=== PATIENT | female | born 1950 | race Caucasian/White ===

== ENCOUNTER 2023-09-25 21:45 | Emergency (ER) | payer MEDICARE, OTHER, SELFPAY ==
--- NOTE | ~2023-09-25 | XR_ITS ---
EXAMINATION: XR foot LT min 3V DATE: 09/25/2023 23:51 INDICATION: Wound of the left first toe, diabetic TECHNIQUE: Dorsoplantar, lateral, and 2 oblique views of the left foot were obtained. COMPARISON: None. FINDINGS: There is soft tissue swelling of the foot near the first and fifth metatarsophalangeal join ts. No acute underlying osseous findings are identified. An orthopedic screw is present in the first metatarsal. 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 Posterior and plantar calcaneal e nthesophytes are noted. IMPRESSION: 1. Soft tissue swelling without acute osseous findings or evidence of osteomyelitis. Reviewed, dictated and finalized at location F. IMPRESSION: 1. Soft tissue swelling without acute osseous findings or evidence of osteomyel itis.
[2023-09-25 22:22] VITALS: BP 133/64; PULSE 86; RESP 20; TEMP 37.3; O2SAT 98
--- NOTE | 2023-09-26 00:54 | ED.EXTPRO ---
HPI - Extremity Problem General Chief complaint: Extremity Problem,Nontraumatic Stated complaint: infection in left foot Time Seen by Provider: 09/25/23 23:25 History of Present Illness HPI Narrative: 73-year-old female reports for evaluation for redness to the dorsum of her L foot that started today. Patient states approximately 1 week ago, she began picking at the lateral nail fold of her great toe because she thought there was something stuck in her skin. Since then, she has had swelling and today developed redness which prompted her to come to the ED. 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 She has followed with a applied technologist at [facility], however has not been seen for 1 year. States her applied technologist has left since. She tried to schedule an appointment recently, however was unable to get in until December 2023, therefore she came to the ED. She reports soaking her toe in Betadine with improvement. Denies fevers, vomiting, nausea, purulent drainage. Related Data Allergies Allergy/AdvReac Type Severity Reaction Status Date / Time clindamycin Allergy Rash Verified 09/25/23 22:40 metformin Allergy Diarrhea Verified 09/25/23 22:32 Penicillins Allergy Rash Verified 09/25/23 22:32 Review of Systems Review of Systems: CONSTITUTIONAL: Denies fever, chills EYES: Denies visual changes, redness, or discharge. ENT: Denies rhinorrhea, congestion, sore throat, or otalgia. CARDIOVASCULAR: Denies chest pain, palpitations, or edema. RESPIRATORY: Denies cough or dyspnea. GASTROINTESTINAL: Denies abdominal pain, nausea, vomiting, or diarrhea. GENITOURINARY: Denies dysuria or hematuria. SKIN: See HPI MUSCULOSKELETAL: Denies back pain, joint pain, or myalgia. NEUROLOGIC: Denies headache, numbness, dizziness, or weakness. PSYCHIATRIC: Denies anxiety or depression. Exam Narrative: GENERAL: Well-appearing, in no acute distress. Patient resting comfortably in exam bed. She is pleasant and conversational. HEAD: Normocephalic NECK: Supple. CHEST: No respiratory distress. Clear to auscultation, no adventitious breath sounds. HEART: Regular rate and rhythm. No murmur heard. Normal peripheral pulses. ABDOMEN: Soft, nontender, normal active bowel sounds. EXTREMITIES: Normal range of motion. No edema. SKIN: LLE: Superficial abrasion to the distal lateral nail fold of the great toe with surrounding blanching erythema and warmth that extends to the proximal metatarsals. Mild amount of edema. No other open lesions or ulcerations to remainder of foot. DP pulses 2+. Cap refill less than 2. No active drainage from abrasion. NEURO: No focal deficits. Alert and oriented x3. PSYCH: Normal mood and affect. Course Vital Signs Vital signs: Vital Signs Temperature 99.2 F 09/25/23 22:22 Pulse Rate 86 09/25/23 22:22 Respiratory Rate 20 09/25/23 22:22 Blood Pressure 133/64 09/25/23 22:22 Pulse Oximetry 98 09/25/23 22:22 Oxygen Delivery Room Air 09/25/23 22:22 Temperature 99.2 F 09/25/23 22:22 Pulse Rate 86 09/25/23 22:22 Respiratory Rate 20 09/25/23 22:22 Blood Pressure 133/64 09/25/23 22:22 Pulse Oximetry 98 09/25/23 22:22 Oxygen Delivery Room Air 09/25/23 22:22 MDM - Extremity (Nontraumatic) MDM Narrative Medical decision making narrative: 73-year-old female reports for evaluation for erythema to the dorsum of her left great toe and proximal metatarsals starting today. See HPI for further history. Her vitals are stable and she is afebrile. Exam is significant for cellulitis to the dorsum of the left foot. She is otherwise well-appearing. X-ray of the left toe shows soft tissue swelling without acute osseous findings or evidence of osteomyelitis. CBC with mild leukocytosis of 10.1. Hemoglobin is 10.3, no prior for comparisons. Chemistries significant for BUN of 26 and creatinine of 1.3, again no
[2023-09-26] MEDS: ceFAZolin 1 GM/NS 50 ML 1 GM/50 ML BAG IVPB (01:17)
[2023-09-26 01:20] LABS: Basophils Percent Auto 0.4 % (0.2-1.2); Eosinophils Absolute Auto 0.2 K/mm3 (0-0.3); Eosinophils Percent Auto 2.1 % (0-4.4); Hematocrit 31.9 % (37.0-47.0); Hemoglobin 10.3 g/dL (12.0-15.0); Immature Granulocyte Absolute 0.05 K/mm3 (0.00-0.031); Immature Granulocyte Percent A 0.5 % (0-0.5); Lymphocytes Absolute Auto 2.17 K/mm3 (0.9-3.2); Lymphocytes Percent Auto 21.4 % (18.3-44.2); Mean Corpuscular HGB Conc 32.3 g/dl (32-36); Mean Corpuscular Hemoglobin 30.2 pg (26-34); Mean Corpuscular Volume 93.5 fl (80-100); Mean Platelet Volume 9.5 fl (7.4-10.4); Monocytes Absolute Auto 0.6 K/mm3 (0.1-0.6); Monocytes Percent Auto 6.1 % (2.6-8.5); Neutrophils Percent Auto 69.5 % (45.5-73.1); Platelet Count Result 278 k/mm3 (150-375); Red Blood Count 3.41 M/mm3 (4.2-5.4); Red Cell Distribution Width 13.2 % (11.5-14.5); White Blood Count 10.1 K/mm3 (4.5-10.0)
[2023-09-26 01:36] LABS: Anion Gap 7 mmol/L (8-16); Blood Urea Nitrogen 26 mg/dL (7-17); Calcium 9.3 mg/dL (8.4-10.2); Carbon Dioxide 24 mmol/L (22-30); Chloride 108 mmol/L (98-107); Estimated Glomerular Filt Rate 40; Glucose 88 mg/dL (65-110); Potassium 3.8 mmol/L (3.4-5.0); Sodium 139 mmol/L (137-145)
[2023-09-26 02:02] LABS: Erythrocyte Sedimentation Rate 64 mm/hr (0-20)
[2023-09-26] MEDS: SODIUM CHLORIDE 0.9% IV 1,000 ML 999 ML IV CONT (02:41)
== END 2023-09-26 03:37 | disposition home or self-care (01) ==
PROVIDERS: Emergency Provider Physician Assistant; PCP Internal Medicine
DX: L03.116 Cellulitis of left lower limb (principal); S90.812A Abrasion, left foot, initial encounter; N18.9 Chronic kidney disease, unspecified; D64.9 Anemia, unspecified; X58.XXXA Exposure to other specified factors, initial encounter
CPT/HCPCS: 36415; 73630; 80048; 85025; 85652; 86140; 96361; 96365; 99284; J0690; J7030

== ENCOUNTER 2025-01-02 20:17 | Inpatient (IN) | payer MEDICARE, OTHER, SELFPAY ==
--- NOTE | ~2025-01-02 | XR_ITS ---
EXAMINATION: XR hip LT 2V w AP pelvis DATE: 01/03/2025 08:27 INDICATION: Left hip and knee pain. TECHNIQUE: Anteroposterior view of the pelvis and anteroposterior and frog-leg lateral views of the l eft hip were obtained. COMPARISON: None. FINDINGS: The lower lumbar spine is tilted towards the left. There is severe lower lumbar facet osteoarthritis. Bone alignment is otherwise normal. No fracture or suspected osteonecrosis. There is moderate osteoa rthritis at the bilateral hip and sacroiliac joints. IMPRESSION: 1. 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 Reviewed, dictated and finalized at location B. BUILDER IMPRESSION: 1. 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
--- NOTE | ~2025-01-02 | US_ITS ---
EXAMINATION: US venous doppler [facility] DATE: 01/03/2025 08:37 INDICATION: Left lower limb swelling TECHNIQUE: Grayscale ultrasound images without and with compression and Doppler ultrasound images of the left lower extremity veins were obtained. COMPARISON: None. FINDINGS: The visualized portions of left common femoral vein, profunda (deep) femoral vein, femoral vein, popl iteal vein, peroneal veins, posterior tibial veins, gastrocnemius vein and greater saphenous vein out flow are patent. IMPRESSION: 1. No deep venous thrombosis in the left lower limb. Reviewed, dictated and finalized at location B. OYMENT ATTORNEY
--- NOTE | ~2025-01-02 | XR_ITS ---
EXAM: XR ankle LT min 3V DATE: 01/03/2025 13:37 HISTORY: pain distal fibular shaft . COMPARISON: None available. FINDINGS: Decreased mineralization. No fracture or dislocation. No lytic or blastic lesion. Mild deg enerative change at the ankle joint and in the midfoot. Moderate Achilles and mild plantar enthesopat hy. No erosion or periosteal change. Circumferential soft tissue swelling. Small ankle joint effusion . IMPRESSION: No acute osseous finding in the left ankle. Reviewed, dictated and finalized at location K. OBIOLOGY LAB ASSISTANT
--- NOTE | ~2025-01-02 | XR_ITS ---
Left foot Technique: AP, oblique, and lateral views were obtained. Clinical History: Pain COMPARISON: 09/25/2023 Findings: No acute fracture or dislocation is seen. Stable postoperative change at the first metatars al with degenerative change at the first MTP joint. Additional degenerative changes at the second and third MTP joints are present, with chronic remodeling changes.. Soft tissues are unremarkable. Impression: No acute abnormality. Stable postoperative and degenerative changes, as above. Reviewed, dictated and finalized at location M. IC HEALTH AIDES TEACHER Impression: No acute abnormality. Stable postoperative and degenerative changes, as above.
--- NOTE | ~2025-01-02 | XR_ITS ---
Portable chest x-ray Comparison: None Clinical History: Cough, fever Findings: Lungs are clear, without focal consolidation or pleural effusion. Cardiomediastinal silho uette is enlarged. Bones and soft tissues are unremarkable. Impression: Clear lungs. Cardiomegaly. Reviewed, dictated and finalized at location . OGRAPHER FINISH Impression: Clear lungs. Cardiomegaly.
--- NOTE | ~2025-01-02 | MR_ITS ---
EXAMINATION: MR lower leg LT wo/w con DATE: 01/04/2025 12:27 INDICATION: Distal left fibula pain. TECHNIQUE: Magnetic resonance imaging (MRI) of the left lower leg was performed without and with 20 m L MultiHance intravenous contrast. COMPARISON: Left ankle radiographs 01/03/2025 FINDINGS: Bone alignment is normal. No fracture. The musculature is normal. There is diffuse subcutan eous edema in the lower leg. No abscess. IMPRESSION: 1. Diffuse subcutaneous edema in the lower leg. No abscess. Reviewed, dictated and finalized at location A. RVISOR PAINTING
--- NOTE | ~2025-01-02 | XR_ITS ---
Left Knee Technique: AP, lateral, and oblique views were obtained. Clinical History: Pain Findings: No fracture or dislocation is seen. Osseous alignment is anatomic. There is moderate to adv anced tricompartmental degenerative change, with extensive osteophyte formation. Soft tissues are unr emarkable. No joint effusion is seen. Impression: Moderate to advanced tricompartmental degenerative change. Reviewed, dictated and finalized at location M. RENCE INVESTIGATOR Impression: Moderate to advanced tricompartmental degenerative change.
--- NOTE | ~2025-01-02 | MR_ITS ---
EXAMINATION: MR foot LT wo/w con DATE: 01/03/2025 17:14 INDICATION: Abscess at the left forefoot TECHNIQUE: Magnetic resonance imaging (MRI) of the left fore/mid foot was performed without intraveno us contrast. Contrast ministration was deferred as people was inability to lay still during the proce dure. Sequences included axial, sagittal and coronal T1-weighted FSE, axial and coronal T2-weighted F S FSE, sagittal fluid sensitive FSE STIR and axial T1-weighted FS FSE. COMPARISON: None FINDINGS: Minimal to moderate motion artifact to some degree on all sequences. There are postoperative changes of prior bunionectomy and likely hallux valgus repair with realignment osteotomy with screw fixation at the neck of the first metatarsal. There is 35 degrees residual hallux valgus. Chronic appearing de formities with loss of bone stock and remodeling of the heads of the second and third metatarsals and third proximal phalanx, all with normal marrow signal which could represent sequela of chronic traum a, surgery or osteomyelitis. Additional deformity at the base of the third proximal phalanx also with normal marrow signal and with similar differential. There is fusion across the third distal interpha langeal joint. There is intra-articular fracture mild displacement of a small fracture fragment at th e dorsal base of the proximal phalanx. There is marrow edema and loss of T1 signal at the second prox imal phalanx which could represent changes of healing of the fracture although differential would als o include osteomyelitis. Bone marrow signal is otherwise normal throughout. Mild to moderate polyarti cular osteoarthritis throughout the joints of the mid and forefoot most prominent at the first metata rsophalangeal and a few the tarsal metatarsal and interphalangeal joints. No joint effusions, abscess or other abnormal fluid collections. There is diffuse soft tissue edema throughout the forefoot. The re is fatty atrophy of the intrinsic musculature of the foot which likely represents sequela of chron ic diabetic neuropathy. IMPRESSION: 1. Evaluation of the moderately limited by motion artifact on multiple sequences including repeated s equences. 2. Marrow signal change in the second proximal phalanx which could relate to a healing fracture with mild distraction of an ununited fragment at the dorsal base of the proximal phalanx. Differential for the marrow signal change which include osteomyelitis although there is no evident joint effusion to suggest associated septic arthritis or evident adjacent ulceration to elevate suspicion. 3. Postoperative change of prior bunionectomy and hallux valgus correction with 35 degrees residual v ersus recurrent hallux valgus. 4. Chronic deformities at the heads of the second and third metatarsals, the base and the head and ba se of the third proximal phalanx which could be sequela of prior surgery, trauma or chronic osteomyel itis. 5. Mild to moderate polyarticular osteoarthritis in the left mid and forefoot. Reviewed, dictated and finalized at location A. ROLLER IMPRESSION: 1. Evaluation of the moderately limited by motion artifact on multiple sequence s including repeated sequences. 2. Marrow signal change in the second proximal phalanx which could relate to a healing fracture with mild distraction of an ununited fragment at the dorsal ba se of the proximal phalanx. Differential for the marrow signal change which inc lude osteomyelitis although there is no evident joint effusion to suggest assoc iated septic arthritis or evident adjacent ulceration to elevate suspicion. 3. Postoperative change of prior bunionectomy and hallux valgus correction with 35 degrees residual versus recurrent hallux valgus. 4. Chronic deformities at the heads of the second and third metatarsals, the ba se and the head and base of the third proximal phalanx which could be sequela o f prior surgery, trauma or chronic osteomyelitis. 5. Mild to moderate polyarticular osteoarthritis in the left mid and forefoot.
--- NOTE | ~2025-01-02 | XR_ITS ---
EXAMINATION: XR foot LT min 3V DATE: 01/03/2025 08:27 INDICATION: Left foot osteomyelitis. TECHNIQUE: 4 views of left foot were obtained. COMPARISON: Left foot radiographs 01/02/2025, 09/25/2023 FINDINGS: There are changes of bunionectomy. There is a screw in the first metatarsal. There are defo rmities of the heads of the second and third metatarsals, which may be postsurgical or posttraumatic. There is an old healed fracture of second proximal phalanx. There is mild to moderate osteoarthritis of first metatarsophalangeal joint and some of the interphalangeal joints and midfoot joints. There are enthesophytes at the posterior and plantar aspects of calcaneal tuberosity. IMPRESSION: 1. No evidence of osteomyelitis. 2. Polyarticular osteoarthritis. Reviewed, dictated and finalized at location [] D CLERK
[2025-01-02 20:17] VITALS: BP 145/56; PULSE 107; RESP 16; TEMP 38.8; O2SAT 96
--- OUTSIDE RECORDS SUMMARY | 2025-01-02 20:19 | XMS_ITS | Encounter Summary ---
Author Organization [facility] Address [address] [place] [address] Phone Care Team Providers Care Ground Support Equipment Fitter Name Role Phone Neymar Garibay MD Primary Care Provider Neymar Garibay MD Primary Care Provider Neymar Garibay MD Unavailable [phone] Mamta Gandhi DPT Unavailable [phone] Encounter Details Date Type Department Care Team (Late st Contact Info) Description 12/07/2019 Orders Only [facility] [phone] Scanning, Provider Social History Tobacco Use Types Packs/Day Years Used Date Smoking Tobacco: Former Smokeless Tobacco: Never Alcohol Use Standard Drinks/Week Comments Yes 0 (1 standard drink = 0.6 oz pur e alcohol) Comments No Sex and Gender Information Value Date Recorded Sex Assigned at Not on file Legal Sex Female 1:19 AM REAL ESTATE MANAGER Gender Identity Female 09/25/2021 5:30 AM CDT Sexual Orientation Straight 09/25/2021 5: 30 AM CDT documented as of this encounter Plan of Treatment Not on file documented as of this encounter Procedures Procedure Name Priority Date/Time Associated Diagnosis Comments SCAN - RADIOLOGY/IMAGING 12/07/2019 documented in this encounter Results * SCAN - RADIOLOGY/IMAGING (12/07/2019) Anatomical Region Laterality Modality Other us Provider Scanning Final Result documented in this encounter Visit Diagnoses Not on filedocumented in this encounter Additional Health Concerns Infection Onset Date Last Indicated Resolved Time MRSA 01/31/2020 01/30/2020 07/18/2021 5:00 AM CDT COVID: Suspected 06/12/2020 06/12/2020 06/26/2020 3:05 AM CDT documented as of this encounter Care Teams Ground Support Equipment Fitter Relationship Specialty Start Date End Date Neymar Garibay MD [address] [place], [place] [id number] PCP - General 03/28/17 01/30/20 Neymar Garibay MD [address] [place] [address] PCP - General 01/31/20 Neymar Garibay MD [address] [place], [place] [id number] 01/31/20 Mamta Gandhi DPT [address] [place], [place] [id number] Physical Therapist Physical Therapy 12/23/18 12/28/19 documented as of this encounter
--- OUTSIDE RECORDS SUMMARY | 2025-01-02 20:19 | XMS_ITS | Encounter Summary ---
Author Organization [facility] Address [address] [place] [address] Phone Care Team Providers Care Property Staff Accountant Name Role Phone Neymar Garibay MD Primary Care Provider Neymar Garibay MD Unavailable [phone] Encounter Details Date Type Department Care Team (Late st Contact Info) Description 10/22/2023 Telephone [facility] [address] [place] [address] Neymar Garibay MD [address] [place] [address] Social History Tobacco Use Types Packs/Day Years Used Date Smoking Tobacco: Former Smokeless Tobacco: Never Alcohol Use Standard Drinks/Week Comments Yes 0 (1 standard drink = 0.6 oz pur e alcohol) AUDIT-C Answer Date Recorded Q1: How often do you have a drink containing alcohol? Never 04/14/2023 Q2: How many drinks containi ng alcohol do you have on a typical day when you are drinking? 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 Author CCM Chronic Pain Care Plan Chronic Care Management No change(04/14 11:43 AM CDT) No Robyn Michael, FIFI Note: Problem: Chronic Pain Goals: 1. Minimize further functional decline 2. Maximize quality of life 3. Control pain Strategies: - Activity/exercise program recommendation - Conservative stepwise pain medicine strategy with multi-disciplinary approach - Recommend healthy lifestyle strategies and compensatory methods as needed documented as of this encounter Visit Diagnoses Not on filedocumented in this encounter Care Teams Property Staff Accountant Relationship Specialty Start Date End Date Neymar Garibay MD [address] [place] [address] PCP - General 01/31/20 Neymar Garibay MD [address] [place] [address] 01/31/20 documented as of this encounter
--- OUTSIDE RECORDS SUMMARY | 2025-01-02 20:20 | XMS_ITS | Patient Health Summary ---
Author Organization [facility] Address [address] [place] [address] Care Team Providers Care Gore Seamer Name Role Phone Neymar Garibay MD Primary Care Provider Note from [facility],non-owned Affiliates and Associated Physician Practices is amultiple site organization consisting of ambulatory clinics and hospital sitesin [place], [place], [place] and [place]. This disclosure is being madepursuant to the Care Everywhere program and may not contain all information available regarding this patient. Last updated 18.[facility] Social History Tobacco Use Types Packs/Day Years Used Date Smoking Tobacco: Never Assessed Sex and Gender Information Value Date Recorded Sex Assigned at Not on file Gender Identity Not on file Sexual Orientation Not on file Procedures * DERMATOPATHOLOGY(Performed 04/09/2017) * MRI FOOT LEFT WO CONTRAST(Performed 11/08/2016) Performed for Ulcer of left foot, with fat layer exposed (HCC) Results * PATHOLOGY TISSUE FOR DERMATOLOGY (04/09/2017 12:00 AM CDT) Result CASE: [id number] PATIENT: VALE SIDDIQI PATHOLOGIC DIAGNOSIS: A. Left upper eyelid: INTRADERMAL MELANOCYTIC NEVUS B. Mid back: LENTIGINOUS MELANOCYTIC NEVUS, COMPOUND TYPE, IRRITATED (COMPOUND MELANOCYTIC NEVUS WITH ARCHITECTURAL DISORDER) (see microscopic description and comment) CLINICAL DATA: A: ??Nevus vs angioma, irritated, growing. B: ??Nevus vs angioma, irritated, irreg color. GROSS DESCRIPTION: A: ??Received is one formalin filled container labeled with the patients name and designated left upper eyelid. The specimen consists of a shave (2 pieces) measuring 3x3x1 and [id number]. Jar 0. B: ??Received is one formalin filled container labeled with the patients name and designated mid back. The specimen consists of a shave measuring [id number]. Jar 0. MICROSCOPIC DESCRIPTION: SPECIMEN ??A There are nests of melanocytes within the dermis that mature with depth. SPECIMEN ??B This is a compound nevus. There is pigmented parakeratosis present. There is architectural disorder characterized by a lentiginous proliferation of melanocytes between irregular nests of cells along the dermal-epidermal junction, highlighted by MART-1/Melan-A immunohistochemical staining. There is underlying fibroplasia of the papillary dermis. The intradermal component is bland appearance and matures with depth. Original and deeper sections were reviewed. (Compound Roney's Nevus or Compound Dysplastic Nevus) COMMENT: ??This lesion is present at the margin of the specimen. ??If this specimen is a part of a much larger lesion, it may not be contracts representative of the entire lesion sampled. ??Clinical correlation is recommended. Electronically signed out by Michaela Cabral M.D., PhD. 04/14/2017 4:09:31PM [facility] Comment: Performed at: Dermatopathology Laboratory [facility] - Department of Dermatology [address] [place] [address] 5th [place] [address] Phone number: [phone] FAX: [phone] 04/09/2017 04/11/2017 Sasha Calvert MD LAB - PATHOLOGY/CYT OLOGY ORDERABLES [facility] [address] [place] [address]. [facility] [place] [address], [facility] [phone] * MRI FOOT NON IV CONTRAST LEFT (11/08/2016 3:23 PM RISK TECH) Anatomical Region Laterality Modality Magnetic Resonan ce 11/08/2016 3:51 PM RISK TECH Impressions 11/08/2016 4:00 PM RISK TECH ULCERATION PLANTAR TO THE THIRD METATARSOPHALANGEAL JOINT. NO MR EVIDENCE OF ABSCESS OR OSTEOMYELITIS. Edited by Maite Moe on 11/08/2016 3:57 PM Narrative 11/08/2016 4:00 PM RISK TECH MRI LEFT FOOT WITHOUT CONTRAST CLINICAL INDICATION: Plantar left foot pain, redness, and ulceration. COMPARISON: None available. TECHNIQUE: Multiplanar multisequence MR imaging of the left foot was performed without contrast. A high-resolution small field of view was utilized to incorporate the mid and forefoot. The ankle was not evaluated. FINDINGS: There is skin and subcutaneous ulceration noted plantar to the third metatarsophalangeal joint. The area of abnormality measures approximately 1.9 x 2.1 cm. No loculated or drainable fluid collection is identified. There is no bone marrow edema, periostitis, or cortical destruction to suggest osteomyelitis. There has been a prior hallux valgus correctional osteotomy. There are no osteochondral lesions. Osseous alignment is near-anatomic. The flexor and dorsal extensor tendons are intact throughout. The capsular structures of the metatarsophalangeal and interphalangeal joints are intact. Procedure Note Joselito Daugherty MD - 11/08/2016 MRI LEFT FOOT WITHOUT CONTRAST CLINICAL INDICATION: Plantar left foot pain, redness, and ulceration. COMPARISON: None available. TECHNIQUE: Multiplanar multisequence MR imaging of the left foot was performed without contrast. A high-resolution small field of view was utilized to incorporate the mid and forefoot. The ankle was not evaluated. FINDINGS: There is skin and subcutaneous ulceration noted plantar to the third metatarsophalangeal joint. The area of abnormality measures approximately 1.9 x 2.1 cm. No loculated or drainable fluid collection is identified. There is no bone marrow edema, periostitis, or cortical destruction to suggest osteomyelitis. There has been a prior hallux valgus correctional osteotomy. There are no osteochondral lesions. Osseous alignment is near-anatomic. The flexor and dorsal extensor tendons are intact throughout. The capsular structures of the metatarsophalangeal and interphalangeal joints are intact. IMPRESSION ULCERATION PLANTAR TO THE THIRD METATARSOPHALANGEAL JOINT. NO MR EVIDENCE OF ABSCESS OR OSTEOMYELITIS. Edited by Maite Moe on 11/08/2016 3:57 PM Terese Osman BUFFY MR ORDERABLES Care Teams Gore Seamer Relationship Specialty Start Date End Date Neymar Garibay MD [address] [id number] PCP - General Internal Medicine 11/08/16
--- OUTSIDE RECORDS SUMMARY | 2025-01-02 20:20 | XMS_ITS | Encounter Summary ---
Author Organization [facility] Address [address] [place] [address] Phone Care Team Providers Care Senior Cobol Developer Name Role Phone Neymar Garibay MD Primary Care Provider Neymar Garibay MD Primary Care Provider Neymar Garibay MD Unavailable [phone] Mamta Gandhi DPT Unavailable [phone] Encounter Details Date Type Department Care Team (Latest Contact Info) Description 06/10/2017 Orders Only [facility] CONVERSION Scanning, Provider Social History Tobacco Use Types Packs/Day Years Used Date Smoking Tobacco: Former Alcohol Use Standard Drinks/Week Comments Yes 0 (1 standard drink = 0.6 oz pur e alcohol) Comments Unknown Sex and Gender Information Value Date Recorded Sex Assigned at Not on file Legal Sex Female 1:19 AM 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 Gender Identity Female 09/25/2021 5:30 AM CDT Sexual Orientation Straight 09/25/2021 5: 30 AM CDT documented as of this encounter Plan of Treatment Not on file documented as of this encounter Procedures Procedure Name Priority Date/Time Associated Diagnosis Comments VASCULAR LABORATORY REPORT 07/10/2017 10:22 AM CDT VASCULAR LABORATORY REPORT 06/10/2017 7:05 PM CDT documented in this encounter Results * VASCULAR LABORATORY REPORT (07/10/2017 10:22 AM CDT) Anatomical Region Laterality Modality Ultrasound us Provider Scanning CV VASCULAR PROCEDURES Final R esult * VASCULAR LABORATORY REPORT (06/10/2017 7:05 PM CDT) Anatomical Region Laterality Modality Ultrasound us Provider Scanning CV VASCULAR PROCEDURES Final R esult documented in this encounter Visit Diagnoses Not on filedocumented in this encounter Additional Health Concerns Infection Onset Date Last Indicated Resolved Time MRSA 01/31/2020 01/30/2020 07/18/2021 5:00 AM CDT COVID: Suspected 06/12/2020 06/12/2020 06/26/2020 3:05 AM CDT documented as of this encounter Care Teams Senior Cobol Developer Relationship Specialty Start Date End Date Neymar Garibay MD [address] [place] [address] PCP - General 03/28/17 01/30/20 Neymar Garibay MD [address] [place] [address] PCP - General 01/31/20 Neymar Garibay MD [address] [place] [address] 01/31/20 Mamta Gandhi DPT [address] [place] [address] Physical Therapist Physical Therapy 12/23/18 12/28/19 documented as of this encounter
--- OUTSIDE RECORDS SUMMARY | 2025-01-02 20:20 | XMS_ITS | Encounter Summary ---
Author Organization [facility] Address [address] [place] [address] Phone Care Team Providers Care Hot Dog Vendor Name Role Phone Neymar Garibay MD Primary Care Provider Neymar Garibay MD Unavailable [phone] Encounter Details Date Type Department Care Team (Late st Contact Info) Description 01/13/[address] [facility] [address] [place] [address] Eduarda Booker, EBONY [address] [place] [address] Pain in left leg (Primary Dx) Social History Tobacco Use Types Packs/Day Years Used Date Smoking Tobacco: Former Smokeless Tobacco: Never Alcohol Use Standard Drinks/Week Comments Yes 0 (1 standard drink = 0.6 oz pur e alcohol) AUDIT-C Answer Date Recorded Q1: How often do you have a drink containing alcohol? Never 12/19/2022 Q2: How many drinks containi ng alcohol do you have on a typical day when you are drinking? Patient does not drink Q3: How often do you have si x or more drinks on one occasion? Never 12/19/2022 Comments No Sex and Gender Information Value Date Recorded Sex Assigned at Not on file Legal Sex Female 1:19 AM BEDSPREAD CUTTER HAND Gender Identity Female 09/25/2021 5:30 AM CDT [...] documented as of this encounter Visit Diagnoses Diagnosis Pain in left leg- Primary documented in this encounter Care Teams Hot Dog Vendor Relationship Specialty Start Date End Date Neymar Garibay MD [address] [place] [address] PCP - General 01/31/20 Neymar Garibay MD [address] [place] [address] 01/31/20 documented as of this encounter
--- OUTSIDE RECORDS SUMMARY | 2025-01-02 20:20 | XMS_ITS | Encounter Summary ---
Author Organization [facility] Address [address] [place] [address] Phone Care Team Providers Care Equipment Engineer Name Role Phone Neymar Garibay MD Primary Care Provider Neymar Garibay MD Primary Care Provider Neymar Garibay MD Unavailable [phone] Mamta Gandhi DPT Unavailable [phone] Encounter Details Date Type Department Care Team (Latest Contact Info) Description 10/29/2017 Orders Only [facility] CONVERSION Scanning, Provider Social History Tobacco Use Types Packs/Day Years Used Date Smoking Tobacco: Former Alcohol Use Standard Drinks/Week Comments Yes 0 (1 standard drink = 0.6 oz pur e alcohol) Comments Unknown Sex and Gender Information Value Date Recorded Sex Assigned at Not on file Legal Sex Female 1:19 AM INDUSTRIAL SALES ENGINEER Gender Identity Female 09/25/2021 5:30 AM CDT Sexual Orientation Straight 09/25/2021 5: 30 AM CDT documented as of this encounter Plan of Treatment Not on file documented as of this encounter Procedures Procedure Name Priority Date/Time Associated Diagnosis Comments VASCULAR LABORATORY REPORT 10/29/2017 8:58 PM INDUSTRIAL SALES ENGINEER documented in this encounter Results * VASCULAR LABORATORY REPORT (10/29/2017 8:58 PM INDUSTRIAL SALES ENGINEER) Anatomical Region Laterality Modality Ultrasound us Provider Scanning CV VASCULAR PROCEDURES Final R esult documented in this encounter Visit Diagnoses Not on filedocumented in this encounter Additional Health Concerns Infection Onset Date Last Indicated Resolved Time MRSA 01/31/2020 01/30/2020 07/18/2021 5:00 AM CDT COVID: Suspected 06/12/2020 06/12/2020 06/26/2020 3:05 AM CDT documented as of this encounter Care Teams Equipment Engineer Relationship Specialty Start Date End Date Neymar Garibay MD [address] [place] [address] PCP - General 03/28/17 01/30/20 Neymar Garibay MD [address] [place] [address] PCP - General 01/31/20 Neymar Garibay MD [address] [place] [address] 01/31/20 Mamta Gandhi DPT [address] [place] [address] Physical Therapist Physical Therapy 12/23/18 12/28/19 documented as of this encounter
--- OUTSIDE RECORDS SUMMARY | 2025-01-02 20:20 | XMS_ITS | Encounter Summary ---
Author Organization [facility] Address [address] [place] [address] Phone Care Team Providers Care Business And Marketing Teacher Name Role Phone Neymar Garibay MD Primary Care Provider Neymar Garibay MD Primary Care Provider Neymar Garibay MD Unavailable [phone] Mamta Gandhi DPT Unavailable [phone] Encounter Details Date Type Department Care Team (Latest Contact Info) Description 07/14/2017 Orders Only [facility] CONVERSION Scanning, Provider Social History Tobacco Use Types Packs/Day Years Used Date Smoking Tobacco: Former Alcohol Use Standard Drinks/Week Comments Yes 0 (1 standard drink = 0.6 oz pur e alcohol) Comments Unknown Sex and Gender Information Value Date Recorded Sex Assigned at Not on file Legal Sex Female 1:19 AM ASSISTANT PROSECUTING ATTORNEY Gender Identity Female 09/25/2021 5:30 AM CDT Sexual Orientation Straight 09/25/2021 5: 30 AM CDT documented as of this encounter Plan of Treatment Not on file documented as of this encounter Procedures Procedure Name Priority Date/Time Associated Diagnosis Comments VASCULAR LABORATORY REPORT 07/14/2017 11:55 AM CDT documented in this encounter Results * VASCULAR LABORATORY REPORT (07/14/2017 11:55 AM CDT) Anatomical Region Laterality Modality Ultrasound us Provider Scanning CV VASCULAR PROCEDURES Final R esult documented in this encounter Visit Diagnoses Not on filedocumented in this encounter Additional Health Concerns Infection Onset Date Last Indicated Resolved Time MRSA 01/31/2020 01/30/2020 07/18/2021 5:00 AM CDT COVID: Suspected 06/12/2020 06/12/2020 06/26/2020 3:05 AM CDT documented as of this encounter Care Teams Business And Marketing Teacher Relationship Specialty Start Date End Date Neymar Garibay MD [address] [place] [address] PCP - General 03/28/17 01/30/20 Neymar Garibay MD [address] [place] [address] PCP - General 01/31/20 Neymar Garibay MD [address] [place] [address] 01/31/20 Mamta Gandhi DPT [address] [place] [address] Physical Therapist Physical Therapy 12/23/18 12/28/19 documented as of this encounter
--- OUTSIDE RECORDS SUMMARY | 2025-01-02 20:20 | XMS_ITS | Referral Summary ---
Author Organization [facility] Address [address] [place] [address] Care Team Providers Care Ethylbenzene Converter Helper Name Role Phone Neymar Garibay MD Primary Care Provider Source Comments [facility],non-owned Affiliates and Associated Physician Practices is amultiple site organization consisting of ambulatory clinics and hospital sitesin [place], [place], [place] and [place]. This disclosure is being madepursuant to the Care Everywhere program and may not contain all information available regarding this patient. Last updated 18.[facility] Social History Tobacco Use Types Packs/Day Years Used Date Smoking Tobacco: Never Assessed Sex and Gender Information Value Date Recorded Sex Assigned at Not on file Gender Identity Not on file Sexual Orientation Not on file Plan of Treatment Not on file Care Teams Ethylbenzene Converter Helper Relationship Specialty Start Date End Date Neymar Garibay MD [address] [facility], [phone] PCP - General Internal Medicine 11/08/16
--- OUTSIDE RECORDS SUMMARY | 2025-01-02 20:20 | XMS_ITS | Clinical Summary ---
Author Organization [facility] Address [address] 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 This disclosure is being madepursuant to the Care Everywhere program and may not contain all information available regarding this patient. Last updated 18.[facility] Social History Tobacco Use Types Packs/Day Years Used Date Smoking Tobacco: Never Assessed Sex and Gender Information Value Date Recorded Sex Assigned at Not on file Gender Identity Not on file Sexual Orientation Not on file Plan of Treatment Health Maintenance Due Date Last Done Comments BONE DENSITY TESTING 1950 COLOGUARD (AGES 45-75) - COL ON CA SCREENING 1951 COLON MONITORING 1951 COLONOSCOPY - COLON CA SCREENING 1950 CT COLONOGRAPHY - COLON CA SCREENING 1950 Colorectal Cancer Screening 1950 FIT - COLON CA SCREENING 1951 FLEX SIG - COLON CA SCREENING 1951 LIPID TESTING 1950 MAMMOGRAM 1950 MEDICARE AWV ? 12 MONTHS 1950 HEPATITIS C SCREENING 03/18/1969 DTAP/TDAP/TD VACCINES (1 - Tdap) 1970 PNEUMOCOCCAL VACCINE 50+ (1 of 1 - PCV) 2001 ZOSTER VACCINE (1 of 2) 2001 COVID-19 VACCINE (1 - 2023-2 5 season) 2024 INFLUENZA VACCINE (#1) 2024 DEPRESSION SCREENING 12/01/2024 Respiratory Syncytial Virus (RSV) Vaccine Pt: or over 60 yrs (1 - 1-dose 75+ series) 2026 HEPATITIS B VACCINE Aged Out No longe r eligible based on patient's age to complete this topic HIB VACCINE Aged Out No longer eligi ble based on patient's age to complete this topic HPV VACCINE Aged Out No longer eligi ble based on patient's age to complete this topic MENINGOCOCCAL (Group B) VACCINE Aged Out No longer eligible based on patient's age to complete this topic MENINGOCOCCAL VACCINE Aged Out No j luis nadja eligible based on patient's age to complete this topic Care Teams Ground Crew Lines Person Relationship Specialty Start Date End Date Neymar Garibay MD [address] [facility] [phone] PCP - General Internal Medicine 11/08/16
--- OUTSIDE RECORDS SUMMARY | 2025-01-02 20:20 | XMS_ITS | Referral Summary ---
Author Organization [facility] Address [address] [place] [address] Care Team Providers Care Dictaphone Transcriber Name Role Phone Neymar Garibay MD Primary Care Provider Neymar Garibay MD Unavailable [phone] Encounters Date Type Department Care Team Description 12/31/2024 10:25 AM COAL BRIQUETTE MACHINE OPERATOR Ancillary Procedure [facility] Orthopaedic Surgery [address] [facility] Medicine 6th [place] [address] [place] [address] Chronic pain of left knee 12/31/2024 10:15 AM COAL BRIQUETTE MACHINE OPERATOR Procedure visit [facility] Orthopaedic Surgery [address] [place] [address] [place] [address] Mir Katz MD Chronic pain of left knee 12/29/2024 2:00 PM COAL BRIQUETTE MACHINE OPERATOR Office Visit [facility] Orthopaedic Surgery [address] [facility] 1st Floor [address] [place] [address] Mir Katz MD Chronic pain of left knee (Primary Dx); Primary osteoarthritis of left knee; Bilateral hip pain; Primary osteoarthritis of both hips 12/24/2024 11:20 AM COAL BRIQUETTE MACHINE OPERATOR Office Visit [address] [address] Neymar Garibay MD OAB (overactive bladder) (Primary Dx); Pedal edema; Primary hypertension; Pulmonary hypertension, unspecified ([facility]); Chronic obstructive pulmonary disease, unspecified COPD type ([facility]); Major depressive disorder, recurrent episode, moderate ([facility]); Class 3 severe obesity with serious comorbidity and body mass index (BMI) of 40.0 to 44.9 in adult, unspecified obesity type ([facility]); Stage 3b chronic kidney disease (HCC) 12/21/2024 Orders Only [facility] Diabetes and Nutrition Services [address] [place] [address] Medical Office Building [address], [address] [place] [address] Sasha Hernández MD INÉS (obstructive sleep apnea) 12/16/2024 Orders Only [facility] Diabetes [facility] Nutrition Services [address] [place] [address] Office [address], [address] [place] [phone] Sasha Hernández MD INÉS (obstructive sleep apnea) (Primary Dx) 12/13/2024 Telephone [facility] Orthopaedic Surgery [address] [place] [address] Advanced Medicine 6th [place] [address] [place] [phone] David Lewis RN 12/13/2024 Orders Only [facility] Orthopaedic Surgery [address] [place] [address] Advanced Medicine 6th [place] [address] [place] [phone] Don Alonzo MD 12/10/2024 Orders Only [facility] Diabetes [facility] Nutrition [facility] [address] [place] [address] Medical Office Building [address], [address] [place] [phone] Sasha Hernández MD Risk for coronary artery disease greater than 20% in next 10 years; Hyperlipidemia, unspecified hyperlipidemia type; Primary hypertension 12/10/2024 Telephone [facility] Diabetes [facility] Nutrition [facility] [address] [place] [address] Office [address], [address] [place] [phone] Jyotsna Valenzuela RN Medication Problem 12/09/2024 Orders Only [facility] Diabetes [facility] Nutrition [facility] [address] [place] [address] Medical Office Building [address], [address] [place] [phone] Sasha Hernández MD Risk for coronary artery disease greater than 20% in next 10 years; Hyperlipidemia, unspecified hyperlipidemia type; Primary hypertension 11/15/2024 Telephone [facility] Diabetes [facility] Nutrition Services [address] [facility] Medical Office Building [address], [address] [place] [phone] Fior Jackson CMA Prior Auth 11/11/2024 1:20 PM COAL BRIQUETTE MACHINE OPERATOR Telemedicine [facility] Diabetes [facility] Nutrition Services [address] [facility] Medical Office Building [address], [address] [place] [address] Sasha Hernández MD Risk for coronary artery disease greater than 20% in next 10 years (Primary Dx); Weight loss counseling, encounter for; Class 3 severe obesity with serious comorbidity and body mass index (BMI) of 40.0 to 44.9 in adult, unspecified obesity type (HCC); Type 2 diabetes mellitus without complication, without long-term current use of insulin ([facility]/HCC) (HCC); Hyperlipidemia, unspecified hyperlipidemia type; Primary hypertension 11/05/2024 Telephone [facility] Orthopaedic Surgery [address] [place] [address] [place] [address] Mir Katz MD 11/03/2024 3:30 PM COAL BRIQUETTE MACHINE OPERATOR - 11/03/2024 11:59 PM COAL BRIQUETTE MACHINE OPERATOR Hospital Encounter [facility] [address] [place] [address] Discharge Disposition: Discharge to home or self care 11/03/2024 2:40 PM COAL BRIQUETTE MACHINE OPERATOR Office Visit [facility] Orthopaedic Surgery [address] [facility] 1st Floor [address] [place] [address] Mir Katz MD Chronic pain of left knee (Primary Dx); Bilateral hip pain; Primary osteoarthritis of left knee; Primary osteoarthritis of both hips 10/25/2024 Telephone [facility] Diabetes [facility] Nutrition Services [address] [facility] Medical Office Building [address], [address] [place] [phone] Fior Jackson CMA Med Management 10/18/2024 Telephone [facility] Diabetes [facility] Nutrition Services [address] [facility] Medical Office [address], [address] [place] [phone] Fior Jackson, [employer] Med Management from Last 3 Months Allergies Active Allergy Reactions Criticality Noted Date Comments Chymotrypsin Unknown 02/03/2024 Clindamycin Rash Medium 08/03/2021 Metformin Diarrhea Low 10/18/2022 Penicillins Itching,Rash,Hives Medium 01/31/2020 Reaction: Itching, ?? Rash Medications cholecalcifero l (VITAMIN D3) 2,000 unit tablet 0 0 12/04/19 16 Active calcium acetate (PHOSLO) 667 mg capsule take 2 capsule by oral route 3 times every day with meals 0 0 12/04/19 16 Active cyanocobalamin (Vitamin B-12) 100 mcg tabletIndicati ons:Prevention of Vitamin B12 Deficiency,sup plement Take 1 tablet (100 mcg total) by mouth every morning Active albuterol HFA (ProAir HFA) 90 mcg/actuation inhaler Inhale 2 puffs every 6 (six) hours as needed for wheezing 1 Inhaler 2 11/02/20 20 Active Additional Information Patient taking differently:2 puff inhalation Every 6 hours PRN, wheezing,Indications: Acute Asthma Attack, Chronic Obstructive Pulmonary Disease, Informant: Self, Reported on 2024 carisoprodoL (Soma) 250 mg tablet Take 1 tablet (250 mg total) by mouth 3 (three) times a day as needed for muscle spasms 90 tablet 1 10/30/20 21 Active Additional Information Patient taking differently:250 mg oral 3 times daily PRN, muscle spasms,Indications: Muscle Spasm, Informant: Self, Reported on 2024 azelastine (ASTELIN) 137 mcg (0.1 %) nasal sprayIndicatio ns:Non-seasona l allergic rhinitis, unspecified trigger SPRAY 1 SPRAY IN EACH NOSTRIL TWICE A DAY DIRECTED 90 mL 2 12/23/19 Active Additional Information Patient taking differently: 1 spray each nostril 2 times daily PRN, Indications: Perennial Allergic Rhinitis, Informant: Self, Reported on 2024 Wixela Inhub 250-50 mcg/dose diskus inhaler INHALE ONE PUFF BY MOUTH TWICE A DAY AND RINSE MOUTH AFTER USE (DISCARD 1 MONTH AFTER REMOVAL FROM FOIL POUCH) 90 each 2 12/23/19 23 Active Additional Information Patient taking differently: 1 puff inhalation Daily PRN, Indications: Bronchospasm Prevention with COPD, Maintenance Therapy for Asthma, Informant: Self, Reported on 2024 oxyCODONE (ROXICODONE) 5 mg immediate release tabletIndicati ons:Pain Take 1 tablet (5 mg total) by mouth every 4 (four) hours as needed for pain for up to 30 doses 30 tablet 04/02/20 24 Active acetaminophen 500 mg capsuleIndicat ions:Pain Take 2 capsules (1,000 mg total) by mouth every 8 (eight) hours 04/03/20 24 Active pravastatin (PRAVACHOL) 40 mg tablet TAKE ONE TABLET BY MOUTH EVERY DAY 90 tablet 2 05/27/20 24 Active gabapentin (NEURONTIN) 300 mg capsule TAKE ONE CAPSULE BY MOUTH THREE TIMES A DAY 270 capsule 1 05/27/20 24 Active omeprazole (PriLOSEC) 40 mg capsuleIndicat ions:Medicatio n refill,Type 2 diabetes mellitus without complication, without long-term current use of insulin (CMS/HCC) (HCC) TAKE ONE CAPSULE BY MOUTH EVERY DAY 90 capsule 1 07/20/20 24 Active furosemide (LASIX) 20 mg tabletIndicati ons:Pedal edema Take 1 tablet (20 mg total) by mouth daily as needed (swelling) 20 tablet 3 08/24/20 24 Active respiratory syncytial virus vaccine (Arexvy, PF,) 120 mcg/0.5 mL vaccine Pharmacy to inject 0.5 mL IM x1 0.5 mL 08/24/20 24 Active ARIPiprazole (ABILIFY) 5 mg tabletIndicati ons:Major depressive disorder, recurrent episode, moderate (HCC) Take 1 tablet (5 mg total) by mouth nightly 90 tablet 1 09/06/20 24 Active Zoloft 100 mg tabletIndicati ons:Major depressive disorder, recurrent episode, moderate (HCC) TAKE TWO TABLETS BY MOUTH EVERY DAY 90 tablet 1 11/22/20 24 Active traMADoL (ULTRAM) 50 mg tablet Take 2 tablets (100 mg total) by mouth every 8 (eight) hours as needed for pain 540 tablet 11/22/20 24 Active cephalexin (KEFLEX) 500 mg capsule Please take (4 capsules- 2,000mg) by mouth one hour prior to dental appointment/shalini aning. 4 capsule 2 12/13/19 25 Active topiramate (TOPAMAX) 50 mg tablet TAKE TWO TABLETS (100MG) BY MOUTH TWICE DAILY 120 tablet 12/21/19 25 Active tirzepatide, weight loss, (Zepbound) 2.5 mg/0.5 mL pen injectorIndica tions:INÉS -- 03/02/2013 sleep study showed severe INÉS. 10/2022 -- AHI 30.5 Inject 0.5 mL (2.5 mg total) under the skin every 7 days 0.5 mL 12/21/19 25 Active lisinopril-hyd roCHLOROthiazi de (ZESTORETIC) 20-12.5 mg per tabletIndicati ons:hypertensi on Take 2 tablets by mouth daily 180 tablet 1 12/24/19 25 2025 Active oxyBUTYnin (DITROPAN) 5 mg tabletIndicati ons:OAB (overactive bladder) Take 1 tablet (5 mg total) by mouth 2 (two) times a day 60 tablet 5 12/24/19 25 Active aspirin 81 mg enteric coated tabletIndicati ons:Deep Vein Thrombosis Prevention Take 1 tablet (81 mg total) by mouth 2 (two) times a day for 25 days 04/03/20 24 2024 Discontinued(P atient Reported) lisinopril-hyd roCHLOROthiazi de (ZESTORETIC) 20-12.5 mg per tabletIndicati ons:hypertensi on Take 2 tablets by mouth daily 60 tablet 5 08/04/20 24 2024 Discontinued(R eorder) topiramate (TOPAMAX) 50 mg tablet TAKE TWO TABLETS (100MG) BY MOUTH TWICE DAILY 120 tablet 10/08/20 24 2024 Discontinued(R eorder) semaglutide (WEGOVY) 0.25 mg/0.5 mL auto-injectorI ndications:car diovascular event risk reduction in obesity Inject 0.5 mL (0.25 mg total) under the skin every 7 days 2 mL 11/11/20 24 2024 Discontinued(R eorder) semaglutide (WEGOVY) 0.25 mg/0.5 mL auto-injectorI ndications:car diovascular event risk reduction in obesity Inject 0.5 mL (0.25 mg total) under the skin every 7 days 2 mL 12/09/19 25 2024 Discontinued(R eorder) semaglutide (WEGOVY) 0.25 mg/0.5 mL auto-injectorI ndications:car diovascular event risk reduction in obesity Inject 0.5 mL (0.25 mg total) under the skin every 7 days 2 mL 12/10/19 25 2024 Discontinued tirzepatide, weight loss, (Zepbound) 2.5 mg/0.5 mL pen injectorIndica tions:INÉS -- 03/02/2013 sleep study showed severe INÉS. 10/2022 -- AHI 30.5 Inject 0.5 mL (2.5 mg total) under the skin every 7 days 12/16/19 25 2024 Discontinued(R eorder) lisinopril-hyd roCHLOROthiazi de (ZESTORETIC) 20-12.5 mg per tabletIndicati ons:hypertensi on Take 2 tablets by mouth daily 180 tablet 1 12/24/19 25 2024 Discontinued Hospital, Clinic, or Other Facility Administered Medication Ordered Dose Route Frequency Start Date End Date Status lidocaine (XYLOCAINE) 10 mg/mL (1 %) injection 3 mLIndications:Admi nistration of Local Anesthesia 3 mL One-Time Injection 12/31/2024 12/31/2024 Ended triamcinolone (KENALOG) 40 mg/mL injection 40 mgIndications:Power Operator harvey pain of left knee 40 mg intra-artic One-Time Injection 12/31/2024 12/31/2024 Ended Active Problems Problem Noted Date Diagnosed Date Risk for coronary artery dis ease greater than 20% in next 10 years 11/11/2024 Overview (11/11/2024): 35.9% Adjustment disorder, unspecified 04/27/2024 Anemia in chronic kidney disease 04/20/2024 Hypertensive chronic kidney disease w stg 1-4/un sp chr kdny 04/20/2024 Presence of right artificial knee joint 04/20/20 Pulmonary hypertension, unspecified 04/20/2024 Scoliosis, unspecified 04/20/2024 Osteoarthritis of right knee , unspecified osteoarthritis type 03/29/2024 Stage 3b chronic kidney disease 07/13/2023 Assessment & Plan (07/13/2023 9:11 PM CDT): Reviewed most recent labs available. Repeat labs 1 month on increased semaglutide dose. OAB (overactive bladder) 02/13/2023 Prediabetes 10/05/2022 Overview (01/06/2023): Elevated A1c. Didn't tolerate metformin. Assessment & Plan (07/13/2023 9:06 PM CDT): Reviewed most recent labs available. Continue low-carb (<150 g/day), low- glycemic diet. Continue semaglutide.Reviewed most recent labs available. Continue low- carb (<150 g/day), low-glycemic diet. Continue semaglutide -- increase to 1 mg weekly. . Assessment & Plan (03/24/2023 9:19 PM CDT): Reviewed most recent labs available. Continue low-carb (<150 g/day), low- glycemic diet. Continue semaglutide. Assessment & Plan (01/06/2023 12:11 PM COAL BRIQUETTE MACHINE OPERATOR): Labs. Reviewed most recent labs available. Continue low-carb (<150 g/day), low-glycemic diet. Plan to increase semaglutide to 1 mg weekly pending results. Assessment & Plan (12/31/2022 12:19 PM COAL BRIQUETTE MACHINE OPERATOR): Reviewed most recent labs available. Continue low-carb (<150 g/day), low- glycemic diet. Discussed options and will add GLP-1 analog. Discussed risks, benefits, alternatives, potential side effects. No personal or family history of MTC or MEN2. Reviewed dosing/titration; for patients seen in the office, reviewed proper administration using demo pen; reviewed appropriate storage. Referred to websites for additional instructions/info/video. Start semaglutide. Assessment & Plan (10/05/2022 8:08 AM CDT): Labs. Discussed insulin resistance including effect on weight. Recommended low- carb, low-glycemic diet; choose whole grains and avoid more highly processed carbohydrates. Discussed potential benefits of this w/r/t gut microbiome. Referred to ADA and [facility] websites for additional information on topics including glycemic index/carbohydrate choices, protein sources. More detailed recommendations pending review of labs and food record. Ingrown nail 09/15/2022 Hallux valgus of left foot 09/15/2022 Primary osteoarthritis of right knee 09/25/2021 Weight loss counseling, encounter for 05/15/2018 Assessment & Plan (07/13/2023 9:04 PM CDT): Reviewed calorie restriction based on BMR as previously detailed. Reviewed recommendation/goal of >/= 150 minutes/week moderate-intensity aerobic exercise. Discussed okay to not track food/calories but that if they start to struggle or are not losing weight this is a useful tool to help refocus. Assessment & Plan (03/24/2023 9:18 PM CDT): Reviewed calorie restriction based on BMR as previously detailed. Reviewed recommendation/goal of >/= 150 minutes/week moderate-intensity aerobic exercise. Asked to keep detailed food diary for at least 1 week and bring to next visit and/or continue tracking on phone. Commended on positive changes she has made with diet. Assessment & Plan (01/06/2023 12:09 PM COAL BRIQUETTE MACHINE OPERATOR): Reviewed calorie restriction based on BMR as previously detailed. Reviewed recommendation/goal of >/= 150 minutes/week moderate-intensity aerobic exercise. Asked to keep detailed food diary for at least 1 week and bring to next visit and/or continue tracking on phone. Assessment & Plan (12/31/2022 12:18 PM COAL BRIQUETTE MACHINE OPERATOR): Reviewed calorie restriction based on BMR as previously detailed. Reviewed recommendation/goal of >/= 150 minutes/week moderate-intensity aerobic exercise. Asked to keep detailed food diary for at least 1 week and bring to next visit and/or continue tracking on phone. Assessment & Plan (10/05/2022 8:09 AM CDT): Discussed that significant health benefits/risk reduction may be seen with even 5% weight loss. Discussed that weight loss will require calorie deficit. Calculated basal metabolic rate and estimated total energy expenditure; discussed 500-1000 kcal/day deficit to lose 1-2 lb per week. Asked to keep detailed food diary for at least 1 week and bring to next visit. Discussed setting SMART goals. Discussed relatively small, although significant, role of exercise in weight loss; greater importance in weight maintenance as shown in Look Ahead study and National Weight Control Registry. Discussed recommendation/goal for 150 minutes per week moderate-intensity aerobic exercise. Assessment & Plan (09/21/2018 3:25 PM CDT): Reviewed calorie restriction based on BMR as previously detailed. Reviewed recommendation/goal of >/= 150 minutes/week moderate-intensity aerobic exercise. Encouraged her to continue tracking her food. Reviewed that obesity is a chronic illness and that even after successful surgery/weight loss they will need to remain vigilant and mindful about their eating and activity. Assessment & Plan (08/24/2018 3:32 PM CDT): Reviewed calorie restriction based on BMR as previously detailed. Reviewed recommendation/goal of >/= 150 minutes/week moderate-intensity aerobic exercise. Asked to keep detailed food diary for at least 1 week and bring to next visit. Assessment & Plan (06/23/2018 3:08 PM CDT): Reviewed calorie restriction based on BMR as previously detailed. Reviewed recommendation/goal of >/= 150 minutes/week moderate-intensity aerobic exercise. Asked to keep detailed food diary for at least 1 week and bring to next visit. Assessment & Plan (05/15/2018 9:11 PM CDT): Reviewed calorie restriction based on BMR as previously detailed. Reviewed recommendation/goal of >/= 150 minutes/week moderate-intensity aerobic exercise -- increase as able. Major depressive disorder, recurrent episode, mo derate 04/24/2018 GERD (gastroesophageal reflux disease) 8 Vitamin D deficiency 03/17/2018 Assessment & Plan (01/06/2023 12:11 PM COAL BRIQUETTE MACHINE OPERATOR): Labs. Osteoarthritis of cervical spine 01/05/2018 Class 3 severe obesity with serious comorbidity and body mass index (BMI) of 40.0 to 44.9 in adult 12/17/2017 Assessment & Plan (07/13/2023 9:05 PM CDT): Obesity is improving.. Plan: Diet interventions: as noted., Regular aerobic exercise program discussed., and Medication as prescribed. Follow up in [] 1 month; [] 2 months; [x] 3 months; [] 6 months; [] Other: Assessment & Plan (03/24/2023 9:19 PM CDT): Obesity is improved.. Plan: Diet interventions: as noted.., Regular aerobic exercise program discussed. and Medication as prescribed. Follow up in [] 1 month; [] 2 months; [x] 3 months; [] 6 months; [] Other: Assessment & Plan (01/06/2023 12:11 PM COAL BRIQUETTE MACHINE OPERATOR): Obesity is improving.. Plan: Diet interventions: as noted.., Regular aerobic exercise program discussed. and Medication as prescribed. Assessment & Plan (12/31/2022 12:19 PM COAL BRIQUETTE MACHINE OPERATOR): Obesity is worsening.. Plan: Diet interventions: as noted.., Regular aerobic exercise program discussed. and Medication as prescribed. Assessment & Plan (10/05/2022 7:51 AM CDT): Obesity worsening with previous losses regained and anGeneral weight loss/lifestyle modification strategies discussed (elicit support from others; identify saboteurs; non-food rewards, etc). Diet interventions: as noted. Recommendations provided in AVS. Informal exercise measures discussed, e.g. taking stairs instead of elevator. Regular aerobic exercise program discussed. More detailed recommendations pending review of labs and food record. Assessment & Plan (09/21/2018 3:35 PM CDT): Obesity is improving with treatment. Commended on weight loss to date and discussed anticipated health benefits/risk reduction with this degree of loss. General weight loss/lifestyle modification strategies discussed (elicit support from others; identify saboteurs; non-food rewards, etc). Diet interventions: as noted. Regular aerobic exercise program discussed. Pharmacotherapy as ordered. Exercise/increase activity as able. Working on completing requirements for bariatric surgery. This is her last required [facility] visit. She has done well with lifestyle modifications and has lost ~10 % of her initial body weight. Assessment & Plan (08/24/2018 3:40 PM CDT): Obesity is improving with treatment. Commended on weight loss to date and discussed anticipated health benefits/risk reduction with this degree of loss. General weight loss/lifestyle modification strategies discussed (elicit support from others; identify saboteurs; non-food rewards, etc). Behavioral treatment: have encouraged counseling. Diet interventions: as noted. Regular aerobic exercise program discussed. Pharmacotherapy as ordered. Discussed that I preferred not to increase topiramate due to risk for side effects and ? efficacy at higher doses for weight loss. Bupropion may be an option with her cravings, but again, would like to avoid additional medications. Assessment & Plan (06/27/2018 2:00 PM CDT): Obesity is improving with treatment. Continue calorie, carbohydrate restriction as noted. General weight loss/lifestyle modification strategies discussed (elicit support from others; identify saboteurs; non-food rewards, etc). Regular aerobic exercise program discussed. Pharmacotherapy as ordered. Reviewed that obesity is a chronic illness and that even after successful surgery/weight loss they will need to remain vigilant and mindful about their eating and activity. Assessment & Plan (05/15/2018 9:16 PM CDT): Obesity is improving with treatment. Dietary guidelines as above. General weight loss/lifestyle modification strategies discussed (elicit support from others; identify saboteurs; non-food rewards, etc). Regular aerobic exercise program discussed. Spinal stenosis of lumbar re gion with neurogenic claudication 12/17/2017 Peripheral nerve disease 08/08/2017 Other intermediate designer (current) drug therapy 7 Asthma 12/31/2016 Osteoporosis 09/16/2016 Osteoarthritis of knee 03/22/2015 COPD (chronic obstructive pulmonary disease) 05/2015 Arthralgia of hip 09/27/2014 Arthralgia 05/26/2014 Generalized osteoarthritis 06/09/2013 Chronic pain 04/07/2013 Disc degeneration, lumbar 04/07/2013 Sciatica 04/07/2013 Insomnia 03/19/2013 Restless legs syndrome 03/19/2013 INÉS (obstructive sleep apnea) 03/08/2013 Overview (12/16/2024): 03/02/2013 sleep study showed severe INÉS. 10/2022 -- AHI 30.5 Assessment & Plan (10/05/2022 8:11 AM CDT): Discussed comorbidities associated with sleep apnea, including effects on weight, and stressed importance of adequate treatment if present. Anaclitic depression 08/25/2012 Hyperlipidemia 08/25/2012 Assessment & Plan (10/05/2022 7:47 AM CDT): Discussed role of diet, exercise and weight loss in improving lipid profile. Continue statin therapy. Hypertension 08/25/2012 Assessment & Plan (10/05/2022 7:46 AM CDT): BP elevated today at 151/72 however pain level high from walk into clinic. Reviewed role of diet, exercise, weight loss in controlling blood pressure. Recommended low sodium/DASH diet. Continue current medications. Rheumatic disorders of both mitral and tricuspid valves 12/01/2000 Unspecified visual loss 12/01/2000 Resolved Problems Problem Noted Date Diagnosed Date Resolved Date Cellulitis of right lower limb 04/20/2024 08/03/2024 Disordered eating 09/21/2018 08/03/2024 Assessment & Plan (09/21/2018 3:33 PM CDT): Discussed possible need to continue Rx to help with bingeing tendencies even after surgery. Bupropion may be an option, especially if topiramate not felt to be as effective for neuropathy/pain. (AVoid naltrexone with potential need for opioid analgesia with upcoming surgeries.) Right foot pain 08/24/2018 08/03/2024 Assessment & Plan (08/24/2018 3:42 PM CDT): Discussed that her exam is not suspicious for arterial insufficiency and that arterial dopplers done last July were normal. F/U PCP. Suggested she ask about compounded topical preparations for neuropathy pain. Prediabetes 05/15/2018 09/23/2018 Assessment & Plan (09/21/2018 3:26 PM CDT): Continue low-carb (<150 g/day), low-glycemic diet. Continue metformin -- discussed potentially stopping now since she has had diarrhea, but she thinks it helps and prefers to stay on it. Discussed that it likely will be stopped at the time of surgery. Assessment & Plan (08/24/2018 3:36 PM CDT): Continue low-carb (<150 g/day), low-glycemic diet. Continue metformin. GLP-1 agonist remains an option. She will try to have program labs this week. Assessment & Plan (06/23/2018 3:09 PM CDT): Continue low-carb (<150 g/day), low-glycemic diet. Continue metformin. Assessment & Plan (05/15/2018 2:27 PM CDT): Continue low-carb (<150 g/day), low-glycemic diet. Continue metformin. Encounter for screening for upper gastrointestinal disorder 05/01/2018 09/23/2018 Diabetes mellitus 04/24/2018 12/24/2024 Assessment & Plan (10/05/2022 8:07 AM CDT): A1C 6.0 on 04/12/2022, stopped metformin due to diarrhea, no medication currently for T2DM. Will recheck A1C. Discussed use of GLP as possibility. Discussed risks, benefits, alternatives, potential side effects. No personal or family history of MTC or MEN2. Discussed limitations due to cost with insurance, will await labs and food tracking for more detailed recommendations. Fatigue 03/17/2018 09/23/2018 Abnormal glucose level 02/26/201809/23 Low back pain 12/17/2017 09/23/2018 Edema 10/22/2017 09/23/2018 Deformity of toe 09/05/2017 08/03/2024 Ulcer of toe (CMS/HCC) 09/05/201709/23 Abscess of foot 08/08/2017 09/23/2018 Methicillin susceptible Stap hylococcus aureus infection 07/30/2017 09/23/2018 Trochanteric bursitis 04/01/20172017 Urinary urgency 12/31/2016 09/23/2018 Dyspnea 03/06/2016 09/23/2018 Knee pain 06/13/2015 09/23/2018 Encounter for preventive health examination 05/14/2011 09/23/2018 Immunizations Name Administration Dates Next Due Influenza, Quadrivalent, Hig h Dose, Preservative Free, Intrr 10/02/2023,11/09/2022,09/13/2021 Influenza, Quadrivalent, Spl it, Preservative Free, Intramuscular 09/15/2020 Influenza, Trivalent, Adjuva nted, Intramuscular 09/23/2018 Influenza, Trivalent, High D ose, Split, Preservative Free, Intramuscular 10/13/2023,10/05/2019,08/14/2016 Influenza, Trivalent, Preser vative Free, Intramuscular 09/20/2014,09/16/2013 Influenza, Trivalent, Split, Preservative Free, Intradermal 08/25/2015 Influenza, Unspecified 10/08/2024 Pneumococcal Conjugate PCV 13 08/14/2016 Pneumococcal Polysaccharide PPV23 10/13/2012 Pneumococcal, Unspecified 10/13/2012 Tdap 08/25/2015 Social History Tobacco Use Types Packs/Day Years Used Date Smoking Tobacco: Former Cigarettes 1 975 - 1997 Smokeless Tobacco: Never Tobacco Cessation:Counseling Given: Not Answered Alcohol Use Standard Drinks/Week Comments Yes 0 (1 standard drink = 0.6 oz pur e alcohol) AUDIT-C Answer Date Recorded Q1: How often do you have a drink containing alcohol? Never 2024 Q2: How many drinks containi ng alcohol do you have on a typical day when you are drinking? Patient does not drink Q3: How often do you have si x or more drinks on one occasion? Never 2024 Personal Safety Answer Date Recorded Have you ever been in or are you currently in a harmful physical or emotional relationship or is someone making you feel afraid or unsafe? 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 Not on file Not on file Last Filed Vital Signs Vital Sign Reading Time Taken Comments Blood Pressure 154/77 12/24/2024 11:37 AM COAL BRIQUETTE MACHINE OPERATOR Pulse 81 12/24/2024 11:37 AM COAL BRIQUETTE MACHINE OPERATOR Temperature 36.7 ??C (98.1 ??F) 08/03/2024 2:41 PM CD T Respiratory Rate 18 04/03/2024 7:35 AM CDT Oxygen Saturation 96% 12/24/2024 11:37 AM COAL BRIQUETTE MACHINE OPERATOR Inhaled Oxygen Concentration - - Weight 108.4 kg (239 lb) 12/24/2024 11:37 AM COAL BRIQUETTE MACHINE OPERATOR Height 167.6 cm (5' 5.98 ) 03/31/2024 11:19 PM C DT Body Mass Index 38.59 03/31/2024 11:19 PM CDT Plan of Treatment Not on file Goals Goal Patient Goal Type Associated Problems [...] lifestyle strategies and compensatory methods as needed Medical Devices Implanted Type Area Machine Shop Worker Device Identifier Shelf Expiration Date Model / Serial / Lot [employer] Baseplate Tibial Knee Cemented Right Fixed Stemmed Persona Size F Tivanium [id number] - [id number] Implanted:Qty: 1 on 03/29/2024 by Don Alonzo MD at [facility] Right: Knee [employer] [id number] 07/12/2033 [id number] / / [id number] [employer] Persona Cruciate Retain Cemented Knee Right 9 Narrow Component [id number] - [id number] Implanted:Qty: 1 on 03/29/2024 by Don Alonzo MD at [facility] Right: Knee [employer] [id number] 10/07/2033 [id number] / / [id number] [employer] Simplex P Full Dose Radiopaque Preblend Cement Bone Tobramycin 6197-9-001 - [id number] Implanted:Qty: 1 on 03/29/2024 by Don Alonzo MD at [facility] Right: Knee [employer] [id number] 05/30/2025 6197-9-001 / / [id number] [employer] Simplex P Full Dose Radiopaque Preblend Cement Bone Tobramycin 6197-9-001 - [id number] Implanted:Qty: 1 on 03/29/2024 by Don Alonzo MD at [facility] Right: Knee [employer] [id number] 06/30/2025 6197-9-001 / / [id number] [employer] Persona 14mm Knee Right 8-11 E-F Insert Articular Vivacit-E [id number] - [id number] Implanted:Qty: 1 on 03/29/2024 by Don Alonzo MD at [facility] Right: Knee [employer] [id number] 04/02/2028 [id number] / / [id number] Procedures Procedure Name Priority Date/Time Associated Diagnosis Comments POCUS ASP/INJ MAJOR JOINT Schedule Routine, Read Routine (OP Routine) 12/31/2024 10:24 AM COAL BRIQUETTE MACHINE OPERATOR Chronic pain of left knee AR ARTHROCENTESIS ASPIR&/INJ MAJOR JT/BURSA W/US Routine 12/31/2024 10:15 AM COAL BRIQUETTE MACHINE OPERATOR Chronic pain of left knee POCT URINALYSIS, AUTO W/O SCOPE Routine 12/24/2024 11:45 AM COAL BRIQUETTE MACHINE OPERATOR OAB (overactive bladder) XR PELVIS 1 OR 2 VIEWS Schedule Routine, Read Routine (OP Routine) 11/03/2024 3:47 PM COAL BRIQUETTE MACHINE OPERATOR Bilateral hip pain XR KNEE BILATERAL 3 VIEWS Schedule Routine, Read Routine (OP Routine) 11/03/2024 3:47 PM COAL BRIQUETTE MACHINE OPERATOR Chronic pain of left knee EGFR Routine 04/03/2024 4:36 AM CDT HEMOGLOBIN A1C Routine 2024 4:12 PM CDT Primary osteoarthritis of right knee Type 2 diabetes mellitus without complication, unspecified whether intermediate designer insulin use (HCC) LIPID PANEL Routine 04/12/2022 3:23 PM CDT Type 2 diabetes mellitus without complication, without long-term current use of insulin (CMS/HCC) (HCC) SCREENING MAMMOGRAM Routine 10/31/2015 3 :29 PM COAL BRIQUETTE MACHINE OPERATOR SERUM HEPATITIS PANEL Routine 02/17/2013 3:00 PM CDT from Last 3 Months or Most Recently Relevant to Health Maintenance Results * POCUS ASP/INJ MAJOR JOINT (12/31/2024 10:24 AM COAL BRIQUETTE MACHINE OPERATOR) Narrative [facility] - 12/31/2024 10:24 AM COAL BRIQUETTE MACHINE OPERATOR This procedure was performed and interpreted by the provider. Please refer to the provider's procedure/OR operative note for results. us Mir Katz MD POCUS ORDERABLES Final R esult [facility] * AR ARTHROCENTESIS ASPIR&/INJ MAJOR JT/BURSA W/US (12/31/2024 10:15 AM COAL BRIQUETTE MACHINE OPERATOR) Narrative Mir Katz MD - 12/31/2024 10:15 AM COAL BRIQUETTE MACHINE OPERATOR Mir Katz MD ? 12/31/2024 10:57 AM Large Joint Injection w/ Ultrasound Guidance: L knee Performed by: Mir Katz MD Authorized by: Mir Katz MD ?? Large Joint Injection/Aspiration: ??Consent Given by: ??Patient ??Site marked: the procedure site was marked ?Timeout: prior to procedure the correct patient, procedure, and site was verified ?Verbal consent obtained: Yes ?? Supporting Documentation: ??Indications: ??Pain Procedure Details: ??Location: ??Knee ??Site: ??L knee ??Prep: patient was prepped and draped in usual sterile fashion ?Needle Size: ??18 G ??Approach: ??Superior lateral ??Ultrasound guided: Yes ?Ultrasound guidance used for: ??Pre-procedure marking and real-time guidance ??Sterile ultrasond techniques: Sterile gel and sterile probe covers were used ?Medications: ??3 mL lidocaine 10 mg/mL (1 %); 40 mg triamcinolone 40 mg/mL ??Patient tolerance: ??Patient tolerated the procedure well with no immediate complications Mir Katz MD IN CLINIC/BEDSIDE ORDERA BLES Final Result * (ABNORMAL) POCT UA, AUTO W/O SCOPE (12/24/2024 11:45 AM COAL BRIQUETTE MACHINE OPERATOR) Color, Urine, POC Yellow Clarity, ur, POC Clear Clear Glucose, ur, POC Negative Negative MG/DL Bilirubin, ur, POC Negative Negative, Small, Moderate, Large Ketones, ur, POC Negative Negative Specific Ward, POC 1.020 1.003 - 1.030 Blood, ur, POC Trace(A) Negative pH, ur, POC 5.5 5.0 - 8.0 Protein, ur, POC Negative Negative Urobilinogen, Urine, POC 0.2 mg/dL Leukocytes, ur, POC Negative Negative Nitrite, ur, POC Negative Negative Appearance, fld Clear Clear Urine 12/24/2024 11:4 5 AM COAL BRIQUETTE MACHINE OPERATOR us Neymar Garibay MD POINT OF CARE TEST ORD ERABLES Final Result * XR Knee Bilateral 3 Views (11/03/2024 3:47 PM COAL BRIQUETTE MACHINE OPERATOR) Anatomical Region Laterality Modality Lower Extremities, Knee Bilateral Computed Radiography 11/03/2024 3:59 PM COAL BRIQUETTE MACHINE OPERATOR Impressions 11/03/2024 3:59 PM COAL BRIQUETTE MACHINE OPERATOR 1. ??Severe bilateral hip osteoarthritis. 2. ??Right 2 component total knee arthroplasty in unchanged near-anatomic position. 3. ??Medial compartment predominant moderate to severe left knee tricompartmental osteoarthritis. 4. ?? Electronically signed by: Allen Silvestre D.O. Narrative 11/03/2024 3:59 PM COAL BRIQUETTE MACHINE OPERATOR EXAMINATION: XR KNEE BILATERAL 3 VIEWS, XR PELVIS 1 OR 2 VIEWS HISTORY: Bilateral knee pain and bilateral hip pain FINDINGS: Comparison is made to 05/21/2024 radiograph. Evaluation of the right knee reveals 2 component cruciate retaining total knee arthroplasty in unchanged near-anatomic position. No evidence of component failure, periprosthetic fracture, or osteolysis. No dislocation. No knee joint effusion. Extensive atherosclerosis additional soft tissue calcifications with mild diffuse edema suggestive of venous insufficiency. Evaluation left knee demonstrates medial compartment predominant moderate to severe tricompartmental osteoarthritis. Small knee joint effusion. No acute fracture or dislocation. Extensive atherosclerosis with mild diffuse edema. Evaluation of the pelvis is without evidence of acute fracture or dislocation. Severe bilateral hip osteoarthritis with osseous remodeling. Partly imaged lumbar levoscoliosis. Advanced degenerative disease in the partly imaged lumbar spine, severe at L5-S1. 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 Procedure Note Allen Silvestre, DO - 11/03/2024 EXAMINATION: XR KNEE BILATERAL 3 VIEWS, XR PELVIS 1 OR 2 VIEWS HISTORY: Bilateral knee pain and bilateral hip pain FINDINGS: Comparison is made to 05/21/2024 radiograph. Evaluation of the right knee reveals 2 component cruciate retaining total knee arthroplasty in unchanged near-anatomic position. No evidence of component failure, periprosthetic fracture, or osteolysis. No dislocation. No knee joint effusion. Extensive atherosclerosis additional soft tissue calcifications with mild diffuse edema suggestive of venous insufficiency. Evaluation left knee demonstrates medial compartment predominant moderate to severe tricompartmental osteoarthritis. Small knee joint effusion. No acute fracture or dislocation. Extensive atherosclerosis with mild diffuse edema. Evaluation of the pelvis is without evidence of acute fracture or dislocation. Severe bilateral hip osteoarthritis with osseous remodeling. Partly imaged lumbar levoscoliosis. Advanced degenerative disease in the partly imaged lumbar spine, severe at L5-S1. 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 IMPRESSION: 1. Severe bilateral hip osteoarthritis. 2. Right 2 component total knee arthroplasty in unchanged near-anatomic position. 3. Medial compartment predominant moderate to severe left knee tricompartmental osteoarthritis. 4. Electronically signed by: Allen Silvestre D.O. us Mir Katz MD IMG XR PROCEDURES Final Result * XR Pelvis 1 or 2 Views (11/03/2024 3:47 PM COAL BRIQUETTE MACHINE OPERATOR) Anatomical Region Laterality Modality Body, Pelvis N/A Computed Radiogr aphy 11/03/2024 3:59 PM COAL BRIQUETTE MACHINE OPERATOR Impressions 11/03/2024 3:59 PM COAL BRIQUETTE MACHINE OPERATOR 1. ??Severe bilateral hip osteoarthritis. 2. ??Right 2 component total knee arthroplasty in unchanged near-anatomic position. 3. ??Medial compartment predominant moderate to severe left knee tricompartmental osteoarthritis. 4. ?? Electronically signed by: Allen Silvestre D.O. Narrative 11/03/2024 3:59 PM COAL BRIQUETTE MACHINE OPERATOR EXAMINATION: XR KNEE BILATERAL 3 VIEWS, XR PELVIS 1 OR 2 VIEWS HISTORY: Bilateral knee pain and bilateral hip pain FINDINGS: Comparison is made to 05/21/2024 radiograph. Evaluation of the right knee reveals 2 component cruciate retaining total knee arthroplasty in unchanged near-anatomic position. No evidence of component failure, periprosthetic fracture, or osteolysis. No dislocation. No knee joint effusion. Extensive atherosclerosis additional soft tissue calcifications with mild diffuse edema suggestive of venous insufficiency. Evaluation left knee demonstrates medial compartment predominant moderate to severe tricompartmental osteoarthritis. Small knee joint effusion. No acute fracture or dislocation. Extensive atherosclerosis with mild diffuse edema. Evaluation of the pelvis is without evidence of acute fracture or dislocation. Severe bilateral hip osteoarthritis with osseous remodeling. Partly imaged lumbar levoscoliosis. Advanced degenerative disease in the partly imaged lumbar spine, severe at L5-S1. 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 Procedure Note Allen Silvestre, DO - 11/03/2024 EXAMINATION: XR KNEE BILATERAL 3 VIEWS, XR PELVIS 1 OR 2 VIEWS HISTORY: Bilateral knee pain and bilateral hip pain FINDINGS: Comparison is made to 05/21/2024 radiograph. Evaluation of the right knee reveals 2 component cruciate retaining total knee arthroplasty in unchanged near-anatomic position. No evidence of component failure, periprosthetic fracture, or osteolysis. No dislocation. No knee joint effusion. Extensive atherosclerosis additional soft tissue calcifications with mild diffuse edema suggestive of venous insufficiency. Evaluation left knee demonstrates medial compartment predominant moderate to severe tricompartmental osteoarthritis. Small knee joint effusion. No acute fracture or dislocation. Extensive atherosclerosis with mild diffuse edema. Evaluation of the pelvis is without evidence of acute fracture or dislocation. Severe bilateral hip osteoarthritis with osseous remodeling. Partly imaged lumbar levoscoliosis. Advanced degenerative disease in the partly imaged lumbar spine, severe at L5-S1. 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 IMPRESSION: 1. Severe bilateral hip osteoarthritis. 2. Right 2 component total knee arthroplasty in unchanged near-anatomic position. 3. Medial compartment predominant moderate to severe left knee tricompartmental osteoarthritis. 4. Electronically signed by: Allen Silvestre D.O. us Mir Katz MD IMG XR PROCEDURES Final Result * (ABNORMAL) eGFR (04/03/2024 4:36 AM CDT) eGFR 42(L) >=60 mL/min/1. 73 m2 Comment: Interpretive Data Reference Interval Normal ?>/= 90 mL/min/1.73m2 Mildly decreased* ? 60 - 89 mL/min/1.73m2 Mildly to moderately decreased ?45 - 59 mL/min/1.73m2 Moderately to severely decreased ??30 - 44 mL/min/1.73m2 Severely decreased ?15 - 29 mL/min/1.73m2 Kidney Failure ?< 15 ??mL/min/1.73m2 *Relative to young adult level Estimated glomerular filtration rate is determined by the 2020 CKD-EPI equation recommended by the National Kidney Foundation (A Unifying Approach to GFR Estimation: Recommendations of the NKF-ASK Task Force on Reassessing the Inclusion of Race in Diagnosing Kidney Disease, JASN 2020). The CKD-EPI equation should not be used for patients with unstable renal function and has not been validated in children and those over 70. Current interpretive data was last reviewed 2021. Blood 04/03/2024 4:36 AM CDT 04/03/2024 4:53 AM CDT Viviana Saxena NP LAB BLOOD ORDERABLES Final Re sult Performing Organization Address [facility] de Phone Number [facility] [place] [address] * Hemoglobin A1c (2024 4:12 PM CDT) Pathologist [facility] Hgb A1C 5.4 4.0 - 5.6 % Estimated Average Glucose 108 mg/dL [facility] Comment: The ADA recommends reporting an estimated Average Glucose (eAG) with all Hemoglobin A1c results using the equation derived from a study of 507 normal and diabetic adults. ??Minority populations were underrepresented and children were not included. ?? (Diabetes Care 2020; 43(S1): S66-S76). ??The eAG is not equivalent to a fasting glucose. Blood 2024 4:12 PM CDT 2024 4:50 PM CDT Don Alonzo MD LAB BLOOD ORDERABLES Final Result Performing Organization Address [facility] de Phone Number [facility] [place] [address] * (ABNORMAL) Lipid panel (04/12/2022 3:23 PM CDT) Triglyceride 164(H) 0 - 150 mg/dL [facility] Cholesterol 194 0 - 200 mg/dL [facility] HDL 49 >45 mg/dL [facility] LDL-Calculated 112 mg/dL [facility] CHOL/HDL Risk Ratio 4 Ratio [facility] LDL/HDL Risk Ratio 2 Ratio [facility] Blood specimen (specimen) 04/12/2022 3:23 PM CDT 04/12/2022 3:38 PM CDT us Neymar Garibay MD LAB BLOOD ORDERABLES F inal Result [facility] [address] [place] [address] * Screening Mammogram (10/31/2015 3:29 PM COAL BRIQUETTE MACHINE OPERATOR) Anatomical Region Laterality Modality Breast N/A Mammography 10/31/2015 3:29 PM COAL BRIQUETTE MACHINE OPERATOR Narrative 11/01/2015 2:59 PM COAL BRIQUETTE MACHINE OPERATOR JYOTSNA EDDY M.D. FINAL REPORT ACC# ??Date Time ??Exam [id number] Oct 31, 2015 15:29:00 [facility] [id number] Screening Mamm Bilat ?? Technologist(s): Gisela Block; ; EXAMINATION: ??Mammogram Technique: Bilateral Full-Field Digital Screening Mammogram was performed. ??Views obtained: ??bilateral craniocaudal and bilateral mediolateral oblique. Computer Aided Detection was performed with Biographicon.3 version 9.3. Mammogram Findings: The present examination has been compared to prior imaging studies performed at [facility] on 03/11/2012, 03/27/2010 and 02/11/2008. There are scattered areas of fibroglandular density. There is no suspicious abnormality in either breast. IMPRESSION: ??Annual screening mammography is recommended. OVERALL FINAL ASSESSMENT: BI-RADS CATEGORY 1: ??Negative. Requested By: Dictated By: ?? JYOTSNA EDDY M.D. ??on Oct ??2014 ??2:59P This document has been electronically signed by: JYOTSNA EDDY M.D. on Oct ??2014 ??2:59P [id number] Procedure Note Provider, MD Edgar - 03/22/2017 JYOTSNA EDDY M.D. FINAL REPORT ACC# Date Time Exam [id number] Oct 31, 2015 15:29:00 [facility] [address] Screening Mamm Bilat Technologist(s): Gisela Block; ; EXAMINATION: Mammogram Technique: Bilateral Full-Field Digital Screening Mammogram was performed. Views obtained: bilateral craniocaudal and bilateral mediolateral oblique. Computer Aided Detection was performed with Biographicon.3 version 9.3. Mammogram Findings: The present examination has been compared to prior imaging studies performed at [facility] on 03/11/2012, 03/27/2010 and 02/11/2008. There are scattered areas of fibroglandular density. There is no suspicious abnormality in either breast. IMPRESSION: Annual screening mammography is recommended. OVERALL FINAL ASSESSMENT: BI-RADS CATEGORY 1: Negative. Requested By: Dictated By: JYOTSNA EDDY M.D. on Nov 01 2015 2:59P This document has been electronically signed by: JYOTSNA EDDY M.D. on Nov 01 2015 2:59P [id number] us Historical Provider IMJony MAMMO PROCEDURES Natalya l Result * Serum Hepatitis panel (02/17/2013 3:00 PM CDT) HBV surface ag Negative NEG HISTO RICAL RESULTS HCV ab Negative NEG HISTORICAL RESULTS Comment: Interpretive Data If confirmation is required, call Laboratory Customer Service to request sample to be sent to [facility] for Hepatitis C Virus (HCV) RNA Detection and Quantitation by Real-Time Reverse Check Embosser-PCR (RT-PCR). Current interpretive data was last revised on 2012 HBV core ab, IgM Negative NEG HIS TORICAL RESULTS Comment: Interpretive Data If test is reported as Equivocal, new sample should be drawn for testing. Current interpretive data was last revised on 2008. HAV ab, IgM Negative NEG HISTORIC AL RESULTS Comment: Interpretive Data If test is reported as Equivocal, new sample should be drawn in two weeks for testing. Current interpretive data was last revised on 2008. Serum 02/17/2013 3:00 PM CDT us Neymar Garibay MD LAB BLOOD ORDERABLES F inal Result HISTORICAL RESULTS from Last 3 Months or Most Recently Relevant to Health Maintenance Insurance [place] [address] [employer] [facility] MEDICARE [facility] MEDICARE Advance Directives For more information, please contact: [phone] * Full Code (Latest Code Status on File) Date Activated Date Inactivated Comments 03/29/2024 12:45 PM 04/03/2024 3:06 PM * Full Code Date Activated Date Inactivated Comments 07/03/2018 1:01 PM 07/03/2018 5:06 PM Care Teams Dictaphone Transcriber Relationship Specialty Start Date End Date Neymar Garibay MD [address] [place] [address] PCP - General 01/31/20 Neymar Garibay MD [address] [place] [address] 01/31/20
--- OUTSIDE RECORDS SUMMARY | 2025-01-02 20:20 | XMS_ITS | Clinical Summary ---
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 Assessment & Plan (01/06/2023 12:11 PM HAND CHAIN MAKER): Labs. Reviewed most recent labs available. Continue low-carb (<150 g/day), low-glycemic diet. Plan to increase semaglutide to 1 mg weekly pending results. Assessment & Plan (12/31/2022 12:19 PM HAND CHAIN MAKER): Reviewed most recent labs available. Continue low-carb [...] w/r/t gut microbiome. Referred to ADA and [facility] websites for additional information on topics [...] diet. Assessment & Plan (01/06/2023 12:09 PM HAND CHAIN MAKER): Reviewed calorie restriction based on BMR as previously detailed. Reviewed recommendation/goal of >/= 150 minutes/week moderate-intensity aerobic exercise. Asked to keep detailed food diary for at least 1 week and bring to next visit and/or continue tracking on phone. Assessment & Plan (12/31/2022 12:18 PM HAND CHAIN MAKER): Reviewed calorie restriction based on BMR as [...] 03/17/2018 Assessment & Plan (01/06/2023 12:11 PM HAND CHAIN MAKER): Labs. Osteoarthritis of cervical spine 01/05/2018 Class [...] Other: Assessment & Plan (01/06/2023 12:11 PM HAND CHAIN MAKER): Obesity is improving.. Plan: Diet interventions: as noted.., Regular aerobic exercise program discussed. and Medication as prescribed. Assessment & Plan (12/31/2022 12:19 PM HAND CHAIN MAKER): Obesity is worsening.. Plan: Diet interventions: as [...] claudication 12/17/2017 Peripheral nerve disease 08/08/2017 Other group home (current) drug therapy 7 Asthma 12/31/2016 Osteoporosis [...] of toe 09/05/2017 08/03/2024 Ulcer of toe ([facility]/HCC) 09/05/201709/23 Abscess of foot 08/08/2017 09/23/2018 Methicillin susceptible Stap hylococcus aureus infection 07/30/2017 09/23/2018 Trochanteric bursitis 04/01/20172017 Urinary urgency 12/31/2016 09/23/2018 Dyspnea 03/06/2016 09/23/2018 Knee pain 06/13/2015 09/23/2018 Encounter for preventive health examination 05/14/2011 09/23/2018 Encounters Date Type Department Care Team Description 12/31/2024 10:25 AM HAND CHAIN MAKER Ancillary Procedure [facility] [address] [facility] 6th [place] [address] [place] [address] Chronic pain of left knee 12/31/2024 10:15 AM HAND CHAIN MAKER Procedure visit [facility] [address] [facility] 6th [place] [address] [place] [address] Mir Katz MD Chronic pain of left knee 12/29/2024 2:00 PM HAND CHAIN MAKER Office Visit [facility] [address] [facility] 1st Floor [address] [place] [address] Mir Katz MD Chronic pain of left knee (Primary Dx); Primary osteoarthritis of left knee; Bilateral hip pain; Primary osteoarthritis of both hips 12/24/2024 11:20 AM HAND CHAIN MAKER Office Visit [address] [address] Neymar Garibay MD OAB (overactive bladder) (Primary Dx); Pedal edema; Primary hypertension; Pulmonary hypertension, unspecified (HCC); Chronic obstructive pulmonary disease, unspecified COPD type (HCC); Major depressive disorder, recurrent episode, moderate (HCC); Class 3 severe obesity with serious comorbidity and body mass index (BMI) of 40.0 to 44.9 in adult, unspecified obesity type (HCC); Stage 3b chronic kidney disease (HCC) 12/21/2024 Orders Only [facility] [address] [place] [address] Medical Office [address], [address] [place] [address] Sasha Hernández MD INÉS (obstructive sleep apnea) 12/16/2024 Orders Only [facility] [address] [place] [address] Medical Office [address], [address] [place] [address] Sasha Hernández MD INÉS (obstructive sleep apnea) (Primary Dx) 12/13/2024 Telephone [facility] [address] [place] [address] Advanced Medicine 6th [place] [address] [place] [phone] David Lewis RN 12/13/2024 Orders Only [facility] Advanced Medicine 6th [place] [address] [place] [phone] Don Alonzo MD 12/10/2024 Orders Only [facility] [address] [place] [address] Medical Office [address], [address] [place] [address] Sasha Hernández MD Risk for coronary artery disease greater than 20% in next 10 years; Hyperlipidemia, unspecified hyperlipidemia type; Primary hypertension 12/10/2024 Telephone [facility] [address] [place] [address] Medical Office [address], [address] [place] [address] Jyotsna Valenzuela RN Medication Problem 12/09/2024 Orders Only [facility] [address] [facility] Medical Office Building [address], [address] [place] [address] Sasah Hernández MD Risk for coronary artery disease greater than 20% in next 10 years; Hyperlipidemia, unspecified hyperlipidemia type; Primary hypertension 11/15/2024 Telephone [facility] [address] [facility] Medical Office Building [address], [address] [place] [address] Fior Jackson, LENS GAUGER Prior Auth 11/11/2024 1:20 PM HAND CHAIN MAKER Telemedicine [facility] [address] [facility] Medical Office Building [address], [address] [place] [address] Sasha Hernández MD Risk for coronary artery disease greater than 20% in next 10 years (Primary Dx); Weight loss counseling, encounter for; Class 3 severe obesity with serious comorbidity and body mass index (BMI) of 40.0 to 44.9 in adult, unspecified obesity type (HCC); Type 2 diabetes mellitus without complication, without long-term current use of insulin ([facility]/HCC) (HCC); Hyperlipidemia, unspecified hyperlipidemia type; Primary hypertension 11/05/2024 Telephone [facility] [address] [facility] 6th [place] [address] [place] [address] Mir Katz MD 11/03/2024 3:30 PM HAND CHAIN MAKER - 11/03/2024 11:59 PM HAND CHAIN MAKER Hospital Encounter [facility] at [facility] [address] [place] [address] Discharge Disposition: Discharge to home or self care 11/03/2024 2:40 PM HAND CHAIN MAKER Office Visit [facility] [address] [facility] 1st Floor [address] [place] [address] Mir Katz MD Chronic pain of left knee (Primary Dx); Bilateral hip pain; Primary osteoarthritis of left knee; Primary osteoarthritis of both hips 10/25/2024 Telephone [facility] [address] [facility] Medical Office Building [address], [address] [place] [phone] Fior Jackson, CINTIA Med Management 10/18/2024 Telephone [facility] [address] [facility] Medical Office Building [address], [address] [place] [address] Fior Jackson, LENS GAUGER Med Management from Last 3 Months Immunizations Name Administration Dates Next Due Influenza, [...] PPV23 10/13/2012 Pneumococcal, Unspecified 10/13/2012 Tdap 08/25/2015 Surgical History Surgery Date Site/Laterality Comments TUBAL LIGATION 12/01/1975 - 11/30/1976 Bilateral tubal ligation OTHER SURGICAL HISTORY 12/01/2009 - 11/30/2010 Osteoarthritis: Drug therapy OTHER SURGICAL HISTORY Left foot neuroma x 2: excisions done OTHER SURGICAL HISTORY 12/01/1980 - 11/30/1981 Breast lump: Lumpectomy OTHER SURGICAL HISTORY 12/01/1990 - 11/30/1991 Deviated nasal septum/sinus infection: nasal septoplasty OTHER SURGICAL HISTORY 12/01/1999 - 11/30/2000 Disc displacement: discectomy L4L5 OTHER SURGICAL HISTORY 12/01/1952 - 11/30/1953 Pelvic fracture: casting OTHER SURGICAL HISTORY 12/01/2009 - 11/30/2010 Gastroesophageal reflux disease: Drug therapy OTHER SURGICAL HISTORY Hernia, abdominal: expectant management OTHER SURGICAL HISTORY Left hammer toe repair FOOT SURGERY Foot Surgery - (Added by TW Conv) COLONOSCOPY UPPER GASTROINTESTINAL ENDOSCOPY SPINE SURGERY SINUS SURGERY BACK SURGERY micro discectomy HAND SURGERY L hand fluid release SINUS SURGERY deviated septu\m FLUORO GUIDED INJECTION SHOULDER LEFT 12/08/2018 Left ABDOMINAL SURGERY BREAST LUMPECTOMY US BONE BIOPSY SUPERFICIAL 07/10/2017 N/A Medical History Medical History Date Comments Osteoarthritis 2009 Osteoarthritis Hx Other Medical Left foot neuro ma x 2; Outcome: improved Hx Other Medical 1980 Breast lump; Ou tcome: resolved Hx Other Medical 1990 Deviated nasal septum/sinus infection; Outcome: improved Hx Other Medical 1999 Disc displaceme nt Hx Other Medical 1952 Pelvic fracture ; Outcome: resolved Hx Other Medical scoliosis,spina l stenosis, spondylitis Hx Other Medical Gastroesophagea l reflux disease; Outcome: improved Hx Other Medical 2009 Hernia, abdomin al Depression Depression Hypertension Hypertension Asthma Asthma; Comments : ISAAC 12/04/2015 - Pain in hip Pelvic joint evens n - (Added by TW Conv) Personal history of other di seases of the nervous system and sense organs History of sleep a pnea - (Added by TW Conv) Personal history of other di seases of the musculoskeletal system and connective tissue History of spinal stenosis - (Added by TW Conv) Osteoarthritis Osteoarthritis, unspecified osteoarthritis type, unspecified site - (Added by TW Conv) Shortness of breath Shortness of breath - (Added by TW Conv) Other specified soft tissue disorders Left leg swelling - (Added by TW Conv) Personal history of other di seases of the circulatory system History of hypertension - (A dded by TW Conv) Personal history of other di seases of the respiratory system History of asthma - (Added b y TW Conv) Personal history of other di seases of the musculoskeletal system and connective tissue History of osteomyelitis - ( Added by TW Conv) Weight loss counseling, encounter for 05/15/2018 Prediabetes 05/15/2018 PONV (postoperative nausea a nd vomiting) GERD (gastroesophageal reflu x disease) Hyperlipidemia Esophageal ulcer Disordered eating 09/21/2018 Peripheral neuropathy Breathing difficulty mild asthma Diabetes mellitus (HCC) Type II Ear problems GI problem GERD Incontinence Pelvic floor dysfunction Sleep apnea Spinal stenosis Osteoarthritis Chronic pain disorder Family History Medical History Relation Name Comments Hypertension Brother Hypertension; COPD Father COPD; Depression Father Family history of depression - (Added by TW Conv) Heart disease Father Heart disease; Cause of : Heart disease/Family history of cardiac disorder - (Added by TW Conv) Hyperlipidemia Father Hyperlipidemi a; Hypertension Father Hypertension; / Family history of hypertension - (Added by TW Conv) Obesity Father Family history of obesity - (Added by TW Conv) Other Father blood clots in legs; Substance Abuse Father Family histo ry of substance abuse - (Added by TW Conv) Alcohol abuse Mother Alcohol depend ency - (Added by TW Conv) COPD Mother COPD; Cause of : COPD Depression Mother Depression; /Fa dee dee history of depression - (Added by TW Conv) Heart disease Mother Heart disease; /Family history of cardiac disorder - (Added by TW Conv) Hyperlipidemia Mother Hyperlipidemi a; Hypertension Mother Hypertension; / Family history of hypertension - (Added by TW Conv) Obesity Mother Family history of obesity - (Added by TW Conv) Rheum arthritis Mother Rheumatoid a rthritis; Substance Abuse Mother Family histo ry of substance abuse - (Added by TW Conv) Heart disease Other 1 Family history of cardiac disorder - Relation: Grandparent (Added by TW Conv) Hypertension Other 2 Family history of hypertension - Relation: Grandparent (Added by TW Conv) Obesity Other 3 Family history of obesity - Relation: Grandparent (Added by TW Conv) Alcohol abuse Other 4 Alcohol depend ency - Relation: Grandparent (Added by TW Conv) Substance Abuse Other 5 Family histo ry of substance abuse - Relation: Grandparent (Added by TW Conv) Depression Other 6 Family history of depression - Relation: Grandparent (Added by TW Conv) Anesthesia problems Neg Hx Relation Name Status Comments Brother Father Mother Other 1 Other 2 Other 3 Other 4 Other 5 Other 6 Social History Tobacco Use Types Packs/Day Years [...] on file Legal Sex Female 1:19 AM HAND CHAIN MAKER Gender Identity Female 09/25/2021 5:30 AM CDT Sexual Orientation Straight 09/25/2021 5: 30 AM CDT 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 Not on file Not on file Obstetrics History Last Filed Vital Signs Vital Sign Reading Time Taken Comments Blood Pressure 154/77 12/24/2024 11:37 AM HAND CHAIN MAKER Pulse 81 12/24/2024 11:37 AM HAND CHAIN MAKER Temperature 36.7 ??C (98.1 ??F) 08/03/2024 2:41 PM CD T Respiratory Rate 18 04/03/2024 7:35 AM CDT Oxygen Saturation 96% 12/24/2024 11:37 AM HAND CHAIN MAKER Inhaled Oxygen Concentration - - Weight 108.4 kg (239 lb) 12/24/2024 11:37 AM HAND CHAIN MAKER Height 167.6 cm (5' 5.98 ) 03/31/2024 11:19 PM C DT Body Mass Index 38.59 03/31/2024 11:19 PM CDT Plan of Treatment Health Maintenance Due Date Last Done Comments Albumin Creatinine Ratio, Urine 1951 Colon Cancer Screening-Colonoscopy 1950 Osteoporosis Screening-Bone Density Scan 1950 Dilated Eye Exam 1950 Foot Exam 1951 Hepatitis B Screening 1969 Zoster Vaccine (1 of 2) 2001 Breast Cancer Screening-Mammogram 10/31/2016 015 Pneumococcal vaccine 65+ (3 of 3 - PPSV23 or PCV20) 10/13/2017 08/14/2016, 10/13/2012, 10/13/2012 Depression Screening 05/14/2019 05/14/2018 Well Visit 65+ 01/23/2022 01/23/2021 Lipid Panel 04/12/2023 04/12/2022, 01/02, 01/03/2020, Additional history exists Covid-19 Vaccine (3 - 2023-2 5 season) 2024 11/09/2022, 02/08/2021 Hemoglobin A1C 09/22/2024 2024, 02/2 12/2022, 10/08/2022, Additional history exists Fall Risk Assessment 04/03/2025 04/03/2024 eGFR 04/03/2025 04/03/2024, 05/0 01/2024, 04/02/2024, Additional history exists DTaP/Tdap/Td Vaccine (2 - Td or Tdap) 08/25/2025 08/25/2015 Hepatitis C Screening Completed 02/17/2013 Influenza Vaccine Completed 10/08/2024, , 10/02/2023, Additional history exists Goals Goal Patient Goal Type Associated Problems [...] as needed Medical Devices Implanted Type Area Sterile Process Coordinator Device Identifier Shelf Expiration Date Model / Serial / Lot [employer] Baseplate Tibial Knee Cemented Right Fixed Stemmed Persona Size F Tivanium [id number] - [id number] Implanted:Qty: 1 on 03/29/2024 by Don Alonzo MD at [facility] Right: Knee [employer] [id number] 07/12/2033 [id number] / / [id number] [employer] Persona Cruciate Retain Cemented Knee Right 9 Narrow Component [id number] - [id number] Implanted:Qty: 1 on 03/29/2024 by Don Alonzo MD at [facility] Right: Knee [employer] [id number] 10/07/2033 [id number] / / [id number] [employer] Simplex P Full Dose Radiopaque Preblend Cement Bone Tobramycin 6197-9-001 - [id number] Implanted:Qty: 1 on 03/29/2024 by Don Alonzo MD at [facility] Right: Knee [employer] [id number] 05/30/2025 6197-9-001 / / [id number] [employer] Simplex P Full Dose Radiopaque Preblend Cement Bone Tobramycin 6197-9-001 - [id number] Implanted:Qty: 1 on 03/29/2024 by Don Alonzo MD at [facility] Right: Knee [employer] [id number] 06/30/2025 6197-9-001 / / [id number] [employer] Persona 14mm Knee Right 8-11 E-F Insert Articular Vivacit-E [id number] - [id number] Implanted:Qty: 1 on 03/29/2024 by Don Alonzo MD at [facility] Right: Knee [employer] [id number] 04/02/2028 [id number] / / [id number] Procedures Procedure Name Priority Date/Time Associated Diagnosis Comments POCUS ASP/INJ MAJOR JOINT Schedule Routine, Read Routine (OP Routine) 12/31/2024 10:24 AM HAND CHAIN MAKER Chronic pain of left knee [place] ARTHROCENTESIS ASPIR&/INJ MAJOR JT/BURSA W/US Routine 12/31/2024 10:15 AM HAND CHAIN MAKER Chronic pain of left knee POCT URINALYSIS, AUTO W/O SCOPE Routine 12/24/2024 11:45 AM HAND CHAIN MAKER OAB (overactive bladder) XR PELVIS 1 OR 2 VIEWS Schedule Routine, Read Routine (OP Routine) 11/03/2024 3:47 PM HAND CHAIN MAKER Bilateral hip pain XR KNEE BILATERAL 3 VIEWS Schedule Routine, Read Routine (OP Routine) 11/03/2024 3:47 PM HAND CHAIN MAKER Chronic pain of left knee EGFR Routine 04/03/2024 4:36 AM CDT HEMOGLOBIN A1C Routine 2024 4:12 PM CDT Primary osteoarthritis of right knee Type 2 diabetes mellitus without complication, unspecified whether group home insulin use (HCC) LIPID PANEL Routine 04/12/2022 3:23 PM CDT Type 2 diabetes mellitus without complication, without long-term current use of insulin (CMS/HCC) (HCC) SCREENING MAMMOGRAM Routine 10/31/2015 3 :29 PM HAND CHAIN MAKER SERUM HEPATITIS PANEL Routine 02/17/2013 3:00 PM CDT from Last 3 Months or Most Recently Relevant to Health Maintenance Results * POCUS ASP/INJ MAJOR JOINT (12/31/2024 10:24 AM HAND CHAIN MAKER) Narrative [facility] - 12/31/2024 10:24 AM HAND CHAIN MAKER This procedure was performed and interpreted by the provider. Please refer to the provider's procedure/OR operative note for results. us Mir Katz MD POCUS ORDERABLES Final R esult [facility] * [place] ARTHROCENTESIS ASPIR&/INJ MAJOR JT/BURSA W/US (12/31/2024 10:15 AM HAND CHAIN MAKER) Narrative Mir Katz MD - 12/31/2024 10:15 AM HAND CHAIN MAKER Mir Katz MD ? 12/31/2024 10:57 AM [...] UA, AUTO W/O SCOPE (12/24/2024 11:45 AM HAND CHAIN MAKER) Color, Urine, POC Yellow Clarity, ur, POC Clear Clear Glucose, ur, POC Negative Negative MG/DL Bilirubin, ur, POC Negative Negative, Small, Moderate, Large Ketones, ur, POC Negative Negative Specific [place], POC 1.020 1.003 - 1.030 Blood, ur, POC Trace(A) Negative pH, ur, POC 5.5 5.0 - 8.0 Protein, ur, POC Negative Negative Urobilinogen, Urine, POC 0.2 mg/dL Leukocytes, ur, POC Negative Negative Nitrite, ur, POC Negative Negative Appearance, fld Clear Clear Urine 12/24/2024 11:4 5 AM HAND CHAIN MAKER Neymar Garibay MD POINT OF CARE TEST ORD ERABLES Final Result * XR Knee Bilateral 3 Views (11/03/2024 3:47 PM HAND CHAIN MAKER) Anatomical Region Laterality Modality Lower Extremities, Knee Bilateral Computed Radiography 11/03/2024 3:59 PM HAND CHAIN MAKER Impressions 11/03/2024 3:59 PM HAND CHAIN MAKER 1. ??Severe bilateral hip osteoarthritis. 2. ??Right 2 component total knee arthroplasty in unchanged near-anatomic position. 3. ??Medial compartment predominant moderate to severe left knee tricompartmental osteoarthritis. 4. ?? Electronically signed by: Allen Silvestre D.O. Narrative 11/03/2024 3:59 PM HAND CHAIN MAKER EXAMINATION: XR KNEE BILATERAL 3 VIEWS, XR [...] 4. Electronically signed by: Allen Silvestre D.O. Mir Katz MD IMG XR PROCEDURES Final Result * XR Pelvis 1 or 2 Views (11/03/2024 3:47 PM HAND CHAIN MAKER) Anatomical Region Laterality Modality Body, Pelvis N/A Computed Radiogr aphy 11/03/2024 3:59 PM HAND CHAIN MAKER Impressions 11/03/2024 3:59 PM HAND CHAIN MAKER 1. ??Severe bilateral hip osteoarthritis. 2. ??Right 2 component total knee arthroplasty in unchanged near-anatomic position. 3. ??Medial compartment predominant moderate to severe left knee tricompartmental osteoarthritis. 4. ?? Electronically signed by: Allen Silvestre D.O. Narrative 11/03/2024 3:59 PM HAND CHAIN MAKER EXAMINATION: XR KNEE BILATERAL 3 VIEWS, XR [...] 4:36 AM CDT 04/03/2024 4:53 AM CDT us Viviana Saxena NP LAB BLOOD ORDERABLES Final Re sult [facility] [place] [address] * Hemoglobin A1c (2024 4:12 PM CDT) Pathologist [facility] Hgb A1C 5.4 4.0 - 5.6 % Estimated Average Glucose 108 mg/dL [facility] Comment: The ADA recommends reporting an estimated Average Glucose (eAG) with all Hemoglobin A1c results using the equation derived from a study of 507 normal and diabetic adults. ??Minority populations were underrepresented and children were not included. ?? (Diabetes Care 2020; 43(S1): S66-S76). ??The eAG is not equivalent to a fasting glucose. Blood 2024 4:12 PM CDT 2024 4:50 PM CDT us Don Alonzo MD LAB BLOOD ORDERABLES Final Result Performing Organization Address [facility] de Phone Number [facility] [place] [address] * (ABNORMAL) Lipid panel (04/12/2022 3:23 PM CDT) [facility] Triglyceride 164(H) 0 - 150 mg/dL [facility] Cholesterol 194 0 - 200 mg/dL [facility] HDL 49 >45 mg/dL [facility] LDL-Calculated 112 mg/dL [facility] CHOL/HDL Risk Ratio 4 Ratio [facility] LDL/HDL Risk Ratio 2 Ratio [facility] Blood specimen (specimen) 04/12/2022 3:23 PM CDT 04/12/2022 3:38 PM CDT Neymar Garibay MD LAB BLOOD ORDERABLES F inal Result Performing Organization Address [facility] Co de Phone Number [facility] [address] [place] [address] * Screening Mammogram (10/31/2015 3:29 PM HAND CHAIN MAKER) Anatomical Region Laterality Modality Breast N/A Mammography 10/31/2015 3:29 PM HAND CHAIN MAKER Narrative 11/01/2015 2:59 PM HAND CHAIN MAKER JYOTSNA EDDY M.D. FINAL REPORT ACC# ??Date Time ??Exam [id number] Oct 31, 2015 15:29:00 [facility] [place] [address] Screening Mamm Bilat ?? Technologist(s): Gisela Block; ; EXAMINATION: ??Mammogram Technique: Bilateral Full-Field Digital Screening Mammogram was performed. ??Views obtained: ??bilateral craniocaudal and bilateral mediolateral oblique. Computer Aided Detection was performed with [employer].3 version 9.3. Mammogram Findings: The present examination has been compared to prior imaging studies performed at [facility] on 03/11/2012, 03/27/2010 and 02/11/2008. There are scattered areas of fibroglandular density. There is no suspicious abnormality in either breast. IMPRESSION: ??Annual screening mammography is recommended. OVERALL FINAL ASSESSMENT: BI-RADS CATEGORY 1: ??Negative. Requested By: Dictated By: ?? JYOTSNA EDDY M.D. ??on Oct ??2014 ??2:59P This document has been electronically signed by: JYOTSNA EDDY M.D. on Oct ??2014 ??2:59P [id number] Procedure Note Provider, MD Edgar - 03/22/2017 JYOTSNA EDDY M.D. FINAL REPORT ACC# Date Time Exam [id number] Oct 31, 2015 15:29:00 [facility] [place] [address] Screening Mamm Bilat Technologist(s): Gisela Block; ; EXAMINATION: Mammogram Technique: Bilateral Full-Field Digital Screening Mammogram was performed. Views obtained: bilateral craniocaudal and bilateral mediolateral oblique. Computer Aided Detection was performed with [employer] 1.3 version 9.3. Mammogram Findings: The present examination has been compared to prior imaging studies performed at [facility] on 03/11/2012, 03/27/2010 and 02/11/2008. There are scattered areas of fibroglandular density. There is no suspicious abnormality in either breast. IMPRESSION: Annual screening mammography is recommended. OVERALL FINAL ASSESSMENT: BI-RADS CATEGORY 1: Negative. Requested By: Dictated By: JYOTSNA EDDY M.D. on Nov 01 2015 2:59P This document has been electronically signed by: JYOTSNA EDDY M.D. on Nov 01 2015 2:59P [id number] us Historical Provider MD XIAO MAMMO PROCEDURES Natalya l Result * Serum Hepatitis panel (02/17/2013 3:00 PM CDT) HBV surface ag Negative NEG HISTO RICAL RESULTS HCV ab Negative NEG HISTORICAL RESULTS Comment: Interpretive Data If confirmation is required, call Laboratory Customer Service to request sample to be sent to [facility] for Hepatitis C Virus (HCV) RNA Detection and Quantitation by Real-Time Reverse Rockboard Lather-PCR (RT-PCR). Current interpretive data was last revised [...] on 2008. Serum 02/17/2013 3:00 PM CDT Neymar Garibay MD LAB BLOOD ORDERABLES F inal Result HISTORICAL RESULTS from Last 3 Months or Most Recently Relevant to Health Maintenance Insurance MEDICARE [facility] [place] [address] MEDICARE [facility] MEDICARE [facility] MEDICARE Advance Directives For more information, please contact: [phone] * Full Code (Latest Code Status on File) Date Activated Date Inactivated Comments 03/29/2024 12:45 PM 04/03/2024 3:06 PM * Full Code Date Activated Date Inactivated Comments 07/03/2018 1:01 PM 07/03/2018 5:06 PM Care Teams Bin Worker Relationship Specialty Start Date End Date Neymar Garibay MD [address] [place] [address] PCP - General 01/31/20 Neymar Garibay MD [address] [place] [address] 01/31/20
--- NOTE | 2025-01-02 20:58 | PC.NURSE ---
1gm tylenol vrraquel retana
[2025-01-02] MEDS: ACETAMINOPHEN 500 MG TABLET 1000 MG PO (21:00)
[2025-01-02 21:51] VITALS: BP 148/64; PULSE 95; TEMP 39.2; O2SAT 95
--- OUTSIDE RECORDS SUMMARY | 2025-01-02 22:26 | XMS_ITS | Referral Summary ---
Author Organization [facility] Address [address] [place] [address] Care Team Providers Care President Finance Company Name Role Phone Neymar Garibay MD Primary Care Provider Source Comments [facility],non-owned Affiliates and Associated Physician Practices is amultiple site organization consisting of ambulatory clinics and hospital sitesin [place], [place], [place]. This disclosure is being madepursuant to the Care Everywhere program and may not contain all information available regarding this patient. Last updated 18.[facility] Social History Tobacco Use Types Packs/Day Years Used Date Smoking Tobacco: Never Assessed Sex and Gender Information Value Date Recorded Sex Assigned at Not on file Gender Identity Not on file Sexual Orientation Not on file Plan of Treatment Not on file Care Teams President Finance Company Relationship Specialty Start Date End Date Neymar Garibay MD [address] [facility], [address] PCP - General Internal Medicine 11/08/16
--- OUTSIDE RECORDS SUMMARY | 2025-01-02 22:26 | XMS_ITS | Encounter Summary ---
Author Organization [facility] Address [address] [place] [address] Phone Care Team Providers Care Seat Nailer Name Role Phone Neymar Garibay MD Primary Care Provider Neymar Garibay MD Primary Care Provider Neymar Garibay MD Unavailable [phone] Mamta Gandhi DPT Unavailable [phone] Encounter Details Date Type Department Care Team [...] on file Legal Sex Female 1:19 AM STONE PAVER Gender Identity Female 09/25/2021 5:30 AM CDT [...] documented as of this encounter Care Teams Seat Nailer Relationship Specialty Start Date End Date Neymar Garibay MD [address] [place] [address] PCP - General 03/28/17 01/30/20 Neymar Garibya MD [address] [place] [address] PCP - General 01/31/20 Neymar Garibay MD [address] [place] [address] 01/31/20 Mamta Gandhi DPT [address] [place] [address] Physical Therapist Physical Therapy 12/23/18 12/28/19 documented as of this encounter
--- OUTSIDE RECORDS SUMMARY | 2025-01-02 22:26 | XMS_ITS | Encounter Summary ---
Author Organization [facility] Address [address] [place] [address] Phone Care Team Providers Care Metal Hanger Name Role Phone Neymar Garibay MD Primary Care Provider Neymar Garibay MD Unavailable [phone] Encounter Details Date Type Department Care Team (Late st Contact Info) Description 01/13/2023 Orders Only [facility] [address] [place] [address] Eduarda Booker, EBONY [address] [place] [address] Pain in left leg (Primary [...] on file Legal Sex Female 1:19 AM COMMERCIAL ARTIST LETTERING Gender Identity Female 09/25/2021 5:30 AM CDT [...] Primary documented in this encounter Care Teams Metal Hanger Relationship Specialty Start Date End Date Neymar Garibay MD [address] [place] [address] PCP - General 01/31/20 Neymar Garibay MD [address] [place] [address] 01/31/20 documented as of this encounter
--- OUTSIDE RECORDS SUMMARY | 2025-01-02 22:26 | XMS_ITS | Encounter Summary ---
Author Organization [facility] Address [address] [place] [address] Phone Care Team Providers Care Automatic Vulcanizing Operator Name Role Phone Neymar Garibay MD Primary Care Provider Neymar Garibay MD Primary Care Provider Neymar Garibay MD Unavailable [phone] Mamta Gandhi DPT Unavailable [phone] Encounter Details Date Type Department Care Team (Late st Contact Info) Description 12/07/2019 Orders Only [facility] [phone] Scanning, Provider Social History Tobacco Use Types Packs/Day Years Used Date Smoking Tobacco: Former Smokeless Tobacco: Never Alcohol Use Standard Drinks/Week Comments Yes 0 (1 standard drink = 0.6 oz pur e alcohol) Comments No Sex and Gender Information Value Date Recorded Sex Assigned at Not on file Legal Sex Female 1:19 AM DISPENSING AUDIOLOGIST Gender Identity Female 09/25/2021 5:30 AM CDT [...] documented as of this encounter Care Teams Automatic Vulcanizing Operator Relationship Specialty Start Date End Date Neymar Garibay MD [address] [place], [place] [id number] PCP - General 03/28/17 01/30/20 Neymar Garibay MD [address] [place] [address] PCP - General 01/31/20 Neymar Garibay MD [address] [place], [place] [id number] 01/31/20 Mamta Gandhi DPT [address] [place], [place] [id number] Physical Therapist Physical Therapy 12/23/18 12/28/19 documented as of this encounter
--- OUTSIDE RECORDS SUMMARY | 2025-01-02 22:26 | XMS_ITS | Referral Summary ---
Author Organization [facility] Address [address] [place] [address] Care Team Providers Care Engine Tester Name Role Phone Neymar Garibay MD Primary Care Provider Neymar Garibay MD Unavailable [phone] Encounters Date Type Department Care Team Description 12/31/2024 10:25 AM REPAIR TECH Ancillary Procedure [facility] Orthopaedic Surgery [address] [facility] [facility] Medicine 6th [place] [address] [place] [address] Chronic pain of left knee 12/31/2024 10:15 AM REPAIR TECH Procedure visit [facility] Orthopaedic Surgery [address] [facility] 6th [place] [address] [place] [address] Mir Katz MD Chronic pain of left knee 12/29/2024 2:00 PM REPAIR TECH Office Visit [facility] Orthopaedic Surgery [address] [facility] 1st Floor [address] [place] [address] Mir Katz MD Chronic pain of left knee (Primary Dx); Primary osteoarthritis of left knee; Bilateral hip pain; Primary osteoarthritis of both hips 12/24/2024 11:20 AM REPAIR TECH Office Visit [address] [address] Neymar Garibay MD OAB (overactive bladder) (Primary Dx); Pedal edema; Primary hypertension; Pulmonary hypertension, unspecified ([facility]); Chronic obstructive pulmonary disease, unspecified COPD type ([facility]); Major depressive disorder, recurrent episode, moderate ([facility]); Class 3 severe obesity with serious comorbidity and body mass index (BMI) of 40.0 to 44.9 in adult, unspecified obesity type ([facility]); Stage 3b chronic kidney disease (HCC) 12/21/2024 Orders Only [facility] [address] [place] [address] Medical Office Building [address], [address] [place] [address] Sasha Hernández MD INÉS (obstructive sleep apnea) 12/16/2024 Orders Only [facility] [address] [place] [address] Office [address], [address] [place] [address] Sasha Hernández MD INÉS (obstructive sleep apnea) (Primary Dx) 12/13/2024 Telephone [facility] Orthopaedic Surgery [address] [place] [address] Advanced Medicine 6th [place] [address] [place] [phone] David Lewis RN 12/13/2024 Orders Only [facility] Orthopaedic Surgery [address] [place] [address] Advanced Medicine 6th [place] [address] [place] [phone] Don Alonzo MD 12/10/2024 Orders Only [facility] [address] [place] [address] Medical Office Building [address], [address] [place] [address] Sasha Hernández MD Risk for coronary artery disease greater than 20% in next 10 years; Hyperlipidemia, unspecified hyperlipidemia type; Primary hypertension 12/10/2024 Telephone [facility] [address] [place] [address] Office [address], [address] [place] [address] Jyotsna Valenzuela RN Medication Problem 12/09/2024 Orders Only [facility] [address] [place] [address] Medical Office Building [address], [address] [place] [address] Sasha Hernández MD Risk for coronary artery disease greater than 20% in next 10 years; Hyperlipidemia, unspecified hyperlipidemia type; Primary hypertension 11/15/2024 Telephone [facility] [address] [facility] Medical Office Building [address], [address] [place] [address] Fior Jackson CMA Prior Auth 11/11/2024 1:20 PM REPAIR TECH Telemedicine [facility] [address] [facility] Medical Office Building [address], [address] [place] [address] Sasha Hernández MD Risk for coronary artery disease greater than 20% in next 10 years (Primary Dx); Weight loss counseling, encounter for; Class 3 severe obesity with serious comorbidity and body mass index (BMI) of 40.0 to 44.9 in adult, unspecified obesity type (HCC); Type 2 diabetes mellitus without complication, without long-term current use of insulin ([facility]/HCC) (HCC); Hyperlipidemia, unspecified hyperlipidemia type; Primary hypertension 11/05/2024 Telephone [facility] Orthopaedic Surgery [address] [facility] 6th [place] [address] [place] [address] Mir Katz MD 11/03/2024 3:30 PM REPAIR TECH - 11/03/2024 11:59 PM REPAIR TECH Hospital Encounter [facility] Radiology at [facility] [address] [place] [address] Discharge Disposition: Discharge to home or self care 11/03/2024 2:40 PM REPAIR TECH Office Visit [facility] Orthopaedic Surgery [address] [facility] 1st Floor [address] [place] [address] Mir Katz MD Chronic pain of left knee (Primary Dx); Bilateral hip pain; Primary osteoarthritis of left knee; Primary osteoarthritis of both hips 10/25/2024 Telephone [facility] [address] [facility] Medical Office Building [address], [address] [place] [address] Fior Jackson CMA Med Management 10/18/2024 Telephone [facility] [address] [facility] Medical Office Building [address], [address] [place] [address] Fior Jackson, BANK SECRECY ACT OFFICER Med Management from Last 3 Months Allergies [...] Ended triamcinolone (KENALOG) 40 mg/mL injection 40 mgIndications:Supervisor Car Installations harvey pain of left knee 40 mg [...] semaglutide. Assessment & Plan (01/06/2023 12:11 PM REPAIR TECH): Labs. Reviewed most recent labs available. Continue low-carb (<150 g/day), low-glycemic diet. Plan to increase semaglutide to 1 mg weekly pending results. Assessment & Plan (12/31/2022 12:19 PM REPAIR TECH): Reviewed most recent labs available. Continue low-carb [...] w/r/t gut microbiome. Referred to ADA and [facility] websites for additional information on topics [...] diet. Assessment & Plan (01/06/2023 12:09 PM REPAIR TECH): Reviewed calorie restriction based on BMR as previously detailed. Reviewed recommendation/goal of >/= 150 minutes/week moderate-intensity aerobic exercise. Asked to keep detailed food diary for at least 1 week and bring to next visit and/or continue tracking on phone. Assessment & Plan (12/31/2022 12:18 PM REPAIR TECH): Reviewed calorie restriction based on BMR as [...] 03/17/2018 Assessment & Plan (01/06/2023 12:11 PM REPAIR TECH): Labs. Osteoarthritis of cervical spine 01/05/2018 Class [...] Other: Assessment & Plan (01/06/2023 12:11 PM REPAIR TECH): Obesity is improving.. Plan: Diet interventions: as noted.., Regular aerobic exercise program discussed. and Medication as prescribed. Assessment & Plan (12/31/2022 12:19 PM REPAIR TECH): Obesity is worsening.. 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 Not on file Not on file Last Filed Vital Signs Vital Sign Reading Time Taken Comments Blood Pressure 154/77 12/24/2024 11:37 AM REPAIR TECH Pulse 81 12/24/2024 11:37 AM REPAIR TECH Temperature 36.7 ??C (98.1 ??F) 08/03/2024 2:41 PM CD T Respiratory Rate 18 04/03/2024 7:35 AM CDT Oxygen Saturation 96% 12/24/2024 11:37 AM REPAIR TECH Inhaled Oxygen Concentration - - Weight 108.4 kg (239 lb) 12/24/2024 11:37 AM REPAIR TECH Height 167.6 cm (5' 5.98 ) 03/31/2024 [...] as needed Medical Devices Implanted Type Area Wine Cellar Stock Clerk Device Identifier Shelf Expiration Date Model / Serial / Lot [employer] Baseplate Tibial Knee Cemented Right Fixed Stemmed Persona Size F Tivanium [id number] - [id number] Implanted:Qty: 1 on 03/29/2024 by Don Alonzo MD at [facility] Right: Knee [employer] [id number] 07/12/2033 [id number] / / [id number] [employer] Persona Cruciate Retain Cemented Knee Right 9 Narrow Component [id number] - [id number] Implanted:Qty: 1 on 03/29/2024 by Don Alonzo MD at [facility] Right: Knee [employer] [id number] 10/07/2033 [id number] / / [id number] [employer] Simplex P Full Dose Radiopaque Preblend Cement Bone Tobramycin 6197-9-001 - [id number] Implanted:Qty: 1 on 03/29/2024 by Don Alonzo MD at [facility] Right: Knee [employer] [id number] 05/30/2025 6197-9-001 / / [id number] [employer] Simplex P Full Dose Radiopaque Preblend Cement Bone Tobramycin 6197-9-001 - [id number] Implanted:Qty: 1 on 03/29/2024 by Don Alonzo MD at [facility] Right: Knee [employer] [id number] 06/30/2025 6197-9-001 / / [id number] [employer] Persona 14mm Knee Right 8-11 E-F Insert Articular Vivacit-E [id number] - [id number] Implanted:Qty: 1 on 03/29/2024 by Don Alonzo MD at [facility] Right: Knee [employer] [id number] 04/02/2028 [id number] / / [id number] Procedures Procedure Name Priority Date/Time Associated Diagnosis Comments POCUS ASP/INJ MAJOR JOINT Schedule Routine, Read Routine (OP Routine) 12/31/2024 10:24 AM REPAIR TECH Chronic pain of left knee OH ARTHROCENTESIS ASPIR&/INJ MAJOR JT/BURSA W/US Routine 12/31/2024 10:15 AM REPAIR TECH Chronic pain of left knee POCT URINALYSIS, AUTO W/O SCOPE Routine 12/24/2024 11:45 AM REPAIR TECH OAB (overactive bladder) XR PELVIS 1 OR 2 VIEWS Schedule Routine, Read Routine (OP Routine) 11/03/2024 3:47 PM REPAIR TECH Bilateral hip pain XR KNEE BILATERAL 3 VIEWS Schedule Routine, Read Routine (OP Routine) 11/03/2024 3:47 PM REPAIR TECH Chronic pain of left knee EGFR Routine 04/03/2024 4:36 AM CDT HEMOGLOBIN A1C Routine 2024 4:12 PM CDT Primary osteoarthritis of right knee Type 2 diabetes mellitus without complication, unspecified whether assistant men's lacrosse coach insulin use (HCC) LIPID PANEL Routine 04/12/2022 3:23 PM CDT Type 2 diabetes mellitus without complication, without long-term current use of insulin (CMS/HCC) (HCC) SCREENING MAMMOGRAM Routine 10/31/2015 3 :29 PM REPAIR TECH SERUM HEPATITIS PANEL Routine 02/17/2013 3:00 PM CDT from Last 3 Months or Most Recently Relevant to Health Maintenance Results * POCUS ASP/INJ MAJOR JOINT (12/31/2024 10:24 AM REPAIR TECH) Narrative RAD_PACS_POCUS_[facility] - 12/31/2024 10:24 AM REPAIR TECH This procedure was performed and interpreted by the provider. Please refer to the provider's procedure/OR operative note for results. us Mir Katz MD POCUS ORDERABLES Final R esult [facility]ACS[facility] * OH ARTHROCENTESIS ASPIR&/INJ MAJOR JT/BURSA W/US (12/31/2024 10:15 AM REPAIR TECH) Narrative Mir Katz MD - 12/31/2024 10:15 AM REPAIR TECH Mir Katz MD ? 12/31/2024 10:57 AM [...] UA, AUTO W/O SCOPE (12/24/2024 11:45 AM REPAIR TECH) Color, Urine, POC Yellow Clarity, ur, POC Clear Clear Glucose, ur, POC Negative Negative MG/DL Bilirubin, ur, POC Negative Negative, Small, Moderate, Large Ketones, ur, POC Negative Negative Specific [place], POC 1.020 1.003 - 1.030 Blood, ur, POC Trace(A) Negative pH, ur, POC 5.5 5.0 - 8.0 Protein, ur, POC Negative Negative Urobilinogen, Urine, POC 0.2 mg/dL Leukocytes, ur, POC Negative Negative Nitrite, ur, POC Negative Negative Appearance, fld Clear Clear Urine 12/24/2024 11:4 5 AM REPAIR TECH us Neymar Garibay MD POINT OF CARE TEST ORD ERABLES Final Result * XR Knee Bilateral 3 Views (11/03/2024 3:47 PM REPAIR TECH) Anatomical Region Laterality Modality Lower Extremities, Knee Bilateral Computed Radiography 11/03/2024 3:59 PM REPAIR TECH Impressions 11/03/2024 3:59 PM REPAIR TECH 1. ??Severe bilateral hip osteoarthritis. 2. ??Right 2 component total knee arthroplasty in unchanged near-anatomic position. 3. ??Medial compartment predominant moderate to severe left knee tricompartmental osteoarthritis. 4. ?? Electronically signed by: Allen Silvestre D.O. Narrative 11/03/2024 3:59 PM REPAIR TECH EXAMINATION: XR KNEE BILATERAL 3 VIEWS, XR [...] 1 or 2 Views (11/03/2024 3:47 PM REPAIR TECH) Anatomical Region Laterality Modality Body, Pelvis N/A Computed Radiogr aphy 11/03/2024 3:59 PM REPAIR TECH Impressions 11/03/2024 3:59 PM REPAIR TECH 1. ??Severe bilateral hip osteoarthritis. 2. ??Right 2 component total knee arthroplasty in unchanged near-anatomic position. 3. ??Medial compartment predominant moderate to severe left knee tricompartmental osteoarthritis. 4. ?? Electronically signed by: Allen Silvestre D.O. Narrative 11/03/2024 3:59 PM REPAIR TECH EXAMINATION: XR KNEE BILATERAL 3 VIEWS, XR [...] ORDERABLES Final Re sult Performing Organization Address [facility] de Phone Number [facility] [place] [address] * Hemoglobin A1c (2024 4:12 PM CDT) Pathologist [facility] Hgb A1C 5.4 4.0 - 5.6 % Estimated Average Glucose 108 mg/dL [facility] Comment: The ADA recommends reporting an [...] BLOOD ORDERABLES Final Result Performing Organization Address [facility] de Phone Number [facility] Department [place] [address] * (ABNORMAL) Lipid panel (04/12/2022 3:23 PM CDT) Triglyceride 164(H) 0 - 150 mg/dL [facility] Cholesterol 194 0 - 200 mg/dL [facility] HDL 49 >45 mg/dL [facility] LDL-Calculated 112 mg/dL [facility] CHOL/HDL Risk Ratio 4 Ratio [facility] LDL/HDL Risk Ratio 2 Ratio [facility] Blood specimen (specimen) 04/12/2022 3:23 PM CDT 04/12/2022 3:38 PM CDT us Neymar Garibay MD LAB BLOOD ORDERABLES F inal Result [facility] [address] [place] [address] * Screening Mammogram (10/31/2015 3:29 PM REPAIR TECH) Anatomical Region Laterality Modality Breast N/A Mammography 10/31/2015 3:29 PM REPAIR TECH Narrative 11/01/2015 2:59 PM REPAIR TECH JYOTSNA EDDY M.D. FINAL REPORT ACC# ??Date Time ??Exam [id number] Oct 31, 2015 15:29:00 [facility] [place] [address] Screening Mamm Bilat ?? Technologist(s): Gisela Block; ; EXAMINATION: ??Mammogram Technique: Bilateral Full-Field Digital Screening Mammogram was performed. ??Views obtained: ??bilateral craniocaudal and bilateral mediolateral oblique. Computer Aided Detection was performed with [employer].3 version 9.3. Mammogram Findings: The present examination has been compared to prior imaging studies performed at [facility] on 03/11/2012, 03/27/2010 and 02/11/2008. There are scattered areas of fibroglandular density. There is no suspicious abnormality in either breast. IMPRESSION: ??Annual screening mammography is recommended. OVERALL FINAL ASSESSMENT: BI-RADS CATEGORY 1: ??Negative. Requested By: Dictated By: ?? JYOTSNA EDDY M.D. ??on Oct ??2014 ??2:59P This document has been electronically signed by: JYOTSNA EDDY M.D. on Oct ??2014 ??2:59P [id number] Procedure Note Provider, MD Edgar - 03/22/2017 JYOTSNA EDDY M.D. FINAL REPORT ACC# Date Time Exam [id number] Oct 31, 2015 15:29:00 [facility] [place] [address] Screening Mamm Bilat Technologist(s): Gisela Block; ; EXAMINATION: Mammogram Technique: Bilateral Full-Field Digital Screening Mammogram was performed. Views obtained: bilateral craniocaudal and bilateral mediolateral oblique. Computer Aided Detection was performed with [employer].3 version 9.3. Mammogram Findings: The present examination has been compared to prior imaging studies performed at [facility] on 03/11/2012, 03/27/2010 and 02/11/2008. There are scattered areas of fibroglandular density. There is no suspicious abnormality in either breast. IMPRESSION: Annual screening mammography is recommended. OVERALL FINAL ASSESSMENT: BI-RADS CATEGORY 1: Negative. Requested By: Dictated By: JYOTSNA EDDY M.D. on Nov 01 2015 2:59P This document has been electronically signed by: JYOTSNA EDDY M.D. on Nov 01 2015 2:59P [id number] us Historical Provider IMJony MAMMO PROCEDURES Natalya l Result * Serum Hepatitis panel (02/17/2013 3:00 PM CDT) HBV surface ag Negative NEG HISTO RICAL RESULTS HCV ab Negative NEG HISTORICAL RESULTS Comment: Interpretive Data If confirmation is required, call Laboratory Customer Service to request sample to be sent to [facility] for Hepatitis C Virus (HCV) RNA Detection and Quantitation by Real-Time Reverse Packaging Specialist-PCR (RT-PCR). Current interpretive data was last revised [...] Recently Relevant to Health Maintenance [place] [address] [employer] [facility] MEDICARE [facility] Address: [address] [address] [facility] MEDICARE Advance Directives For more information, please contact: [phone] * Full Code (Latest Code Status on File) Date Activated Date Inactivated Comments 03/29/2024 12:45 PM 04/03/2024 3:06 PM * Full Code Date Activated Date Inactivated Comments 07/03/2018 1:01 PM 07/03/2018 5:06 PM Care Teams Engine Tester Relationship Specialty Start Date End Date Neymar Garibay MD [address] [place] [address] PCP - General 01/31/20 Neymar Garibay MD [address] [place] [address] 01/31/20
--- OUTSIDE RECORDS SUMMARY | 2025-01-02 22:26 | XMS_ITS | Patient Health Summary ---
Author Organization [facility] Address [address] [place] [address] Care Team Providers Care Gold Tooler Name Role Phone Neymar Garibay MD Primary Care Provider Note from [facility],non-owned Affiliates and Associated Physician Practices is amultiple site organization consisting of ambulatory clinics and hospital sitesin [place], [place] and [place]. This disclosure is being madepursuant to the Care Everywhere program and may not contain all information available regarding this patient. Last updated 18.[facility] Social History Tobacco Use Types Packs/Day Years [...] DERMATOLOGY (04/09/2017 12:00 AM CDT) Result CASE: [id number] PATIENT: VALE SIDDIQI PATHOLOGIC DIAGNOSIS: A. Left [...] a shave (2 pieces) measuring 3x3x1 and [id number]. Jar 0. B: ??Received is one formalin filled container labeled with the patients name and designated mid back. The specimen consists of a shave measuring 4c8x8nt. Jar 0. MICROSCOPIC DESCRIPTION: SPECIMEN ??A There [...] much larger lesion, it may not be quality control representative of the entire lesion sampled. ??Clinical correlation is recommended. Electronically signed out by Michaela Cabral M.D., PhD. 04/14/2017 4:09:31PM [facility] Comment: Performed at: Dermatopathology Laboratory [facility] - Department of Dermatology [address] [place] [address] 5th [place] [address] Phone number: [phone] FAX: [phone] 04/09/2017 04/11/2017 Sasha Calvert MD LAB - PATHOLOGY/CYT OLOGY ORDERABLES [facility] [address] [place] [address]. [facility] [place] [address], [facility] [phone] * MRI FOOT NON IV CONTRAST LEFT (11/08/2016 3:23 PM TOOL PLANNER) Anatomical Region Laterality Modality Magnetic Resonan ce 11/08/2016 3:51 PM TOOL PLANNER Impressions 11/08/2016 4:00 PM TOOL PLANNER ULCERATION PLANTAR TO THE THIRD METATARSOPHALANGEAL JOINT. NO MR EVIDENCE OF ABSCESS OR OSTEOMYELITIS. Edited by Maite Moe on 11/08/2016 3:57 PM Narrative 11/08/2016 4:00 PM TOOL PLANNER MRI LEFT FOOT WITHOUT CONTRAST CLINICAL INDICATION: [...] Terese Osman BUFFY MR ORDERABLES Care Teams Gold Tooler Relationship Specialty Start Date End Date Neymar Garibay MD [address] [id number] PCP - General Internal Medicine 11/08/16
--- OUTSIDE RECORDS SUMMARY | 2025-01-02 22:26 | XMS_ITS | Clinical Summary ---
Author Organization [facility] Address [address] [place] [address] Care Team Providers Care Hair Assistant Name Role Phone Neymar Garibay MD Primary Care Provider Neymar Garibay MD Unavailable [phone] Allergies Active Allergy Reactions Criticality Noted Date [...] Ended triamcinolone (KENALOG) 40 mg/mL injection 40 mgIndications:Energy Conservation Engineer harvey pain of left knee 40 mg [...] semaglutide. Assessment & Plan (01/06/2023 12:11 PM STERILE PROCESS TECH): Labs. Reviewed most recent labs available. Continue low-carb (<150 g/day), low-glycemic diet. Plan to increase semaglutide to 1 mg weekly pending results. Assessment & Plan (12/31/2022 12:19 PM STERILE PROCESS TECH): Reviewed most recent labs available. Continue [...] w/r/t gut microbiome. Referred to ADA and [facility] websites for additional information on topics [...] diet. Assessment & Plan (01/06/2023 12:09 PM STERILE PROCESS TECH): Reviewed calorie restriction based on BMR as previously detailed. Reviewed recommendation/goal of >/= 150 minutes/week moderate-intensity aerobic exercise. Asked to keep detailed food diary for at least 1 week and bring to next visit and/or continue tracking on phone. Assessment & Plan (12/31/2022 12:18 PM STERILE PROCESS TECH): Reviewed calorie restriction based on BMR [...] 03/17/2018 Assessment & Plan (01/06/2023 12:11 PM STERILE PROCESS TECH): Labs. Osteoarthritis of cervical spine 01/05/2018 [...] Other: Assessment & Plan (01/06/2023 12:11 PM STERILE PROCESS TECH): Obesity is improving.. Plan: Diet interventions: as noted.., Regular aerobic exercise program discussed. and Medication as prescribed. Assessment & Plan (12/31/2022 12:19 PM STERILE PROCESS TECH): Obesity is worsening.. Plan: Diet interventions: [...] claudication 12/17/2017 Peripheral nerve disease 08/08/2017 Other alf (current) drug therapy 7 Asthma 12/31/2016 Osteoporosis [...] of toe 09/05/2017 08/03/2024 Ulcer of toe ([facility]/HCC) 09/05/201709/23 Abscess of foot 08/08/2017 09/23/2018 Methicillin susceptible Stap hylococcus aureus infection 07/30/2017 09/23/2018 Trochanteric bursitis 04/01/20172017 Urinary urgency 12/31/2016 09/23/2018 Dyspnea 03/06/2016 09/23/2018 Knee pain 06/13/2015 09/23/2018 Encounter for preventive health examination 05/14/2011 09/23/2018 Encounters Date Type Department Care Team Description 12/31/2024 10:25 AM STERILE PROCESS TECH Ancillary Procedure [facility] Orthopaedic Surgery [address]th [place] [address] [place] [address] Chronic pain of left knee 12/31/2024 10:15 AM STERILE PROCESS TECH Procedure visit [facility] [address] 6th [place] [address] [place] [address] Mir Katz MD Chronic pain of left knee 12/29/2024 2:00 PM STERILE PROCESS TECH Office Visit [facility] [address] 1st [address] [place] [address] Mir Katz MD Chronic pain of left knee (Primary Dx); Primary osteoarthritis of left knee; Bilateral hip pain; Primary osteoarthritis of both hips 12/24/2024 11:20 AM STERILE PROCESS TECH Office Visit [address] [address] Neymar Garibay MD OAB (overactive [...] chronic kidney disease (HCC) 12/21/2024 Orders Only [facility] [address] [place] [address] Medical Office Building [address], [address] [place] [address] Sasha Hernández MD INÉS (obstructive sleep apnea) 12/16/2024 Orders Only [facility] [address] [place] [address] Medical Office Building [address], [address] [place] [address] Sasha Hernández MD INÉS (obstructive sleep apnea) (Primary Dx) 12/13/2024 Telephone [facility] Orth[facility] [address] [place] [address] Advanced Medicine 6th [place] [address] [place] [phone] David Lewis RN 12/13/2024 Orders Only [facility] Orthopaedic Surgery [facility] Advanced Medicine 6th [place] [address] [place] [address] Don Alonzo MD 12/10/2024 Orders Only [facility] [address] [place] [address] Medical Office Building [address], [address] [place] [address] Sasha Hernández MD Risk for coronary artery disease greater than 20% in next 10 years; Hyperlipidemia, unspecified hyperlipidemia type; Primary hypertension 12/10/2024 Telephone [facility] [address] [place] [address] Medical Office Building [address], [address] [place] [address] Jyotsna Valenzuela RN Medication Problem 12/09/2024 Orders Only [facility] [address] Medical Office Building [address], [address] [place] [address] Sasha Hernández MD Risk for coronary artery disease greater than 20% in next 10 years; Hyperlipidemia, unspecified hyperlipidemia type; Primary hypertension 11/15/2024 Telephone [facility] [address] Medical Office [address], [address] [place] [address] Fior Jackson, BAG LOADER MACHINE OPERATOR Prior Auth 11/11/2024 1:20 PM STERILE PROCESS TECH Telemedicine [facility] [address] [facility] Medical Office Building [address], [address] [place] [address] Sasha Hernández MD Risk for coronary artery disease greater than 20% in next 10 years (Primary Dx); Weight loss counseling, encounter for; Class 3 severe obesity with serious comorbidity and body mass index (BMI) of 40.0 to 44.9 in adult, unspecified obesity type (HCC); Type 2 diabetes mellitus without complication, without long-term current use of insulin ([facility]/HCC) (HCC); Hyperlipidemia, unspecified hyperlipidemia type; Primary hypertension 11/05/2024 Telephone [facility] [address] [facility] 6th [place] [address] [place] [address] Mir Katz MD 11/03/2024 3:30 PM STERILE PROCESS TECH - 11/03/2024 11:59 PM STERILE PROCESS TECH Hospital Encounter [facility] Radiology at [facility] [address] [place] [address] Discharge Disposition: Discharge to home or self care 11/03/2024 2:40 PM STERILE PROCESS TECH Office Visit [facility] [address] 1st Floor [address] [place] [address] Mir Katz MD Chronic pain of left knee (Primary Dx); Bilateral hip pain; Primary osteoarthritis of left knee; Primary osteoarthritis of both hips 10/25/2024 Telephone [facility] [address] Medical Office Building [address], [address] [place] [address] Fior Jackson, CINTIA Med Management 10/18/2024 Telephone [facility] [address] [facility] Medical Office [address], [address] [place] [address] Fior Jackson, BAG LOADER MACHINE OPERATOR Med Management from Last 3 Months Immunizations [...] on file Legal Sex Female 1:19 AM STERILE PROCESS TECH Gender Identity Female 09/25/2021 5:30 AM CDT Sexual Orientation Straight 09/25/2021 5: 30 AM CDT 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 Not on file Not on file Obstetrics History Last Filed Vital Signs Vital Sign Reading Time Taken Comments Blood Pressure 154/77 12/24/2024 11:37 AM STERILE PROCESS TECH Pulse 81 12/24/2024 11:37 AM STERILE PROCESS TECH Temperature 36.7 ??C (98.1 ??F) 08/03/2024 2:41 PM CD T Respiratory Rate 18 04/03/2024 7:35 AM CDT Oxygen Saturation 96% 12/24/2024 11:37 AM STERILE PROCESS TECH Inhaled Oxygen Concentration - - Weight 108.4 kg (239 lb) 12/24/2024 11:37 AM STERILE PROCESS TECH Height 167.6 cm (5' 5.98 ) [...] as needed Medical Devices Implanted Type Area Pan Washer Hand Device Identifier Shelf Expiration Date Model / Serial / Lot [employer] Baseplate Tibial Knee Cemented Right Fixed Stemmed Persona Size F Tivanium [id number] - [id number] Implanted:Qty: 1 on 03/29/2024 by Don Alonzo MD at [facility] Right: Knee [employer] [id number] 07/12/2033 [id number] / / [id number] [employer] Persona Cruciate Retain Cemented Knee Right 9 Narrow Component [id number] - [id number] Implanted:Qty: 1 on 03/29/2024 by Don Alonzo MD at [facility] Right: Knee [employer] [id number] 10/07/2033 [id number] / / [id number] [employer] Simplex P Full Dose Radiopaque Preblend Cement Bone Tobramycin 6197-9-001 - [id number] Implanted:Qty: 1 on 03/29/2024 by Don Alonzo MD at [facility] Right: Knee [employer] [id number] 05/30/2025 6197-9-001 / / [id number] [employer] Simplex P Full Dose Radiopaque Preblend Cement Bone Tobramycin 6197-9-001 - [id number] Implanted:Qty: 1 on 03/29/2024 by Don Alonzo MD at [facility] Right: Knee [employer] [id number] 06/30/2025 6197-9-001 / / [id number] [employer] Persona 14mm Knee Right 8-11 E-F Insert Articular Vivacit-E [id number] - [id number] Implanted:Qty: 1 on 03/29/2024 by Don Alonzo MD at [facility] Right: Knee [employer] [id number] 04/02/2028 [id number] / / [id number] Procedures Procedure Name Priority Date/Time Associated Diagnosis Comments POCUS ASP/INJ MAJOR JOINT Schedule Routine, Read Routine (OP Routine) 12/31/2024 10:24 AM STERILE PROCESS TECH Chronic pain of left knee OR ARTHROCENTESIS ASPIR&/INJ MAJOR JT/BURSA W/US Routine 12/31/2024 10:15 AM STERILE PROCESS TECH Chronic pain of left knee POCT URINALYSIS, AUTO W/O SCOPE Routine 12/24/2024 11:45 AM STERILE PROCESS TECH OAB (overactive bladder) XR PELVIS 1 OR 2 VIEWS Schedule Routine, Read Routine (OP Routine) 11/03/2024 3:47 PM STERILE PROCESS TECH Bilateral hip pain XR KNEE BILATERAL 3 VIEWS Schedule Routine, Read Routine (OP Routine) 11/03/2024 3:47 PM STERILE PROCESS TECH Chronic pain of left knee EGFR Routine 04/03/2024 4:36 AM CDT HEMOGLOBIN A1C Routine 2024 4:12 PM CDT Primary osteoarthritis of right knee Type 2 diabetes mellitus without complication, unspecified whether alf insulin use (HCC) LIPID PANEL Routine 04/12/2022 3:23 PM CDT Type 2 diabetes mellitus without complication, without long-term current use of insulin (CMS/HCC) (HCC) SCREENING MAMMOGRAM Routine 10/31/2015 3 :29 PM STERILE PROCESS TECH SERUM HEPATITIS PANEL Routine 02/17/2013 3:00 PM CDT from Last 3 Months or Most Recently Relevant to Health Maintenance Results * POCUS ASP/INJ MAJOR JOINT (12/31/2024 10:24 AM STERILE PROCESS TECH) Narrative [facility] - 12/31/2024 10:24 AM STERILE PROCESS TECH This procedure was performed and interpreted by the provider. Please refer to the provider's procedure/OR operative note for results. us Mir Katz MD POCUS ORDERABLES Final R esult [facility] * OR ARTHROCENTESIS ASPIR&/INJ MAJOR JT/BURSA W/US (12/31/2024 10:15 AM STERILE PROCESS TECH) Narrative Mir Katz MD - 12/31/2024 10:15 AM STERILE PROCESS TECH Mir Katz MD ? 12/31/2024 10:57 [...] UA, AUTO W/O SCOPE (12/24/2024 11:45 AM STERILE PROCESS TECH) Color, Urine, POC Yellow Clarity, ur, POC Clear Clear Glucose, ur, POC Negative Negative MG/DL Bilirubin, ur, POC Negative Negative, Small, Moderate, Large Ketones, ur, POC Negative Negative Specific [place], POC 1.020 1.003 - 1.030 Blood, ur, POC Trace(A) Negative pH, ur, POC 5.5 5.0 - 8.0 Protein, ur, POC Negative Negative Urobilinogen, Urine, POC 0.2 mg/dL Leukocytes, ur, POC Negative Negative Nitrite, ur, POC Negative Negative Appearance, fld Clear Clear Urine 12/24/2024 11:4 5 AM STERILE PROCESS TECH Neymar Garibay MD POINT OF CARE TEST ORD ERABLES Final Result * XR Knee Bilateral 3 Views (11/03/2024 3:47 PM STERILE PROCESS TECH) Anatomical Region Laterality Modality Lower Extremities, Knee Bilateral Computed Radiography 11/03/2024 3:59 PM STERILE PROCESS TECH Impressions 11/03/2024 3:59 PM STERILE PROCESS TECH 1. ??Severe bilateral hip osteoarthritis. 2. ??Right 2 component total knee arthroplasty in unchanged near-anatomic position. 3. ??Medial compartment predominant moderate to severe left knee tricompartmental osteoarthritis. 4. ?? Electronically signed by: Allen Silvestre D.O. Narrative 11/03/2024 3:59 PM STERILE PROCESS TECH EXAMINATION: XR KNEE BILATERAL 3 VIEWS, [...] 1 or 2 Views (11/03/2024 3:47 PM STERILE PROCESS TECH) Anatomical Region Laterality Modality Body, Pelvis N/A Computed Radiogr aphy 11/03/2024 3:59 PM STERILE PROCESS TECH Impressions 11/03/2024 3:59 PM STERILE PROCESS TECH 1. ??Severe bilateral hip osteoarthritis. 2. ??Right 2 component total knee arthroplasty in unchanged near-anatomic position. 3. ??Medial compartment predominant moderate to severe left knee tricompartmental osteoarthritis. 4. ?? Electronically signed by: Allen Silvestre D.O. Narrative 11/03/2024 3:59 PM STERILE PROCESS TECH EXAMINATION: XR KNEE BILATERAL 3 VIEWS, [...] NP LAB BLOOD ORDERABLES Final Re sult [facility] [place] [address] * Hemoglobin A1c (2024 4:12 PM CDT) Pathologist [facility] Hgb A1C 5.4 4.0 - 5.6 % Estimated Average Glucose 108 mg/dL [facility] Comment: The ADA recommends reporting an estimated [...] ORDERABLES Final Result Performing Organization Address [facility] de Phone Number [facility] Department [place] [address] * (ABNORMAL) Lipid panel (04/12/2022 3:23 PM CDT) [facility] Triglyceride 164(H) 0 - 150 mg/dL [facility] Cholesterol 194 0 - 200 mg/dL [facility] HDL 49 >45 mg/dL [facility] LDL-Calculated 112 mg/dL [facility] CHOL/HDL Risk Ratio 4 Ratio [facility] LDL/HDL Risk Ratio 2 Ratio [facility] Blood specimen (specimen) 04/12/2022 3:23 PM CDT 04/12/2022 3:38 PM CDT Neymar Garibay MD LAB BLOOD ORDERABLES F inal Result Performing Organization Address [facility] Co de Phone Number [facility] [address] [place] [address] * Screening Mammogram (10/31/2015 3:29 PM STERILE PROCESS TECH) Anatomical Region Laterality Modality Breast N/A Mammography 10/31/2015 3:29 PM STERILE PROCESS TECH Narrative 11/01/2015 2:59 PM STERILE PROCESS TECH JYOTSNA EDDY M.D. FINAL REPORT ACC# ??Date Time ??Exam [id number] Oct 31, 2015 15:29:00 [facility] [place] [address] Screening Mamm Bilat ?? Technologist(s): Gisela Block; ; EXAMINATION: ??Mammogram Technique: Bilateral Full-Field Digital Screening Mammogram was performed. ??Views obtained: ??bilateral craniocaudal and bilateral mediolateral oblique. Computer Aided Detection was performed with [facility].3 version 9.3. Mammogram Findings: The present examination has been compared to prior imaging studies performed at [facility] on 03/11/2012, 03/27/2010 and 02/11/2008. There are scattered areas of fibroglandular density. There is no suspicious abnormality in either breast. IMPRESSION: ??Annual screening mammography is recommended. OVERALL FINAL ASSESSMENT: BI-RADS CATEGORY 1: ??Negative. Requested By: Dictated By: ?? JYOTSNA EDDY M.D. ??on Oct ??2014 ??2:59P This document has been electronically signed by: JYOTSNA EDDY M.D. on Oct ??2014 ??2:59P [id number] Procedure Note Provider, MD Edgar - 03/22/2017 JYOTSNA EDDY M.D. FINAL REPORT ACC# Date Time Exam [id number] Oct 31, 2015 15:29:00 [facility] [place] [address] Screening Mamm Bilat Technologist(s): Gisela Block; ; EXAMINATION: Mammogram Technique: Bilateral Full-Field Digital Screening Mammogram was performed. Views obtained: bilateral craniocaudal and bilateral mediolateral oblique. Computer Aided Detection was performed with SUPR 1.3 version 9.3. Mammogram Findings: The present examination has been compared to prior imaging studies performed at [facility] on 03/11/2012, 03/27/2010 and 02/11/2008. There are scattered areas of fibroglandular density. There is no suspicious abnormality in either breast. IMPRESSION: Annual screening mammography is recommended. OVERALL FINAL ASSESSMENT: BI-RADS CATEGORY 1: Negative. Requested By: Dictated By: JYOTSNA EDDY M.D. on Nov 01 2015 2:59P This document has been electronically signed by: JYOTSNA EDDY M.D. on Nov 01 2015 2:59P [id number] us Historical Provider MD XIAO MAMMO PROCEDURES Natalya l Result * Serum Hepatitis panel (02/17/2013 3:00 PM CDT) HBV surface ag Negative NEG HISTO RICAL RESULTS HCV ab Negative NEG HISTORICAL RESULTS Comment: Interpretive Data If confirmation is required, call Laboratory Customer Service to request sample to be sent to [facility] for Hepatitis C Virus (HCV) RNA Detection and Quantitation by Real-Time Reverse Loan Review Manager-PCR (RT-PCR). Current interpretive data was last revised [...] Recently Relevant to Health Maintenance Insurance MEDICARE [facility] [place] [address] MEDICARE [facility] Address: [facility] [id number] [place] [id number] [facility] [place] [address] MEDICARE [facility] MEDICARE Advance Directives For more information, please contact: [phone] * Full Code (Latest Code Status on File) Date Activated Date Inactivated Comments 03/29/2024 12:45 PM 04/03/2024 3:06 PM * Full Code Date Activated Date Inactivated Comments 07/03/2018 1:01 PM 07/03/2018 5:06 PM Care Teams Hair Assistant Relationship Specialty Start Date End Date Neymar Garibay MD [address] [place] [address] PCP - General 01/31/20 Neymar Garibay MD [address] [place] [address] 01/31/20
--- OUTSIDE RECORDS SUMMARY | 2025-01-02 22:26 | XMS_ITS | Encounter Summary ---
Author Organization [facility] Address [address] [place] [address] Phone Care Team Providers Care Metalizer Name Role Phone Neymar Garibay MD Primary Care Provider Neymar Garibay MD Primary Care Provider Neymar Garibay MD Unavailable [phone] Mamta Gandhi DPT Unavailable [phone] Encounter Details Date Type Department Care Team [...] on file Legal Sex Female 1:19 AM SEDIMENT REMEDIATION CONSULTANT Gender Identity Female 09/25/2021 5:30 AM CDT Sexual Orientation Straight 09/25/2021 5: 30 AM CDT documented as of this encounter Plan of Treatment Not on file documented as of this encounter Procedures Procedure Name Priority Date/Time Associated Diagnosis Comments VASCULAR LABORATORY REPORT 10/29/2017 8:58 PM SEDIMENT REMEDIATION CONSULTANT documented in this encounter Results * VASCULAR LABORATORY REPORT (10/29/2017 8:58 PM SEDIMENT REMEDIATION CONSULTANT) Anatomical Region Laterality Modality Ultrasound us Provider Scanning CV VASCULAR PROCEDURES Final R esult documented in this encounter Visit Diagnoses Not on filedocumented in this encounter Additional Health Concerns Infection Onset Date Last Indicated Resolved Time MRSA 01/31/2020 01/30/2020 07/18/2021 5:00 AM CDT COVID: Suspected 06/12/2020 06/12/2020 06/26/2020 3:05 AM CDT documented as of this encounter Care Teams Metalizer Relationship Specialty Start Date End Date Neymar Garibay MD [address] [place] [address] PCP - General 03/28/17 01/30/20 Neymar Garibay MD [address] [place] [address] PCP - General 01/31/20 Neymar Garibay MD [address] [place] [address] 01/31/20 Mamta Gandhi DPT [address] [place] [address] Physical Therapist Physical Therapy 12/23/18 12/28/19 documented as of this encounter
--- OUTSIDE RECORDS SUMMARY | 2025-01-02 22:26 | XMS_ITS | Encounter Summary ---
Author Organization [facility] Address [address] [place] [address] Phone Care Team Providers Care Infrastructure Architect Name Role Phone Neymar Garibay MD Primary Care Provider Neymar Garibay MD Unavailable [phone] Encounter Details Date Type Department Care Team (Late st Contact Info) Description 10/22/2023 Telephone [facility] [address] [place] [address] Neymar Garibay MD [address] [place] [address] Social History Tobacco Use Types [...] on file Legal Sex Female 1:19 AM HUMAN RESOURCES BENEFITS ADMINISTRATOR Gender Identity Female 09/25/2021 5:30 AM CDT [...] on filedocumented in this encounter Care Teams Infrastructure Architect Relationship Specialty Start Date End Date Neymar Garibay MD [address] [place] [address] PCP - General 01/31/20 Neymar Garibay MD [address] [place] [address] 01/31/20 documented as of this encounter
--- OUTSIDE RECORDS SUMMARY | 2025-01-02 22:26 | XMS_ITS | Encounter Summary ---
Author Organization [facility] Address [address] [place] [address] Phone Care Team Providers Care Boilermaker Fitter Name Role Phone Neymar Garibay MD Primary Care Provider Neymar Garibay MD Primary Care Provider Neymar Garibay MD Unavailable [phone] Mamta Gandhi DPT Unavailable [phone] Encounter Details Date Type Department Care Team [...] on file Legal Sex Female 1:19 AM RURAL CARRIER Gender Identity Female 09/25/2021 5:30 AM CDT [...] documented as of this encounter Care Teams Boilermaker Fitter Relationship Specialty Start Date End Date Neymar Garibay MD [address] [place] [address] PCP - General 03/28/17 01/30/20 Neymar Garibay MD [address] [place] [address] PCP - General 01/31/20 Neymar Garibay MD [address] [place] [address] 01/31/20 Mamta Gandhi DPT [address] [place] [address] Physical Therapist Physical Therapy 12/23/18 12/28/19 documented as of this encounter
--- OUTSIDE RECORDS SUMMARY | 2025-01-02 22:26 | XMS_ITS | Clinical Summary ---
Author Organization [facility] Address [address] [place] [address] Care Team Providers Care Slate Roofer Name Role Phone Neymar Garibay MD Primary Care Provider Source Comments [facility] Affiliates and Associated Physician Practices is amultiple site organization consisting of ambulatory clinics and hospital sitesin [place], [place], [place] and [place]. This disclosure is being madepursuant to the Care Everywhere program and may not contain all information available regarding this patient. Last updated 18.[facility] Social History Tobacco Use Types Packs/Day Years [...] age to complete this topic Care Teams Slate Roofer Relationship Specialty Start Date End Date Neymar Garibay MD [address] [id number] PCP - General Internal Medicine 11/08/16
[2025-01-02 22:36] LABS: Basophils Absolute Auto 0.1 K/mm3 (0.0-0.1); Basophils Percent Auto 0.3 % (0.2-1.2); Eosinophils Absolute Auto 0.1 K/mm3 (0-0.3); Eosinophils Percent Auto 0.7 % (0-4.4); Hemoglobin 9.4 g/dL (12.0-15.0); Immature Granulocyte Absolute 0.14 K/mm3 (0.00-0.031); Immature Granulocyte Percent A 0.7 % (0-0.5); Lymphocytes Percent Auto 3.3 % (18.3-44.2); Mean Corpuscular HGB Conc 32.4 g/dl (32-36); Mean Corpuscular Volume 92.7 fl (80-100); Mean Platelet Volume 9.4 fl (7.4-10.4); Monocytes Absolute Auto 1.3 K/mm3 (0.1-0.6); Monocytes Percent Auto 6.2 % (2.6-8.5); Neutrophils Absolute Auto 19.1 K/mm3 (1.3-6.7); Neutrophils Percent Auto 88.8 % (45.5-73.1); Platelet Count Result 264 k/mm3 (150-375); Red Blood Count 3.13 M/mm3 (4.2-5.4); Red Cell Distribution Width 13.7 % (11.5-14.5); White Blood Count 21.5 K/mm3 (4.5-10.0)
[2025-01-02] MEDS: SODIUM CHLORIDE 0.9% IV 1,000 ML 999 ML IV CONT (22:38)
[2025-01-02 22:46] LABS: Lactic Acid Reflex 1.7 mmol/L (0.7-2.0)
[2025-01-02 22:48] LABS: Alanine Aminotransferase 35 U/L (6-35); Alkaline Phosphatase 95 U/L (38-126); Anion Gap 12 mmol/L (4-12); Aspartate Amino Transferase 30 U/L (14-36); Bilirubin,Total 0.5 mg/dL (0.2-1.3); Blood Urea Nitrogen 32 mg/dL (7-17); CRP 1.9 mg/dL (<1.0); Calcium 8.6 mg/dL (8.4-10.2); Carbon Dioxide 20 mmol/L (22-30); Chloride 107 mmol/L (98-107); Estimated CRCL calculation 42 ml/min; Estimated Glomerular Filt Rate 38; Glucose 135 mg/dL (65-110); Magnesium 1.6 mg/dL (1.6-2.3); Potassium 4.2 mmol/L (3.4-5.0); Sodium 139 mmol/L (137-145)
[2025-01-02 22:50] LABS: Partial Thromboplastin Time 25.8 Seconds (22.3-36.8)
[2025-01-02 23:02] LABS: Procalcitonin 0.3 ng/mL
[2025-01-02 23:22] LABS: Influenza A QL RT-PCR Negative (Negative); Influenza B QL RT-PCR Negative (Negative); RSV RNA, RT-PCR Negative (Negative); SARS-CoV-2 RNA PCR Negative (Negative)
[2025-01-02 23:44] LABS: Erythrocyte Sedimentation Rate 129 mm/hr (0-20)
--- NOTE | 2025-01-02 23:46 | ED.GENADULT ---
HPI - General Adult General Chief complaint: Fever Stated complaint: left leg pain, chills Time Seen by Provider: 01/02/25 22:12 History of Present Illness HPI narrative: Patient is a 74-year-old female presents emergency department chief complaint with chief complaint of fever. Patient reports that she had a steroid injection into her left knee on at [facility] and reports that she started having redness and swelling down her left leg she also has had a fever. The patient reports that she has a diabetic reports that she has also had a cough Related Data Allergies Allergy/AdvReac Type Severity Reaction Status Date / Time clindamycin Allergy Rash Verified 09/25/23 22:40 metformin Allergy Diarrhea Verified 09/25/23 22:32 Penicillins Allergy Rash Verified 09/25/23 22:32 Review of Systems Review of Systems: A 10 system review of systems was completed on the patient and is negative except for what is stated in the HPI. Nursing and ancillary documentation was reviewed. [facility] Social History Social History Smoking status: Former smoker Exam Narrative: GENERAL: Well-appearing, well-nourished, and in no acute distress. HEAD: Normocephalic, atraumatic. EYES: PERRLA and EOMI. ENT: Nares clear, no rhinorrhea or epistaxis. Mucous membranes moist. NECK: Supple. CHEST: Clear to auscultation. No respiratory distress. HEART: Regular rate and rhythm. No murmur heard. Normal peripheral pulses. ABDOMEN: Soft, nontender, nondistended, normal active bowel sounds. EXTREMITIES: Normal range of motion. No edema. SKIN: Warm, dry, no rash. There is redness present of the left lower extremity expanding down to the left 2nd toe there is no crepitance no fluctuance NEURO: No focal deficits. Alert and oriented x3. PSYCH: Normal mood and affect. Course Vital Signs Vital signs: Vital Signs Temperature 38.8 C H 01/02/25 20:17 Pulse Rate 107 H 01/02/25 20:17 Respiratory Rate 16 01/02/25 20:17 Blood Pressure 145/56 H 01/02/25 20:17 Pulse Oximetry 96 01/02/25 20:17 Oxygen Delivery Room Air 01/02/25 20:17 Temperature 37.0 C 01/03/25 00:51 Pulse Rate 80 01/03/25 00:51 Respiratory Rate 15 01/03/25 00:51 Blood Pressure 128/56 L 01/03/25 00:51 Pulse Oximetry 100 01/03/25 00:51 Oxygen Delivery Room Air 01/02/25 20:17 Procedures Joint Aspiration/Injection Joint Asp./Inject. 1: Joint Aspiration Date: 01/03/25 Joint Aspiration Time: 00:36 Time Out Performed: Yes Side of body: left Joint Aspirated: knee Ultrasound Guidance: No Skin Prep: Chlorhexidine Local Anesthetic: lidocaine 1% Amount of anesthesia used (mL): 3 Needle Size Used: 18G Fluid Obtained: turbid Total fluid obtained (mL): 22 Patient Tolerated Procedure: well Complications: none Medical Decision Making MDM Narrative Medical decision making narrative: Differential diagnosis includes cellulitis, postprocedure joint infection, pneumonia, COVID, flu, RSV Blood cultures were obtained on the patient COVID flu and RSV were negative Chest x-ray showed no focal infiltrate Plain film x-rays of the knee and foot showed no evidence of fracture. Given the patient has had a intra-articular procedure done the case was discussed with orthopedics who did recommend doing a diagnostic arthrocentesis 22 mL of cloudy fluid were obtained after verbal consent from the left knee Fluid was sent to the lab for analysis The patient was started on cefepime and vancomycin Vital Signs Vital Signs: Vital Signs Temperature 38.8 C H 01/02/25 20:17 Pulse Rate 107 H 01/02/25 20:17 Respiratory Rate 16 01/02/25 20:17 Blood Pressure 145/56 H 01/02/25 20:17 Pulse Oximetry 96 01/02/25 20:17 Oxygen Delivery Room Air 01/02/25 20:17 Temperature 37.0 C 01/03/25 00:51 Pulse Rate 80 01/03/25 00:51 Respiratory Rate 15 01/03/25 00:51 Blood Pressure 128/56 L 01/03/25 00:51 Pulse Oximetry 100 01/03/25 00:51 Oxygen Delivery Room Air 01/02/25 20:17 Lab Data 01/02/25 22:28 01/02/25 22:28 Labs: Lab Results 01/02/25 01/02/25 01/03/25 Range/Units 22:28 22:28 00:30 WBC 21.5 H (4.5-10.0) K/mm3 RBC 3.13 L (4.2-5.4) M/mm3 Hgb 9.4 L (12.0-15.0) g/dL Hct 29.0 L (37.0-47.0) % MCV 92.7 (80-100) fl MCH 30.0 (26-34) pg MCHC 32.4 (32-36) g/dl RDW 13.7 (11.5-14.5) % Plt Count 264 (150-375) k/mm3 MPV 9.4 (7.4-10.4) fl Immature Gran % (Auto) 0.7 H (0-0.5) % Neut % (Auto) 88.8 H (45.5-73.1) % Lymph % (Auto) 3.3 L (18.3-44.2) % [place] % (Auto) 6.2 (2.6-8.5) % Eos % (Auto) 0.7 (0-4.4) % Baso % (Auto) 0.3 (0.2-1.2) % Lymph # (Auto) 0.70 L (0.9-3.2) K/mm3 [place] # (Auto) 1.3 H (0.1-0.6) K/mm3 Eos # (Auto) 0.1 (0-0.3) K/mm3 Baso # (Auto) 0.1 (0.0-0.1) K/mm3 Abs Immat Gran (auto) 0.14 H (0.00-0.031) K/mm3 Absolute Neuts (auto) 19.1 H (1.3-6.7) K/mm3 Absolute Nucleated RBC 0.000 (0.0-0.012) K/mm3 Nucleated RBC % 0.0 (0.0-0.2) % ESR 129 H (0-20) mm/hr PT 14.0 (11.1-14.7) Seconds INR 1.0 APTT 25.8 (22.3-36.8) Seconds Sodium 139 (137-145) mmol/L Potassium 4.2 (3.4-5.0) mmol/L Chloride 107 (98-107) mmol/L Carbon Dioxide 20 L (22-30) mmol/L Anion Gap 12 (4-12) mmol/L BUN 32 H (7-17) mg/dL Creatinine 1.36 H (0.7-1.0) mg/dL Estim Creat Clear Calc 42 ml/min Estimated GFR 38 L (59 - ) Glucose 135 H (65-110) mg/dL Lactic Acid 1.7 (0.7-2.0) mmol/L Uric Acid (2.5-7.5) mg/dL Calcium 8.6 (8.4-10.2) mg/dL Magnesium 1.6 Cancelled (1.6-2.3) mg/dL Total Bilirubin 0.5 (0.2-1.3) mg/dL AST 30 (14-36) U/L ALT 35 (6-35) U/L Alkaline Phosphatase 95 (38-126) U/L C-Reactive Protein 1.9 H (<1.0) mg/dL Total Protein 7.0 (6.3-8.2) g/dL Albumin 4.0 (3.5-5.1) g/dL Procalcitonin 0.3 ng/mL Synovial Source Pending Synovial Color Pending Synovial Appearance Pending Synovial RBC Pending Synovial Nuc Cells Pending Synovial Crystals Pending Influenza A (RT-PCR) Negative (Negative) Influenza B (RT-PCR) Negative (Negative) RSV (RT-PCR) Negative (Negative) SARS-CoV-2 RNA (RT-PCR) Negative (Negative) 01/03/25 Range/Units 22:28 WBC (4.5-10.0) K/mm3 RBC (4.2-5.4) M/mm3 Hgb (12.0-15.0) g/dL Hct (37.0-47.0) % MCV (80-100) fl MCH (26-34) pg MCHC (32-36) g/dl RDW (11.5-14.5) % Plt Count (150-375) k/mm3 MPV (7.4-10.4) fl Immature Gran % (Auto) (0-0.5) % Neut % (Auto) (45.5-73.1) % Lymph % (Auto) (18.3-44.2) % [place] % (Auto) (2.6-8.5) % Eos % (Auto) (0-4.4) % Baso % (Auto) (0.2-1.2) % Lymph # (Auto) (0.9-3.2) K/mm3 [place] # (Auto) (0.1-0.6) K/mm3 Eos # (Auto) (0-0.3) K/mm3 Baso # (Auto) (0.0-0.1) K/mm3 Abs Immat Gran (auto) (0.00-0.031) K/mm3 Absolute Neuts (auto) (1.3-6.7) K/mm3 Absolute Nucleated RBC (0.0-0.012) K/mm3 Nucleated RBC % (0.0-0.2) % ESR (0-20) mm/hr PT (11.1-14.7) Seconds INR APTT (22.3-36.8) Seconds Sodium (137-145) mmol/L Potassium (3.4-5.0) mmol/L Chloride (98-107) mmol/L Carbon Dioxide (22-30) mmol/L Anion Gap (4-12) mmol/L BUN (7-17) mg/dL Creatinine (0.7-1.0) mg/dL Estim Creat Clear Calc ml/min Estimated GFR (59 - ) Glucose (65-110) mg/dL Lactic Acid (0.7-2.0) mmol/L Uric Acid 9.7 H (2.5-7.5) mg/dL Calcium (8.4-10.2) mg/dL Magnesium (1.6-2.3) mg/dL Total Bilirubin (0.2-1.3) mg/dL AST (14-36) U/L ALT (6-35) U/L Alkaline Phosphatase (38-126) U/L C-Reactive Protein (<1.0) mg/dL Total Protein (6.3-8.2) g/dL Albumin (3.5-5.1) g/dL Procalcitonin ng/mL Synovial Source Synovial Color Synovial Appearance Synovial RBC Synovial Nuc Cells Synovial Crystals Influenza A (RT-PCR) (Negative) Influenza B (RT-PCR) (Negative) RSV (RT-PCR) (Negative) SARS-CoV-2 RNA (RT-PCR) (Negative) Discharge Plan Discharge Clinical Impression: Acute pain of left knee, Cellulitis of left lower leg, Acute febrile illness, Leukocytosis Patient Disposition: Still a Patient Condition: Stable Patient Language: Thai Prescriptions: No Action cephalexin 500 mg capsule 500 mg PO Q6H Qty: 28 0RF oxycodone 5 mg tablet 5 mg PO Q4H PRN (Reason: pain) Qty: 120 0RF Follow-up/Referrals: Lani,Neymar Gimenez MD [Primary Care Provider] -
[2025-01-03] VITALS (14 sets, daily range): BP systolic 126–137; BP diastolic 49–71; PULSE 74–89; RESP 15–21; TEMP 36.3–37; O2SAT 94–100
--- NOTE | 2025-01-03 | ECHO_ITS ---
Patient Info Name: Vale Siddiqi Age: 74 years : 1950 Gender: Female Ht: 66 in Wt: 242 lbs BSA: 2.31 m2 HR: 74 bpm BP: 126 / 49 mmHg Technical Quality: Poor Exam Date: 01/03/2025 9:58 AM Exam Location: Echo Lab Patient Status: Inpatient Admit Date: 01/03/2025 Staff Ordering Physician: Corinne Quinones DO Set Up Operator Tool: Marilou Coe RDCS Attending Provider: Corinne Quinones DO Referring Physician: Joni HUDSON; Exam Type: CA echo dop color flow w con Study Info Indications - DYSPNEA - SEPSIS - HEART MURMUR Complete two-dimensional, color flow and Doppler transthoracic echocardiogram is performed with contrast to opacify the left ventricle and to improve the deliniation of the left ventricle endocardial borders. Contrast/Agitated Saline Contrast/Ag. Saline: Definity Amount: 2.00 ml Existing IV Access: Yes Reason for Poor Study: poor echocardiographic windows Summary 1. There is normal biventricular size and systolic function. 2. There is severe left ventricular concentric hypertrophy. 3. There is no significant valvular disease. 4. The right atrial pressure is at least 15 mmHg. Left Ventricle Left ventricle is normal in size and systolic function. There is severe concentric left ventricular hypertrophy. The left ventricular ejection fraction is visually estimated to be 65-65%. There is no regional wall motion abnormality in this study. Right Ventricle The right ventricle is normal in size and systolic function. Left Atria The left atrium is severely dilated. Right Atria The right atrium is severely dilated. Atrial Septum The atrial septum visually appears intact. Aortic Valve The aortic valve is trileaflet and sclerotic. There is no hemodynamically significant aortic stenosis or regurgitation. Pulmonic Valve The the pulmonic valve is not well visualized. There is no color Doppler evidence of pulmonic valve regurgitation. Mitral Valve The mitral valve is normal. There is no mitral regurgitation. Tricuspid Valve The tricuspid valve is normal. There is trace tricuspid regurgitation. Pericardium/Pleural Pericardium is normal in appearance with no evidence for significant pericardial effusion. Inferior Vena Cava Dilated inferior vena cava with <50% collapse upon inspiration consistent with significantly elevated right atrial pressure, 15 mmHg. Dilated inferior vena cava with <50% collapse upon inspiration consistent with significantly elevated right atrial pressure, 15 mmHg. Aorta The aortic root at the level of the sinus of Valsalva measures 2.7 cm in diameter. Left Ventricular Outflow Tract Name Value Normal LVOT 2D LVOT Diameter 2.12 cm LVOT Doppler LVOT Peak Gradient 8 mmHg LVOT Mean Gradient 5 mmHg LVOT VTI 35.25 cm LVOT VTI/AV VTI Ratio 0.71 LVOT Stroke Volume 124.78 ml LVOT CO 9.96 l/min LVOT CI 4.31 L/min/m2 Pulmonic Valve Name Value Normal RVOT Doppler RVOT Peak Gradient 3 mmHg PV Doppler PV Peak Gradient 5 mmHg Mitral Valve Name Value Normal MV Doppler MV Peak Gradient 9 mmHg MV Mean Gradient 3 mmHg MV Decel Stonewall 846.64 cm/s2 MV PHT 0 s MV Area (PHT) 6.32 cm2 4.00-5.00 MV Area (Cont Eq VTI) 4.27 cm2 MV Diastolic Function MV E Peak Velocity 101.64 cm/s MV A Peak Velocity 94.39 cm/s MV E/A 1.08 MV Decel Time 0 s MV Annular TDI MV E/e' (Septal) 7.34 <=8.00 MV E/e' (Lateral) 7.36 <=8.00 MV E/e' (Average) 7.35 Tricuspid Valve Name Value Normal TV Regurgitation Doppler TR Peak Velocity 287.65 cm/s TR Peak Gradient 33 mmHg Estimated PAP/RSVP RA Pressure 15 mmHg <=5 PA Systolic Pressure 48 mmHg <36 RV Systolic Pressure 48 mmHg <36 Aorta Name Value Normal Ascending Aorta Ao Root Diameter (MM) 3.66 cm Ao Root Diam Index (MM) 1.58 cm/m2 Aortic Valve Name Value Normal AV Doppler AV Peak Velocity 225.54 cm/s AV Peak Gradient 20 mmHg AV Mean Gradient 11 mmHg AV VTI 49.92 cm AV Area (Cont Eq VTI) 2.50 cm2 >=3.00 AV Area (Cont Eq Jesus) 2.17 cm2 AV Regurgitation 2D LVOT Area 3.54 cm2 Ventricles Name Value Normal LV Dimensions 2D/MM IVS Diastolic Thickness (2D) 1.62 cm 0.60-1.00 LVID Diastole (2D) 4.10 cm 3.80-5.20 LVIW Diastolic Thickness (2D) 1.48 cm 0.60-0.90 LVID Systole (2D) 2.66 cm 2.20-3.50 LVOT Diameter 2.12 cm LV Mass (2D Cubed) 253.26 g 67.00-162.00 LV Mass Index (2D Cubed) 0.01 g/cm2 0.00-0.01 Relative Wall Thickness (2D) 0.72 LV Fractional Shortening/Ejection Fraction 2D/MM LV Fractional Shortening (2D) 30 % 27-45 LV EF (2D Teicholz) 58 % 54-74 LV Diastolic Volume (4C MOD) 110.25 ml LV EF (4C MOD) 72 % LV Diastolic Volume (2C MOD) 118.89 ml LV EF (2C MOD) 82 % LV Diastolic Volume (BP MOD) 117.64 ml 46.00-106.00 LV Diastolic Volume Index (BP MOD) 0.05 l/m2 0.03-0.06 LV Systolic Volume (BP MOD) 26.18 ml 14.00-42.00 LV Systolic Volume Index (BP MOD) 0.01 l/m2 0.01-0.02 LV EF (BP MOD) 78 % 54-74 LV Diastolic Length (4C) 7.64 cm LV Systolic Length (4C) 7.01 cm LV Stroke Volume (4C MOD) 79.28 ml Atria Name Value Normal LA Dimensions LA Dimension (MM) 3.94 cm 2.70-3.80 LA Volume (4C A-L) 99.22 ml LA Volume (BP A-L) 107.72 ml RA Dimensions RA Area (4C) 32.85 cm2 <=18.00 Report Signatures
[2025-01-03] MEDS: SODIUM CHLORIDE 0.9% IV 1,000 ML 999 ML IV CONT (00:10)
[2025-01-03 00:40] LABS: Uric Acid 9.7 mg/dL (2.5-7.5)
[2025-01-03] MEDS: CEFEPIME 2 GM/NS 50 ML 2 GM/50 ML BAG IVPB (00:48)
[2025-01-03] MEDS: VANCOMYCIN 1,250 MG/NS 250 ML 1,250 MG/250 ML BAG 166.67 MG IVPB ×2 (01:49→04:36)
[2025-01-03 01:50] LABS: Add Urine Microscopic? NO; Appearance Urine Clear (Clear); Bilirubin Urine Negative (Negative); Blood Urine Negative (Negative); Color Urine Yellow (Yellow); Glucose Urine UA Negative (Negative); Ketones Urine Negative (Negative); Leukocyte Esterase Ur Negative LEU/UL (Negative); Nitrate Urine Negative (Negative); Protein Urine Negative (Negative); Specific Grav Ur 1.014 (1.001-1.035); Urobilinogen Urine 0.2 mg/dL (<2.0)
[2025-01-03 01:59] LABS: Crystals Synovial Fluid None Seen (None Seen)
[2025-01-03 02:02] LABS: Color Synovial Fluid Yellow (Colorless); Source Synovial Fluid Lt Knee Syn Fluid
[2025-01-03 02:03] LABS: Appearance Synovial Fluid Hazy (Clear)
[2025-01-03 02:07] LABS: Nucleated Cell Synovial Fluid 49 /uL (0-200)
[2025-01-03 02:09] LABS: RBC Synovial Fluid 4000 /uL (0-0)
[2025-01-03 02:10] LABS: Lymphocytes Synovial Fluid 31 %; Monocytes Synovial Fluid 2 %; Neutrophils Synovial Fluid 67 % (0-25)
[2025-01-03] MEDS: COLCHICINE 0.6 MG TABLET 1.2 MG PO (02:21)
[2025-01-03] MEDS: MORPHINE SULFATE (*CRX) 2 MG/ML INJ IV PUSH (02:24)
[2025-01-03] MEDS: ONDANSETRON INJ 4 MG/2 ML VIAL IV PUSH (02:24)
--- NOTE | 2025-01-03 02:30 | PM.IMHP ---
H&P: HPI History of Present Illness Date/Time: 01/03/25 02:30 Chief Complaint: Left leg pain and fever Narrative: 74-year-old female with a past medical history of chronic kidney disease stage III, pre diabetes, morbid obesity, obstructive sleep apnea, ?mild? COPD, spinal stenosis, peripheral neuropathy, prior osteomyelitis of the left foot, and osteoarthritis who presented to the ER from home via EMS due to left leg pain and fever. The patient reports that she has a distant history of osteomyelitis of the 2nd toe of the left foot about fiber 6 years ago and history of multiple foot surgeries. He reports he has a chronic wound to the bottom of her left foot that is scabbed and has not been draining. She reports that her feet are always super sensitive. However she has been having redness on and off to her 2nd left toe for couple of weeks. She reports that the toe itself does not seem to be more tender than usual but she has been having increased pain in her lateral left ankle. She went to the orthopedic surgeon at [place] on and had a joint aspiration of approximately 40 mL of synovial fluid and subsequently had a steroid injection. She reports her knee felt a little bit better for the 1st 2 days. She actually rode in a car down to [place] the following day and made a trip back on Friday. On Friday she noticed increased swelling to her left knee with the company swelling down her left lower leg. The swelling was accompanied by worsening knee pain with pain both on passive and active range of motion. She also noticed significant pain in the posterior calf. She does report some pain in the left ankle that is chronic with palpation but seems much more so since her road trip. She does have history of intermittent lower extremity swelling which has been worse over the last couple of months as she has not been sleeping in her bed. She reports that her has dementia and she has been sleeping in a recliner in order to keep a closer eye on him. She has been guilty of stay sitting up in her recliner with her legs tingling for large portions of the day. She has been doing this for 2-3 months. She also has not been using her CPAP due to sleeping in a recliner. Evidently her CPAP was also changed in this interval and when she received replacement CPAP supplies she received the wrong mask and tubing and has still not been able to use her CPAP. She has noticed the bilateral lower extremity swelling but since her recent trip her left lower extremity has become acutely more swollen than the right. She reports that her pain in her leg is severe in nature. Pain in her knee also radiates up into her hip with movement. She reports that her bilateral hips are bad and that she needs bilateral hip replacements as well as a left knee replacement. She has been having fevers and chills at home and her T-max on arrival to ER was 102.6. She denies any cough congestion or recent ill contacts. Her flu COVID and RSV PCR were negative in the ER. She does report that she has been wheezing more than usual. She has also been having some increased dyspnea on exertion that is been intermittent in nature. This has coincided with her intermittent lower extremity swelling. On exam she is noted to have a heart murmur which she states she does not have a known history. She reports chronic urinary incontinence due to overactive bladder. She denies any dysuria or hematuria. Her uric acid level was elevated in the ER. She denies known history of gout but she is suspected that she may have gout because she had some swelling and erythema to her right 1st metatarsophalangeal joint last year around this time. She went to her physician to told her to come back if her symptoms recurred. She is not on any active treatment for gout. Source of information from patient who is a good historian and from ER physician report. There were no prior past medical records available for review. Review of Systems Review of Systems: 12 systems were reviewed with pertinent positives and negatives per HPI. Except as documented in the HPI, all other systems were reviewed and are negative. [facility] Past Medical History Medical History (Updated 01/03/25 @ 06:48 by Corinne Quinones DO) Chronic anemia Obesity (BMI 30-39.9) Obstructive sleep apnea on CPAP Peripheral neuropathy Pre-diabetes Overactive bladder GERD with esophagitis Early cataracts, bilateral Umbilical hernia CKD (chronic kidney disease) stage 3, GFR 30-59 ml/min Spinal stenosis, lumbar region with neurogenic claudication Surgical History Surgical History (Updated 01/03/25 @ 06:48 by Corinne Quinones DO) History of esophagogastroduodenoscopy (EGD) History of tubal ligation Status post foot joint surgery (~2014) Patient reports multiple foot surgeries including bunionectomy and excision of the base of the 2nd metatarsal, multiple neuroma resections History of laminectomy Family History Family History Grandparent Skin cancer Grandparent Arthritis COPD (chronic obstructive pulmonary disease) Emphysema lung Father Arthritis Heart disease Hypertension Sleep apnea COPD (chronic obstructive pulmonary disease) Emphysema lung Mother Hypertension COPD (chronic obstructive pulmonary disease) Emphysema lung Social History Social History (Updated 01/03/25 @ 06:52 by Corinne Quinones DO) Social History: The patient lives with her of 52 years who is suffering from dementia. 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 She used to smoke half a pack of cigarettes per day. She smoked 0.5 pack per day until age 53. She used to drink alcohol in moderation when she was young but has not drink alcohol to any significant amount for the last 20+ years. She denies history of illicit substance use. Her and her raised a daughter and a son. Code status: Full code Surrogate decision maker: Geraldine Beltran (sister) she states that her son and daughter would not know what to do in the case of an emergency. Smoking packs per day: 0.5 Smoking cigarettes per day: 10.0 Years smoked: 35 Smoking pack-years: 17.50 Smoking status: Former smoker Tobacco type: cigarettes Smoking end date: 01/07/02 Substance use: never Substance use type: does not use Do You Feel Safe in your Home?: Yes Lack of Transportation: No Lack of Food: Never True Current Housing: I Have Housing Concerned About Future Housing: No Difficulty Paying Gas/Electric Bills: No Difficulty Paying for Meds: No Currently Unemployed: No Education: Bachelor's Degree Difficulty w/ Childcare or Family Care: No Spiritual care concerns: No Meds Home Medications and Allergies Home Medications ?Medication ?Instructions ?Recorded ?Confirmed ?Type furosemide 20 mg tablet 20 mg PO DAILY PRN edema 01/03/25 01/03/25 History lisinopril 20 1 tablet PO DAILY 01/03/25 01/03/25 History mg-hydrochlorothiazide 25 mg tablet omeprazole 40 mg capsule,delayed 40 mg PO DAILY 01/03/25 01/03/25 History release pravastatin 40 mg tablet 40 mg PO DAILY 01/03/25 01/03/25 History sertraline 200 mg capsule 200 mg PO DAILY 01/03/25 01/03/25 History tramadol 100 mg tablet 100 mg PO Q6H PRN pain 01/03/25 01/03/25 History Allergies Allergy/AdvReac Type Severity Reaction Status Date / Time clindamycin Allergy Rash Verified 01/03/25 03:24 metformin Allergy Diarrhea Verified 01/03/25 03:24 Penicillins Allergy Rash Verified 01/03/25 03:24 Vital Signs Vital Signs - 24 hr 01/02/25 20:17 01/02/25 21:51 01/03/25 00:51 Temperature 101.9 F H 102.6 F H 98.6 F Pulse Rate 107 H 95 80 Respiratory Rate 16 15 Blood Pressure 145/56 H 148/64 H 128/56 L Pulse Oximetry 96 95 100 Oxygen Delivery Room Air Exam Narrative: Weight 110 kg BMI 39.1 Const: Other: Obese, mildly ill-appearing, appears stated age HENMT: Other: Mucous membranes are moist, no oral pharyngeal erythema, crowded posterior oropharynx, fair dentition Eyes: Other: Mild cataracts noted, pupils are equal and reactive, mild conjunctival pallor, no scleral icterus Neck: Other: Large neck circumference, trachea midline, no gross thyromegaly Resp: Other: Intermittent wheezing, conversational dyspnea and tachypnea Cardio: Other: Regular rate, regular rhythm, 2+ bilateral radial and pedal pulses, murmur at the right upper sternal border GI: Other: Obese, distended, soft easily reducible umbilical hernia, normoactive bowel sounds Skin: Other: Patient has erythema to the 2nd toe on the left foot toe still blanches, no draining, there is a callused/scabbed wound to the base of the 2nd metatarsal of the left foot, there is mild erythema to the left anterior lateral chowdary and left lateral calf, he he she also has some more localized erythema to the left upper lateral knee with associated underlying effusions/edema and erythema at the left lower lateral knee just lateral to the patella with edema call he he worsening pain at the knee with close passive and active range of motion Neuro: Other: Alert oriented x4, speech is clear, no facial asymmetry, moves all extremities equally, no localizing neurologic deficits noted during the course of conversation Extrem: Other: Erythema and swelling of sitting left knee left leg and calf as discussed above, and edema of the left leg is 1 to 2+, edema of the right lower extremity is 90+, he right knee demonstrates evidence of prior he replacement, patient has edema and swelling of the left ankle with pain on palpation of the left lateral mid malleolus, left posterior ankle and calf, nodding of the posterior left calf, Psych: Other: Appropriate mood and affect, pleasant and cooperative, judgment and insight intact H&P: Results Labs Labs: Laboratory Tests 01/02/25 22:28 01/02/25 22:28 01/02/25 01/02/25 01/03/25 22: 22: 00:30 WBC 21.5 H RBC 3.13 L Hgb 9.4 L Hct 29.0 L MCV 92.7 MCH 30.0 MCHC 32.4 RDW 13.7 Plt Count 264 MPV 9.4 Immature Gran % (Auto) 0.7 H Neut % (Auto) 88.8 H Lymph % (Auto) 3.3 L [place] % (Auto) 6.2 Eos % (Auto) 0.7 Baso % (Auto) 0.3 Lymph # (Auto) 0.70 L [place] # (Auto) 1.3 H Eos # (Auto) 0.1 Baso # (Auto) 0.1 Abs Immat Gran (auto) 0.14 H Absolute Neuts (auto) 19.1 H Absolute Nucleated RBC 0.000 Nucleated RBC % 0.0 ESR 129 H PT 14.0 INR 1.0 APTT 25.8 Sodium 139 Potassium 4.2 Chloride 107 Carbon Dioxide 20 L Anion Gap 12 BUN 32 H Creatinine 1.36 H Estim Creat Clear Calc 42 Estimated GFR 38 L Glucose 135 H Lactic Acid 1.7 Uric Acid Calcium 8.6 Magnesium 1.6 Cancelled Total Bilirubin 0.5 AST 30 ALT 35 Alkaline Phosphatase 95 C-Reactive Protein 1.9 H Total Protein 7.0 Albumin 4.0 Procalcitonin 0.3 Urine Color Urine Appearance Urine pH Ur Specific [place] Urine Protein Urine Glucose (UA) Urine Ketones Ur Blood (Man) Urine Nitrate Urine Bilirubin Urine Urobilinogen Leukocyte Esterase Rfl Synovial Source Lt knee syn fluid Synovial Color Yellow Synovial Appearance Hazy A Synovial RBC 4000 H Synovial Nuc Cells 49 Synovial Neutrophils 67 H Synovial Lymphocytes 31 Synovial Monocytes 2 Synovial Crystals None seen Influenza A (RT-PCR) Negative Influenza B (RT-PCR) Negative RSV (RT-PCR) Negative SARS-CoV-2 RNA (RT-PCR) Negative 01/03/25 01/03/25 01:38 22:28 WBC RBC Hgb Hct MCV MCH MCHC RDW Plt Count MPV Immature Gran % (Auto) Neut % (Auto) Lymph % (Auto) [place] % (Auto) Eos % (Auto) Baso % (Auto) Lymph # (Auto) [place] # (Auto) Eos # (Auto) Baso # (Auto) Abs Immat Gran (auto) Absolute Neuts (auto) Absolute Nucleated RBC Nucleated RBC % ESR PT INR APTT Sodium Potassium Chloride Carbon Dioxide Anion Gap BUN Creatinine Estim Creat Clear Calc Estimated GFR Glucose Lactic Acid Uric Acid 9.7 H Calcium Magnesium Total Bilirubin AST ALT Alkaline Phosphatase C-Reactive Protein Total Protein Albumin Procalcitonin Urine Color Yellow Urine Appearance Clear Urine pH 5.0 Ur Specific [place] 1.014 Urine Protein Negative Urine Glucose (UA) Negative Urine Ketones Negative Ur Blood (Man) Negative Urine Nitrate Negative Urine Bilirubin Negative Urine Urobilinogen 0.2 Leukocyte Esterase Rfl Negative Synovial Source Synovial Color Synovial Appearance Synovial RBC Synovial Nuc Cells Synovial Neutrophils Synovial Lymphocytes Synovial Monocytes Synovial Crystals Influenza A (RT-PCR) Influenza B (RT-PCR) RSV (RT-PCR) SARS-CoV-2 RNA (RT-PCR) Microbiology 01/03/25 00:30 Synovial Fluid Left Knee Gram Stain - Final Chest x-ray: My interpretation No acute cardiopulmonary process, thoracic kyphosis/scoliosis, she is is mild use shins trachea is her right, radiologic interpretation pending Left foot x-ray: Demonstrated is surgical screw her at the distal metatarsal phalangeal joint, no acute process, radiologic interpretation pending Left Knee x-ray: Medial and lateral osteoarthritis with medial component being more severe mild arterial calcifications. Posterior patellar sclerosis, joint effusion is radiologic interpretation pending Assessment and Plan Assessment and plan (1) Sepsis: Qualifiers: Sepsis acute organ dysfunction status: without acute organ dysfunction Sepsis type: sepsis due to unspecified organism Qualified Code(s): A41.9 - Sepsis, unspecified organism Code(s): A41.9 - Sepsis, unspecified organism Status: Acute (2) Cellulitis of left lower leg: Code(s): L03.116 - Cellulitis of left lower limb Status: Acute (3) Effusion of left knee: Code(s): M25.462 - Effusion, left knee Status: Acute (4) Acute pain of left knee: Code(s): M25.562 - Pain in left knee Status: Acute (5) Hyperuricemia: Code(s): E79.0 - Hyperuricemia without signs of inflammatory arthritis and tophaceous disease Status: Acute (6) CKD (chronic kidney disease) stage 3, GFR 30-59 ml/min: Qualifiers: Chronic kidney disease stage 3 subtype: stage 3a (GFR 45-59) Qualified Code(s): N18.31 - Chronic kidney disease, stage 3a Code(s): N18.30 - Chronic kidney disease, stage 3 unspecified Status: Acute (7) Cardiac murmur: Code(s): R01.1 - Cardiac murmur, unspecified Status: Acute (8) Dyspnea on exertion: Code(s): R06.09 - Other forms of dyspnea Status: Acute (9) Pre-diabetes: Code(s): R73.03 - Prediabetes Status: Acute (10) Obstructive sleep apnea on CPAP: Code(s): G47.33 - Obstructive sleep apnea (adult) (pediatric) Status: Acute Plan Patient presented to the left knee swelling/effusion and suspected left lower extremity cellulitis. Patient met sepsis criteria with fever greater than 101, leukocytosis and tachycardia. Patient had a joint aspiration performed in the ER was resulted in 20 mL of cloudy yellow fluid with 67% neutrophils but no crystals or organisms seen on Gram stain. Patient had recent steroid injection in the knee. Orthopedic surgery was consulted and recommended patient remained NPO until evaluated in the a.m. for possible open washout. The patient was started on empiric antibiotic therapy with cefepime vancomyci hen. Initially the patient's fluid specimen had not returned and was unclear if she had crystals in addition to her hyperuricemia. Subsequently she received empiric treatment with colchicine. Blood cultures have been obtained diet and are pending. Synovial fluid specimen is also been sent for culture. Initial fluid analysis does not demonstrate any organisms. Patient did receive 2 L of isotonic fluid administration. Patient does have history of pre diabetes. She is not on any diabetic medications at home. She was previously on Ozempic but had to stop it recently because her insurance would not pay for it since she did not have a official diagnosis of diabetes. While she was on Ozempic she managed to lose 45 lb which allowed her to have her right knee replacement the last year. Patient does have chronic kidney disease but creatinine appears relatively stable compared to labs from 2 years ago. Will avoid nephrotoxic medications and monitor electrolyte panel. The patient has asymmetric lower extremity swelling with recent history of decreased mobility and a long road trip in the car. Will check venous Doppler to rule out DVT. Patient has obstructive sleep apnea auto titrating CPAP/BiPAP has been ordered. Patient does have history of COPD and reports increased wheezing over the last couple of weeks. Will order scheduled DuoNebs. Viral PCRs were negative. The patient has been having increased lower extremity swelling and dyspnea on exertion and has evidence of cardiac murmur which she had no knowledge of 4. Will check echocardiogram to further evaluate cardiac structure and function and rule out valvular pathology. Patient has been admitted as observation status. Quality VTE Prophylaxis VTE prophylaxis: pharmacologic ordered Hospitalist [facility] Advance Care Plan I have confirmed that the patient's Advanced Care Plan is present, code status is documented, or surrogate decision maker is listed in patient medical record.: Yes Medication Reconciliation I have utilized all available resources to obtain, update and review the patients current medications (includes all prescriptions, OTC, herbals, cannabis, and nutritional supplements).: Yes
--- NOTE | 2025-01-03 03:21 | PC.NURSE ---
PATIENT ARRIVED ON 3 MEDSUR AT 0320 ON 01/03/2025
[2025-01-03] MEDS: COLCHICINE 0.6 MG TABLET PO (04:36)
[2025-01-03 07:19] LABS: Basophils Percent Auto 0.3 % (0.2-1.2); Eosinophils Absolute Auto 0.2 K/mm3 (0-0.3); Eosinophils Percent Auto 1.4 % (0-4.4); Hematocrit 27.5 % (37.0-47.0); Hemoglobin 8.7 g/dL (12.0-15.0); Immature Granulocyte Absolute 0.09 K/mm3 (0.00-0.031); Immature Granulocyte Percent A 0.6 % (0-0.5); Lymphocytes Absolute Auto 0.77 K/mm3 (0.9-3.2); Lymphocytes Percent Auto 4.9 % (18.3-44.2); Mean Corpuscular HGB Conc 31.6 g/dl (32-36); Mean Corpuscular Hemoglobin 29.9 pg (26-34); Mean Corpuscular Volume 94.5 fl (80-100); Mean Platelet Volume 9.2 fl (7.4-10.4); Monocytes Absolute Auto 0.8 K/mm3 (0.1-0.6); Monocytes Percent Auto 5.4 % (2.6-8.5); Neutrophils Absolute Auto 13.6 K/mm3 (1.3-6.7); Neutrophils Percent Auto 87.4 % (45.5-73.1); Platelet Count Result 236 k/mm3 (150-375); Red Blood Count 2.91 M/mm3 (4.2-5.4); Red Cell Distribution Width 13.7 % (11.5-14.5); White Blood Count 15.6 K/mm3 (4.5-10.0)
[2025-01-03 07:28] LABS: Anion Gap 9 mmol/L (4-12); Blood Urea Nitrogen 28 mg/dL (7-17); Calcium 8.2 mg/dL (8.4-10.2); Carbon Dioxide 21 mmol/L (22-30); Chloride 110 mmol/L (98-107); Estimated CRCL calculation 48 ml/min; Estimated Glomerular Filt Rate 45; Glucose 124 mg/dL (65-110); Potassium 3.9 mmol/L (3.4-5.0); Sodium 140 mmol/L (137-145)
[2025-01-03] MEDS: IPRATROPIUM 0.5 MG/ALBUTEROL SULFATE 2.5 MG AMPUL.NEB 3 ML INHALATION ×3 (07:43→20:36)
[2025-01-03 07:44] LABS: Iron 19 ug/dL (37-170)
[2025-01-03 07:54] LABS: Percent Iron Saturation 7 % (20-50)
[2025-01-03 07:59] LABS: Hemoglobin A1C 5.2 % (<5.7)
[2025-01-03 08:54] LABS: Folic Acid 10.8 ng/mL (2.76->20)
[2025-01-03] MEDS: lisinopriL 20 MG TABLET PO (09:08)
[2025-01-03] MEDS: FUROSEMIDE 20 MG TABLET PO (09:08)
[2025-01-03] MEDS: PANTOPRAZOLE 40 MG TABLET PO (09:08)
[2025-01-03] MEDS: PRAVASTATIN SODIUM 20 MG TABLET 40 MG PO (09:09)
[2025-01-03] MEDS: traMADol HCL (*CRX) 25 MG TABLET 100 MG PO ×2 (09:09→15:41)
[2025-01-03] MEDS: SERTRALINE HCL 50 MG TABLET 200 MG PO (09:09)
[2025-01-03] MEDS: hydroCHLOROthiazide 25 MG TABLET PO (09:10)
[2025-01-03] MEDS: PERFLUTREN LIPID MICROSPHERES 1.5 ML VIAL DILUTED TO 10 ML TOTAL VOLUME IV PUSH (10:25)
--- NOTE | 2025-01-03 10:47 | P.PNIM_ITS ---
Progress Note: A&P Assessment and Plan (1) Sepsis: Qualifiers: Sepsis acute organ dysfunction status: without acute organ dysfunction Sepsis type: sepsis due to unspecified organism Qualified Code(s): A41.9 - S epsis, unspecified organism Code(s): A41.9 - Sepsis, unspecified organism Status: Acute Assessment and Plan: Patient presented to the left knee swelling/effusion and suspected left lower extremity cellulitis. Patient met sepsis criteria with fevers, tachycardia and leukocytosis. Patient had a joint aspiration performed in the ER was resulted in 20 mL of cloudy yellow fluid with 49 WBC, 4000 RBC, 67% neutrophils but no crystals or organisms seen on Gram stain. Patient had recent steroid injection in the knee. BCx collected. Empiric antibiotic therapy with cefepime and vancomycin. Uric acid 9.7. She received empiric treatment with colchicine. BCx pending. Synovial Cx pending. Continue IV abx. (2) Cellulitis of left lower leg: Code(s): L03.116 - Cellulitis of left lower limb Status: Acute Assessment and Plan: As above. WBC trending down. Left lower extremity venous Doppler negative for D VT. Left foot MRI showing: -- marrow signal change in the second proximal phalanx which could relate to a healing fracture with mild distraction of an ununited fragment at the dorsal base of the proximal phalanx. Differential for the marrow signal change which include osteomyelitis although there is no evident joint effusion to suggest associated septic arthritis or evident adjacent ulceration to elevate suspicion. -- postoperative change of prior bunionectomy and hallux valgus correction with 35 degrees residual versus recurrent hallux valgus. -- chronic deformities at the heads of the second and third metatarsals, the base and the head and base of the third proximal phalanx which could be sequela of prior surgery, trauma or chronic osteomyelitis. -- mild to moderate polyarticular osteoarthritis in the left mid and forefoot. Unclear if she has osteomyelitis or surgical changes. Monitor WBC. Follow up on cultures. Follow clinically. (3) Acute pain of left knee: Code(s): M25.562 - Pain in left knee Status: Acute Assessment and Plan: Left knee xray shwoing moderate to advanced tricompartmental degenerative changes. Left foot xray showing no acute changes. Hip xray showing moderate osteoarthritis bilateral hip and sacroiliac joints left ankle xray showing no acute findings. Status post arthrocentesis and doubt septic arthritis. Treat symptomatically (4) Hyperuricemia: Code(s): E79.0 - Hyperuricemia without signs of inflammatory arthritis and tophaceous disease Status: Acute Assessment and Plan: Uric acid elevated at 9.7. Has a hx of right great toe redness to suggest underlying gout Colchicine given once but not continued. Monitor clinically. (5) CKD (chronic kidney disease) stage 3, GFR 30-59 ml/min: Qualifiers: Chronic kidney disease stage 3 subtype: stage 3a (GFR 45-59) Qualified Code(s): N18.31 - Chronic kidney disease, stage 3a Code(s): N18.30 - Chronic kidney disease, stage 3 unspecified Status: Acute Assessment and Plan: Cr 1.3 in the past and about the same on admission. Suspect she is at her baseline. Follow (6) Cardiac murmur: Code(s): R01.1 - Cardiac murmur, unspecified Status: Acute Assessment and Plan: Noted on exam. Could be flow murmur related to her fevers. Echo ordered (7) Pre-diabetes: Code(s): R73.03 - Prediabetes Status: Acute Assessment and Plan: A1c 5.2%. The patient's blood glucose remains well controlled. (8) Obstructive sleep apnea on CPAP: Code(s): G47.33 - Obstructive sleep apnea (adult) (pediatric) Status: Acute Assessment and Plan: CPAP ordered Plan Hx of COPD - patient with wheezing on exam. CXR clear. Viral PCRs were negative. Continue scheduled DuoNebs. DVT prophylaxis - Lovenox Code status - full. Subjective Date/time seen: 01/03/25 10:47 Interval history: 74yo female with CKD stage III, pre-DM, morbid obesity, INÉS, COPD, spinal stenosis, peripheral neuropathy, prior osteomyelitis of the left foot, and osteoarthritis who presented to the ER from home via EMS due to left leg pain an d fever. She complains of headache this moring. No Cp or SOb. No hx of gout but has a hx of right great toe redness and pain froom time to time. No n/v. No diarrhea. Exam Narrative: AF 97.3 126/49 77 20 96% ra Gen - NARD Chest - diffuse expiratory wheeze CV - RRR S1/S2, 2/6 systolic murmur USB Abd - Soft, obese, NT Ext - left pedal edema. 2+ DP bilaterally. Normal ROM left ankle. Psych - Nml mood and affect Skin - fading and patchy left leg/foot erythema. More erythtema to the 3rd left toe with minimal pain Objective Data Vital Signs Vital Signs: Vital Signs - 24 hr 01/02/25 20:17 01/02/25 21:51 01/03/25 00:51 Temperature 101.9 F H 102.6 F H 98.6 F Pulse Rate 107 H 95 80 Respiratory Rate 16 15 Blood Pressure 145/56 H 148/64 H 128/56 L Pulse Oximetry 96 95 100 Oxygen Delivery Room Air 01/03/25 03:25 01/03/25 06:46 01/03/25 07:46 Temperature 97.3 F L Pulse Rate 74 Respiratory Rate 18 Blood Pressure 126/49 L Pulse Oximetry 97 96 Oxygen Delivery Room Air Room Air 01/03/25 07:47 01/03/25 08:00 01/03/25 08:01 Temperature Pulse Rate 74 77 Respiratory Rate 20 20 Blood Pressure Pulse Oximetry 96 Oxygen Delivery Room Air Intake/Output Intake/Output: Intake & Output 12/31/24 01/01/25 01/02/25 01/03/25 23:59 23:59 23:59 23:59 Intake Total 2049 Balance 2049 Meds/Results Medications: Active Medications Generic Name Dose Route Start Last Admin Trade Name Freq PRN Reason Stop Dose Admin Acetaminophen 650 mg 01/03/25 02:49 Acetaminophen 325 Mg Tablet PO Q4H PRN Mild Pain (1-3) or Fever Albuterol/Ipratropium 3 ml 01/03/25 08:00 01/03/25 07:43 Ipratropium 0.5 Mg/Albuterol Sulfate 2.5 Mg Ampul.Neb 3 Ml INHALATION 3 ml Q6HRT JEB Administration Furosemide 20 mg 01/03/25 09:00 01/03/25 09:08 Furosemide 20 Mg Tablet PO 20 mg DAILY JEB Administration Hydrochlorothiazide 25 mg 01/03/25 09:00 01/03/25 09:10 Hydrochlorothiazide 25 Mg Tablet PO 25 mg QAM JEB Administration Cefepime HCl 1 gm in 50 mls @ 100 mls/hr 01/03/25 13:00 Maxipime 1 Gm/Ns 50 Ml IVPB Q12H [facility] Vancomycin HCl 1,500 mg in 500 mls @ 250 mls/hr 01/04/25 02:00 Vancomycin 1,500 Mg/Ns 500 Ml IVPB Q24H JEB Lisinopril 20 mg 01/03/25 09:00 01/03/25 09:08 Lisinopril 20 Mg Tablet PO 20 mg QAM JEB Administration Morphine Sulfate 2 mg 01/03/25 01:46 01/03/25 02:24 Morphine Sulfate (*Crx) 2 Mg/Ml Inj IV PUSH 2 mg Q2H PRN Administration Pain Rated 7-10 Ondansetron HCl 4 mg 01/03/25 01:46 01/03/25 02:24 Ondansetron Inj 4 Mg/2 Ml Vial IV PUSH 4 mg Q4H PRN Administration Nausea Pantoprazole Sodium 40 mg 01/03/25 09:00 01/03/25 09:08 Pantoprazole 40 Mg Tablet PO 02/02/25 08:59 40 mg DAILY JEB Administration Perflutren Lipid Microsphere 0 ml 01/03/25 06:00 Perflutren Lipid Microspheres 1.5 Ml Vial Diluted To 10 Ml Total Volume IV PUSH 01/06/25 06:01 ONCE PRN adequate visualization Protocol Pravastatin Sodium 40 mg 01/03/25 09:00 01/03/25 09:09 Pravastatin Sodium 20 Mg Tablet PO 40 mg DAILY JEB Administration Sertraline HCl 200 mg 01/03/25 09:00 01/03/25 09:09 Sertraline Hcl 50 Mg Tablet PO 200 mg DAILY JEB Administration Tramadol HCl 100 mg 01/03/25 06:08 01/03/25 09:09 Tramadol Hcl (*Crx) 25 Mg Tablet PO 100 mg Q6H PRN Administration pain 4-6 Radiology Results: ITS Impressions Knee X-Ray 01/03/25 06:10 Impression: Moderate to advanced tricompartmental degenerative change. Chest X-Ray 01/03/25 06:11 Impression: Clear lungs. Cardiomegaly. Venous Doppler Study 01/03/25 08:37 IMPRESSION: 1. No deep venous thrombosis in the left lower limb. Foot X-Ray 01/03/25 08:38 IMPRESSION: 1. No evidence of osteomyelitis. 2. Polyarticular osteoarthritis. Hip/Pelvis X-Ray 01/03/25 08:39 IMPRESSION: 1. Polyarticular osteoarthritis, severe at the lower lumbar facet joints and moderate at the bilateral hip and sacroiliac joints. Labs Labs: Laboratory Results - last 24 hr 01/02/25 01/02/25 01/03/25 22:28 22:28 00:30 WBC 21.5 H RBC 3.13 L Hgb 9.4 L Hct 29.0 L MCV 92.7 MCH 30.0 MCHC 32.4 RDW 13.7 Plt Count 264 MPV 9.4 Immature Gran % (Auto) 0.7 H Neut % (Auto) 88.8 H Lymph % (Auto) 3.3 L [place]cd[place] % (Auto) 6.2 Eos % (Auto) 0.7 Baso % (Auto) 0.3 Lymph # (Auto) 0.70 L [place] # (Auto) 1.3 H Eos # (Auto) 0.1 Baso # (Auto) 0.1 Abs Immat Gran (auto) 0.14 H Absolute Neuts (auto) 19.1 H Absolute Nucleated RBC 0.000 Nucleated RBC % 0.0 ESR 129 H PT 14.0 INR 1.0 APTT 25.8 Sodium 139 Potassium 4.2 Chloride 107 Carbon Dioxide 20 L Anion Gap 12 BUN 32 H Creatinine 1.36 H Estim Creat Clear Calc 42 Estimated GFR 38 L Glucose 135 H Hemoglobin A1c Lactic Acid 1.7 Uric Acid Calcium 8.6 Magnesium 1.6 Cancelled Iron TIBC % Saturation Ferritin Total Bilirubin 0.5 AST 30 ALT 35 Alkaline Phosphatase 95 C-Reactive Protein 1.9 H Total Protein 7.0 Albumin 4.0 Vitamin B12 Folate Procalcitonin 0.3 Urine Color Urine Appearance Urine pH Ur Specific [place] Urine Protein Urine Glucose (UA) Urine Ketones Ur Blood (Man) Urine Nitrate Urine Bilirubin Urine Urobilinogen Leukocyte Esterase Rfl Synovial Source Lt knee syn fluid Synovial Color Yellow Synovial Appearance Hazy A Synovial RBC 4000 H Synovial Nuc Cells 49 Synovial Neutrophils 67 H Synovial Lymphocytes 31 Synovial Monocytes 2 Synovial Crystals None seen Influenza A (RT-PCR) Negative Influenza B (RT-PCR) Negative RSV (RT-PCR) Negative SARS-CoV-2 RNA (RT-PCR) Negative 01/03/25 01/03/25 01/03/25 01:38 07:02 07:04 WBC 15.6 H RBC 2.91 L Hgb 8.7 L Hct 27.5 L MCV 94.5 MCH 29.9 MCHC 31.6 L RDW 13.7 Plt Count 236 MPV 9.2 Immature Gran % (Auto) 0.6 H Neut % (Auto) 87.4 H Lymph % (Auto) 4.9 L Mcdonald % (Auto) 5.4 Eos % (Auto) 1.4 Baso % (Auto) 0.3 Lymph # (Auto) 0.77 L [place] # (Auto) 0.8 H Eos # (Auto) 0.2 Baso # (Auto) 0.0 Abs Immat Gran (auto) 0.09 H Absolute Neuts (auto) 13.6 H Absolute Nucleated RBC 0.000 Nucleated RBC % 0.0 ESR PT INR APTT Sodium 140 Potassium 3.9 Chloride 110 H Carbon Dioxide 21 L Anion Gap 9 BUN 28 H Creatinine 1.17 H Estim Creat Clear Calc 48 Estimated GFR 45 L Glucose 124 H Hemoglobin A1c 5.2 Lactic Acid Uric Acid Calcium 8.2 L Magnesium Iron 19 L TIBC 262 % Saturation 7 L Ferritin 79.50 Total Bilirubin AST ALT Alkaline Phosphatase C-Reactive Protein Total Protein Albumin Vitamin B12 598.0 Folate 10.8 Procalcitonin Urine Color Yellow Urine Appearance Clear Urine pH 5.0 Ur Specific [place] 1.014 Urine Protein Negative Urine Glucose (UA) Negative Urine Ketones Negative Ur Blood (Man) Negative Urine Nitrate Negative Urine Bilirubin Negative Urine Urobilinogen 0.2 Leukocyte Esterase Rfl Negative Synovial Source Synovial Color Synovial Appearance Synovial RBC Synovial Nuc Cells Synovial Neutrophils Synovial Lymphocytes Synovial Monocytes Synovial Crystals Influenza A (RT-PCR) Influenza B (RT-PCR) RSV (RT-PCR) SARS-CoV-2 RNA (RT-PCR) 01/03/25 22:28 WBC RBC Hgb Hct MCV MCH MCHC RDW Plt Count MPV Immature Gran % (Auto) Neut % (Auto) Lymph % (Auto) Mcdonald % (Auto) Eos % (Auto) Baso % (Auto) Lymph # (Auto) [place] # (Auto) Eos # (Auto) Baso # (Auto) Abs Immat Gran (auto) Absolute Neuts (auto) Absolute Nucleated RBC Nucleated RBC % ESR PT INR APTT Sodium Potassium Chloride Carbon Dioxide Anion Gap BUN Creatinine Estim Creat Clear Calc Estimated GFR Glucose Hemoglobin A1c Lactic Acid Uric Acid 9.7 H Calcium Magnesium Iron TIBC % Saturation Ferritin Total Bilirubin AST ALT Alkaline Phosphatase C-Reactive Protein Total Protein Albumin Vitamin B12 Folate Procalcitonin Urine Color Urine Appearance Urine pH Ur Specific [place] Urine Protein Urine Glucose (UA) Urine Ketones Ur Blood (Man) Urine Nitrate Urine Bilirubin Urine Urobilinogen Leukocyte Esterase Rfl Synovial Source Synovial Color Synovial Appearance Synovial RBC Synovial Nuc Cells Synovial Neutrophils Synovial Lymphocytes Synovial Monocytes Synovial Crystals Influenza A (RT-PCR) Influenza B (RT-PCR) RSV (RT-PCR) SARS-CoV-2 RNA (RT-PCR)
[2025-01-03] MEDS: ENOXAPARIN 40 MG/0.4 ML SYRINGE SUB-Q (11:16)
[2025-01-03] MEDS: CEFEPIME 1 GM/NS 50 ML 1 GM/50 ML BAG IVPB (12:27)
--- NOTE | 2025-01-03 12:35 | PM.CNOR ---
Assessment and Plan Assessment and plan (1) Left foot pain: Code(s): M79.672 - Pain in left foot Status: Acute (2) Cellulitis of left lower leg: Code(s): L03.116 - Cellulitis of left lower limb Status: Acute History of Present Illness [facility] Consult date: 01/03/25 Chief complaint: Left lower extremity cellulitis leukocytosis Narrative: Patient is a 74-year-old female was admitted last night with diagnosis of sepsis and cellulitis on the the left calf. She developed fevers and chills swelling left leg and pain in the left plantar forefoot in the region where she has a chronic intractable plantar keratosis her into the The emergency room physician suspected that she this in her left knee. She was seen by her orthopedics at [facility] 4 days ago right is in the left knee and she received a cortisone S was helpful initially. She did go to [facility] afterwards. She sitting in the chair with her foot dependent which more than she usually allows herself to do because she has a history of chronic swelling in her lower extremities. She believe she did not walk more than usual. She states that when she S night there is a red streak going up from the 2nd toe up the top of her foot in up the chowdary. She does have a history of neuropathy so she does not have very much tenderness at the tip of the left toe where she has some redness. She has also been complaining of rather severe pain over the lateral aspect of her left lower leg corresponding to the distal fibular shaft just above the lateral malleolus. The emergency discussed the case with the last night. Her sedimentation rate is markedly 29. She had a temperature Dr. 39 degree based on the swelling about her left knee it was recommended that the left knee sprayed which was done successfully. This removed hazy fluid that showed no signs of underlying infection. There are only 49 synovial nucleated cells normal is less than 200 so the results was norm low normal of which 67%. There were no crystals seen. She does have an. She does have chronic renal insufficiency stage III. Her creatinine clearance was 48 today. She was started on cefepime and vancomycin and admitted. C-reactive protein was 1.9. Minimally elevated. With range of motion of her left knee last night she was also complaining of pain radiating to the hip. She has had no trauma but does have known history of RCT arthritis in both hips and has been told that she needs hip repeat. X-rays of left hip and AP pelvis performed today demonstrated moderately severe type 2 osteoarthritis with pronounced hypertrophic changes left hip. Osteoarthritis changes noted in the right hip. Patient has history of multiple in the past. Several years ago she had infection with a culture in the plantar forefoot ulcer growing Pseudomonas. She has also had history of infection at the tip of her 2nd toe in the past so she has had 2 prior infections. She has history of neuropathy my is calculated on her reported height weight at 39.1. She she has had a bunionectomy in the remote past and because of persistent plantar keratoses has had partial resection of the heads of the 2nd and 3rd metatarsals in the left foot in the past. Following these surgeries she had more Numbness in the 2nd and 3rd toes. A venous duplex ultrasound of the left lower extremity is morning was negative for DVT. She underwent right total knee arthroplasty at [facility] in March 2024 and has done her. She denies any pain or problems with her right knee. On examination today she no tenderness swelling or warmth about the right knee replacement. She has 1 to 2+ edema and faint Mahad knee erythema in the left calf to the ankle. She had moderately severe tenderness over the distal fibular shaft just proximal to the lateral malleolus. She states that the right red erythema that tracked up the top of her foot to her chowdary is better today than it was last night with elevation and the IV antibiotics presumably. She had moderate tenderness to palpation of the left forefoot and mild diffuse swelling without erythema in the forefoot. Multiple incisions scars appearing well healed her noted. There is an intractable plantar keratosis with callus with central hole in the callus under the 2nd metatarsal head but no drainage or signs of maceration or infection there. She had no pain with range of motion of her left knee and just a mild effusion full. Palpable. No significant tenderness about the left knee today. The tip of the 2nd toe on the left is bright red. It is nontender due to her neuropathy. She did have intact proprioception of the great toe. Her seem to be a little bit of maceration of the toenail which was white but I could not express any fluid from the toe itself. Blood cultures were obtained last night before starting antibiotics. Synovial fluid from the left knee aspirate cultures are pending. Assessment and plan patient was admitted with signs and symptoms of sepsis. She had a significant fever. [place] [address]. Sedimentation rate was 100. She had a markedly elevated acid of 9.7 so gout is a consideration. I think there is significant stability she may have an infection in her left foot. The results of the cell count with differential from the left knee fluid argue against infection in the left knee joint. I am suspicious that her infection toe or she may have an abscess in or forefoot deep to the intractable plantar keratosis. I have recommended obtaining an MRI scan of her left foot with and without gadolinium if her at. I would also recommend we obtain x-rays of her left ankle to assess whether she may have a stress fracture of the distal fibular shaft based on her severe tenderness there. prior x-rays from this morning of her left foot showed her post surgical changes from previous surgeries and a screw in the 1st metatarsal from prior chevron-type osteotomy. No evidence of osteomyelitis or fracture on the plain x-rays of left foot from this morning Patient also appears to have iron deficiency anemia 50 minutes were spent in total care this patient. [facility] Past Medical History Medical History (Updated 01/03/25 @ 12:50 by Apolinar Brooks MD) Chronic anemia Obesity (BMI 30-39.9) Obstructive sleep apnea on CPAP Peripheral neuropathy Pre-diabetes Overactive bladder GERD with esophagitis Early cataracts, bilateral Umbilical hernia CKD (chronic kidney disease) stage 3, GFR 30-59 ml/min Spinal stenosis, lumbar region with neurogenic claudication Surgical History Surgical History (Updated 01/03/25 @ 06:48 by Corinne Quinones DO) History of esophagogastroduodenoscopy (EGD) History of tubal ligation Status post foot joint surgery (~2014) Patient reports multiple foot surgeries including bunionectomy and excision of the base of the 2nd metatarsal, multiple neuroma resections History of laminectomy Family History Family History Grandparent Skin cancer Grandparent Arthritis COPD (chronic obstructive pulmonary disease) Emphysema lung Father Arthritis Heart disease Hypertension Sleep apnea COPD (chronic obstructive pulmonary disease) Emphysema lung Mother Hypertension COPD (chronic obstructive pulmonary disease) Emphysema lung Social History Social History (Updated 01/03/25 @ 06:52 by Corinne Quinones DO) Social History: The patient lives with her of 52 years who is suffering from dementia. 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 She used to smoke half a pack of cigarettes per day. She smoked 0.5 pack per day until age 53. She used to drink alcohol in moderation when she was young but has not drink alcohol to any significant amount for the last 20+ years. She denies history of illicit substance use. Her and her raised a daughter and a son. Code status: Full code Surrogate decision maker: Geraldine Beltran (sister) she states that her son and daughter would not know what to do in the case of an emergency. Smoking packs per day: 0.5 Smoking cigarettes per day: 10.0 Years smoked: 35 Smoking pack-years: 17.50 Smoking status: Former smoker Tobacco type: cigarettes Smoking end date: 01/07/02 Substance use: never Substance use type: does not use Do You Feel Safe in your Home?: Yes Lack of Transportation: No Lack of Food: Never True Current Housing: I Have Housing Concerned About Future Housing: No Difficulty Paying Gas/Electric Bills: No Difficulty Paying for Meds: No Currently Unemployed: No Education: Bachelor's Degree Difficulty w/ Childcare or Family Care: No Spiritual care concerns: No Meds Home Medications and Allergies Home Medications ?Medication ?Instructions ?Recorded ?Confirmed ?Type albuterol 90 mcg/actuation aerosol 90 mcg inhalation Q4-6H PRN 01/03/25 01/03/25 History inhaler shortness of breath furosemide 20 mg tablet 20 mg PO DAILY PRN edema 01/03/25 01/03/25 History lisinopril 20 1 tablet PO DAILY 01/03/25 01/03/25 History mg-hydrochlorothiazide 25 mg tablet omeprazole 40 mg capsule,delayed 40 mg PO DAILY 01/03/25 01/03/25 History release pravastatin 40 mg tablet 40 mg PO DAILY 01/03/25 01/03/25 History sertraline 200 mg capsule 200 mg PO DAILY 01/03/25 01/03/25 History tramadol 100 mg tablet 100 mg PO Q6H PRN pain 01/03/25 01/03/25 History Allergies Allergy/AdvReac Type Severity Reaction Status Date / Time clindamycin Allergy Rash Verified 01/03/25 03:24 metformin Allergy Diarrhea Verified 01/03/25 03:24 Penicillins Allergy Rash Verified 01/03/25 03:24 Vital Signs Vital Signs - 24 hr 01/02/25 20:17 01/02/25 21:51 01/03/25 00:51 Temperature 38.8 C H 39.2 C H 37.0 C Pulse Rate 107 H 95 80 Respiratory Rate 16 15 Blood Pressure 145/56 H 148/64 H 128/56 L Pulse Oximetry 96 95 100 Oxygen Delivery Room Air 01/03/25 03:25 01/03/25 06:46 01/03/25 07:46 Temperature 36.3 C L Pulse Rate 74 Respiratory Rate 18 Blood Pressure 126/49 L Pulse Oximetry 97 96 Oxygen Delivery Room Air Room Air 01/03/25 07:47 01/03/25 08:00 01/03/25 08:01 Temperature Pulse Rate 74 77 Respiratory Rate 20 20 Blood Pressure Pulse Oximetry 96 Oxygen Delivery Room Air Results Labs 01/03/25 07:04 01/03/25 07:04 Labs: Abnormal lab results 01/02/25 01/03/25 01/03/25 Range/Units 22:28 00:30 07:02 WBC 21.5 H (4.5-10.0) K/mm3 RBC 3.13 L (4.2-5.4) M/mm3 Hgb 9.4 L (12.0-15.0) g/dL Hct 29.0 L (37.0-47.0) % MCHC (32-36) g/dl Immature Gran % (Auto) 0.7 H (0-0.5) % Neut % (Auto) 88.8 H (45.5-73.1) % Lymph % (Auto) 3.3 L (18.3-44.2) % Lymph # (Auto) 0.70 L (0.9-3.2) K/mm3 [place] # (Auto) 1.3 H (0.1-0.6) K/mm3 Abs Immat Gran (auto) 0.14 H (0.00-0.031) K/mm3 Absolute Neuts (auto) 19.1 H (1.3-6.7) K/mm3 ESR 129 H (0-20) mm/hr Chloride (98-107) mmol/L Carbon Dioxide 20 L (22-30) mmol/L BUN 32 H (7-17) mg/dL Creatinine 1.36 H (0.7-1.0) mg/dL Estimated GFR 38 L (59 - ) Glucose 135 H (65-110) mg/dL Uric Acid (2.5-7.5) mg/dL Calcium (8.4-10.2) mg/dL Iron 19 L (37-170) ug/dL % Saturation 7 L (20-50) % C-Reactive Protein 1.9 H (<1.0) mg/dL Synovial Appearance Hazy A (Clear) Synovial RBC 4000 H (0-0) /uL Synovial Neutrophils 67 H (0-25) % 01/03/25 01/03/25 Range/Units 07:04 22:28 WBC 15.6 H (4.5-10.0) K/mm3 RBC 2.91 L (4.2-5.4) M/mm3 Hgb 8.7 L (12.0-15.0) g/dL Hct 27.5 L (37.0-47.0) % MCHC 31.6 L (32-36) g/dl Immature Gran % (Auto) 0.6 H (0-0.5) % Neut % (Auto) 87.4 H (45.5-73.1) % Lymph % (Auto) 4.9 L (18.3-44.2) % Lymph # (Auto) 0.77 L (0.9-3.2) K/mm3 [place] # (Auto) 0.8 H (0.1-0.6) K/mm3 Abs Immat Gran (auto) 0.09 H (0.00-0.031) K/mm3 Absolute Neuts (auto) 13.6 H (1.3-6.7) K/mm3 ESR (0-20) mm/hr Chloride 110 H (98-107) mmol/L Carbon Dioxide 21 L (22-30) mmol/L BUN 28 H (7-17) mg/dL Creatinine 1.17 H (0.7-1.0) mg/dL Estimated GFR 45 L (59 - ) Glucose 124 H (65-110) mg/dL Uric Acid 9.7 H (2.5-7.5) mg/dL Calcium 8.2 L (8.4-10.2) mg/dL Iron (37-170) ug/dL % Saturation (20-50) % C-Reactive Protein (<1.0) mg/dL Synovial Appearance (Clear) Synovial RBC (0-0) /uL Synovial Neutrophils (0-25) % H & H 01/02/25 01/03/25 Range/Units 22:28 07:04 Hgb 9.4 L 8.7 L (12.0-15.0) g/dL Hct 29.0 L 27.5 L (37.0-47.0) % Coagulation 01/02/25 Range/Units 22:28 INR 1.0 All other labs normal.
--- NOTE | 2025-01-03 13:41 | IVDEFINITY ---
Prior to administration of IV Definity the patient was educated on the risks and benefits of the imaging enhancing agent including potential adverse side effects. The patient verbalized understanding. Allergies were verified. No exclusion criteria were identified and at least one of the following inclusion criteria were met: 1) physician request, 2) patient technically difficult to image (per the [place] [employer] guidelines of two or more segments not discernable within the apical view), or 3) questionable left ventricular function. ?
[2025-01-03] MEDS: IRON SUCROSE COMPLEX 100 MG in SODIUM CHLORIDE 0.9% IV 50 ML 220 MG IVPB (18:47)
[2025-01-03] MEDS: oxyBUTYnin CHLORIDE 5 MG TABLET PO (20:54)
[2025-01-03] MEDS: GABAPENTIN 300 MG CAPSULE PO (20:54)
[2025-01-04] VITALS (13 sets, daily range): BP systolic 139–147; BP diastolic 60–66; PULSE 72–89; RESP 16–20; TEMP 36.5–37; O2SAT 94–97
[2025-01-04] MEDS: CEFEPIME 1 GM/NS 50 ML 1 GM/50 ML BAG IVPB ×2 (01:12→12:47)
[2025-01-04] MEDS: traMADol HCL (*CRX) 25 MG TABLET 100 MG PO ×3 (01:16→20:38)
[2025-01-04] MEDS: VANCOMYCIN 1,500 MG/NS 500 ML 1,500 MG/500 ML BAG 250 MG IVPB (01:48)
[2025-01-04] MEDS: IPRATROPIUM 0.5 MG/ALBUTEROL SULFATE 2.5 MG AMPUL.NEB 3 ML INHALATION ×4 (01:59→19:28)
[2025-01-04 06:37] LABS: Basophils Percent Auto 0.4 % (0.2-1.2); Eosinophils Absolute Auto 0.6 K/mm3 (0-0.3); Eosinophils Percent Auto 5.5 % (0-4.4); Hematocrit 26.5 % (37.0-47.0); Hemoglobin 8.4 g/dL (12.0-15.0); Immature Granulocyte Absolute 0.11 K/mm3 (0.00-0.031); Lymphocytes Absolute Auto 0.95 K/mm3 (0.9-3.2); Lymphocytes Percent Auto 8.9 % (18.3-44.2); Mean Corpuscular HGB Conc 31.7 g/dl (32-36); Mean Corpuscular Hemoglobin 30.4 pg (26-34); Mean Platelet Volume 9.8 fl (7.4-10.4); Monocytes Absolute Auto 0.7 K/mm3 (0.1-0.6); Monocytes Percent Auto 6.8 % (2.6-8.5); Neutrophils Absolute Auto 8.2 K/mm3 (1.3-6.7); Neutrophils Percent Auto 77.4 % (45.5-73.1); Platelet Count Result 221 k/mm3 (150-375); Red Blood Count 2.76 M/mm3 (4.2-5.4); Red Cell Distribution Width 13.8 % (11.5-14.5); White Blood Count 10.6 K/mm3 (4.5-10.0)
[2025-01-04 06:48] LABS: Albumin Level 3.2 g/dL (3.5-5.1); Anion Gap 7 mmol/L (4-12); Blood Urea Nitrogen 25 mg/dL (7-17); Calcium 8.3 mg/dL (8.4-10.2); Carbon Dioxide 24 mmol/L (22-30); Chloride 108 mmol/L (98-107); Estimated CRCL calculation 45 ml/min; Estimated Glomerular Filt Rate 42; Glucose 115 mg/dL (65-110); Magnesium 1.7 mg/dL (1.6-2.3); Phosphorus 3.6 mg/dL (2.5-4.5); Potassium 4.3 mmol/L (3.4-5.0); Sodium 139 mmol/L (137-145)
[2025-01-04] MEDS: oxyBUTYnin CHLORIDE 5 MG TABLET PO ×2 (08:52→17:50)
[2025-01-04] MEDS: PRAVASTATIN SODIUM 20 MG TABLET 40 MG PO (08:52)
[2025-01-04] MEDS: ENOXAPARIN 40 MG/0.4 ML SYRINGE SUB-Q (08:52)
[2025-01-04] MEDS: hydroCHLOROthiazide 25 MG TABLET PO (08:52)
[2025-01-04] MEDS: PANTOPRAZOLE 40 MG TABLET PO (08:52)
[2025-01-04] MEDS: SERTRALINE HCL 50 MG TABLET 200 MG PO (08:52)
[2025-01-04] MEDS: lisinopriL 20 MG TABLET PO (08:52)
[2025-01-04] MEDS: FUROSEMIDE 20 MG TABLET PO (08:52)
--- NOTE | 2025-01-04 09:10 | PM.PNORT ---
Progress Note: A&P Assessment and Plan (1) Left foot pain: Code(s): M79.672 - Pain in left foot Status: Acute Assessment and Plan: Yesterday patient had MRI scan foot which demonstrated evidence of fracture of the dorsal aspect of the base of the 2nd toe proximal phalanx. In looking back at the previous x-rays on the lateral view I can make out the a little bit through the overlying she says of the superimposed toes. I have spoken with Dr. Glass about this. There is no strong evidence to support infection in this region. There is no surrounding fluid collection that 1 would expect if this was osteomyelitis with an abscess. Also there is no abscess in the forefoot in association with the intractable plantar keratosis noted. Clinically, her left forefoot looks much better. There is no erythema whatsoever and there is no swelling or erythema in the 2nd toe today. There was bright erythema at the tip of the 2nd toe yesterday which is completely resolved. On palpation of the base of the 2nd toe the although she does have residual mild diffuse edema she feels is chronic she denied and they are stating that it just feels numb. She does have an intractable plantar keratosis on the plantar aspect of her foot under the 2nd metatarsal head. This does not appear to be infected but does have a central ulceration so it has broken down. The ulcer is epithelialized and dry. I believe the 2nd toe proximal phalanx fracture is likely a neuropathic fracture. Patient denies having injured her toe and it is in associated with the implant intractable plantar keratosis underneath. 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 She has worn through orthotics and when the last 1 wore out she did not bother having it replaced. I explained to her that she needs to ox in good condition and replace them as needed the rest of her life or she risks severe infection and amputation. I recommended that she struck his weight loss may read as the pressure on this area as well. I have discussed with her that we have an orthopedic surgeon on staff with fellowship training and cold surgery expertise at managing diabetics with these types of forefoot problems and I recommended that she have regular follow-up for the rest of her life to S closely so she does not developed a severe infection and complications such as amputation. She would like to see Dr. Chávez and I will consult him to either see her here in the hospital or in the office as an outpatient. 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 She points out that she uses a crutch and I explained that using 1 crutch will help her balance but does not keep weight off the foot and I explained that if she is not compliant with this her risk of getting infection through the ulcer is significant. She states that the pain in the distal lateral calf about 2 in proximal to the lateral malleolus has been present for the last 2 or 3 weeks. She states she told her Dr. Handy about this she recalls. She has pain there constantly. She states that with weight-bearing the pain is somewhat worse. We obtained x-rays of the left ankle yesterday which negative for fracture of the lateral malleolus or distal fibular shaft. She has some age indeterminate ossifications distal to the tip of the medial malleolus and the tip of the lateral malleolus which are noncontributory. No obvious degenerative changes in the ankle itself. On examination today again she has no erythema in the foot or ankle. She has [id number] swelling over the lateral ankle and anterolateral ankle. She has moderate tenderness over the anterolateral ankle no tenderness over the medial aspect of the ankle. She has severe tenderness approximately 3 in proximal to the level of the ankle joint over the lateral aspect of the ankle. She has diffuse erythema and moderate edema diffusely over the left calf anteromedial anterior and anterolateral and has moderate tenderness over the pretibial surface along the course of the lower leg anteriorly which is most consistent with cellulitis but she has severe tenderness again about 3 in proximal to the ankle over the distal fibular shaft which may be tenderness so she with cellulitis or she may have other pathology such as an insufficiency fracture starting. She has minimal discomfort with active plantar flexion dorsiflexion of the ankle and with inversion eversion although she reports it is a little bit more difficult to do this that ankle. I would recommend obtaining an MRI scan of the left leg. We will use IV gadolinium again. At ruling out abscess which I believe should be ruled out and this should also tell us whether there is evidence of early stress fracture of her distal fibular shaft. We will do that today She does have elevated uric acid 9.7 which might be contributing to her having pain tenderness over the anterior and anterolateral ankle. She does not have clinical evidence to suggest an acute septic arthritis or inflammatory arthritis such as gout in the ankle joint itself based on her ability to easily move the ankle up and down side to side without much discomfort today. With respect to her left knee had cortisone shot last , she reports that her chief complaint is pain directly in the back of the knee when she flexes to 90? which is about the limit of her flexion. This was the case when she saw the orthopedic surgeon at [facility] last and had a cortisone shot. She was concerned that she might have a Mckeon cyst. Clinically I do not feel an obvious cyst in the back of her knee today she has mild diffused so over the front of the knee. I cannot feel a significant effusion and she had range of motion actively with heel slide from 0 to a pain at the back of her knee at full flexion which I think is most consistent with her known tricompartmental Vijay osteoarthritis. She does not have any erythema skin changes edema over or around the knee today. 40 minutes were spent in total care of this patient today. (2) Left lateral ankle pain: Code(s): M25.572 - Pain in left ankle and joints of left foot Status: Acute Subjective Subjective Date/Time Seen: 01/04/25 09:10 Objective Data Vital Signs Vital Signs: Vital Signs - 24 hr 01/03/25 14:00 01/03/25 14:08 01/03/25 14:27 Temperature 36.4 C Pulse Rate 77 81 89 Respiratory Rate 18 20 20 Blood Pressure 131/71 Pulse Oximetry 94 Oxygen Delivery 01/03/25 20:00 01/03/25 20:36 01/03/25 20:45 Temperature Pulse Rate 77 79 Respiratory Rate 20 20 Blood Pressure Pulse Oximetry Oxygen Delivery Room Air 01/03/25 20:46 01/03/25 21:07 01/03/25 23:25 Temperature 36.8 C Pulse Rate 74 Respiratory Rate 18 21 H Blood Pressure 137/52 L Pulse Oximetry 96 98 96 Oxygen Delivery Room Air Autopap 01/04/25 02:00 01/04/25 02:08 01/04/25 02:09 Temperature Pulse Rate 77 82 Respiratory Rate 20 20 17 Blood Pressure Pulse Oximetry 97 Oxygen Delivery Autopap 01/04/25 05:48 01/04/25 07:34 01/04/25 07:34 Temperature 36.8 C Pulse Rate 72 86 86 Respiratory Rate 16 20 20 Blood Pressure 139/61 Pulse Oximetry 97 94 Oxygen Delivery Room Air 01/04/25 07:49 01/04/25 08:00 Temperature Pulse Rate 84 Respiratory Rate 20 Blood Pressure Pulse Oximetry 94 Oxygen Delivery Room Air Intake/Output Intake/Output: Intake & Output 01/01/25 01/02/25 01/03/25 01/04/25 23:59 23:59 23:59 23:59 Intake Total 2960 950 Output Total 1200 500 Balance 1760 450 Meds/Results Medications: Active Medications Generic Name Dose Route Start Last Admin Trade Name Freq PRN Reason Stop Dose Admin Acetaminophen 650 mg 01/03/25 02:49 Acetaminophen 325 Mg Tablet PO Q4H PRN Mild Pain (1-3) or Fever Albuterol 1 puff 01/03/25 19:26 Albuterol Sulfate (*Sp) Aerosol 1 Puff INHALATION Q4HRT PRN shortness of breath Albuterol/Ipratropium 3 ml 01/03/25 08:00 01/04/25 07:32 Ipratropium 0.5 Mg/Albuterol Sulfate 2.5 Mg Ampul.Neb 3 Ml INHALATION 3 ml Q6HRT JEB Administration Enoxaparin Sodium 40 mg 01/03/25 10:50 01/04/25 08:52 Enoxaparin 40 Mg/0.4 Ml Syringe SUB-Q 40 mg DAILY JEB Administration Furosemide 20 mg 01/03/25 09:00 01/04/25 08:52 Furosemide 20 Mg Tablet PO 20 mg DAILY JEB Administration Gabapentin 300 mg 01/03/25 21:00 01/03/25 20:54 Gabapentin 300 Mg Capsule PO 300 mg HS JEB Administration Hydrochlorothiazide 25 mg 01/03/25 09:00 01/04/25 08:52 Hydrochlorothiazide 25 Mg Tablet PO 25 mg QAM JEB Administration Cefepime HCl 1 gm in 50 mls @ 100 mls/hr 01/03/25 13:00 01/04/25 01:42 Maxipime 1 Gm/Ns 50 Ml IVPB Infused Q12H JEB Infusion Vancomycin HCl 1,500 mg in 500 mls @ 250 mls/hr 01/04/25 02:00 01/04/25 03:48 Vancomycin 1,500 Mg/Ns 500 Ml IVPB Infused Q24H JEB Infusion Iron Sucrose 100 mg/ Sodium 55 mls @ 220 mls/hr 01/04/25 09:00 Chloride IVPB 01/05/25 09:14 DAILY JEB Lisinopril 20 mg 01/03/25 09:00 01/04/25 08:52 Lisinopril 20 Mg Tablet PO 20 mg QAM JEB Administration Morphine Sulfate 2 mg 01/03/25 01:46 01/03/25 02:24 Morphine Sulfate (*Crx) 2 Mg/Ml Inj IV PUSH 2 mg Q2H PRN Administration Pain Rated 7-10 Ondansetron HCl 4 mg 01/03/25 01:46 01/03/25 02:24 Ondansetron Inj 4 Mg/2 Ml Vial IV PUSH 4 mg Q4H PRN Administration Nausea Oxybutynin Chloride 5 mg 01/03/25 20:00 01/04/25 08:52 Oxybutynin Chloride 5 Mg Tablet PO 5 mg BID [facility] Administration Pantoprazole Sodium 40 mg 01/03/25 09:00 01/04/25 08:52 Pantoprazole 40 Mg Tablet PO 02/02/25 08:59 40 mg DAILY [facility] Administration Pravastatin Sodium 40 mg 01/03/25 09:00 01/04/25 08:52 Pravastatin Sodium 20 Mg Tablet PO 40 mg DAILY JEB Administration Sertraline HCl 200 mg 01/03/25 09:00 01/04/25 08:52 Sertraline Hcl 50 Mg Tablet PO 200 mg DAILY [facility] Administration Tramadol HCl 100 mg 01/03/25 06:08 01/04/25 01:16 Tramadol Hcl (*Crx) 25 Mg Tablet PO 100 mg Q6H PRN Administration pain 4-6 Radiology Results: ITS Impressions Knee X-Ray 01/03/25 06:10 Impression: Moderate to advanced tricompartmental degenerative change. Chest X-Ray 01/03/25 06:11 Impression: Clear lungs. Cardiomegaly. Venous Doppler Study 01/03/25 08:37 IMPRESSION: 1. No deep venous thrombosis in the left lower limb. Foot X-Ray 01/03/25 08:38 IMPRESSION: 1. No evidence of osteomyelitis. 2. Polyarticular osteoarthritis. Hip/Pelvis X-Ray 01/03/25 08:39 IMPRESSION: 1. Polyarticular osteoarthritis, severe at the lower lumbar facet joints and moderate at the bilateral hip and sacroiliac joints. Ankle X-Ray 01/03/25 14:04 IMPRESSION: No acute osseous finding in the left ankle. Foot MRI 01/03/25 17:30 IMPRESSION: 1. Evaluation of the moderately limited by motion artifact on multiple sequences including repeated sequences. 2. Marrow signal change in the second proximal phalanx which could relate to a healing fracture with mild distraction of an ununited fragment at the dorsal base of the proximal phalanx. Differential for the marrow signal change which include osteomyelitis although there is no evident joint effusion to suggest associated septic arthritis or evident adjacent ulceration to elevate suspicion. 3. Postoperative change of prior bunionectomy and hallux valgus correction with 35 degrees residual versus recurrent hallux valgus. 4. Chronic deformities at the heads of the second and third metatarsals, the base and the head and base of the third proximal phalanx which could be sequela of prior surgery, trauma or chronic osteomyelitis. 5. Mild to moderate polyarticular osteoarthritis in the left mid and forefoot. Labs Labs: Laboratory Results - last 24 hr 01/04/25 05:39 WBC 10.6 H RBC 2.76 L Hgb 8.4 L Hct 26.5 L MCV 96.0 MCH 30.4 MCHC 31.7 L RDW 13.8 Plt Count 221 MPV 9.8 Immature Gran % (Auto) 1.0 H Neut % (Auto) 77.4 H Lymph % (Auto) 8.9 L [place] % (Auto) 6.8 Eos % (Auto) 5.5 H Baso % (Auto) 0.4 Lymph # (Auto) 0.95 [place] # (Auto) 0.7 H Eos # (Auto) 0.6 H Baso # (Auto) 0.0 Abs Immat Gran (auto) 0.11 H Absolute Neuts (auto) 8.2 H Absolute Nucleated RBC 0.000 Nucleated RBC % 0.0 Sodium 139 Potassium 4.3 Chloride 108 H Carbon Dioxide 24 Anion Gap 7 BUN 25 H Creatinine 1.25 H Estim Creat Clear Calc 45 Estimated GFR 42 L Glucose 115 H Calcium 8.3 L Phosphorus 3.6 Magnesium 1.7 Albumin 3.2 L
[2025-01-04] MEDS: IRON SUCROSE COMPLEX 100 MG in SODIUM CHLORIDE 0.9% IV 50 ML 220 MG IVPB (09:31)
--- NOTE | 2025-01-04 13:48 | P.PNIM_ITS ---
Progress Note: A&P Assessment and Plan (1) Sepsis: Qualifiers: Sepsis acute organ dysfunction status: without acute organ dysfunction Sepsis type: sepsis due to unspecified organism Qualified Code(s): A41.9 - S epsis, unspecified organism Code(s): A41.9 - Sepsis, unspecified organism Status: Acute Assessment and Plan: Patient presented to the left knee swelling/effusion and suspected left lower extremity cellulitis. Patient met sepsis criteria with fevers, tachycardia and leukocytosis. Patient had a joint aspiration performed in the ER was resulted in 20 mL of cloudy yellow fluid with 49 WBC, 4000 RBC, 67% neutrophils but no crystals or organisms seen on Gram stain. Patient had recent steroid injection in the knee. BCx collected. Empiric antibiotic therapy with cefepime and vancomycin. Uric acid 9.7. She received empiric treatment with colchicine. BCx NGTD. Synovial Cx no growth. Continue IV abx. (2) Cellulitis of left lower leg: Code(s): L03.116 - Cellulitis of left lower limb Status: Acute Assessment and Plan: As above. WBC trending down. Left lower extremity venous Doppler negative for DV T. Left foot MRI showing: -- marrow signal change in the second proximal phalanx which could relate to a healing fracture with mild distraction of an ununited fragment at the dorsal base of the proximal phalanx. Differential for the marrow signal change which include osteomyelitis although there is no evident joint effusion to suggest associated septic arthritis or evident adjacent ulceration to elevate suspicion. -- postoperative change of prior bunionectomy and hallux valgus correction with 35 degrees residual versus recurrent hallux valgus. -- chronic deformities at the heads of the second and third metatarsals, the base and the head and base of the third proximal phalanx which could be sequela of prior surgery, trauma or chronic osteomyelitis. -- mild to moderate polyarticular osteoarthritis in the left mid and forefoot. Left lower leg MRI showing: -- diffuse subcutaneous edema in the left lower leg but no abscess. Unclear if she has osteomyelitis or surgical changes or old fracture. WBC trending down. Clinical exam better. Cultures remain negative. No further fevers. Apprecaite ortho input. Follow (3) Acute pain of left knee: Code(s): M25.562 - Pain in left knee Status: Acute Assessment and Plan: Left knee xray showing moderate to advanced tricompartmental degenerative changes. Left foot xray showing no acute changes. Hip xray showing moderate osteoarthritis bilateral hip and sacroiliac joints left ankle xray showing no acute findings. Status post arthrocentesis and doubt septic arthritis. Cx remain negative. Treat symptomatically (4) Hyperuricemia: Code(s): E79.0 - Hyperuricemia without signs of inflammatory arthritis and tophaceous disease Status: Acute Assessment and Plan: Uric acid elevated at 9.7. Has a hx of right great toe redness to suggest underlying gout Colchicine given once but not continued. Monitor (5) CKD (chronic kidney disease) stage 3, GFR 30-59 ml/min: Qualifiers: Chronic kidney disease stage 3 subtype: stage 3a (GFR 45-59) Qualified Code(s): N18.31 - Chronic kidney disease, stage 3a Code(s): N18.30 - Chronic kidney disease, stage 3 unspecified Status: Acute Assessment and Plan: Cr 1.3 in the past and about the same on admission. Suspect she is at her baseline. Follow (6) Cardiac murmur: Code(s): R01.1 - Cardiac murmur, unspecified Status: Acute Assessment and Plan: Noted on exam. Could be flow murmur related to her fevers. Echo showing EF 60-65%, severe concentric LVH. (7) Pre-diabetes: Code(s): R73.03 - Prediabetes Status: Acute Assessment and Plan: A1c 5.2%. The patient's blood glucose remains well controlled. (8) Obstructive sleep apnea on CPAP: Code(s): G47.33 - Obstructive sleep apnea (adult) (pediatric) Status: Acute Assessment and Plan: CPAP ordered Plan Hx of COPD - patient was wheezing on exam. CXR clear. Viral PCRs were negative. Exam better. Continue scheduled DuoNebs. DVT prophylaxis - Lovenox Code status - full. Debility - PT/OT Subjective Date/time seen: 01/04/25 13:48 Interval history: 74yo female with CKD stage III, pre-DM, morbid obesity, INÉS, COPD, spinal stenosis, peripheral neuropathy, prior osteomyelitis of the left foot, and osteoarthritis who presented to the ER from home via EMS due to left leg pain and fever. Complains of tenderness and pain front and lateral left calf. Also with pain plantar surface left foot when walking. Cough productive of yellow sputum. No CP or SOB. Exam Narrative: AF 98.2 139/61 84 20 94% ra Gen - NARD Chest - scant inspiratory crackles CV - RRR S1/S2 Abd - Soft, obese, NT, reducible umbilical hernia Ext - left. right pedal edema. Psych - Nml mood and affect Skin - Erythema resolving in the left foot. Erythema confined to the left chowdary and is splotchy. Dried callus with peeling skin distal left plantar surface. Objective Data Vital Signs Vital Signs: Vital Signs - 24 hr 01/03/25 14:00 01/03/25 14:08 01/03/25 14:27 Temperature 97.6 F Pulse Rate 77 81 89 Respiratory Rate 18 20 20 Blood Pressure 131/71 Pulse Oximetry 94 Oxygen Delivery 01/03/25 20:00 01/03/25 20:36 01/03/25 20:45 Temperature Pulse Rate 77 79 Respiratory Rate 20 20 Blood Pressure Pulse Oximetry Oxygen Delivery Room Air 01/03/25 20:46 01/03/25 21:07 01/03/25 23:25 Temperature 98.2 F Pulse Rate 74 Respiratory Rate 18 21 H Blood Pressure 137/52 L Pulse Oximetry 96 98 96 Oxygen Delivery Room Air Autopap 01/04/25 02:00 01/04/25 02:08 01/04/25 02:09 Temperature Pulse Rate 77 82 Respiratory Rate 20 20 17 Blood Pressure Pulse Oximetry 97 Oxygen Delivery Autopap 01/04/25 05:48 01/04/25 07:34 01/04/25 07:34 Temperature 98.2 F Pulse Rate 72 86 86 Respiratory Rate 16 20 20 Blood Pressure 139/61 Pulse Oximetry 97 94 Oxygen Delivery Room Air 01/04/25 07:49 01/04/25 08:00 01/04/25 13:09 Temperature Pulse Rate 84 83 Respiratory Rate 20 20 Blood Pressure Pulse Oximetry 94 Oxygen Delivery Room Air 01/04/25 13:17 Temperature Pulse Rate 84 Respiratory Rate 20 Blood Pressure Pulse Oximetry Oxygen Delivery Intake/Output Intake/Output: Intake & Output 01/01/25 01/02/25 01/03/25 01/04/25 23:59 23:59 23:59 23:59 Intake Total 2960 1310 Output Total 1200 500 Balance 1760 810 Meds/Results Medications: Active Medications Generic Name Dose Route Start Last Admin Trade Name Freq PRN Reason Stop Dose Admin Acetaminophen 650 mg 01/03/25 02:49 Acetaminophen 325 Mg Tablet PO Q4H PRN Mild Pain (1-3) or Fever Albuterol 1 puff 01/03/25 19:26 Albuterol Sulfate (*Sp) Aerosol 1 Puff INHALATION Q4HRT PRN shortness of breath Albuterol/Ipratropium 3 ml 01/03/25 08:00 01/04/25 13:08 Ipratropium 0.5 Mg/Albuterol Sulfate 2.5 Mg Ampul.Neb 3 Ml INHALATION 3 ml Q6HRT JEB Administration Enoxaparin Sodium 40 mg 01/03/25 10:50 01/04/25 08:52 Enoxaparin 40 Mg/0.4 Ml Syringe SUB-Q 40 mg DAILY JEB Administration Furosemide 20 mg 01/03/25 09:00 01/04/25 08:52 Furosemide 20 Mg Tablet PO 20 mg DAILY JEB Administration Gabapentin 300 mg 01/03/25 21:00 01/03/25 20:54 Gabapentin 300 Mg Capsule PO 300 mg HS JEB Administration Hydrochlorothiazide 25 mg 01/03/25 09:00 01/04/25 08:52 Hydrochlorothiazide 25 Mg Tablet PO 25 mg QAM JEB Administration Cefepime HCl 1 gm in 50 mls @ 100 mls/hr 01/03/25 13:00 01/04/25 12:47 Maxipime 1 Gm/Ns 50 Ml IVPB 100 mls/hr Q12H JEB Administration Vancomycin HCl 1,500 mg in 500 mls @ 250 mls/hr 01/04/25 02:00 01/04/25 03:48 Vancomycin 1,500 Mg/Ns 500 Ml IVPB Infused Q24H JEB Infusion Iron Sucrose 100 mg/ Sodium 55 mls @ 220 mls/hr 01/04/25 09:00 01/04/25 09:31 Chloride IVPB 01/05/25 09:14 220 mls/hr DAILY JEB Administration Lisinopril 20 mg 01/03/25 09:00 01/04/25 08:52 Lisinopril 20 Mg Tablet PO 20 mg QAM JEB Administration Morphine Sulfate 2 mg 01/03/25 01:46 01/03/25 02:24 Morphine Sulfate (*Crx) 2 Mg/Ml Inj IV PUSH 2 mg Q2H PRN Administration Pain Rated 7-10 Ondansetron HCl 4 mg 01/03/25 01:46 01/03/25 02:24 Ondansetron Inj 4 Mg/2 Ml Vial IV PUSH 4 mg Q4H PRN Administration Nausea Oxybutynin Chloride 5 mg 01/03/25 20:00 01/04/25 08:52 Oxybutynin Chloride 5 Mg Tablet PO 5 mg BID JEB Administration Pantoprazole Sodium 40 mg 01/03/25 09:00 01/04/25 08:52 Pantoprazole 40 Mg Tablet PO 02/02/25 08:59 40 mg DAILY JEB Administration Pravastatin Sodium 40 mg 01/03/25 09:00 01/04/25 08:52 Pravastatin Sodium 20 Mg Tablet PO 40 mg DAILY EJB Administration Sertraline HCl 200 mg 01/03/25 09:00 01/04/25 08:52 Sertraline Hcl 50 Mg Tablet PO 200 mg DAILY JEB Administration Tramadol HCl 100 mg 01/03/25 06:08 01/04/25 11:39 Tramadol Hcl (*Crx) 25 Mg Tablet PO 100 mg Q6H PRN Administration pain 4-6 Radiology Results: ITS Impressions Knee X-Ray 01/03/25 06:10 Impression: Moderate to advanced tricompartmental degenerative change. Chest X-Ray 01/03/25 06:11 Impression: Clear lungs. Cardiomegaly. Venous Doppler Study 01/03/25 08:37 IMPRESSION: 1. No deep venous thrombosis in the left lower limb. Foot X-Ray 01/03/25 08:38 IMPRESSION: 1. No evidence of osteomyelitis. 2. Polyarticular osteoarthritis. Hip/Pelvis X-Ray 01/03/25 08:39 IMPRESSION: 1. Polyarticular osteoarthritis, severe at the lower lumbar facet joints and moderate at the bilateral hip and sacroiliac joints. Ankle X-Ray 01/03/25 14:04 IMPRESSION: No acute osseous finding in the left ankle. Foot MRI 01/03/25 17:30 IMPRESSION: 1. Evaluation of the moderately limited by motion artifact on multiple sequences including repeated sequences. 2. Marrow signal change in the second proximal phalanx which could relate to a healing fracture with mild distraction of an ununited fragment at the dorsal base of the proximal phalanx. Differential for the marrow signal change which include osteomyelitis although there is no evident joint effusion to suggest associated septic arthritis or evident adjacent ulceration to elevate suspicion. 3. Postoperative change of prior bunionectomy and hallux valgus correction with 35 degrees residual versus recurrent hallux valgus. 4. Chronic deformities at the heads of the second and third metatarsals, the base and the head and base of the third proximal phalanx which could be sequela of prior surgery, trauma or chronic osteomyelitis. 5. Mild to moderate polyarticular osteoarthritis in the left mid and forefoot. Lower Extremity MRI 01/04/25 12:37 IMPRESSION: 1. Diffuse subcutaneous edema in the lower leg. No abscess. Labs Labs: Laboratory Results - last 24 hr 01/04/25 05:39 WBC 10.6 H RBC 2.76 L Hgb 8.4 L Hct 26.5 L MCV 96.0 MCH 30.4 MCHC 31.7 L RDW 13.8 Plt Count 221 MPV 9.8 Immature Gran % (Auto) 1.0 H Neut % (Auto) 77.4 H Lymph % (Auto) 8.9 L [place] % (Auto) 6.8 Eos % (Auto) 5.5 H Baso % (Auto) 0.4 Lymph # (Auto) 0.95 [place] # (Auto) 0.7 H Eos # (Auto) 0.6 H Baso # (Auto) 0.0 Abs Immat Gran (auto) 0.11 H Absolute Neuts (auto) 8.2 H Absolute Nucleated RBC 0.000 Nucleated RBC % 0.0 Sodium 139 Potassium 4.3 Chloride 108 H Carbon Dioxide 24 Anion Gap 7 BUN 25 H Creatinine 1.25 H Estim Creat Clear Calc 45 Estimated GFR 42 L Glucose 115 H Calcium 8.3 L Phosphorus 3.6 Magnesium 1.7 Albumin 3.2 L
[2025-01-04 16:05] LABS: IFOB Positive Control Positive; Immunochemical Fecal Occult Bl Positive (N)
[2025-01-04] MEDS: FUROSEMIDE INJ 40 MG/4 ML VIAL IV PUSH (17:49)
[2025-01-04] MEDS: GABAPENTIN 300 MG CAPSULE PO (20:38)
[2025-01-05 00:11] LABS: Glucose Point of Care 103 mg/dl (65-105)
[2025-01-05] MEDS: CEFEPIME 1 GM/NS 50 ML 1 GM/50 ML BAG IVPB ×2 (00:38→13:08)
[2025-01-05 01:59] LABS: Vancomycin Trough 14.7 ug/mL (10.0-20.0)
[2025-01-05] MEDS: VANCOMYCIN 1,750 MG/NS 500 ML 1,750 MG/500 ML BAG 250 MG IVPB (02:59)
[2025-01-05 04:00] VITALS: RESP 19; O2SAT 95
[2025-01-05 05:28] VITALS: BP 123/81; PULSE 96; RESP 20; TEMP 36.4; O2SAT 95
[2025-01-05 07:15] VITALS: PULSE 109; RESP 20; O2SAT 94
[2025-01-05 07:15] LABS: Basophils Absolute Auto 0.1 K/mm3 (0.0-0.1); Basophils Percent Auto 0.4 % (0.2-1.2); Eosinophils Absolute Auto 0.9 K/mm3 (0-0.3); Eosinophils Percent Auto 8.3 % (0-4.4); Hematocrit 31.9 % (37.0-47.0); Hemoglobin 10.1 g/dL (12.0-15.0); Immature Granulocyte Absolute 0.15 K/mm3 (0.00-0.031); Immature Granulocyte Percent A 1.3 % (0-0.5); Lymphocytes Absolute Auto 1.17 K/mm3 (0.9-3.2); Lymphocytes Percent Auto 10.4 % (18.3-44.2); Mean Corpuscular HGB Conc 31.7 g/dl (32-36); Mean Corpuscular Hemoglobin 29.2 pg (26-34); Mean Corpuscular Volume 92.2 fl (80-100); Mean Platelet Volume 9.4 fl (7.4-10.4); Monocytes Absolute Auto 0.8 K/mm3 (0.1-0.6); Monocytes Percent Auto 7.5 % (2.6-8.5); Neutrophils Absolute Auto 8.1 K/mm3 (1.3-6.7); Neutrophils Percent Auto 72.1 % (45.5-73.1); Platelet Count Result 289 k/mm3 (150-375); Red Blood Count 3.46 M/mm3 (4.2-5.4); Red Cell Distribution Width 13.6 % (11.5-14.5); White Blood Count 11.3 K/mm3 (4.5-10.0)
[2025-01-05] MEDS: IPRATROPIUM 0.5 MG/ALBUTEROL SULFATE 2.5 MG AMPUL.NEB 3 ML INHALATION (07:15)
[2025-01-05 07:29] VITALS: PULSE 98; RESP 16
--- NOTE | 2025-01-05 07:46 | P.PNOP_ITS ---
Progress Note: A&P Assessment and Plan (1) Toe fracture, left: Qualifiers: Encounter type: subsequent encounter Fracture alignment: displaced Fracture healing: with nonunion Fracture type: closed Phalanx: proximal Toe: lesser toe Qualified Code(s): S92.512K - Displaced fracture of proximal phalanx of left lesser toe(s), subsequent encounter for fracture with nonunion Code(s): S92.912A - Unspecified fracture of left toe(s), initial encounter for closed fracture Status: Acute Assessment and Plan: Patient's MRI scan of left leg obtained yesterday is reviewed. It showed subcutaneous edema in the calf. No muscular abnormality in the calf or fracture. No abscess. Consistent with cellulitis involving skin and subcu tissues. Very good quality images. There is no evidence of fracture in the fibula. On exam today she still has quite a bit of tenderness and fairly bright erythema with diffuse tiny red spots throughout the lateral anterior and medial calf st arting just below above the ankle and stopping just below the knee. There is no erythema or warmth at the left knee. She has diffuse tenderness over the front of her knee no palpable effusion. The knee findings are consistent with her known tricompartmental osteoarthritis but not suggestive of infection in the knee joint. The forefoot looks completely benign there is no edema whatsoever. She has received some diuretics and the swelling in her leg has diminished and now there is absolutely no swelling the foot. Again she has a strong 2+ dorsalis pedis pulse palpable. The intractable plantar keratosis under the 2nd metatarsophalangeal joint continues to heal and the depression in the center where she had some skin breakdown is filling in so that there is no depression now and is covering over with the callus. I spoke to Dr. Velasquez about her case and he told me this morning that at 1 point she did notice a little bit of blood coming from this callus. She has not had any fluid or drainage from the callus since she has been in the hospital. The toe looks normal without swelling. There is no tenderness but she has numbness. The erythema over the anterior calf extending medially and laterally is still very tender. Assessment plan 1. Patient has a neuropathic fracture base of 2nd toe. I recommended that she be partial weight-bearing with a Darco shoe and that she obtain after discharge a or accommodative Plastazote insole. Diabetic shoes would be appropriate. I would recommend that she follow-up with Dr. Chávez and have regular surveillance visits for life after discharge. Risk of skin breakdown deep infection and amputation was discussed. I do not believe she has infection in the neuropathic fracture. She has no external signs of infection and within 2 days all of the erythema and swelling in the forefoot has gone away and she has not had any drainage from the callus on the bottom of her foot during her hospitalization. 2. Patient has cellulitis in the left chowdary. Origin of the cellulitis is difficult to know in this case. She may have chronic venous stasis and there may be an element of phlebitis. She has an unusually high sedimentation rate of 129 raising the possibility of a vasculitis problem. Her swelling is much better today as result of the Lasix she received yesterday. There is still 1+ edema in the area of the cellulitis and the cellulitis is still very tender but yesterday it was 2+ edema so this is much better terms of the swelling. The erythema is approximately unchanged. I would think that ongoing antibiotics on the presumptive diagnosis of cellulitis would be appropriate. If the erythema does not fully resolve with antibiotics, given her very high sedimentation rate, it may be appropriate for her to see a customer energy specialist for further evaluation to see if there is some sort of autoimmune process contributing to this. She did have fever and markedly elevated white count on admission and with the high sedimentation rate these argue that she has an underlying infection. What was unusual was her C-reactive protein being only 1.9. Today it is elevated to 5.9. Neuropathic fracture in the lower leg it has been ruled out and subcutaneous abscess or intramuscular abscess in the lower left leg has been ruled out by MRI scan yesterday. I am going to sign off from an orthopedic standpoint at this time. Please call if there are any questions. I have added instructions in the discharge summary for following up with Dr. Chávez and having accommodative Plastazote orthotic made an outpatient basis and obtaining diabetic shoes. 35 minutes was spent in total care this patient Subjective Subjective Date/Time Seen: 01/05/25 07:46 Objective Data Vital Signs Vital Signs: Vital Signs - 24 hr 01/04/25 07:49 01/04/25 08:00 01/04/25 13:09 Temperature Pulse Rate 84 83 Respiratory Rate 20 20 Blood Pressure Pulse Oximetry 94 Oxygen Delivery Room Air 01/04/25 13:17 01/04/25 14:00 01/04/25 19:29 Temperature 37.0 C Pulse Rate 84 89 77 Respiratory Rate 20 18 16 Blood Pressure 143/60 H Pulse Oximetry 95 Oxygen Delivery 01/04/25 19:33 01/04/25 20:00 01/04/25 21:04 Temperature 36.5 C Pulse Rate 82 77 Respiratory Rate 16 20 Blood Pressure 147/66 H Pulse Oximetry 95 Oxygen Delivery Room Air 01/05/25 04:00 01/05/25 05:28 01/05/25 07:15 Temperature 36.4 C Pulse Rate 96 Respiratory Rate 19 20 Blood Pressure 123/81 Pulse Oximetry 95 95 94 Oxygen Delivery Autopap Room Air 01/05/25 07:15 01/05/25 07:29 Temperature Pulse Rate 109 H 98 Respiratory Rate 20 16 Blood Pressure Pulse Oximetry Oxygen Delivery Intake/Output Intake/Output: Intake & Output 01/02/25 01/03/25 01/04/25 01/05/25 23:59 23:59 23:59 23:59 Intake Total 2960 1840 950 Output Total 1200 2500 1475 Balance 8790 -741 -696 Meds/Results Medications: Active Medications Generic Name Dose Route Start Last Admin Trade Name Freq PRN Reason Stop Dose Admin Acetaminophen 650 mg 01/03/25 02:49 Acetaminophen 325 Mg Tablet PO Q4H PRN Mild Pain (1-3) or Fever Albuterol 1 puff 01/03/25 19:26 Albuterol Sulfate (*Sp) Aerosol 1 Puff INHALATION Q4HRT PRN shortness of breath Albuterol/Ipratropium 3 ml 01/03/25 08:00 01/05/25 07:15 Ipratropium 0.5 Mg/Albuterol Sulfate 2.5 Mg Ampul.Neb 3 Ml INHALATION 3 ml Q6HRT JEB Administration Enoxaparin Sodium 40 mg 01/03/25 10:50 01/04/25 08:52 Enoxaparin 40 Mg/0.4 Ml Syringe SUB-Q 40 mg DAILY JEB Administration Furosemide 20 mg 01/03/25 09:00 01/04/25 08:52 Furosemide 20 Mg Tablet PO 20 mg DAILY JEB Administration Gabapentin 300 mg 01/03/25 21:00 01/04/25 20:38 Gabapentin 300 Mg Capsule PO 300 mg HS JEB Administration Hydrochlorothiazide 25 mg 01/03/25 09:00 01/04/25 08:52 Hydrochlorothiazide 25 Mg Tablet PO 25 mg QAM JEB Administration Cefepime HCl 1 gm in 50 mls @ 100 mls/hr 01/03/25 13:00 01/05/25 01:08 Maxipime 1 Gm/Ns 50 Ml IVPB Infused Q12H JEB Infusion Iron Sucrose 100 mg/ Sodium 55 mls @ 220 mls/hr 01/04/25 09:00 01/04/25 09:31 Chloride IVPB 01/05/25 09:14 220 mls/hr DAILY JEB Administration Vancomycin HCl 1,750 mg in 500 mls @ 250 mls/hr 01/05/25 03:00 01/05/25 04:59 Vancomycin 1,750 Mg/Ns 500 Ml IVPB Infused Q24H JEB Infusion Lisinopril 20 mg 01/03/25 09:00 01/04/25 08:52 Lisinopril 20 Mg Tablet PO 20 mg QAM JEB Administration Morphine Sulfate 2 mg 01/03/25 01:46 01/03/25 02:24 Morphine Sulfate (*Crx) 2 Mg/Ml Inj IV PUSH 2 mg Q2H PRN Administration Pain Rated 7-10 Ondansetron HCl 4 mg 01/03/25 01:46 01/03/25 02:24 Ondansetron Inj 4 Mg/2 Ml Vial IV PUSH 4 mg Q4H PRN Administration Nausea Oxybutynin Chloride 5 mg 01/03/25 20:00 01/04/25 17:50 Oxybutynin Chloride 5 Mg Tablet PO 5 mg BID JEB Administration Pantoprazole Sodium 40 mg 01/03/25 09:00 01/04/25 08:52 Pantoprazole 40 Mg Tablet PO 02/02/25 08:59 40 mg DAILY JEB Administration Pravastatin Sodium 40 mg 01/03/25 09:00 01/04/25 08:52 Pravastatin Sodium 20 Mg Tablet PO 40 mg DAILY JEB Administration Sertraline HCl 200 mg 01/03/25 09:00 01/04/25 08:52 Sertraline Hcl 50 Mg Tablet PO 200 mg DAILY JEB Administration Tramadol HCl 100 mg 01/03/25 06:08 01/04/25 20:38 Tramadol Hcl (*Crx) 25 Mg Tablet PO 100 mg Q6H PRN Administration pain 4-6 Radiology Results: ITS Impressions Knee X-Ray 01/03/25 06:10 Impression: Moderate to advanced tricompartmental degenerative change. Chest X-Ray 01/03/25 06:11 Impression: Clear lungs. Cardiomegaly. Venous Doppler Study 01/03/25 08:37 IMPRESSION: 1. No deep venous thrombosis in the left lower limb. Foot X-Ray 01/03/25 08:38 IMPRESSION: 1. No evidence of osteomyelitis. 2. Polyarticular osteoarthritis. Hip/Pelvis X-Ray 01/03/25 08:39 IMPRESSION: 1. Polyarticular osteoarthritis, severe at the lower lumbar facet joints and moderate at the bilateral hip and sacroiliac joints. Ankle X-Ray 01/03/25 14:04 IMPRESSION: No acute osseous finding in the left ankle. Foot MRI 01/03/25 17:30 IMPRESSION: 1. Evaluation of the moderately limited by motion artifact on multiple sequences including repeated sequences. 2. Marrow signal change in the second proximal phalanx which could relate to a healing fracture with mild distraction of an ununited fragment at the dorsal base of the proximal phalanx. Differential for the marrow signal change which include osteomyelitis although there is no evident joint effusion to suggest associated septic arthritis or evident adjacent ulceration to elevate suspicion. 3. Postoperative change of prior bunionectomy and hallux valgus correction with 35 degrees residual versus recurrent hallux valgus. 4. Chronic deformities at the heads of the second and third metatarsals, the base and the head and base of the third proximal phalanx which could be sequela of prior surgery, trauma or chronic osteomyelitis. 5. Mild to moderate polyarticular osteoarthritis in the left mid and forefoot. Lower Extremity MRI 01/04/25 12:37 IMPRESSION: 1. Diffuse subcutaneous edema in the lower leg. No abscess. Labs Labs: Laboratory Results - last 24 hr 01/04/25 01/05/25 01/05/25 15:48 00:08 01:13 WBC RBC Hgb Hct MCV MCH MCHC RDW Plt Count MPV Immature Gran % (Auto) Neut % (Auto) Lymph % (Auto) [place] % (Auto) Eos % (Auto) Baso % (Auto) Lymph # (Auto) [place] # (Auto) Eos # (Auto) Baso # (Auto) Abs Immat Gran (auto) Absolute Neuts (auto) Absolute Nucleated RBC Nucleated RBC % POC Capillary Glucose 103 Stl Occult Blood (IFOB) Positive H Vancomycin Trough 14.7 01/05/25 06:40 WBC 11.3 H RBC 3.46 L Hgb 10.1 L Hct 31.9 L MCV 92.2 MCH 29.2 MCHC 31.7 L RDW 13.6 Plt Count 289 MPV 9.4 Immature Gran % (Auto) 1.3 H Neut % (Auto) 72.1 Lymph % (Auto) 10.4 L [place] % (Auto) 7.5 Eos % (Auto) 8.3 H Baso % (Auto) 0.4 Lymph # (Auto) 1.17 [place] # (Auto) 0.8 H Eos # (Auto) 0.9 H Baso # (Auto) 0.1 Abs Immat Gran (auto) 0.15 H Absolute Neuts (auto) 8.1 H Absolute Nucleated RBC 0.000 Nucleated RBC % 0.0 POC Capillary Glucose Stl Occult Blood (IFOB) Vancomycin Trough
[2025-01-05 07:51] LABS: Anion Gap 11 mmol/L (4-12); Blood Urea Nitrogen 25 mg/dL (7-17); CRP 5.9 mg/dL (<1.0); Calcium 9.3 mg/dL (8.4-10.2); Carbon Dioxide 27 mmol/L (22-30); Chloride 102 mmol/L (98-107); Estimated CRCL calculation 43 ml/min; Estimated Glomerular Filt Rate 39; Glucose 106 mg/dL (65-110); Potassium 4.2 mmol/L (3.4-5.0); Sodium 140 mmol/L (137-145)
[2025-01-05] MEDS: hydroCHLOROthiazide 25 MG TABLET PO (08:31)
[2025-01-05] MEDS: lisinopriL 20 MG TABLET PO (08:31)
[2025-01-05] MEDS: ENOXAPARIN 40 MG/0.4 ML SYRINGE SUB-Q (08:31)
[2025-01-05] MEDS: FUROSEMIDE 20 MG TABLET PO (08:31)
[2025-01-05] MEDS: SERTRALINE HCL 50 MG TABLET 200 MG PO (08:32)
[2025-01-05] MEDS: PANTOPRAZOLE 40 MG TABLET PO (08:32)
[2025-01-05] MEDS: PRAVASTATIN SODIUM 20 MG TABLET 40 MG PO (08:32)
[2025-01-05] MEDS: IRON SUCROSE COMPLEX 100 MG in SODIUM CHLORIDE 0.9% IV 50 ML 220 MG IVPB (08:38)
--- NOTE | 2025-01-05 09:44 | PM.IMPN ---
Progress Note: A&P Assessment and Plan (1) Sepsis: Qualifiers: Sepsis acute organ dysfunction status: without acute organ dysfunction Sepsis type: sepsis due to unspecified organism Qualified Code(s): A41.9 - Sepsis, unspecified organism Code(s): A41.9 - Sepsis, unspecified organism Status: Acute Assessment and Plan: Patient presented to the left knee swelling/effusion and suspected left lower extremity cellulitis. Patient met sepsis criteria with fevers, tachycardia and leukocytosis. Patient had a joint aspiration performed in the ER was resulted in 20 mL of cloudy yellow fluid with 49 WBC, 4000 RBC, 67% neutrophils but no crystals or organisms seen on Gram stain. Patient had recent steroid injection in the knee. Uric acid 9.7. She received empiric treatment with colchicine. BCx NGTD. Synovial Cx no growth. Continue IV abx: Vanc and cefe (2) Toe fracture, left: Qualifiers: Encounter type: subsequent encounter Fracture alignment: displaced Fracture healing: with nonunion Fracture type: closed Phalanx: proximal Toe: lesser toe Qualified Code(s): S92.512K - Displaced fracture of proximal phalanx of left lesser toe(s), subsequent encounter for fracture with nonunion Code(s): S92.912A - Unspecified fracture of left toe(s), initial encounter for closed fracture Status: Acute Assessment and Plan: Neuropathic fracture base of 2nd toe. - Ortho consulted partial weight-bearing with a Darco shoe and that she obtain after discharge a or accommodative Plastazote insole. follow-up with Dr. Chávez and have regular surveillance visits for life after discharge. - PT/OT (3) Cellulitis of left lower leg: Code(s): L03.116 - Cellulitis of left lower limb Status: Acute Assessment and Plan: As above. WBC trending down. - Empiric antibiotic therapy with cefepime and vancomycin. - ESR and CRP elevated likely secondary to inflammation and infection more so than autoimmune however if erythema does not resolve with antibiotics, may be appropriate for her to see a erp engineer for further eval - Left lower extremity venous Doppler negative for DVT. - Left foot MRI showing: -- marrow signal change in the second proximal phalanx which could relate to a healing fracture with mild distraction of an ununited fragment at the dorsal base of the proximal phalanx. Differential for the marrow signal change which include osteomyelitis although there is no evident joint effusion to suggest associated septic arthritis or evident adjacent ulceration to elevate suspicion. -- postoperative change of prior bunionectomy and hallux valgus correction with 35 degrees residual versus recurrent hallux valgus. -- chronic deformities at the heads of the second and third metatarsals, the base and the head and base of the third proximal phalanx which could be sequela of prior surgery, trauma or chronic osteomyelitis. -- mild to moderate polyarticular osteoarthritis in the left mid and forefoot. Left lower leg MRI showing: -- diffuse subcutaneous edema in the left lower leg but no abscess. - Ortho consulted (4) Acute pain of left knee: Code(s): M25.562 - Pain in left knee Status: Acute Assessment and Plan: Left knee xray showing moderate to advanced tricompartmental degenerative changes. Left foot xray showing no acute changes. Hip xray showing moderate osteoarthritis bilateral hip and sacroiliac joints Left ankle xray showing no acute findings. Status post arthrocentesis and doubt septic arthritis. Cx remain negative. Treat symptomatically (5) Hyperuricemia: Code(s): E79.0 - Hyperuricemia without signs of inflammatory arthritis and tophaceous disease Status: Acute Assessment and Plan: Uric acid elevated at 9.7. Has a hx of right great toe redness to suggest underlying gout Colchicine given once but not continued. Monitor (6) CKD (chronic kidney disease) stage 3, GFR 30-59 ml/min: Qualifiers: Chronic kidney disease stage 3 subtype: stage 3a (GFR 45-59) Qualified Code(s): N18.31 - Chronic kidney disease, stage 3a Code(s): N18.30 - Chronic kidney disease, stage 3 unspecified Status: Acute Assessment and Plan: Cr 1.3 in the past and about the same on admission. Suspect she is at her baseline. - BUN/Cr 25/1.32 on am labs - Avoid nephrotoxic medications - Renally dose medications - Monitor I/O (7) Cardiac murmur: Code(s): R01.1 - Cardiac murmur, unspecified Status: Acute Assessment and Plan: Noted on exam. Could be flow murmur related to her fevers. Echo showing EF 60-65%, severe concentric LVH. (8) Pre-diabetes: Code(s): R73.03 - Prediabetes Status: Acute Assessment and Plan: A1c 5.2%. The patient's blood glucose remains well controlled. (9) Obstructive sleep apnea on CPAP: Code(s): G47.33 - Obstructive sleep apnea (adult) (pediatric) Status: Acute Assessment and Plan: CPAP ordered Plan Hx of COPD - patient was wheezing on exam. CXR clear. Viral PCRs were negative. Exam better. Continue scheduled DuoNebs. DVT prophylaxis - Lovenox Code status - full. Debility - PT/OT Time Spent With Patient Time with patient: 25 - 35 minutes Subjective Date/time seen: 01/05/25 09:44 Interval history: 74-year-old female with a past medical history of chronic kidney disease stage III, pre diabetes, morbid obesity, obstructive sleep apnea, COPD, spinal stenosis, peripheral neuropathy, prior osteomyelitis of the left foot, and osteoarthritis who presented to the ER from home via EMS due to left leg pain and fever. Patient is pleasant lying comfortably in bed. She states that her lower extremity swelling has much improved but continues to endorse mild pain to the limb. She has no other complaints denies chest pain, shortness a breath, palpitations, nausea / vomiting, abdominal pain. Review of Systems Review of Systems: All systems reviewed & are unremarkable except as noted in HPI and below Exam Narrative: AF HR 87 RR 18 SPO2 93 BP 127/82 General: female in no acute respiratory distress who is nontoxic appearing, lying semi recumbent in bed. HEENT: Normocephalic. Atraumatic. Extraocular movement intact. Sclera clear and anicteric. No facial asymmetry. Chest: Lungs are diminished but clear to auscultation bilaterally. No wheezes or crackles. CV: Heart was regular rate and rhythm. S1-S2. No murmurs, gallops, or rubs. Abd: Abdomen was soft. Nontender. Nondistended. Positive bowel sounds. No organomegaly or masses. Ext: Erythema to the left lower extremity with mild edema. 2+ DP pulses bilaterally. Neuro: Patient is alert. Speech is clear. Objective Data Vital Signs Vital Signs: Vital Signs - 24 hr 01/04/25 13:09 01/04/25 13:17 01/04/25 14:00 Temperature 98.6 F Pulse Rate 83 84 89 Respiratory Rate 20 20 18 Blood Pressure 143/60 H Pulse Oximetry 95 Oxygen Delivery 01/04/25 19:29 01/04/25 19:33 01/04/25 20:00 Temperature Pulse Rate 77 82 Respiratory Rate 16 16 Blood Pressure Pulse Oximetry Oxygen Delivery Room Air 01/04/25 21:04 01/05/25 04:00 01/05/25 05:28 Temperature 97.7 F 97.6 F Pulse Rate 77 96 Respiratory Rate 20 19 20 Blood Pressure 147/66 H 123/81 Pulse Oximetry 95 95 95 Oxygen Delivery Autopap 01/05/25 07:15 01/05/25 07:15 01/05/25 07:29 Temperature Pulse Rate 109 H 98 Respiratory Rate 20 16 Blood Pressure Pulse Oximetry 94 Oxygen Delivery Room Air 01/05/25 08:00 Temperature Pulse Rate Respiratory Rate Blood Pressure Pulse Oximetry Oxygen Delivery Room Air Intake/Output Intake/Output: Intake & Output 01/02/25 01/03/25 01/04/25 01/05/25 23:59 23:59 23:59 23:59 Intake Total 2960 1895 1190 Output Total 1200 2500 1475 Balance 2863 -605 -631 Meds/Results Medications: Active Medications Generic Name Dose Route Start Last Admin Trade Name Freq PRN Reason Stop Dose Admin Acetaminophen 650 mg 01/03/25 02:49 Acetaminophen 325 Mg Tablet PO Q4H PRN Mild Pain (1-3) or Fever Albuterol 1 puff 01/03/25 19:26 Albuterol Sulfate (*Sp) Aerosol 1 Puff INHALATION Q4HRT PRN shortness of breath Albuterol/Ipratropium 3 ml 01/03/25 08:00 01/05/25 07:15 Ipratropium 0.5 Mg/Albuterol Sulfate 2.5 Mg Ampul.Neb 3 Ml INHALATION 3 ml Q6HRT JEB Administration Enoxaparin Sodium 40 mg 01/03/25 10:50 01/05/25 08:31 Enoxaparin 40 Mg/0.4 Ml Syringe SUB-Q 40 mg DAILY JEB Administration Furosemide 20 mg 01/03/25 09:00 01/05/25 08:31 Furosemide 20 Mg Tablet PO 20 mg DAILY JEB Administration Gabapentin 300 mg 01/03/25 21:00 01/04/25 20:38 Gabapentin 300 Mg Capsule PO 300 mg HS JEB Administration Hydrochlorothiazide 25 mg 01/03/25 09:00 01/05/25 08:31 Hydrochlorothiazide 25 Mg Tablet PO 25 mg QAM JEB Administration Cefepime HCl 1 gm in 50 mls @ 100 mls/hr 01/03/25 13:00 01/05/25 01:08 Maxipime 1 Gm/Ns 50 Ml IVPB Infused Q12H JEB Infusion Vancomycin HCl 1,750 mg in 500 mls @ 250 mls/hr 01/05/25 03:00 01/05/25 04:59 Vancomycin 1,750 Mg/Ns 500 Ml IVPB Infused Q24H JEB Infusion Lisinopril 20 mg 01/03/25 09:00 01/05/25 08:31 Lisinopril 20 Mg Tablet PO 20 mg QAM JEB Administration Morphine Sulfate 2 mg 01/03/25 01:46 01/03/25 02:24 Morphine Sulfate (*Crx) 2 Mg/Ml Inj IV PUSH 2 mg Q2H PRN Administration Pain Rated 7-10 Ondansetron HCl 4 mg 01/03/25 01:46 01/03/25 02:24 Ondansetron Inj 4 Mg/2 Ml Vial IV PUSH 4 mg Q4H PRN Administration Nausea Oxybutynin Chloride 5 mg 01/03/25 20:00 01/05/25 08:32 Oxybutynin Chloride 5 Mg Tablet PO Not Given BID [facility] Pantoprazole Sodium 40 mg 01/03/25 09:00 01/05/25 08:32 Pantoprazole 40 Mg Tablet PO 02/02/25 08:59 40 mg DAILY [facility] Administration Pravastatin Sodium 40 mg 01/03/25 09:00 01/05/25 08:32 Pravastatin Sodium 20 Mg Tablet PO 40 mg DAILY [facility] Administration Sertraline HCl 200 mg 01/03/25 09:00 01/05/25 08:32 Sertraline Hcl 50 Mg Tablet PO 200 mg DAILY [facility] Administration Tramadol HCl 100 mg 01/03/25 06:08 01/04/25 20:38 Tramadol Hcl (*Crx) 25 Mg Tablet PO 100 mg Q6H PRN Administration pain 4-6 Radiology Results: ITS Impressions Knee X-Ray 01/03/25 06:10 Impression: Moderate to advanced tricompartmental degenerative change. Chest X-Ray 01/03/25 06:11 Impression: Clear lungs. Cardiomegaly. Venous Doppler Study 01/03/25 08:37 IMPRESSION: 1. No deep venous thrombosis in the left lower limb. Foot X-Ray 01/03/25 08:38 IMPRESSION: 1. No evidence of osteomyelitis. 2. Polyarticular osteoarthritis. Hip/Pelvis X-Ray 01/03/25 08:39 IMPRESSION: 1. Polyarticular osteoarthritis, severe at the lower lumbar facet joints and moderate at the bilateral hip and sacroiliac joints. Ankle X-Ray 01/03/25 14:04 IMPRESSION: No acute osseous finding in the left ankle. Foot MRI 01/03/25 17:30 IMPRESSION: 1. Evaluation of the moderately limited by motion artifact on multiple sequences including repeated sequences. 2. Marrow signal change in the second proximal phalanx which could relate to a healing fracture with mild distraction of an ununited fragment at the dorsal base of the proximal phalanx. Differential for the marrow signal change which include osteomyelitis although there is no evident joint effusion to suggest associated septic arthritis or evident adjacent ulceration to elevate suspicion. 3. Postoperative change of prior bunionectomy and hallux valgus correction with 35 degrees residual versus recurrent hallux valgus. 4. Chronic deformities at the heads of the second and third metatarsals, the base and the head and base of the third proximal phalanx which could be sequela of prior surgery, trauma or chronic osteomyelitis. 5. Mild to moderate polyarticular osteoarthritis in the left mid and forefoot. Lower Extremity MRI 01/04/25 12:37 IMPRESSION: 1. Diffuse subcutaneous edema in the lower leg. No abscess. Labs Labs: Laboratory Results - last 24 hr 01/04/25 01/05/25 01/05/25 15:48 00:08 01:13 WBC RBC Hgb Hct MCV MCH MCHC RDW Plt Count MPV Immature Gran % (Auto) Neut % (Auto) Lymph % (Auto) [place] % (Auto) Eos % (Auto) Baso % (Auto) Lymph # (Auto) [place] # (Auto) Eos # (Auto) Baso # (Auto) Abs Immat Gran (auto) Absolute Neuts (auto) Absolute Nucleated RBC Nucleated RBC % Sodium Potassium Chloride Carbon Dioxide Anion Gap BUN Creatinine Estim Creat Clear Calc Estimated GFR Glucose POC Capillary Glucose 103 Calcium C-Reactive Protein Stl Occult Blood (IFOB) Positive H Vancomycin Trough 14.7 01/05/25 06:40 WBC 11.3 H RBC 3.46 L Hgb 10.1 L Hct 31.9 L MCV 92.2 MCH 29.2 MCHC 31.7 L RDW 13.6 Plt Count 289 MPV 9.4 Immature Gran % (Auto) 1.3 H Neut % (Auto) 72.1 Lymph % (Auto) 10.4 L [place] % (Auto) 7.5 Eos % (Auto) 8.3 H Baso % (Auto) 0.4 Lymph # (Auto) 1.17 [place] # (Auto) 0.8 H Eos # (Auto) 0.9 H Baso # (Auto) 0.1 Abs Immat Gran (auto) 0.15 H Absolute Neuts (auto) 8.1 H Absolute Nucleated RBC 0.000 Nucleated RBC % 0.0 Sodium 140 Potassium 4.2 Chloride 102 Carbon Dioxide 27 Anion Gap 11 BUN 25 H Creatinine 1.32 H Estim Creat Clear Calc 43 Estimated GFR 39 L Glucose 106 POC Capillary Glucose Calcium 9.3 C-Reactive Protein 5.9 H Stl Occult Blood (IFOB) Vancomycin Trough Quality VTE Prophylaxis VTE prophylaxis: pharmacologic ordered
[2025-01-05] MEDS: traMADol HCL (*CRX) 50 MG TABLET 100 MG PO ×2 (11:05→23:32)
[2025-01-05 13:50] VITALS: BP 127/82; PULSE 87; RESP 18; TEMP 36.7; O2SAT 93
[2025-01-05] MEDS: oxyBUTYnin CHLORIDE 5 MG TABLET PO (16:53)
[2025-01-05 19:43] VITALS: BP 169/85; PULSE 82; RESP 18; TEMP 37.2; O2SAT 100
[2025-01-05] MEDS: GABAPENTIN 300 MG CAPSULE PO (20:30)
[2025-01-06] MEDS: CEFEPIME 1 GM/NS 50 ML 1 GM/50 ML BAG IVPB (01:42)
[2025-01-06] MEDS: VANCOMYCIN 1,750 MG/NS 500 ML 1,750 MG/500 ML BAG 250 MG IVPB (02:13)
[2025-01-06 04:11] VITALS: BP 161/64; PULSE 76; RESP 20; TEMP 36.3; O2SAT 98
[2025-01-06 07:10] LABS: Hematocrit 29.4 % (37.0-47.0); Hemoglobin 9.5 g/dL (12.0-15.0); Mean Corpuscular HGB Conc 32.3 g/dl (32-36); Mean Corpuscular Hemoglobin 29.9 pg (26-34); Mean Corpuscular Volume 92.5 fl (80-100); Mean Platelet Volume 9.6 fl (7.4-10.4); Platelet Count Result 297 k/mm3 (150-375); Red Blood Count 3.18 M/mm3 (4.2-5.4); Red Cell Distribution Width 13.3 % (11.5-14.5); White Blood Count 10.6 K/mm3 (4.5-10.0)
[2025-01-06 07:20] LABS: Alanine Aminotransferase 30 U/L (6-35); Albumin Level 3.6 g/dL (3.5-5.1); Alkaline Phosphatase 83 U/L (38-126); Anion Gap 7 mmol/L (4-12); Aspartate Amino Transferase 27 U/L (14-36); Bilirubin,Total 0.5 mg/dL (0.2-1.3); Blood Urea Nitrogen 35 mg/dL (7-17); Calcium 8.7 mg/dL (8.4-10.2); Carbon Dioxide 28 mmol/L (22-30); Chloride 102 mmol/L (98-107); Estimated CRCL calculation 44 ml/min; Estimated Glomerular Filt Rate 41; Glucose 103 mg/dL (65-110); Potassium 4.2 mmol/L (3.4-5.0); Sodium 137 mmol/L (137-145)
--- NOTE | 2025-01-06 09:15 | PM.IMPN ---
Progress Note: A&P Assessment and Plan (1) Sepsis: Qualifiers: Sepsis acute organ dysfunction status: without acute organ dysfunction Sepsis type: sepsis due to unspecified organism Qualified Code(s): A41.9 - Sepsis, unspecified organism Code(s): A41.9 - Sepsis, unspecified organism Status: Acute Assessment and Plan: Patient presented to the left knee swelling/effusion and suspected left lower extremity cellulitis. Patient met sepsis criteria with fevers, tachycardia and leukocytosis. Patient had a joint aspiration performed in the ER was resulted in 20 mL of cloudy yellow fluid with 49 WBC, 4000 RBC, 67% neutrophils but no crystals or organisms seen on Gram stain. Patient had recent steroid injection in the knee. Uric acid 9.7. She received empiric treatment with colchicine. BCx NGTD. Synovial Cx no growth. Vitals remain stable. Sepsis resolved. (2) Toe fracture, left: Qualifiers: Encounter type: subsequent encounter Fracture alignment: displaced Fracture healing: with nonunion Fracture type: closed Phalanx: proximal Toe: lesser toe Qualified Code(s): S92.512K - Displaced fracture of proximal phalanx of left lesser toe(s), subsequent encounter for fracture with nonunion Code(s): S92.912A - Unspecified fracture of left toe(s), initial encounter for closed fracture Status: Acute Assessment and Plan: Neuropathic fracture base of 2nd toe. - Ortho consulted partial weight-bearing with a Darco shoe and that she obtain after discharge a or accommodative Plastazote insole. follow-up with Dr. Chávez and have regular surveillance visits for life after discharge. - PT/OT (3) Cellulitis of left lower leg: Code(s): L03.116 - Cellulitis of left lower limb Status: Acute Assessment and Plan: As above. WBC trending down. - Antibiotics: Transitioned to doxy and cefdinir PO on 11/05 per ID pharm recommendations - ESR and CRP elevated likely secondary to inflammation and infection more so than autoimmune however if erythema does not resolve with antibiotics, may be appropriate for her to see a special procedures tech for further eval - Left lower extremity venous Doppler negative for DVT. - Left foot MRI showing: -- marrow signal change in the second proximal phalanx which could relate to a healing fracture with mild distraction of an ununited fragment at the dorsal base of the proximal phalanx. Differential for the marrow signal change which include osteomyelitis although there is no evident joint effusion to suggest associated septic arthritis or evident adjacent ulceration to elevate suspicion. -- postoperative change of prior bunionectomy and hallux valgus correction with 35 degrees residual versus recurrent hallux valgus. -- chronic deformities at the heads of the second and third metatarsals, the base and the head and base of the third proximal phalanx which could be sequela of prior surgery, trauma or chronic osteomyelitis. -- mild to moderate polyarticular osteoarthritis in the left mid and forefoot. Left lower leg MRI showing: -- diffuse subcutaneous edema in the left lower leg but no abscess. - Ortho consulted (4) Acute pain of left knee: Code(s): M25.562 - Pain in left knee Status: Acute Assessment and Plan: Left knee xray showing moderate to advanced tricompartmental degenerative changes. Left foot xray showing no acute changes. Hip xray showing moderate osteoarthritis bilateral hip and sacroiliac joints Left ankle xray showing no acute findings. Status post arthrocentesis and doubt septic arthritis. Cx remain negative. Treat symptomatically (5) Hyperuricemia: Code(s): E79.0 - Hyperuricemia without signs of inflammatory arthritis and tophaceous disease Status: Acute Assessment and Plan: Uric acid elevated at 9.7. Has a hx of right great toe redness to suggest underlying gout Colchicine given once but not continued. Monitor (6) CKD (chronic kidney disease) stage 3, GFR 30-59 ml/min: Qualifiers: Chronic kidney disease stage 3 subtype: stage 3a (GFR 45-59) Qualified Code(s): N18.31 - Chronic kidney disease, stage 3a Code(s): N18.30 - Chronic kidney disease, stage 3 unspecified Status: Acute Assessment and Plan: Cr 1.3 in the past and about the same on admission. Suspect she is at her baseline. - BUN/Cr 35/1.29 on am labs - Avoid nephrotoxic medications - Renally dose medications - Monitor I/O (7) Cardiac murmur: Code(s): R01.1 - Cardiac murmur, unspecified Status: Acute Assessment and Plan: Noted on exam. Could be flow murmur related to her fevers. Echo showing EF 60-65%, severe concentric LVH. (8) Pre-diabetes: Code(s): R73.03 - Prediabetes Status: Acute Assessment and Plan: A1c 5.2%. The patient's blood glucose remains well controlled. (9) Obstructive sleep apnea on CPAP: Code(s): G47.33 - Obstructive sleep apnea (adult) (pediatric) Status: Acute Assessment and Plan: CPAP ordered Plan Hx of COPD - patient was wheezing on exam. CXR clear. Viral PCRs were negative. Exam better. Continue scheduled DuoNebs. DVT prophylaxis - Lovenox Code status - full. Debility - PT/OT Time Spent With Patient Time with patient: 25 - 35 minutes Subjective Date/time seen: 01/06/25 09:15 Interval history: 74-year-old female with a past medical history of chronic kidney disease stage III, pre diabetes, morbid obesity, obstructive sleep apnea, COPD, spinal stenosis, peripheral neuropathy, prior osteomyelitis of the left foot, and osteoarthritis who presented to the ER from home via EMS due to left leg pain and fever. Patient is pleasant sitting up comfortably in her bed. She states that she is feeling much better And notes that the redness and swelling to her lower extremity continues to improve. She continues to endorse pain to lateral aspect of her left lower extremity. Has no other complaints denies chest pain, shortness a breath, palpitations, nausea /vomiting, and abdominal pain. Review of Systems Review of Systems: All systems reviewed & are unremarkable except as noted in HPI and below Exam Narrative: AF HR 72 RR 16 SpO2 98 BP 159/75 General: female in no acute respiratory distress who is nontoxic appearing, sitting up in bed. HEENT: Normocephalic. Atraumatic. Extraocular movement intact. Sclera clear and anicteric. No facial asymmetry. Chest: Lungs are clear to auscultation bilaterally. No wheezes or crackles. CV: Heart was regular rate and rhythm. S1-S2. No murmurs, gallops, or rubs. Abd: Abdomen was soft. Nontender. Nondistended. Positive bowel sounds. No organomegaly or masses. Ext: Slight redness to the left lower extremity with trivial edema that has improved since yesterday to the pretibial region and around the lateral aspect of the leg. 2+ DP pulses bilaterally. Neuro: Patient is alert. Speech is clear. Objective Data Vital Signs Vital Signs: Vital Signs - 24 hr 01/05/25 13:50 01/05/25 19:43 01/05/25 20:00 Temperature 98.1 F 98.9 F Pulse Rate 87 82 Respiratory Rate 18 18 Blood Pressure 127/82 169/85 H Pulse Oximetry 93 100 Oxygen Delivery Room Air 01/06/25 04:11 Temperature 97.4 F L Pulse Rate 76 Respiratory Rate 20 Blood Pressure 161/64 H Pulse Oximetry 98 Oxygen Delivery Intake/Output Intake/Output: Intake & Output 01/03/25 01/04/25 01/05/25 01/06/25 23:59 23:59 23:59 23:59 Intake Total 2960 1895 2720 850 Output Total 1200 2500 1775 Balance 1760 -605 945 850 Meds/Results Medications: Active Medications Generic Name Dose Route Start Last Admin Trade Name Freq PRN Reason Stop Dose Admin Acetaminophen 650 mg 01/03/25 02:49 Acetaminophen 325 Mg Tablet PO Q4H PRN Mild Pain (1-3) or Fever Albuterol 1 puff 01/03/25 19:26 Albuterol Sulfate (*Sp) Aerosol 1 Puff INHALATION Q4HRT PRN shortness of breath Albuterol/Ipratropium 3 ml 01/05/25 12:23 Ipratropium 0.5 Mg/Albuterol Sulfate 2.5 Mg Ampul.Neb 3 Ml INHALATION Q6HRT PRN Shortness Of Breath Enoxaparin Sodium 40 mg 01/03/25 10:50 01/05/25 08:31 Enoxaparin 40 Mg/0.4 Ml Syringe SUB-Q 40 mg DAILY JEB Administration Furosemide 20 mg 01/03/25 09:00 01/05/25 08:31 Furosemide 20 Mg Tablet PO 20 mg DAILY JEB Administration Gabapentin 300 mg 01/03/25 21:00 01/05/25 20:30 Gabapentin 300 Mg Capsule PO 300 mg HS JEB Administration Hydrochlorothiazide 25 mg 01/03/25 09:00 01/05/25 08:31 Hydrochlorothiazide 25 Mg Tablet PO 25 mg QAM JEB Administration Cefepime HCl 1 gm in 50 mls @ 100 mls/hr 01/03/25 13:00 01/06/25 02:12 Maxipime 1 Gm/Ns 50 Ml IVPB Infused Q12H JEB Infusion Vancomycin HCl 1,750 mg in 500 mls @ 250 mls/hr 01/05/25 03:00 01/06/25 04:13 Vancomycin 1,750 Mg/Ns 500 Ml IVPB Infused Q24H JEB Infusion Lisinopril 20 mg 01/03/25 09:00 01/05/25 08:31 Lisinopril 20 Mg Tablet PO 20 mg QAM JEB Administration Morphine Sulfate 2 mg 01/03/25 01:46 01/03/25 02:24 Morphine Sulfate (*Crx) 2 Mg/Ml Inj IV PUSH 2 mg Q2H PRN Administration Pain Rated 7-10 Ondansetron HCl 4 mg 01/03/25 01:46 01/03/25 02:24 Ondansetron Inj 4 Mg/2 Ml Vial IV PUSH 4 mg Q4H PRN Administration Nausea Oxybutynin Chloride 5 mg 01/03/25 20:00 01/05/25 16:53 Oxybutynin Chloride 5 Mg Tablet PO 5 mg BID JEB Administration Pantoprazole Sodium 40 mg 01/03/25 09:00 01/05/25 08:32 Pantoprazole 40 Mg Tablet PO 02/02/25 08:59 40 mg DAILY JEB Administration Pravastatin Sodium 40 mg 01/03/25 09:00 01/05/25 08:32 Pravastatin Sodium 20 Mg Tablet PO 40 mg DAILY JEB Administration Sertraline HCl 200 mg 01/03/25 09:00 01/05/25 08:32 Sertraline Hcl 50 Mg Tablet PO 200 mg DAILY [facility] Administration Tramadol HCl 100 mg 01/05/25 11:01 01/05/25 23:32 Tramadol Hcl (*Crx) 50 Mg Tablet PO 100 mg Q6H PRN Administration pain 4-6 Radiology Results: ITS Impressions Knee X-Ray 01/03/25 06:10 Impression: Moderate to advanced tricompartmental degenerative change. Chest X-Ray 01/03/25 06:11 Impression: Clear lungs. Cardiomegaly. Venous Doppler Study 01/03/25 08:37 IMPRESSION: 1. No deep venous thrombosis in the left lower limb. Foot X-Ray 01/03/25 08:38 IMPRESSION: 1. No evidence of osteomyelitis. 2. Polyarticular osteoarthritis. Hip/Pelvis X-Ray 01/03/25 08:39 IMPRESSION: 1. Polyarticular osteoarthritis, severe at the lower lumbar facet joints and moderate at the bilateral hip and sacroiliac joints. Ankle X-Ray 01/03/25 14:04 IMPRESSION: No acute osseous finding in the left ankle. Foot MRI 01/03/25 17:30 IMPRESSION: 1. Evaluation of the moderately limited by motion artifact on multiple sequences including repeated sequences. 2. Marrow signal change in the second proximal phalanx which could relate to a healing fracture with mild distraction of an ununited fragment at the dorsal base of the proximal phalanx. Differential for the marrow signal change which include osteomyelitis although there is no evident joint effusion to suggest associated septic arthritis or evident adjacent ulceration to elevate suspicion. 3. Postoperative change of prior bunionectomy and hallux valgus correction with 35 degrees residual versus recurrent hallux valgus. 4. Chronic deformities at the heads of the second and third metatarsals, the base and the head and base of the third proximal phalanx which could be sequela of prior surgery, trauma or chronic osteomyelitis. 5. Mild to moderate polyarticular osteoarthritis in the left mid and forefoot. Lower Extremity MRI 01/04/25 12:37 IMPRESSION: 1. Diffuse subcutaneous edema in the lower leg. No abscess. Labs Labs: Laboratory Results - last 24 hr 01/06/25 05:50 WBC 10.6 H RBC 3.18 L Hgb 9.5 L Hct 29.4 L MCV 92.5 MCH 29.9 MCHC 32.3 RDW 13.3 Plt Count 297 MPV 9.6 Sodium 137 Potassium 4.2 Chloride 102 Carbon Dioxide 28 Anion Gap 7 BUN 35 H D Creatinine 1.29 H Estim Creat Clear Calc 44 Estimated GFR 41 L Glucose 103 Calcium 8.7 Total Bilirubin 0.5 AST 27 ALT 30 Alkaline Phosphatase 83 Total Protein 7.0 Albumin 3.6 Quality VTE Prophylaxis VTE prophylaxis: pharmacologic ordered
[2025-01-06] MEDS: FUROSEMIDE 20 MG TABLET PO (09:24)
[2025-01-06] MEDS: hydroCHLOROthiazide 25 MG TABLET PO (09:24)
[2025-01-06] MEDS: PANTOPRAZOLE 40 MG TABLET PO (09:24)
[2025-01-06 09:25] VITALS: O2SAT 98
[2025-01-06] MEDS: lisinopriL 20 MG TABLET PO (09:25)
[2025-01-06] MEDS: SERTRALINE HCL 50 MG TABLET 200 MG PO (09:25)
[2025-01-06] MEDS: PRAVASTATIN SODIUM 20 MG TABLET 40 MG PO (09:25)
[2025-01-06] MEDS: oxyBUTYnin CHLORIDE 5 MG TABLET PO ×2 (09:25→17:22)
[2025-01-06] MEDS: ENOXAPARIN 40 MG/0.4 ML SYRINGE SUB-Q (09:31)
[2025-01-06] MEDS: CEFDINIR 300 MG CAPSULE PO ×2 (12:45→20:07)
[2025-01-06] MEDS: traMADol HCL (*CRX) 50 MG TABLET 100 MG PO (12:45)
[2025-01-06] MEDS: DOXYCYCLINE HYCLATE 100 MG TABLET PO ×2 (12:45→20:07)
[2025-01-06 13:39] VITALS: BP 159/75; PULSE 72; RESP 16; TEMP 36.7; O2SAT 98
[2025-01-06] MEDS: GABAPENTIN 300 MG CAPSULE PO (20:07)
[2025-01-06 21:19] VITALS: BP 160/61; PULSE 72; RESP 18; TEMP 36.9; O2SAT 100
[2025-01-07] MEDS: traMADol HCL (*CRX) 50 MG TABLET 100 MG PO (05:52)
[2025-01-07 06:00] VITALS: BP 147/59; PULSE 86; RESP 20; TEMP 36.5; O2SAT 97
[2025-01-07 07:46] LABS: Hematocrit 31.8 % (37.0-47.0); Hemoglobin 10.2 g/dL (12.0-15.0); Mean Corpuscular HGB Conc 32.1 g/dl (32-36); Mean Corpuscular Hemoglobin 29.6 pg (26-34); Mean Corpuscular Volume 92.2 fl (80-100); Mean Platelet Volume 9.3 fl (7.4-10.4); Platelet Count Result 317 k/mm3 (150-375); Red Blood Count 3.45 M/mm3 (4.2-5.4); Red Cell Distribution Width 13.2 % (11.5-14.5); White Blood Count 10.8 K/mm3 (4.5-10.0)
[2025-01-07 08:00] LABS: Alanine Aminotransferase 33 U/L (6-35); Albumin Level 3.9 g/dL (3.5-5.1); Alkaline Phosphatase 90 U/L (38-126); Anion Gap 9 mmol/L (4-12); Aspartate Amino Transferase 26 U/L (14-36); Bilirubin,Total 0.5 mg/dL (0.2-1.3); Blood Urea Nitrogen 35 mg/dL (7-17); Calcium 9.2 mg/dL (8.4-10.2); Carbon Dioxide 28 mmol/L (22-30); Chloride 102 mmol/L (98-107); Estimated CRCL calculation 46 ml/min; Estimated Glomerular Filt Rate 43; Glucose 114 mg/dL (65-110); Potassium 4.3 mmol/L (3.4-5.0); Sodium 139 mmol/L (137-145)
[2025-01-07] MEDS: ENOXAPARIN 40 MG/0.4 ML SYRINGE SUB-Q (08:50)
[2025-01-07] MEDS: hydroCHLOROthiazide 25 MG TABLET PO (08:50)
[2025-01-07] MEDS: CEFDINIR 300 MG CAPSULE PO (08:50)
[2025-01-07] MEDS: FUROSEMIDE 20 MG TABLET PO (08:50)
[2025-01-07] MEDS: DOXYCYCLINE HYCLATE 100 MG TABLET PO (08:50)
[2025-01-07] MEDS: PRAVASTATIN SODIUM 20 MG TABLET 40 MG PO (08:51)
[2025-01-07] MEDS: SERTRALINE HCL 50 MG TABLET 200 MG PO (08:51)
[2025-01-07] MEDS: PANTOPRAZOLE 40 MG TABLET PO (08:51)
[2025-01-07] MEDS: lisinopriL 20 MG TABLET PO (08:51)
[2025-01-07] MEDS: oxyBUTYnin CHLORIDE 5 MG TABLET PO (08:51)
--- NOTE | 2025-01-07 14:30 | P.CONOP_ITS ---
Assessment and Plan Assessment and plan (1) Pre-diabetes: Code(s): R73.03 - Prediabetes Status: Acute (2) CKD (chronic kidney disease) stage 3, GFR 30-59 ml/min: Qualifiers: Chronic kidney disease stage 3 subtype: stage 3a (GFR 45-59) Qualified Code(s): N18.31 - Chronic kidney disease, stage 3a Code(s): N18.30 - Chronic kidney disease, stage 3 unspecified Status: Acute (3) Cellulitis of left lower leg: Code(s): L03.116 - Cellulitis of left lower limb Status: Acute (4) Diabetic peripheral neuropathy: Code(s): E11.42 - Type 2 diabetes mellitus with diabetic polyneuropathy Status: Acute (5) Callus of foot: Code(s): L84 - Corns and callosities Status: Acute Assessment and Plan: New patient evaluation for chief complaint left foot callus. History, physical exam and radiographs reviewed with the patient. Discussed the condition, nature, etiology and course of natural history with the patient. Treatment options including surgical and nonoperative treatment were reviewed. Risks and benefits of each as well as alternatives reviewed. The patient's questions were answered. Conservative treatment compression and elevation. Offloading with postoperative shoe Plan 74-year-old woman with history of chronic kidney disease, pre diabetes and peripheral neuropathy involving both feet. Admitted for left leg pain and swelling including the left knee and lower leg. Determined to have cellulitis and possibly vasculitis. Also found to have chronic callus on the left plantar foot in history of previous infection and deformity treated with surgery. No signs of active infection of the left foot at this time. We did discuss her risk of infection, ulceration and deformity with chronic callus and opening of the skin. She is definitely indicated for custom inserts and shoe wear which should be done as an outpatient. We also discussed possible non operative and surgical treatment for the callus and foot to prevent further ulceration and infection. Several notations in the chart mention that she should have lifelong follow up in our office. Discussed with the patient that this is not a practical service that we perform. We do recommend that she perform daily skin checks of both of her feet and have regular follow-up evaluations for her feet on an at least annual basis and possibly more often if indicated. Options for annual follow-up include her regular physician, podiatry, foot and ankle specialist. She has seen several podiatrists in the past and currently is under care with the Orthopedic group at [facility]. Those are options as well as our office. Recommend continued treatment for left leg cellulitis and her knee swelling. Continue with postoperative shoe to offload the left forefoot with weight- bearing. Incumbent upon her to follow up as an outpatient for her left foot. History of Present Illness HPI Consult date: 01/07/25 Requesting physician: Apolinar Brooks MD Chief complaint: Left diabetic foot ulcer Narrative: 74-year-old with peripheral neuropathy and left plantar foot callus status post previous surgeries for left forefoot. Patient was admitted to the hospital with left knee swelling and pain, left leg redness and swelling and incidental callus left plantar forefoot. Patient states that has been present for several months. She occasionally will have some slight drainage from it but has not had any treatment recently for it. She states she had custom orthotics previously and is due for new ones but has not followed up with anyone. She has a history of previous infection of the left foot and toe deformity status post multiple surgeries. The last 1 was several years ago. She has not seen followed up with her foot doctors. She has peripheral neuropathy but states that she is prediabetic and is not currently under treatment for diabetes. She has regular doctor that she sees. Her last evaluation was 1 month ago. Review of Systems 2 Constitutional: Constitutional: Reports no additional constitutional complaints Eyes: Eyes: Reports no additional eye complaints ENT: Reports system reviewed and no additional complaints, except as documented Cardiovascular: Cardiovascular: Reports no additional cardiovascular complaints Respiratory: Respiratory: Reports no additional respiratory complaints Gastrointestinal: Gastrointestinal: Reports no additional gastrointestinal complaints Genitourinary: Genitourinary: Reports no additional female genitourinary complaints Musculoskeletal: Musculoskeletal: Reports no additional musculoskeletal complaints Integumentary/Breasts: Skin/Breast: Denies acne and Reports change in pigmentation ( Left leg) Neurologic: Reports system reviewed and no additional complaints, except as documented and Reports Sensory deficit (Neuro) ( bilateral feet) Psychiatric: Psychiatric: Reports no additional psychiatric complaints Endocrine: Endocrine: Reports no additional endocrine complaints Comments: pre diabetic Hematologic/Lymphatic: Hematologic/Lymphatic: Reports no additional hematologic/lymphatic complaints Allergic/Immunologic: Allergic/Immunologic: Reports no additional allergic/immunologic complaints FOR[facility]LY [facility] Past Medical History Medical History (Updated 01/07/25 @ 14:40 by Filipe Chávez MD) Callus of foot Chronic anemia Obesity (BMI 30-39.9) Obstructive sleep apnea on CPAP Peripheral neuropathy Pre-diabetes Overactive bladder GERD with esophagitis Early cataracts, bilateral Umbilical hernia CKD (chronic kidney disease) stage 3, GFR 30-59 ml/min Spinal stenosis, lumbar region with neurogenic claudication Surgical History Surgical History History of esophagogastroduodenoscopy (EGD) History of tubal ligation Status post foot joint surgery (~2014) Patient reports multiple foot surgeries including bunionectomy and excision of the base of the 2nd metatarsal, multiple neuroma resections History of laminectomy Family History Family History Grandparent Skin cancer Grandparent Arthritis COPD (chronic obstructive pulmonary disease) Emphysema lung Father Arthritis Heart disease Hypertension Sleep apnea COPD (chronic obstructive pulmonary disease) Emphysema lung Mother Hypertension COPD (chronic obstructive pulmonary disease) Emphysema lung Social History Social History Social History: The patient lives with her of 52 years who is suffering from dementia. 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 She used to smoke half a pack of cigarettes per day. She smoked 0.5 pack per day until age 53. She used to drink alcohol in moderation when she was young but has not drink alcohol to any significant amount for the last 20+ years. She denies history of illicit substance use. Her and her raised a daughter and a son. Code status: Full code Surrogate decision maker: Geraldine Beltran (sister) she states that her son and daughter would not know what to do in the case of an emergency. Smoking packs per day: 0.5 Smoking cigarettes per day: 10.0 Years smoked: 35 Smoking pack-years: 17.50 Smoking status: Former smoker Tobacco type: cigarettes Smoking end date: 01/07/02 Substance use: never Substance use type: does not use Do You Feel Safe in your Home?: Yes Lack of Transportation: No Lack of Food: Never True Current Housing: I Have Housing Concerned About Future Housing: No Difficulty Paying Gas/Electric Bills: No Difficulty Paying for Meds: No Currently Unemployed: No Education: Bachelor's Degree Difficulty w/ Childcare or Family Care: No Spiritual care concerns: No Meds Home Medications and Allergies Home Medications ?Medication ?Instructions ?Recorded ?Confirmed ?Type albuterol 90 mcg/actuation aerosol 90 mcg inhalation Q4-6H PRN 01/03/25 01/03/25 History inhaler shortness of breath furosemide 20 mg tablet 20 mg PO DAILY PRN edema 01/03/25 01/03/25 History lisinopril 20 1 tablet PO DAILY 01/03/25 01/03/25 History mg-hydrochlorothiazide 25 mg tablet omeprazole 40 mg capsule,delayed 40 mg PO DAILY 01/03/25 01/03/25 History release pravastatin 40 mg tablet 40 mg PO DAILY 01/03/25 01/03/25 History sertraline 200 mg capsule 200 mg PO DAILY 01/03/25 01/03/25 History tramadol 100 mg tablet 100 mg PO Q6H PRN pain 01/03/25 01/03/25 History cefdinir 300 mg capsule 300 mg PO Q12HR #11 caps 01/07/25 Rx doxycycline hyclate 100 mg tablet 100 mg PO Q12HR #11 tabs 01/07/25 Rx Allergies Allergy/AdvReac Type Severity Reaction Status Date / Time clindamycin Allergy Rash Verified 01/03/25 03:24 metformin Allergy Diarrhea Verified 01/03/25 03:24 Penicillins Allergy Rash Verified 01/03/25 03:24 Vital Signs Vital Signs - 24 hr 01/06/25 21:19 01/07/25 06:00 01/07/25 08:00 Temperature 98.4 F 97.7 F Pulse Rate 72 86 Respiratory Rate 18 20 Blood Pressure 160/61 H 147/59 H Pulse Oximetry 100 97 Oxygen Delivery Room Air 01/07/25 09:41 Temperature Pulse Rate Respiratory Rate Blood Pressure Pulse Oximetry Oxygen Delivery Room Air Exam 2 Const: General: healthy appearing; No in distress or confusion O rientation/consciousness: oriented to person, oriented to place, oriented to time and No confusion HENMT: Head: normal to inspection, normocephalic and atraumatic Eyes: Conjunctivae: conjunctivae normal Sclera: sclerae normal Neck: Neck: supple and nontender Resp: Effort & Inspection: normal respiratory effort and no audible wheezes Cardio: Rhythm: regular rhythm Skin: General skin exam: erythema ( left lower leg) and other Neuro: General: oriented to person, oriented to place, oriented to time and No confusion Extrem: Right upper extremity: normal to inspection Left upper extremity: n ormal to inspection Right lower extremity: ankle Details: normal to inspection, abnormal ROM Details: with range as follows (ankle dorsiflexion -10 degrees, plantar flexion 40?, inversion 15?, eversion 15?) and other ( good stability all directions); no tenderness, no swelling and no ecchymosis and foot Details: abnormal to inspection, abnormal ROM of toe ( hallux MTP dorsiflexion 40, plantar flexion 20?), vascular exam Details: dorsalis pedis pulse present and normal capillary refill, tendon exam Details: active flexion abnormal and active extension abnormal, motor-sensory exam Details: two point discrimination abnormal Location: in all toes and light-touch abnormal Location: in all toes and other (Hallux metatarsophalangeal motion 20? dorsiflexion/10? plantar flexion) Left lower extremity: normal capillary refill, lower leg Details: localized swelling Location: of the mid lower leg, pitting edema Details: 3+ and other ( erythema anterior and lateral lower leg skin intact.), ankle Details: normal to inspection and abnormal ROM Details: with range as follows (ankle dorsiflexion -10 degrees, plantar flexion 40?, inversion 15?, eversion 15?); no tenderness and no swelling and foot Details: normal capillary refill, abnormal to inspection Details: other ( dime-sized callus plantar 2nd metatarsal head through dermis. No exposed tendon or bone. No drainage. No surrounding erythema.), tenderness Location: of the plantar foot Location: distally ( 2Nd metatarsal head), abnormal ROM of toe, vascular exam (2+DP pulse, good cap refill all toes), tendon exam active flexion abnormal of the great toe and active extension abnormal of the great toe, motor-sensory exam two point discrimination abnormal and light-touch abnormal in all toes and other ( 2Nd and 3rd toe without swelling or tenderness.); no crepitus Psych: Affect: normal affect Results Labs 01/07/25 06:38 01/07/25 06:38 Labs: Abnormal lab results 01/07/25 Range/Units 06:38 WBC 10.8 H (4.5-10.0) K/mm3 RBC 3.45 L (4.2-5.4) M/mm3 Hgb 10.2 L (12.0-15.0) g/dL Hct 31.8 L (37.0-47.0) % BUN 35 H (7-17) mg/dL Creatinine 1.22 H (0.7-1.0) mg/dL Estimated GFR 43 L (59 - ) Glucose 114 H (65-110) mg/dL H & H 01/02/25 01/03/25 01/04/25 Range/Units 22:28 07:04 05:39 Hgb 9.4 L 8.7 L 8.4 L (12.0-15.0) g/dL Hct 29.0 L 27.5 L 26.5 L (37.0-47.0) % 01/05/25 01/06/25 01/07/25 Range/Units 06:40 05:50 06:38 Hgb 10.1 L 9.5 L 10.2 L (12.0-15.0) g/dL Hct 31.9 L 29.4 L 31.8 L (37.0-47.0) % Coagulation 01/02/25 Range/Units 22:28 INR 1.0 All other labs normal. Diagnostic results Ankle/Foot x-ray: image reviewed ( Left foot radiographs show postsurgical changes 2nd and 3rd metatarsophalangeal joints and 1st metatarsal with screw fixation in the 1st metatarsal. No evidence of erosion or osteomyelitis.) Ankle/Foot MRI: image reviewed ( No abscess or fluid collection. Postsurgical changes base of the 2nd and 3rd toe. No evidence of osteomyelitis.)
[2025-01-07 15:21] VITALS: BP 137/64; PULSE 85; RESP 18; TEMP 36.5; O2SAT 95
--- NOTE | 2025-01-07 15:27 | P.DS_ITS ---
DS: Admitting Diagnosis Discharge Date 01/07/2025 Admitting Diagnosis Sepsis Toe fracture, left Cellulitis left lower leg Acute pain left knee Hyperuricemia CKD Cardiac murmur Prediabetes INÉS DS: Discharge Diagnosis Discharge Diagnosis (1) Sepsis: Qualifiers: Sepsis acute organ dysfunction status: without acute organ dysfunction Sepsis type: sepsis due to unspecified organism Qualified Code(s): A41.9 - Sepsis, unspecified organism Code(s): A41.9 - Sepsis, unspecified organism Status: Acute (2) Toe fracture, left: Qualifiers: Encounter type: subsequent encounter Fracture alignment: displaced Fracture healing: with nonunion Fracture type: closed Phalanx: proximal Toe: lesser toe Qualified Code(s): S92.512K - Displaced fracture of proximal phalanx of left lesser toe(s), subsequent encounter for fracture with nonunion Code(s): S92.912A - Unspecified fracture of left toe(s), initial encounter for closed fracture Status: Acute (3) Cellulitis of left lower leg: Code(s): L03.116 - Cellulitis of left lower limb Status: Acute (4) Acute pain of left knee: Code(s): M25.562 - Pain in left knee Status: Acute (5) Hyperuricemia: Code(s): E79.0 - Hyperuricemia without signs of inflammatory arthritis and tophaceous disease Status: Acute (6) CKD (chronic kidney disease) stage 3, GFR 30-59 ml/min: Qualifiers: Chronic kidney disease stage 3 subtype: stage 3a (GFR 45-59) Qualified Code(s): N18.31 - Chronic kidney disease, stage 3a Code(s): N18.30 - Chronic kidney disease, stage 3 unspecified Status: Acute (7) Cardiac murmur: Code(s): R01.1 - Cardiac murmur, unspecified Status: Acute Assessment and Plan: Noted on exam. Could be flow murmur related to her fevers. Echo showing EF 60-65%, severe concentric LVH. (8) Pre-diabetes: Code(s): R73.03 - Prediabetes Status: Acute (9) Obstructive sleep apnea on CPAP: Code(s): G47.33 - Obstructive sleep apnea (adult) (pediatric) Status: Acute DS: Summary Hospital Course Reason for hospitalization: Sepsis Toe fracture, left Cellulitis left lower leg Acute pain left knee Hyperuricemia CKD Cardiac murmur Prediabetes INÉS Hospital Course: 74-year-old female with a past medical history of chronic kidney disease stage III, pre diabetes, morbid obesity, obstructive sleep apnea, COPD, spinal stenosis, peripheral neuropathy, prior osteomyelitis of the left foot, and osteoarthritis who presented to the ER from home via EMS due to left leg pain and fever. Patient met sepsis criteria with fevers, tachycardia and leukocytosis on admission. Uric acid 9.7. She received empiric treatment with colchicine. Hip xray showing moderate osteoarthritis bilateral hip and sacroiliac joints. Left knee xray showing moderate to advanced tricompartmental degenerative changes. Left foot/ankle xray showing no acute changes. Patient underwent a joint aspiration performed in the ER was resulted in 20 mL of cloudy yellow fluid with 49 WBC, 4000 RBC, 67% neutrophils but no crystals or organisms seen on Gram stain. BCx NGTD. Synovial Cx no growth. Patient has cellulitis to the left chowdary, started on antibiotics and ortho consulted. Left lower extremity venous Doppler negative for DVT. Left foot MRI showing marrow signal change in the second proximal phalanx which could relate to a healing fracture with mild distraction of an ununited fragment at the dorsal base of the proximal phalanx, postoperative change of prior bunionectomy and hallux valgus correction with 35 degrees residual versus recurrent hallux valgus, chronic deformities at the heads of the second and third metatarsals, the base and the head and base of the third proximal phalanx which could be sequela of prior surgery, trauma or chronic osteomyelitis, and mild to moderate polyarticular osteoarthritis in the left mid and forefoot. Left lower leg MRI showing diffuse subcutaneous edema in the left lower leg but no abscess. Per ortho patient is to remain partial weight-bearing with a Darco shoe or accommodative Plastazote insole and follow- up with Dr. Chávez. Patient cellulitis continued to improve throughout admission, prior to discharge she was transitioned to orals to complete the course. Physical therapy evaluated patient and recommended acute inpatient rehab. Discussed placement with patient for continued therapy and she refused. Patient wished to move forward with home health at time of discharge. Further discussed the importance of maintaining partial weight bearing on the foot to the patient. She states understanding and notes that she will be okay going home with home health. At time of discharge patient has no complaints denying chest pain, shortness of breath, palpitations, nausea/vomiting, abdominal pain, lower extremity pain, dizziness/lightheadedness. Patient discharged home with home health in stable condition. she is to complete her antibiotics as prescribed and follow-up with ortho as scheduled and primary care provider in 1 week. Status at Discharge Functional status at discharge: uses cane/walker Time Spent with Patient Time attestation: Total time spent providing and/or coordinating discharge services: Time spent: Greater than 30 minutes Exam Narrative: AF HR 85 RR 18 SPO2 95 BP 137/64 General: female in no acute respiratory distress who is nontoxic appearing, sitting up in bed. HEENT: Normocephalic. Atraumatic. Extraocular movement intact. Sclera clear and anicteric. No facial asymmetry. Chest: Lungs are clear to auscultation bilaterally. No wheezes or crackles. CV: Heart was regular rate and rhythm. S1-S2. No murmurs, gallops, or rubs. Abd: Abdomen was soft. Nontender. Nondistended. Positive bowel sounds. No organomegaly or masses. Ext: Improving redness to the left lower extremity with edema that has improved to the pretibial region and around the lateral aspect of the leg. 2+ DP pulses bilaterally. Neuro: Patient is alert. Speech is clear. DS: Data Data Completed and Pending Completed studies during hospitalization: lower extremity MRI foot MRI ankle x-ray hip pelvis x-ray foot x-ray venous Doppler study chest x-ray knee x-ray foot x-ray Labs on day of discharge: Labs from last 24 hours 01/07/25 06:38 WBC 10.8 H RBC 3.45 L Hgb 10.2 L Hct 31.8 L MCV 92.2 MCH 29.6 MCHC 32.1 RDW 13.2 Plt Count 317 MPV 9.3 Sodium 139 Potassium 4.3 Chloride 102 Carbon Dioxide 28 Anion Gap 9 BUN 35 H Creatinine 1.22 H Estim Creat Clear Calc 46 Estimated GFR 43 L Glucose 114 H Calcium 9.2 Total Bilirubin 0.5 AST 26 ALT 33 Alkaline Phosphatase 90 Total Protein 7.0 Albumin 3.9 Preliminary micro results at discharge 01/03/25 00:30 Anaerobic Culture - Preliminary Knee Left Aerobic Culture - Preliminary 01/02/25 22:28 Blood Culture - Preliminary Blood 01/02/25 22:28 Blood Culture - Preliminary Blood Discharge Plan Discharge Attending physician on discharge: Drew Moreira Consulting providers: Apolinar Brooks; Filipe Chávez Discharging Clinician: Mayra Marcelo Anticipated Discharge Date/Time: 01/07/25 14:44 Patient Disposition: Home Health Service Activity: as tolerated and other - see discharge instructions Diet: as tolerated and heart healthy Discharge Instructions: Per Care Coordination, patient to discharge with [facility] ([phone]) for PT and care home. Agency will call to arrange initial visit. Discharge disposition: Patient was admitted to the hospital for cellulitis Take medications as prescribed Cefdinir twice a day, course to be completed on 01/12 Doxycycline twice a day, course to be completed on 01/12 Attached is information on this medication Patient has a neuropathic fracture base of 2nd toe Per ortho: 1. Continue to use the walker partial weight-bearing on the left foot to allow the callus on the bottom of the left forefoot to heal. 2. Go to [employer] [facility] on [address] or [employer] [facility] in [place] and have a full length accommodative Plastazote arch support made for the left foot. Patient needs diabetic shoes. Diagnosis is intractable plantar keratosis under 2nd metatarsophalangeal joint and neuropathic fracture base of 2nd toe. Please bring this form to the Ortho test so they can read the diagnosis and order listed at the top of this 3. See Dr. Filipe Chávez on an outpatient basis for follow-up of the callus on the bottom of her left foot. You will need regular follow-up and surveillance of that callus with Dr. Chávez for the the rest of your life. If the skin breaks down it can cause severe infection which can lead to amputation of her foot as we discussed in the hospital. Monitor blood pressures Take caution while standing, rising, or moving Change positions slowly taking a break between each position change If you standing feel dizzy sit back down and take a break Encouraged to continue with yearly vaccinations Return to the emergency department if he developed sudden shortness of breath, chest pain, nausea, vomiting, upset stomach or intractable diarrhea Return to the emergency department if you develop fever greater than 101.5 Follow-up with the primary care physician within 1-2 weeks Thank you for [facility] for your healthcare needs Patient Instructions: Antibiotic Form, Doxycycline (By mouth), Cefdinir (By mouth), Toe Fracture (DC) Patient Language: Pashto Stand Alone Forms: General Discharge Information Follow-up/Referrals: Filipe Chávez MD [Physician] - Call for Appointment (May call the office at d/c for further evaluation with Dr. Chávez. ) Lani,Neymar Gimenez MD [Primary Care Provider] - 1 Week Discharge Medications: New cefdinir 300 mg Capsule 300 mg PO Q12HR Qty: 11 0RF doxycycline hyclate 100 mg Tablet 100 mg PO Q12HR Qty: 11 0RF Continued tramadol 100 mg tablet 100 mg PO Q6H PRN (Reason: pain) lisinopril-hydrochlorothiazide 20-25 mg tablet 1 tablet PO DAILY pravastatin 40 mg tablet 40 mg PO DAILY omeprazole 40 mg capsule,delayed release(DR/EC) 40 mg PO DAILY sertraline 200 mg capsule 200 mg PO DAILY albuterol 90 mcg/actuation aerosol 90 mcg inhalation Q4-6H PRN (Reason: shortness of breath) Changed furosemide 20 mg tablet 20 mg PO DAILY Qty: 30 0RF Date of admission: 01/03/25 07:10 Primary Care Provider: Lani,Neymar Gimenez Admitting Provider: Corinne Quinones Attending physician on admission: Mayra Marcelo Condition: Stable Hospitalist MIPS Heart Failure (Exclusion) Patient has history of Heart Transplant or Left Ventricular Assistive Device?: No IF YES, STOP HERE Heart Failure (Qualifier) Patient has current or prior documentation of LVEF less than or equal to 40%, or mod/servere depressed LVSF?: No IF NO, STOP HERE
== END 2025-01-07 16:39 | disposition home health service (06) | DRG 872 ==
LOC: ANHED 01-03 01:28 → ANH3MEDSUR 01-03 02:36
PROVIDERS: Internal Medicine; Admitting Provider Internal Medicine; Emergency Provider Emergency Medicine; PCP Internal Medicine; Visit Provider Student in an Organized Health Care Education/Training Program
DX: A41.9 Sepsis, unspecified organism (principal); L03.116 Cellulitis of left lower limb; S92.512K Displaced fracture of proximal phalanx of left lesser toe(s), subsequent encounter for fracture with nonunion; M25.462 Effusion, left knee; D50.9 Iron deficiency anemia, unspecified; E66.01 Morbid (severe) obesity due to excess calories; G62.9 Polyneuropathy, unspecified; G47.33 Obstructive sleep apnea (adult) (pediatric); E79.0 Hyperuricemia without signs of inflammatory arthritis and tophaceous disease; J44.9 Chronic obstructive pulmonary disease, unspecified; K21.9 Gastro-esophageal reflux disease without esophagitis; M17.12 Unilateral primary osteoarthritis, left knee; M16.0 Bilateral primary osteoarthritis of hip; M48.061 Spinal stenosis, lumbar region without neurogenic claudication; N18.31 Chronic kidney disease, stage 3a; R01.1 Cardiac murmur, unspecified; R73.03 Prediabetes; Z68.39 Body mass index [BMI] 39.0-39.9, adult; Z20.822 Contact with and (suspected) exposure to COVID-19; Z99.89 Dependence on other enabling machines and devices; Z87.891 Personal history of nicotine dependence; Z88.0 Allergy status to penicillin; Z96.651 Presence of right artificial knee joint
CPT/HCPCS: 20610; 36415; 71045; 73502; 73562; 73610; 73630; 73720; 80048; 80053; 80069; 80202; 81003; 82274; 82607; 82728; 82746; 82948; 83036; 83540; 83550; 83605; 83735; 84145; 84550; 85025; 85027; 85610; 85652; 85730; 86140; 87040; 87070; 87075; 87205; 87637; 89051; 89060; 93971; 94640; 96361; 96365; 96367; 96375; 96376; 97162; 97166; 97535; 99285; A9270; A9577; C8929; G0378; J0692; J1650; J1756; J1940; J2003; J2270; J2405; J3370; J7030; Q9957

== ENCOUNTER 2025-03-08 08:30 | Outpatient (RCR) | payer MEDICARE, OTHER, SELFPAY ==
--- NOTE | 2025-01-28 11:20 | PM.CNOR ---
Assessment and Plan Assessment and plan (1) Callus of foot: Code(s): L84 - Corns and callosities <BOSTON Heredia - Last Filed: 01/28/25 11:46> Status: Acute <BOSTON Heredia - Last Filed: 01/28/25 11:46> Assessment and Plan: [facility] wound clinic evaluation for chief complaint left foot callus. Callus with small wound on the plantar aspect of the 3rd MTP measures 0.5 x 0.6 x 0.2 cm, 100% red/pink wound bed. Recommended initiating treatment at this time with silver gel and foam. Patient to change dressing daily. Patient did just recently have custom orthotics created at [facility] in [place], [place]. Recommended follow up with PCP and to restart oral antibiotics x10 days given continued erythema to b/l LE. Recommended compression stockings as well. Follow up with the wound clinic nurses in 1 month and orthopedic service in 2 months. Reviewed signs and symptoms of worsening wound to report to ED or office. <BOSTON Heredia - Last Filed: 01/28/25 11:46> (2) Pre-diabetes: Code(s): R73.03 - Prediabetes <BOSTON Heredia - Last Filed: 01/28/25 11:46> Status: Acute <BOSTON Heredia - Last Filed: 01/28/25 11:46> (3) CKD (chronic kidney disease) stage 3, GFR 30-59 ml/min: Qualifiers: Chronic kidney disease stage 3 subtype: stage 3a (GFR 45-59) Qualified Code(s): N18.31 - Chronic kidney disease, stage 3a <BOSTON Heredia - Last Filed: 01/28/25 11:46> Code(s): N18.30 - Chronic kidney disease, stage 3 unspecified <BOSTON Heredia - Last Filed: 01/28/25 11:46> Status: Acute <BOSTON Heredia - Last Filed: 01/28/25 11:46> (4) Cellulitis of left lower leg: Code(s): L03.116 - Cellulitis of left lower limb <Sangita R. Randal, [employer] - Last Filed: 01/28/25 11:46> Status: Acute <BOSTON Heredia - Last Filed: 01/28/25 11:46> (5) Diabetic peripheral neuropathy: Code(s): E11.42 - Type 2 diabetes mellitus with diabetic polyneuropathy <BOSTON Heredia - Last Filed: 01/28/25 11:46> Status: Acute <BOSTON Heredia - Last Filed: 01/28/25 11:46> Assessment and Plan: Discussed importance of proper nutrition, diabetic diet and medication compliance for optimal healing. Reviewed signs and symptoms of infection including fever, chills, night sweats, nausea, vomiting, diarrhea, changes to the wound bed or purulent drainage to report to the ED immediately. Patient verbalized understanding. <BOSTON Heredia - Last Filed: 01/28/25 11:46> Assessment and Plan: [place]: Patient seen and examined. Small plantar ulcer left foot. Does not communicate below the dermis. no drainage. Left leg swollen and erythematous consistent with venous stasis and possible residual cellulitis. Plan for oral antibiotics for 10 days. Silver gel and foam dressing to left foot with offloading using postoperative shoe. Discussed importance for patient follow-up with her regular physician for medical management. Follow-up in wound clinic in 6 weeks. <Filipe Chávez MD - Last Filed: 01/28/25 12:06> History of Present Illness HPI Consult date: 01/28/25 <BOSTON Heredia - Last Filed: 01/28/25 11:46> 01/28/25 <Filipe Chávez MD - Last Filed: 01/28/25 12:06> Chief complaint: L84 corns and callosities, wound site: L leg/foot <BOSTON Heredia - Last Filed: 01/28/25 11:46> Narrative: 74-year-old female follows up in the [place] wound clinic for re-evaluation of left plantar foot callus. She was recently discharged from the hospital for left lower extremity vasculitis and cellulitis on oral antibiotics which she has now completed. This failed to follow-up with her primary care provider. She continues to have left lower extremity redness and swelling. She denies fever, chills, night sweats, nausea, vomiting and diarrhea. She has been wearing a postop shoe which she is tolerating well. <BOSTON Heredia - Last Filed: 01/28/25 11:46> Review of Systems Review of Systems: All systems reviewed & are unremarkable except as noted in HPI and below <BOSTON Heredia - Last Filed: 01/28/25 11:46> [facility] Past Medical History Medical History: Medical History Callus of foot Chronic anemia Obesity (BMI 30-39.9) Obstructive sleep apnea on CPAP Peripheral neuropathy Pre-diabetes Overactive bladder GERD with esophagitis Early cataracts, bilateral Umbilical hernia CKD (chronic kidney disease) stage 3, GFR 30-59 ml/min Spinal stenosis, lumbar region with neurogenic claudication <BOSTON Heredia - Last Filed: 01/28/25 11:46> Surgical History Surgical History: Surgical History History of esophagogastroduodenoscopy (EGD) History of tubal ligation Status post foot joint surgery (~2014) Patient reports multiple foot surgeries including bunionectomy and excision of the base of the 2nd metatarsal, multiple neuroma resections History of laminectomy <BOSTON Heredia - Last Filed: 01/28/25 11:46> Family History Family History: Family History Grandparent Skin cancer Grandparent Arthritis COPD (chronic obstructive pulmonary disease) Emphysema lung Father Arthritis Heart disease Hypertension Sleep apnea COPD (chronic obstructive pulmonary disease) Emphysema lung Mother Hypertension COPD (chronic obstructive pulmonary disease) Emphysema lung <BOSTON Heredia - Last Filed: 01/28/25 11:46> Social History Social History: Social History Social History: The patient lives with her of 52 years who is suffering from dementia. 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 She used to smoke half a pack of cigarettes per day. She smoked 0.5 pack per day until age 53. She used to drink alcohol in moderation when she was young but has not drink alcohol to any significant amount for the last 20+ years. She denies history of illicit substance use. Her and her raised a daughter and a son. Code status: Full code Surrogate decision maker: Geraldine Beltran (sister) she states that her son and daughter would not know what to do in the case of an emergency. Smoking packs per day: 0.5 Smoking cigarettes per day: 10.0 Years smoked: 35 Smoking pack-years: 17.50 Smoking status: Former smoker Tobacco type: cigarettes Smoking end date: 01/07/02 Substance use: never Substance use type: does not use Do You Feel Safe in your Home?: Yes Lack of Transportation: No Lack of Food: Never True Current Housing: I Have Housing Concerned About Future Housing: No Difficulty Paying Gas/Electric Bills: No Difficulty Paying for Meds: No Currently Unemployed: No Education: Bachelor's Degree Difficulty w/ Childcare or Family Care: No Spiritual care concerns: No <BOSTON Heredia - Last Filed: 01/28/25 11:46> Meds Home Medications and Allergies Home medications: Home Medications Medication Instructions Recorded Confirmed Type albuterol 90 mcg/actuation aerosol 90 mcg inhalation Q4-6H PRN 01/03/25 01/28/25 History inhaler shortness of breath lisinopril 20 1 tablet PO DAILY 01/03/25 01/28/25 History mg-hydrochlorothiazide 25 mg tablet omeprazole 40 mg capsule,delayed 40 mg PO DAILY 01/03/25 01/28/25 History release pravastatin 40 mg tablet 40 mg PO DAILY 01/03/25 01/28/25 History sertraline 200 mg capsule 200 mg PO DAILY 01/03/25 01/28/25 History tramadol 100 mg tablet 100 mg PO Q6H PRN pain 01/03/25 01/28/25 History furosemide 20 mg tablet 20 mg PO DAILY edema #30 tabs 01/07/25 01/28/25 Rx doxycycline hyclate 100 mg tablet 100 mg PO Q12HR 10 days #20 tabs 01/28/25 01/28/25 Rx <BOSTON Heredia - Last Filed: 01/28/25 11:46> Allergies/Adverse reactions: Allergies Allergy/AdvReac Type Severity Reaction Status Date / Time clindamycin Allergy Rash Verified 01/28/25 11:56 metformin Allergy Diarrhea Verified 01/28/25 11:56 Penicillins Allergy Rash Verified 01/28/25 11:56 <ZULEIKA HerediaP - Last Filed: 01/28/25 11:46> Exam Const: General: healthy appearing; No in distress or confusion <BOSTON Heredia - Last Filed: 01/28/25 11:46> Orientation/consciousness: oriented to person, oriented to place, oriented to time and No confusion <ZULEIKA HerediaP - Last Filed: 01/28/25 11:46> HENMT: Head: normal to inspection, normocephalic and atraumatic <ZULEIKA HerediaP - Last Filed: 01/28/25 11:46> Eyes: Conjunctivae: conjunctivae normal <ZULEIKA HerediaP - Last Filed: 01/28/25 11:46> Sclera: sclerae normal <ZULEIKA HerediaP - Last Filed: 01/28/25 11:46> Neck: Neck: supple and nontender <ZULEIKA HerediaP - Last Filed: 01/28/25 11:46> Resp: Effort & Inspection: normal respiratory effort and no audible wheezes <ZULEIKA HerediaP - Last Filed: 01/28/25 11:46> Cardio: Rhythm: regular rhythm <BOSTON Heredia - Last Filed: 01/28/25 11:46> Skin: General skin exam: erythema ( left lower leg) and other <ZULEIKA HerediaP - Last Filed: 01/28/25 11:46> Neuro: General: oriented to person, oriented to place, oriented to time and No confusion <ZULEIKA HerediaP - Last Filed: 01/28/25 11:46> Extrem: Right upper extremity: normal to inspection <ZULEIKA HerediaP - Last Filed: 01/28/25 11:46> Left upper extremity: normal to inspection <ZULEIKA HerediaP - Last Filed: 01/28/25 11:46> Right lower extremity: ankle Details: normal to inspection, abnormal ROM Details: with range as follows (ankle dorsiflexion -10 degrees, plantar flexion 40°, inversion 15°, eversion 15°) and other ( good stability all directions); no tenderness, no swelling and no ecchymosis and foot Details: abnormal to inspection, abnormal ROM of toe ( hallux MTP dorsiflexion 40, plantar flexion 20°), vascular exam Details: dorsalis pedis pulse present and normal capillary refill, tendon exam Details: active flexion abnormal and active extension abnormal, motor-sensory exam Details: two point discrimination abnormal Location: in all toes and light-touch abnormal Location: in all toes and other (Hallux metatarsophalangeal motion 20° dorsiflexion/10° plantar flexion) <Sangita Tee [facility] - Last Filed: 01/28/25 11:46> Left lower extremity: normal capillary refill, lower leg Details: localized swelling Location: of the mid lower leg, pitting edema Details: 3+ and other ( erythema anterior and lateral lower leg skin intact.), ankle Details: normal to inspection and abnormal ROM Details: with range as follows (ankle dorsiflexion -10 degrees, plantar flexion 40°, inversion 15°, eversion 15°); no tenderness and no swelling and foot Details: normal capillary refill, abnormal to inspection Details: other ( dime-sized callus plantar 2nd metatarsal head through dermis. No exposed tendon or bone. No drainage. No surrounding erythema.), tenderness Location: of the plantar foot Location: distally ( 2Nd metatarsal head), abnormal ROM of toe, vascular exam (2+DP pulse, good cap refill all toes), tendon exam active flexion abnormal of the great toe and active extension abnormal of the great toe, motor-sensory exam two point discrimination abnormal and light-touch abnormal in all toes and other ( 2nd and 3rd toe without swelling or tenderness.); no crepitus <BOSTON Heredia - Last Filed: 01/28/25 11:46> Other: Callus with opening on the plantar aspect of the 3rd MTP joint measures 0.5x0.6x0.2cm, 100% red/pink wound bed. No purulence, no malodor. No probing to bone. <BOSTON Heredia - Last Filed: 01/28/25 11:46> Psych: Affect: normal affect <BOSTON Heredia - Last Filed: 01/28/25 11:46> Results Labs Labs: All other labs normal. <ZULEIKA HerediaP - Last Filed: 01/28/25 11:46> Debridement/Burn/Wound Pre Procedure Consent was obtained, Procedures/risks were explained, Questions were answered, Correct patient identified and Correct side and site confirmed <BOSTON Heredia - Last Filed: 01/28/25 11:46> Episode Return Visit <BOSTON Heredia - Last Filed: 01/28/25 11:46> Area was prepped and draped using sterile technique?: Yes <BOSTON Heredia - Last Filed: 01/28/25 11:46> Ulcer/Wound Debridement, skin, first 20 sq cm or less: Yes Left (plantar foot ) <BOSTON Heredia - Last Filed: 01/28/25 11:46> Comments:: Debridement of the skin, subcutaneous tissue debrided under sterile conditions with #15 blade knife. All devitalized tissue removed. Procedure tolerated well. Patient instructed on post-debridement dressing changes. Reviewed signs/symptoms of complications to report to the office. Patient verbalized understanding and agrees with plan of care. <BOSTON Heredia - Last Filed: 01/28/25 11:46> Dressing Applied antibiotic ointment and Applied sterile dressing <BOSTON Heredia - Last Filed: 01/28/25 11:46> Post Procedure Patient tolerated the procedure well?: Tolerated procedure well <BOSTON Heredia - Last Filed: 01/28/25 11:46>
--- NOTE | 2025-02-21 12:41 | PCWOUND ---
WOCN NOTE Patient did not show up for her scheduled appointment, no call was made to cancel or reschedule.
--- NOTE | 2025-03-08 09:51 | PM.CNOR ---
Assessment and Plan Assessment and plan (1) Callus of foot: Code(s): L84 - Corns and callosities Status: Acute Assessment and Plan: [facility] wound clinic evaluation for chief complaint left foot callus. Callus with small wound on the plantar aspect of the 3rd MTP measures 0.8x0.5x0.2 cm, 100% red/pink wound bed. Overgrowth of callus formation today requiring debridement under sterile conditions, see procedure note. Recommended continued treatment at this time with silver foam. Patient to change dressing daily. She continues to endorse LLE swelling/redness. She has failed to fully improve with both oral and IV antibiotics. She is unable to tolerate compression stockings. Suspect venous insufficiency. Will begin insurance authorization for venous reflux studies. May require referral to vascular. Will await testing. Fit with tubigrip today for compression therapy. Discussed signs of cellulitis that would require further work up in the ED or with PCP. Patient verbalized understanding and agrees with POC. (2) Cellulitis of left lower leg: Code(s): L03.116 - Cellulitis of left lower limb Status: Acute (3) Diabetic peripheral neuropathy: Code(s): E11.42 - Type 2 diabetes mellitus with diabetic polyneuropathy Status: Acute Assessment and Plan: Discussed importance of proper nutrition, diabetic diet and medication compliance for optimal healing. Reviewed signs and symptoms of infection including fever, chills, night sweats, nausea, vomiting, diarrhea, changes to the wound bed or purulent drainage to report to the ED immediately. Patient verbalized understanding. (4) Pre-diabetes: Code(s): R73.03 - Prediabetes Status: Acute (5) CKD (chronic kidney disease) stage 3, GFR 30-59 ml/min: Qualifiers: Chronic kidney disease stage 3 subtype: stage 3a (GFR 45-59) Qualified Code(s): N18.31 - Chronic kidney disease, stage 3a Code(s): N18.30 - Chronic kidney disease, stage 3 unspecified Status: Acute History of Present Illness HPI Consult date: 03/08/25 Chief complaint: L84 corns and callosities, wound site: L leg/foot Narrative: 74-year-old female follows up in the [place] wound clinic for re-evaluation of left plantar foot callus. She has been treated for cellulitis of the LLE both inpatient and outpatient. She was evaluated by her PCP 2 weeks ago. She continues to endorse LLE pain/redness. She maintains daily dressing changes of the left foot. She denies fever, chills, night sweats, nausea, vomiting and diarrhea or new wound changes/changes in drainage. She has been wearing a postop shoe which she is tolerating well. Review of Systems Review of Systems: All systems reviewed & are unremarkable except as noted in HPI and below PMFSH Past Medical History Medical History Callus of foot Chronic anemia Obesity (BMI 30-39.9) Obstructive sleep apnea on CPAP Peripheral neuropathy Pre-diabetes Overactive bladder GERD with esophagitis Early cataracts, bilateral Umbilical hernia CKD (chronic kidney disease) stage 3, GFR 30-59 ml/min Spinal stenosis, lumbar region with neurogenic claudication Surgical History Surgical History History of esophagogastroduodenoscopy (EGD) History of tubal ligation Status post foot joint surgery (~2014) Patient reports multiple foot surgeries including bunionectomy and excision of the base of the 2nd metatarsal, multiple neuroma resections History of laminectomy Family History Family History Grandparent Skin cancer Grandparent Arthritis COPD (chronic obstructive pulmonary disease) Emphysema lung Father Arthritis Heart disease Hypertension Sleep apnea COPD (chronic obstructive pulmonary disease) Emphysema lung Mother Hypertension COPD (chronic obstructive pulmonary disease) Emphysema lung Social History Social History Social History: The patient lives with her of 52 years who is suffering from dementia. 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 She used to smoke half a pack of cigarettes per day. She smoked 0.5 pack per day until age 53. She used to drink alcohol in moderation when she was young but has not drink alcohol to any significant amount for the last 20+ years. She denies history of illicit substance use. Her and her raised a daughter and a son. Code status: Full code Surrogate decision maker: Geraldine Beltran (sister) she states that her son and daughter would not know what to do in the case of an emergency. Smoking packs per day: 0.5 Smoking cigarettes per day: 10.0 Years smoked: 35 Smoking pack-years: 17.50 Smoking status: Former smoker Tobacco type: cigarettes Smoking end date: 01/07/02 Substance use: never Substance use type: does not use Do You Feel Safe in your Home?: Yes Lack of Transportation: No Lack of Food: Never True Current Housing: I Have Housing Concerned About Future Housing: No Difficulty Paying Gas/Electric Bills: No Difficulty Paying for Meds: No Currently Unemployed: No Education: Bachelor's Degree Difficulty w/ Childcare or Family Care: No Spiritual care concerns: No Meds Home Medications and Allergies Home Medications Medication Instructions Recorded Confirmed Type albuterol 90 mcg/actuation aerosol 90 mcg inhalation Q4-6H PRN 01/03/25 01/28/25 History inhaler shortness of breath lisinopril 20 1 tablet PO DAILY 01/03/25 01/28/25 History mg-hydrochlorothiazide 25 mg tablet omeprazole 40 mg capsule,delayed 40 mg PO DAILY 01/03/25 01/28/25 History release pravastatin 40 mg tablet 40 mg PO DAILY 01/03/25 01/28/25 History sertraline 200 mg capsule 200 mg PO DAILY 01/03/25 01/28/25 History tramadol 100 mg tablet 100 mg PO Q6H PRN pain 01/03/25 01/28/25 History furosemide 20 mg tablet 20 mg PO DAILY edema #30 tabs 01/07/25 01/28/25 Rx Allergies Allergy/AdvReac Type Severity Reaction Status Date / Time clindamycin Allergy Rash Verified 01/28/25 11:56 metformin Allergy Diarrhea Verified 01/28/25 11:56 Penicillins Allergy Rash Verified 01/28/25 11:56 Exam Const: General: healthy appearing; No in distress or confusion Orientation/consciousness: oriented to person, oriented to place, oriented to time and No confusion HENMT: Head: normal to inspection, normocephalic and atraumatic Eyes: Conjunctivae: conjunctivae normal Sclera: sclerae normal Neck: Neck: supple and nontender Resp: Effort & Inspection: normal respiratory effort and no audible wheezes Cardio: Rhythm: regular rhythm Skin: General skin exam: erythema ( left lower leg) and other Neuro: General: oriented to person, oriented to place, oriented to time and No confusion Extrem: Right upper extremity: normal to inspection Left upper extremity: normal to inspection Right lower extremity: ankle Details: normal to inspection, abnormal ROM Details: with range as follows (ankle dorsiflexion -10 degrees, plantar flexion 40°, inversion 15°, eversion 15°) and other ( good stability all directions); no tenderness, no swelling and no ecchymosis and foot Details: abnormal to inspection, abnormal ROM of toe ( hallux MTP dorsiflexion 40, plantar flexion 20°), vascular exam Details: dorsalis pedis pulse present and normal capillary refill, tendon exam Details: active flexion abnormal and active extension abnormal, motor-sensory exam Details: two point discrimination abnormal Location: in all toes and light-touch abnormal Location: in all toes and other (Hallux metatarsophalangeal motion 20° dorsiflexion/10° plantar flexion) Left lower extremity: normal capillary refill, lower leg Details: localized swelling Location: of the mid lower leg, pitting edema Details: 3+ and other ( erythema anterior and lateral lower leg skin intact.), ankle Details: normal to inspection and abnormal ROM Details: with range as follows (ankle dorsiflexion -10 degrees, plantar flexion 40°, inversion 15°, eversion 15°); no tenderness and no swelling and foot Details: normal capillary refill, abnormal to inspection Details: other ( dime-sized callus plantar 2nd metatarsal head through dermis. No exposed tendon or bone. No drainage. No surrounding erythema.), tenderness Location: of the plantar foot Location: distally ( 2Nd metatarsal head), abnormal ROM of toe, vascular exam (2+DP pulse, good cap refill all toes), tendon exam active flexion abnormal of the great toe and active extension abnormal of the great toe, motor-sensory exam two point discrimination abnormal and light-touch abnormal in all toes and other ( 2nd and 3rd toe without swelling or tenderness.); no crepitus Other: Callus with opening on the plantar aspect of the 3rd MTP joint measures 0.8x0.5x0.2 cm, 100% red/pink wound bed. Overgrowth of callus formation requiring debridement. No purulence, no malodor. No probing to bone. Psych: Affect: normal affect Results Labs Labs: All other labs normal. Debridement/Burn/Wound Pre Procedure Consent was obtained, Procedures/risks were explained, Questions were answered, Correct patient identified and Correct side and site confirmed Episode Return Visit Area was prepped and draped using sterile technique?: Yes Ulcer/Wound Debridement, skin, first 20 sq cm or less: Yes Left (plantar foot over 3rd met head ) Comments:: Debridement of the skin, subcutaneous tissue debrided under sterile conditions with #15 blade knife. All devitalized tissue removed. Procedure tolerated well. Patient instructed on post-debridement dressing changes. Reviewed signs/symptoms of complications to report to the office. Patient verbalized understanding and agrees with plan of care. Dressing Applied sterile dressing Post Procedure Patient tolerated the procedure well?: Tolerated procedure well
== END 2025-04-18 12:20 | disposition home or self-care (01) ==
LOC: ANHWOC 08:30
PROVIDERS: PCP Internal Medicine; Visit Provider Orthopaedic Surgery
DX: L84 Corns and callosities (principal); N18.31 Chronic kidney disease, stage 3a; L03.116 Cellulitis of left lower limb; E11.42 Type 2 diabetes mellitus with diabetic polyneuropathy
CPT/HCPCS: 99213; 99214; G0463

== ENCOUNTER 2025-03-24 10:03 | Outpatient (CLI) | payer MEDICARE, OTHER, SELFPAY ==
--- NOTE | ~2025-03-24 | US_ITS ---
EXAMINATION: [email or web address]_US DATE: 03/24/2025 11:30 INDICATION: Edema TECHNIQUE: Grayscale ultrasound images without and with compression and Doppler ultrasound images of the bilateral lower extremity veins were obtained. Reflux interrogation of the bilateral greater saphenous and small saphenous veins were performed. COMPARISON: None. FINDINGS: The visualized portions of right common femoral vein, profunda (deep) femoral vein, femoral vein, pop liteal vein, peroneal veins, posterior tibial veins, and greater saphenous vein outflow are patent. The visualized portions of left common femoral vein, profunda femoral vein, femoral vein, popliteal v ein, peroneal veins, posterior tibial veins, and greater saphenous vein outflow are patent. Venous insufficiency evaluation (performed in the standing position): Right Greater Saphenous vein Groin - 5.5mm; no reflux was demonstrated on the submitted images. Thigh - 2.3mm; no reflux was demonstrated on the submitted images. Calf - 2.4mm; no reflux was demonstrated on the submitted images. Right small saphenous vein Proximal calf - 4.3 mm; no reflux was demonstrated on the submitted images. Distal calf - 3.2 mm; no reflux was demonstrated on the submitted images. Noncompressibility is demon strated within the right small saphenous vein within the distal calf, with patency of flow, likely re canalization. Left Greater Saphenous vein Groin - 6.4mm; no reflux was demonstrated on the submitted images. Thigh - 2.3mm; no reflux was demonstrated on the submitted images. Calf - 2.4mm; no reflux was demonstrated on the submitted images. Left small saphenous vein Proximal calf - 4.3 mm; no reflux was demonstrated on the submitted images. Distal calf - 3.2 mm; no reflux was demonstrated on the submitted images. No interrogation of the perforating veins were performed. IMPRESSION: No deep venous thrombosis. No reflux was demonstrated on the submitted images. Reviewed, dictated and finalized at location A.
--- OUTSIDE RECORDS SUMMARY | 2025-03-24 11:12 | XMS_ITS | Encounter Summary ---
Author Organization [facility] Address [address] [place] [address] Phone Care Team Providers Care Construction Supervisor Name Role Phone Neymar Garibay MD Primary Care Provider Neymar Garibay MD Primary Care Provider Neymar Garibay MD Unavailable [phone] Mamta Gandhi DPT Unavailable [phone] Encounter Details Date Type Department Care Team (Late st Contact Info) Description 12/07/2019 Orders Only [facility] [phone] Scanning, Provider Social History Tobacco Use Types Packs/Day Years Used Date Smoking Tobacco: Former Smokeless Tobacco: Never Alcohol Use Standard Drinks/Week Comments Yes 0 (1 standard drink = 0.6 oz pur e alcohol) Comments No Sex and Gender Information Value Date Recorded Sex Assigned at Not on file Legal Sex Female 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
--- OUTSIDE RECORDS SUMMARY | 2025-03-24 11:12 | XMS_ITS | Encounter Summary ---
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 Minimize further functional decline 2. Maximize quality of life 3. Control pain Strategies: - Activity/exercise program recommendation - Conservative stepwise pain medicine strategy with multi-disciplinary approach - Recommend healthy lifestyle strategies and compensatory methods as needed documented as of this encounter Visit Diagnoses Not on filedocumented in this encounter Care Teams Rouge Miller Relationship Specialty Start Date End Date Neymar Garibay MD [address] [place] [address] PCP - General 01/31/20 Neymar Garibay MD [address] [place] [address] 01/31/20 documented as of this encounter
--- OUTSIDE RECORDS SUMMARY | 2025-03-24 11:12 | XMS_ITS | Clinical Summary ---
Author Organization [facility] Address [address] [place] [address] Care Team Providers Care Filling And Packing Supervisor Name Role Phone Neymar Garibay MD Primary Care Provider Neymar Garibay MD Unavailable [phone] Allergies Active Allergy Reactions Criticality Noted Date Comments Chymotrypsin Unknown 02/03/2024 Clindamycin Rash Medium 08/03/2021 Metformin Diarrhea Low 10/18/2022 Penicillins Itching,Rash,Hives Medium 01/31/2020 Reaction: Itching, Rash Medications cholecalcifero l (VITAMIN D3) 2,000 [...] DAY 270 capsule 1 05/27/20 24 Active furosemide (LASIX) 20 mg tabletIndicati ons:Pedal edema Take 1 tablet (20 mg total) by mouth daily as needed (swelling) 20 tablet 3 08/24/20 24 Active respiratory syncytial virus vaccine (Arexvy, PF,) 120 mcg/0.5 mL vaccine Pharmacy to inject 0.5 mL IM x1 0.5 mL 08/24/20 24 Active traMADoL (ULTRAM) 50 mg tablet Take 2 tablets (100 mg total) by mouth every 8 (eight) hours as needed for pain 540 tablet 11/22/20 24 Active cephalexin (KEFLEX) 500 mg capsule Please take (4 capsules- 2,000mg) by mouth one hour prior to dental appointment/shalini aning. 4 capsule 2 12/13/19 25 Active lisinopril-hyd roCHLOROthiazi de (ZESTORETIC) 20-12.5 mg per tabletIndicati ons:hypertensi on Take 2 tablets by mouth daily 180 tablet 1 12/24/19 25 2025 Active oxyBUTYnin (DITROPAN) 5 mg tabletIndicati ons:OAB (overactive bladder) Take 1 tablet (5 mg total) by mouth 2 (two) times a day 60 tablet 12/24/19 25 Active empagliflozin (JARDIANCE) 10 mg tabletIndicati ons:Acute on chronic diastolic congestive heart failure (HCC) Take 1 tablet (10 mg total) by mouth daily 30 tablet 5 02/15/20 25 Active ARIPiprazole (ABILIFY) 5 mg tabletIndicati ons:Major depressive disorder, recurrent episode, moderate (HCC) TAKE ONE TABLET BY MOUTH EVERY DAY AT NIGHT 90 tablet 1 03/07/20 25 Active topiramate (TOPAMAX) 50 mg tablet TAKE TWO TABLETS BY MOUTH TWICE A DAY 120 tablet 03/07/20 25 Active omeprazole (PriLOSEC) 40 mg capsuleIndicat ions:Medicatio n refill,Type 2 diabetes mellitus without complication, without long-term current use of insulin (HCC) TAKE ONE CAPSULE BY MOUTH EVERY DAY 90 capsule 1 03/07/20 25 Active sertraline (ZOLOFT) 100 mg tabletIndicati ons:Major depressive disorder, recurrent episode, moderate (HCC) TAKE TWO TABLETS BY MOUTH EVERY DAY 90 tablet 1 03/07/20 25 Active tirzepatide, weight loss, (Zepbound) 5 mg/0.5 mL pen injectorIndica tions:obstruct delfina sleep apnea syndrome,03/02 sleep study showed severe INÉS. 10/2022 -- AHI 30.5 Inject 0.5 mL (5 mg total) under the skin every 7 days Start after taking 2.5 mg weekly for 4 weeks. 2 mL 2 03/09/20 25 Active tirzepatide, weight loss, (Zepbound) 2.5 mg/0.5 mL pen injectorIndica tions:obstruct delfina sleep apnea syndrome,03/02 sleep study showed severe INÉS. 10/2022 -- AHI 30.5 Inject 0.5 mL (2.5 mg total) under the skin every 7 days 2 mL 03/09/20 25 Active omeprazole (PriLOSEC) 40 mg capsuleIndicat ions:Medicatio n refill,Type 2 diabetes mellitus without complication, without long-term current use of insulin (HCC) TAKE ONE CAPSULE BY MOUTH EVERY DAY 90 capsule 1 07/20/20 24 2024 Discontinued ARIPiprazole (ABILIFY) 5 mg tabletIndicati ons:Major depressive disorder, recurrent episode, moderate (HCC) Take 1 tablet (5 mg total) by mouth nightly 90 tablet 1 09/06/20 24 2024 Discontinued Zoloft 100 mg tabletIndicati ons:Major depressive disorder, recurrent episode, moderate (HCC) TAKE TWO TABLETS BY MOUTH EVERY DAY 90 tablet 1 11/22/20 24 2024 Discontinued tirzepatide, weight loss, (Zepbound) 2.5 mg/0.5 mL pen injectorIndica tions:INÉS -- 03/02/2013 sleep study showed severe INÉS. 10/2022 -- AHI 30.5 Inject 0.5 mL (2.5 mg total) under the skin every 7 days 0.5 mL 01/06/20 25 2024 Discontinued topiramate (TOPAMAX) 50 mg tablet Take two tablets by mouth twice a day 120 tablet 01/13/20 25 2024 Discontinued tirzepatide, weight loss, (Zepbound) 2.5 mg/0.5 mL pen injectorIndica tions:obstruct delfina sleep apnea syndrome,03/02 sleep study showed severe INÉS. 10/2022 -- AHI 30.5 Inject 0.5 mL (2.5 mg total) under the skin every 7 days 02/24/20 25 2024 Discontinued(R eorder) tirzepatide, weight loss, (Zepbound) 5 mg/0.5 mL pen injectorIndica tions:obstruct delfina sleep apnea syndrome,03/02 sleep study showed severe INÉS. 10/2022 -- AHI 30.5 Inject 0.5 mL (5 mg total) under the skin every 7 days Start after taking 2.5 mg weekly for 4 weeks. 02/24/20 25 2024 Discontinued(R eorder) Active Problems Problem Noted Date Diagnosed Date Risk for coronary artery dis ease greater than 20% in next 10 years 11/11/2024 Overview (11/11/2024): 35.9% Adjustment disorder, unspecified 04/27/2024 Anemia in chronic kidney disease 04/20/2024 Hypertensive chronic kidney disease w stg 1-4/un sp chr kdny 04/20/2024 Presence of right artificial knee joint 04/20/20 24 Pulmonary hypertension, unspecified 04/20/2024 Scoliosis, unspecified 04/20/2024 [...] semaglutide. Assessment & Plan (01/06/2023 12:11 PM BELT KNIFE FEEDER): Labs. Reviewed most recent labs available. Continue low-carb (<150 g/day), low-glycemic diet. Plan to increase semaglutide to 1 mg weekly pending results. Assessment & Plan (12/31/2022 12:19 PM BELT KNIFE FEEDER): Reviewed most recent labs available. Continue low-carb [...] w/r/t gut microbiome. Referred to ADA and [facility] websites for additional information on topics [...] diet. Assessment & Plan (01/06/2023 12:09 PM BELT KNIFE FEEDER): Reviewed calorie restriction based on BMR as previously detailed. Reviewed recommendation/goal of >/= 150 minutes/week moderate-intensity aerobic exercise. Asked to keep detailed food diary for at least 1 week and bring to next visit and/or continue tracking on phone. Assessment & Plan (12/31/2022 12:18 PM BELT KNIFE FEEDER): Reviewed calorie restriction based on BMR as [...] 03/17/2018 Assessment & Plan (01/06/2023 12:11 PM BELT KNIFE FEEDER): Labs. Osteoarthritis of cervical spine 01/05/2018 Class [...] Other: Assessment & Plan (01/06/2023 12:11 PM BELT KNIFE FEEDER): Obesity is improving.. Plan: Diet interventions: as noted.., Regular aerobic exercise program discussed. and Medication as prescribed. Assessment & Plan (12/31/2022 12:19 PM BELT KNIFE FEEDER): Obesity is worsening.. Plan: Diet interventions: as [...] claudication 12/17/2017 Peripheral nerve disease 08/08/2017 Other residential (current) drug therapy 7 Asthma 12/31/2016 Osteoporosis [...] of toe 09/05/2017 08/03/2024 Ulcer of toe 09/05/2017 09/23/2018 Abscess of foot 08/08/2017 09/23/2018 Methicillin susceptible Stap hylococcus aureus infection 07/30/2017 09/23/2018 Trochanteric bursitis 04/01/20172017 Urinary urgency 12/31/2016 09/23/2018 Dyspnea 03/06/2016 09/23/2018 Knee pain 06/13/2015 09/23/2018 Encounter for preventive health examination 05/14/2011 09/23/2018 Encounters Date Type Department Care Team Description 03/09/2025 11:40 AM CDT Telemedicine [facility] [address] [place] [address] Medical Office [address] [place] [address] Sasha Hernández MD INÉS (obstructive sleep apnea) 03/09/2025 Telephone [facility] [address] [place] [address] Medical Office [address] [place] [address] Fior Jackson, CINTIA Appointment 02/23/2025 Orders Only [facility] [address] [place] [address] Medical Office [address] [place] [address] Sasha Hernández MD Restless legs syndrome (Primary Dx); INÉS (obstructive sleep apnea) 02/16/2025 Results Follow-Up [facility] [address] [place] [address] Neymar Garibay MD 02/14/2025 1:00 PM CDT Office Visit [facility] [address] [place] [address] Neymar Garibay MD Acute on chronic diastolic congestive heart failure (HCC) (Primary Dx); Cellulitis of left lower extremity; Pulmonary hypertension, unspecified (HCC); Major depressive disorder, recurrent episode, moderate (HCC); Left foot pain 01/06/2025 Telephone [facility] [address] [place] [address] Medical Office [address] [place] [address] Fior Jackson CMA Prior Auth 01/06/2025 Telephone [facility] [address] [place] [address] Medical Office [address], [address] [place] [address] Maurice Goddard CPhT Prior Auth (Zepbound) 01/06/2025 Orders Only [facility] [address] [place] [address] Medical Office [address], [address] [place] [address] Sasha Hernández MD INÉS (obstructive sleep apnea) 12/31/2024 10:25 AM BELT KNIFE FEEDER Ancillary Procedure [facility] Advanced Medicine 6th [place] [address] [place] [address] Chronic pain of left knee 12/31/2024 10:15 AM BELT KNIFE FEEDER Procedure visit [facility] [address] [facility] Medicine 6th [place] [address] [place] [address] Mir Katz MD Chronic pain of left knee 12/29/2024 2:00 PM BELT KNIFE FEEDER Office Visit [facility] [address] [facility] 1st Floor [address] [place] [address] Mir Katz MD Chronic pain of left knee (Primary Dx); Primary osteoarthritis of left knee; Bilateral hip pain; Primary osteoarthritis of both hips 12/24/2024 11:20 AM BELT KNIFE FEEDER Office Visit [address] [address] Neymar Garibay MD OAB (overactive bladder) (Primary Dx); Pedal edema; Primary hypertension; Pulmonary hypertension, unspecified (HCC); Chronic obstructive pulmonary disease, unspecified COPD type (HCC); Major depressive disorder, recurrent episode, moderate (HCC); Class 3 severe obesity with serious comorbidity and body mass index (BMI) of 40.0 to 44.9 in adult, unspecified obesity type (HCC); Stage 3b chronic kidney disease (HCC) from Last 3 Months Immunizations Immunization Administration Dates Next Due Influenza, Quadrivalent, Hig [...] on file Legal Sex Female 1:19 AM BELT KNIFE FEEDER Gender Identity Female 09/25/2021 5:30 AM CDT Sexual Orientation Straight 09/25/2021 5: 30 AM CDT 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 Not on file Not on file Obstetrics History Last Filed Vital Signs Vital Sign Reading Time Taken Comments Blood Pressure 113/62 02/14/2025 1:11 PM CDT Pulse 97 02/14/2025 1:11 PM CDT Temperature 36.7 C (98.1 F) 08/03/2024 2:41 PM CDT Respiratory Rate 18 04/03/2024 7:35 AM CDT Oxygen Saturation 94% 02/14/2025 1:11 PM CDT Inhaled Oxygen Concentration - - Weight 105.2 kg (232 lb) 02/14/2025 1:11 PM CDT Height 167.6 cm (5' 6 ) 02/14/2025 1:11 PM CDT Body Mass Index 37.45 02/14/2025 1:11 PM CDT Plan of Treatment Health Maintenance Due Date Last Done Comments Albumin Creatinine Ratio, Urine 1950 Colon Cancer Screening-Colonoscopy 1950 Osteoporosis Screening-Bone Density Scan 1950 Dilated Eye Exam 1950 Foot Exam 1951 Hepatitis B Screening 1969 Zoster Vaccine (1 of 2) 2001 Breast Cancer Screening-Mammogram 10/31/2016 015 Depression Screening 05/14/2019 05/14/2018 Pneumococcal vaccine 65+ (3 of 3 - PCV20 or PCV21) 08/14/2021 08/14/2016, 10/13/2012, 10/13/2012 Well Visit 65+ 01/23/2022 01/23/2021 Lipid Panel [...] Care Management No change(04/14 11:43 AM CDT) Robyn Lomeli RN Note: Problem: Chronic Pain Goals: 1. Minimize further functional decline 2. Maximize quality of life 3. Control pain Strategies: - Activity/exercise program recommendation - Conservative stepwise pain medicine strategy with multi-disciplinary approach - Recommend healthy lifestyle strategies and compensatory methods as needed Medical Devices Implanted Type Area Svp Digital Ad Sales Device Identifier Shelf Expiration Date Model / Serial / Lot [employer] Baseplate Tibial Knee Cemented Right Fixed Stemmed Persona Size F Tivanium [id number] - [id number] Implanted:Qty: 1 on 03/29/2024 by Don Alonzo MD at [facility] Right: Knee [employer] [id number] 07/12/2033 [id number] / / [id number] [employer] Persona Cruciate Retain Cemented Knee Right 9 Narrow Component [id number] - [id number] Implanted:Qty: 1 on 03/29/2024 by Don Alonzo MD at [facility] Right: Knee [employer] [id number] 10/07/2033 [id number] / / [id number] [employer] Simplex P Full Dose Radiopaque Preblend Cement Bone Tobramycin 6197-9-001 - [id number] Implanted:Qty: 1 on 03/29/2024 by Don Alonzo MD at [facility] Right: Knee [employer] [id number] 05/30/2025 6197-9-001 / / [id number] [employer] Simplex P Full Dose Radiopaque Preblend Cement Bone Tobramycin 6197-9-001 - [id number] Implanted:Qty: 1 on 03/29/2024 by Don Alonzo MD at [facility] Right: Knee [employer] [id number] 06/30/2025 6197-9-001 / / [id number] [employer] Persona 14mm Knee Right 8-11 E-F Insert Articular Vivacit-E [id number] - [id number] Implanted:Qty: 1 on 03/29/2024 by Don Alonzo MD at [facility] Right: Knee [employer] [id number] 04/02/2028 [id number] / / [id number] Procedures Procedure Name Priority Date/Time Associated Diagnosis Comments BASIC METABOLIC PANEL Routine 02/14/2025 1:34 PM CDT Acute on chronic diastolic congestive heart failure (HCC) URIC ACID Routine 02/14/2025 1:34 PM CDT Left foot pain POCUS ASP/INJ MAJOR JOINT Schedule Routine, Read Routine (OP Routine) 12/31/2024 10:24 AM BELT KNIFE FEEDER Chronic pain of left knee AR ARTHROCENTESIS ASPIR&/INJ MAJOR JT/BURSA W/US Routine 12/31/2024 10:15 AM BELT KNIFE FEEDER Chronic pain of left knee POCT URINALYSIS, AUTO W/O SCOPE Routine 12/24/2024 11:45 AM BELT KNIFE FEEDER OAB (overactive bladder) EGFR Routine 04/03/2024 4:36 AM CDT HEMOGLOBIN A1C Routine 2024 4:12 PM CDT Primary osteoarthritis of right knee Type 2 diabetes mellitus without complication, unspecified whether residential insulin use (HCC) LIPID PANEL Routine 04/12/2022 3:23 PM CDT Type 2 diabetes mellitus without complication, without long-term current use of insulin (HCC) SCREENING MAMMOGRAM Routine 10/31/2015 3 :29 PM BELT KNIFE FEEDER SERUM HEPATITIS PANEL Routine 02/17/2013 3:00 PM CDT from Last 3 Months or Most Recently Relevant to Health Maintenance Results * (ABNORMAL) Uric acid (02/14/2025 1:34 PM CDT) Uric Acid 11.0(H) 2.4 - 5.7 mg/dL [facility] Blood 02/14/2025 1:34 PM CDT 02/14/2025 1:44 PM CDT Neymar Garibay MD LAB BLOOD ORDERABLES F inal Result Performing Organization Address City/State/[facility] Co de Phone Number [facility] [address] [place] [address] * (ABNORMAL) Basic metabolic panel (02/14/2025 1:34 PM CDT) Glucose 108 74 - 200 mg/dL [facility] BUN 38(H) 18 - 23 mg/dL [facility] Creatinine 1.5(H) 0.7 - 1.3 mg/dL [facility] BUN/Creat Ratio 25 Ratio [facility] [employer] [facility] eGFR 34 mL/min/1.7 3m2 [facility] Calcium 8.7(L) 8.8 - 10.2 mg/dL [facility] Sodium 140 135 - 145 mEq/L [facility] Potassium 4.2 3.5 - 5.1 mEq/L [facility] Chloride 109(H) 98 - 107 mEq/L [facility] CO2 21.2(L) 22.0 - 32.0 mEq/L [facility] Anion Gap 11 3 - 12 mEq/L [facility] Blood 02/14/2025 1:34 PM CDT 02/14/2025 1:44 PM CDT Neymar Garibay MD LAB BLOOD ORDERABLES F inal Result [facility] [address] [place] [address] * POCUS ASP/INJ MAJOR JOINT (12/31/2024 10:24 AM BELT KNIFE FEEDER) Narrative RAD_PACS_P[facility]US[facility] - 12/31/2024 10:24 AM BELT KNIFE FEEDER This procedure was performed and interpreted by the provider. Please refer to the provider's procedure/OR operative note for results. us Mir Katz MD POCUS ORDERABLES Final R esult Performing Organization Address [facility] Co de Phone Number RAD[facility]PACS[facility] * AR ARTHROCENTESIS ASPIR&/INJ MAJOR JT/BURSA W/US (12/31/2024 10:15 AM BELT KNIFE FEEDER) Narrative Mir Katz MD - 12/31/2024 10:15 AM BELT KNIFE FEEDER Mir Katz MD 12/31/2024 10:57 AM Large Joint Injection w/ Ultrasound Guidance: L knee Performed by: Mir Katz MD Authorized by: Mir Katz MD Large Joint Injection/Aspiration: Consent Given by: Patient Site marked: the procedure site was marked Timeout: prior to procedure the correct patient, procedure, and site was verified Verbal consent obtained: Yes Supporting Documentation: Indications: Pain Procedure Details: Location: Knee Site: L knee Prep: patient was prepped and draped in usual sterile fashion Needle Size: 18 G Approach: Superior lateral Ultrasound guided: Yes Ultrasound guidance used for: Pre-procedure marking and real-time guidance Sterile ultrasond techniques: Sterile gel and sterile probe covers were used Medications: 3 mL lidocaine 10 mg/mL (1 %); 40 mg triamcinolone 40 mg/mL Patient tolerance: Patient tolerated the procedure well with no immediate complications us Mir Katz MD IN CLINIC/BEDSIDE ORDERA BLES Final Result * (ABNORMAL) POCT UA, AUTO W/O SCOPE (12/24/2024 11:45 AM BELT KNIFE FEEDER) Color, Urine, POC Yellow Clarity, ur, POC Clear Clear Glucose, ur, POC Negative Negative MG/DL Bilirubin, ur, POC Negative Negative, Small, Moderate, Large Ketones, ur, POC Negative Negative Specific Trenary, POC 1.020 1.003 - 1.030 Blood, ur, POC Trace(A) Negative pH, ur, POC 5.5 5.0 - 8.0 Protein, ur, POC Negative Negative Urobilinogen, Urine, POC 0.2 mg/dL Leukocytes, ur, POC Negative Negative Nitrite, ur, POC Negative Negative Appearance, fld Clear Clear Urine 12/24/2024 11:4 5 AM BELT KNIFE FEEDER Neymar Garibay MD POINT OF CARE TEST ORD ERABLES Final Result * (ABNORMAL) eGFR (04/03/2024 4:36 AM CDT) eGFR 42(L) >=60 mL/min/1. 73 m2 Comment: Interpretive Data Reference Interval Normal >/= 90 mL/min/1.73m2 Mildly decreased* 60 - 89 mL/min/1.73m2 Mildly to moderately decreased 45 - 59 mL/min/1.73m2 Moderately to severely decreased 30 - 44 mL/min/1.73m2 Severely decreased 15 - 29 mL/min/1.73m2 Kidney Failure < 15 mL/min/1.73m2 *Relative to young adult level Estimated glomerular [...] NP LAB BLOOD ORDERABLES Final Re sult [facility] [place] [address] * Hemoglobin A1c (2024 4:12 PM CDT) Hgb A1C 5.4 4.0 - 5.6 % Estimated Average Glucose 108 mg/dL [facility] Comment: The ADA recommends reporting an estimated Average Glucose (eAG) with all Hemoglobin A1c results using the equation derived from a study of 507 normal and diabetic adults. Minority populations were underrepresented and children were not included. (Diabetes Care 2020; 43(S1): S66-S76). The eAG is not equivalent to a fasting glucose. Blood 2024 4:12 PM CDT 2024 4:50 PM CDT Don Alonzo MD LAB BLOOD ORDERABLES Final Result Performing Organization Address City/[facility]/ZIP Co de Phone Number [facility] Department [place] [address] * (ABNORMAL) Lipid panel (04/12/2022 3:23 PM CDT) Triglyceride 164(H) 0 - 150 mg/dL [facility] Cholesterol 194 0 - 200 mg/dL [facility] HDL 49 >45 mg/dL [facility] LDL-Calculated 112 mg/dL [facility] CHOL/HDL Risk Ratio 4 Ratio [facility] LDL/HDL Risk Ratio 2 Ratio [facility] Blood specimen (specimen) 04/12/2022 3:23 PM CDT 04/12/2022 3:38 PM CDT Neymar Garibay MD LAB BLOOD ORDERABLES F inal Result [facility] [address] [place] [address] * Screening Mammogram (10/31/2015 3:29 PM BELT KNIFE FEEDER) Anatomical Region Laterality Modality Breast N/A Mammography 10/31/2015 3:29 PM BELT KNIFE FEEDER Narrative 11/01/2015 2:59 PM BELT KNIFE FEEDER JYOTSNA EDDY M.D. FINAL REPORT ACC# Date Time Exam [id number] Oct 31, 2015 15:29:00 [facility] [id number] Screening Mamm Bilat Technologist(s): Gisela Block; ; EXAMINATION: Mammogram Technique: Bilateral Full-Field Digital Screening Mammogram was performed. Views obtained: bilateral craniocaudal and bilateral mediolateral oblique. Computer Aided Detection was performed with [employer].3 version 9.3. Mammogram Findings: The present examination has been compared to prior imaging studies performed at [facility] on 03/11/2012, 03/27/2010 and 02/11/2008. There are scattered areas of fibroglandular density. There is no suspicious abnormality in either breast. IMPRESSION: Annual screening mammography is recommended. OVERALL FINAL ASSESSMENT: BI-RADS CATEGORY 1: Negative. Requested By: Dictated By: JYOTSNA EDDY M.D. on Nov 01 2015 2:59P This document has been electronically signed by: JYOTSNA EDDY M.D. on Nov 01 2015 2:59P [id number] Procedure Note Provider, MD Edgar - 03/22/2017 JYOTSNA EDDY M.D. FINAL REPORT ACC# Date Time Exam [id number] Oct 31, 2015 15:29:00 [facility] [id number] Screening Mamm Bilat Technologist(s): Gisela Block; ; EXAMINATION: Mammogram Technique: Bilateral Full-Field Digital Screening Mammogram was performed. Views obtained: bilateral craniocaudal and bilateral mediolateral oblique. Computer Aided Detection was performed with [employer].3 version 9.3. Mammogram Findings: The present examination has been compared to prior imaging studies performed at [facility] on 03/11/2012, 03/27/2010 and 02/11/2008. There are scattered areas of fibroglandular density. There is no suspicious abnormality in either breast. IMPRESSION: Annual screening mammography is recommended. OVERALL FINAL ASSESSMENT: BI-RADS CATEGORY 1: Negative. Requested By: Dictated By: JYOTSNA EDDY M.D. on Nov 01 2015 2:59P This document has been electronically signed by: JYOTSNA EDDY M.D. on Nov 01 2015 2:59P [id number] us Historical Provider MD XIAO MAMMO PROCEDURES Natalya l Result * Serum Hepatitis panel (02/17/2013 3:00 PM CDT) HBV surface ag Negative NEG HISTO RICAL RESULTS HCV ab Negative NEG HISTORICAL RESULTS Comment: Interpretive Data If confirmation is required, call Laboratory Customer Service to request sample to be sent to [facility] for Hepatitis C Virus (HCV) RNA Detection and Quantitation by Real-Time Reverse Vacuum Tank Tender-PCR (RT-PCR). Current interpretive data was last revised [...] [facility] [address] Advance Directives For more information, please contact: [phone] * Full Code (Latest Code Status on File) Date Activated Date Inactivated Comments 03/29/2024 12:45 PM 04/03/2024 3:06 PM * Full Code Date Activated Date Inactivated Comments 07/03/2018 1:01 PM 07/03/2018 5:06 PM Care Teams Filling And Packing Supervisor Relationship Specialty Start Date End Date Neymar Garibay MD [address] [place] [address] PCP - General 01/31/20 Neymar Garibay MD [address] [place] [address] 01/31/20
--- OUTSIDE RECORDS SUMMARY | 2025-03-24 11:12 | XMS_ITS | Referral Summary ---
Author Organization [facility] Address [address] [place] [address] Care Team Providers Care Model Making Supervisor Name Role Phone Neymar Garibay MD Primary Care Provider Neymar Garibay MD Unavailable [phone] Encounters Date Type Department Care Team Description 03/09/2025 Telephone [facility] Medical Office Building [address], [address] [place] [address] Fior Jackson, [facility] Appointment 03/09/2025 11:40 AM CDT Telemedicine [facility] Medical Office Building 4, [address] [place] [address] Sasha Hernández MD INÉS (obstructive sleep apnea) 02/23/2025 Orders Only [facility] [address] [place] [address] Medical Office Building 4, [address] [place] [address] Sasha Hernández MD Restless legs syndrome (Primary Dx); INÉS (obstructive sleep apnea) 02/16/2025 Results Follow-Up [address] [address] Neymar Garibay MD 02/14/2025 1:00 PM CDT Office Visit [facility] [address] [place] [address] Neymar Garibay MD Acute on chronic diastolic congestive heart failure (HCC) (Primary Dx); Cellulitis of left lower extremity; Pulmonary hypertension, unspecified (HCC); Major depressive disorder, recurrent episode, moderate (HCC); Left foot pain 01/06/2025 Telephone [facility] [address] [place] [address] Medical Office Building 4, [address] [place] [address] Fior Jackson, HOUSING INSPECTOR Prior Auth 01/06/2025 Telephone [facility] [address] [place] [address] Office Building 4, [address] [place] [address] Maurice Goddard CPhT Prior Auth ([employer]) 01/06/2025 Orders Only [facility] [address] [place] [address] Medical Office Building 4, [address] [place] [address] Sasha Hernández MD INÉS (obstructive sleep apnea) 12/31/2024 10:25 AM FILTERER Ancillary Procedure [facility] [address] [facility] 6th [place] [address] [place] [address] Chronic pain of left knee 12/31/2024 10:15 AM FILTERER Procedure visit [facility] [address] [facility] Medicine 6th [place] [address] [place] [address] Mir Katz MD Chronic pain of left knee 12/29/2024 2:00 PM FILTERER Office Visit [facility] [address] [place] [address] Mir Katz MD Chronic pain of left knee (Primary Dx); Primary osteoarthritis of left knee; Bilateral hip pain; Primary osteoarthritis of both hips 12/24/2024 11:20 AM FILTERER Office Visit [facility] [address] [place] [address] Neymar Garibay MD OAB (overactive bladder) (Primary Dx); Pedal edema; Primary hypertension; Pulmonary hypertension, unspecified (HCC); Chronic obstructive pulmonary disease, unspecified COPD type (HCC); Major depressive disorder, recurrent episode, moderate (HCC); Class 3 severe obesity with serious comorbidity and body mass index (BMI) of 40.0 to 44.9 in adult, unspecified obesity type (HCC); Stage 3b chronic kidney disease (HCC) from Last 3 Months Allergies Active Allergy [...] A DAY DIRECTED 90 mL 2 12/23/19 23 Active Additional Information Patient [...] by mouth every 8 (eight) hours 04/03/20 Active pravastatin (PRAVACHOL) 40 mg tablet TAKE [...] day 60 tablet 5 12/24/19 25 Active empagliflozin (JARDIANCE) 10 mg [...] semaglutide. Assessment & Plan (01/06/2023 12:11 PM FILTERER): Labs. Reviewed most recent labs available. Continue low-carb (<150 g/day), low-glycemic diet. Plan to increase semaglutide to 1 mg weekly pending results. Assessment & Plan (12/31/2022 12:19 PM FILTERER): Reviewed most recent labs available. Continue low-carb [...] w/r/t gut microbiome. Referred to ADA and [facility] websites for additional information on topics [...] diet. Assessment & Plan (01/06/2023 12:09 PM FILTERER): Reviewed calorie restriction based on BMR as previously detailed. Reviewed recommendation/goal of >/= 150 minutes/week moderate-intensity aerobic exercise. Asked to keep detailed food diary for at least 1 week and bring to next visit and/or continue tracking on phone. Assessment & Plan (12/31/2022 12:18 PM FILTERER): Reviewed calorie restriction based on BMR as [...] 03/17/2018 Assessment & Plan (01/06/2023 12:11 PM FILTERER): Labs. Osteoarthritis of cervical spine 01/05/2018 Class [...] Other: Assessment & Plan (01/06/2023 12:11 PM FILTERER): Obesity is improving.. Plan: Diet interventions: as noted.., Regular aerobic exercise program discussed. and Medication as prescribed. Assessment & Plan (12/31/2022 12:19 PM FILTERER): Obesity is worsening.. Plan: Diet interventions: as [...] bariatric surgery. This is her last required MSW visit. She has done well with lifestyle [...] claudication 12/17/2017 Peripheral nerve disease 08/08/2017 Other fci (current) drug therapy 08/30/201 7 Asthma 12/31/2016 Osteoporosis 09/16/2016 Osteoarthritis of [...] for preventive health examination 05/14/2011 09/23/2018 Immunizations Immunization Administration Dates Next Due Influenza, [...] Smoking Tobacco: Former Cigarettes 1 975 - 1998 Smokeless Tobacco: Never Tobacco Cessation:Counseling Given: Not [...] on file Legal Sex Female 1:19 AM FILTERER Gender Identity Female 09/25/2021 5:30 AM CDT [...] 02/14/2025 1:11 PM CDT Plan of Treatment Not on [...] as needed Medical Devices Implanted Type Area Plastics Engineer Device Identifier Shelf Expiration Date Model / Serial / Lot [employer] Baseplate Tibial Knee Cemented Right Fixed Stemmed Persona Size F Tivanium [id number] - [id number] Implanted:Qty: 1 on 03/29/2024 by Don Alonzo MD at [facility] Right: Knee [employer] [id number] 07/12/2033 [id number] / / [id number] [employer] Persona Cruciate Retain Cemented Knee Right 9 Narrow Component [id number] - [id number] Implanted:Qty: 1 on 03/29/2024 by Don Alonzo MD at [facility] Right: Knee [employer] [id number] 10/07/2033 [id number] / / [id number] [employer] Simplex P Full Dose Radiopaque Preblend Cement Bone Tobramycin 6197-9-001 - [id number] Implanted:Qty: 1 on 03/29/2024 by Don Alonzo MD at [facility] Right: Knee [employer] [id number] 05/30/2025 6197-9-001 / / [id number] [employer] Simplex P Full Dose Radiopaque Preblend Cement Bone Tobramycin 6197-9-001 - [id number] Implanted:Qty: 1 on 03/29/2024 by Don Alonzo MD at [facility] Right: Knee [employer] [id number] 06/30/2025 6197-9-001 / / [id number] [employer] Persona 14mm Knee Right 8-11 E-F Insert Articular Vivacit-E [id number] - [id number] Implanted:Qty: 1 on 03/29/2024 by Don Alonzo MD at [facility] Right: Knee [employer] [id number] 04/02/2028 [id number] / / [id number] Procedures Procedure Name Priority Date/Time Associated Diagnosis Comments BASIC METABOLIC PANEL Routine 02/14/2025 1:34 PM CDT Acute on chronic diastolic congestive heart failure (HCC) URIC ACID Routine 02/14/2025 1:34 PM CDT Left foot pain POCUS ASP/INJ MAJOR JOINT Schedule Routine, Read Routine (OP Routine) 12/31/2024 10:24 AM FILTERER Chronic pain of left knee KS ARTHROCENTESIS ASPIR&/INJ MAJOR JT/BURSA W/US Routine 12/31/2024 10:15 AM FILTERER Chronic pain of left knee POCT URINALYSIS, AUTO W/O SCOPE Routine 12/24/2024 11:45 AM FILTERER OAB (overactive bladder) EGFR Routine 04/03/2024 4:36 AM CDT HEMOGLOBIN A1C Routine 2024 4:12 PM CDT Primary osteoarthritis of right knee Type 2 diabetes mellitus without complication, unspecified whether middle or intermediate school principal insulin use (HCC) LIPID PANEL Routine 04/12/2022 3:23 PM CDT Type 2 diabetes mellitus without complication, without long-term current use of insulin (HCC) SCREENING MAMMOGRAM Routine 10/31/2015 3 :29 PM FILTERER SERUM HEPATITIS PANEL Routine 02/17/2013 3:00 PM CDT from Last 3 Months or Most Recently Relevant to Health Maintenance Results * (ABNORMAL) Uric acid (02/14/2025 1:34 PM CDT) Uric Acid 11.0(H) 2.4 - 5.7 mg/dL [facility] Blood 02/14/2025 1:34 PM CDT 02/14/2025 1:44 PM CDT Neymar Garibay MD LAB BLOOD ORDERABLES F inal Result [facility] [address] [place] [address] * (ABNORMAL) Basic metabolic panel (02/14/2025 1:34 PM CDT) Glucose 108 74 - 200 mg/dL [facility] BUN 38(H) 18 - 23 mg/dL [facility] Creatinine 1.5(H) 0.7 - 1.3 mg/dL [facility] BUN/Creat Ratio 25 Ratio [facility] eGFR 34 mL/min/1.7 3m2 [facility] Calcium 8.7(L) 8.8 - 10.2 mg/dL [facility] Sodium 140 135 - 145 mEq/L [facility] Potassium 4.2 3.5 - 5.1 mEq/L [facility] Chloride 109(H) 98 - 107 mEq/L [facility] CO2 21.2(L) 22.0 - 32.0 mEq/L [facility] Anion Gap 11 3 - 12 mEq/L [facility] Blood 02/14/2025 1:34 PM CDT 02/14/2025 1:44 PM CDT us Neymar Garibay MD LAB BLOOD ORDERABLES F inal Result Performing Organization Address [facility]/ZIP Co de Phone Number [facility] [address] [place] [address] * POCUS ASP/INJ MAJOR JOINT (12/31/2024 10:24 AM FILTERER) Narrative [facility]PACS[facility] - 12/31/2024 10:24 AM FILTERER This procedure was performed and interpreted by the provider. Please refer to the provider's procedure/OR operative note for results. us Mir Katz MD POCUS ORDERABLES Final R esult Performing Organization Address [facility] Co de Phone Number [facility] * [place] ARTHROCENTESIS ASPIR&/INJ MAJOR JT/BURSA W/US (12/31/2024 10:15 AM FILTERER) Narrative Mir Katz MD - 12/31/2024 10:15 AM FILTERER Mir Katz MD 12/31/2024 10:57 AM Large [...] UA, AUTO W/O SCOPE (12/24/2024 11:45 AM FILTERER) Color, Urine, POC Yellow Clarity, ur, POC Clear Clear Glucose, ur, POC Negative Negative MG/DL Bilirubin, ur, POC Negative Negative, Small, Moderate, Large Ketones, ur, POC Negative Negative Specific Brusly, POC 1.020 1.003 - 1.030 Blood, ur, POC Trace(A) Negative pH, ur, POC 5.5 5.0 - 8.0 Protein, ur, POC Negative Negative Urobilinogen, Urine, POC 0.2 mg/dL Leukocytes, ur, POC Negative Negative Nitrite, ur, POC Negative Negative Appearance, fld Clear Clear Urine 12/24/2024 11:4 5 AM FILTERER Neymar Garibay MD POINT OF CARE TEST [...] ORDERABLES Final Re sult Performing Organization Address [facility]/ZIP Co de Phone Number [facility] [place] [place] [address] * Hemoglobin A1c (2024 4:12 PM CDT) Pathologist [facility] Hgb A1C 5.4 4.0 - 5.6 % Estimated Average Glucose 108 mg/dL [facility] Comment: The ADA recommends reporting an [...] Alonzo MD LAB BLOOD ORDERABLES Final Result [facility] Department of [address] [place] [address] * (ABNORMAL) Lipid panel (04/12/2022 3:23 PM CDT) Triglyceride 164(H) 0 - 150 mg/dL [facility] Cholesterol 194 0 - 200 mg/dL [facility] HDL 49 >45 mg/dL [facility] LDL-Calculated 112 mg/dL [facility] CHOL/HDL Risk Ratio 4 Ratio [facility] LDL/HDL Risk Ratio 2 Ratio [facility] Blood specimen (specimen) 04/12/2022 3:23 PM CDT 04/12/2022 3:38 PM CDT Neymar Garibay MD LAB BLOOD ORDERABLES F inal Result [facility] [address] [place] [address] * Screening Mammogram (10/31/2015 3:29 PM FILTERER) Anatomical Region Laterality Modality Breast N/A Mammography 10/31/2015 3:29 PM FILTERER Narrative 11/01/2015 2:59 PM FILTERER JYOTSNA EDDY M.D. FINAL REPORT ACC# Date Time Exam [id number] Oct 31, 2015 15:29:00 [facility] [id number] Screening Mamm Bilat Technologist(s): Gisela Block; ; EXAMINATION: Mammogram Technique: Bilateral Full-Field Digital Screening Mammogram was performed. Views obtained: bilateral craniocaudal and bilateral mediolateral oblique. Computer Aided Detection was performed with Vigiglobe.3 version 9.3. Mammogram Findings: The present examination has been compared to prior imaging studies performed at [facility] on 03/11/2012, 03/27/2010 and 02/11/2008. There are scattered areas of fibroglandular density. There is no suspicious abnormality in either breast. IMPRESSION: Annual screening mammography is recommended. OVERALL FINAL ASSESSMENT: BI-RADS CATEGORY 1: Negative. Requested By: Dictated By: JYOTSNA EDDY M.D. on Nov 01 2015 2:59P This document has been electronically signed by: JYOTSNA EDDY M.D. on Nov 01 2015 2:59P [id number] Procedure Note Provider, MD Edgar - 03/22/2017 JYOTSNA EDDY M.D. FINAL REPORT ACC# Date Time Exam [id number] Oct 31, 2015 15:29:00 [facility] [id number] Screening Mamm Bilat Technologist(s): Gisela Block; ; EXAMINATION: Mammogram Technique: Bilateral Full-Field Digital Screening Mammogram was performed. Views obtained: bilateral craniocaudal and bilateral mediolateral oblique. Computer Aided Detection was performed with Vigiglobe.3 version 9.3. Mammogram Findings: The present examination has been compared to prior imaging studies performed at [facility] on 03/11/2012, 03/27/2010 and 02/11/2008. There are scattered areas of fibroglandular density. There is no suspicious abnormality in either breast. IMPRESSION: Annual screening mammography is recommended. OVERALL FINAL ASSESSMENT: BI-RADS CATEGORY 1: Negative. Requested By: Dictated By: JYOTSNA EDDY M.D. on Nov 01 2015 2:59P This document has been electronically signed by: JYOTSNA EDDY M.D. on Nov 01 2015 2:59P [id number] us Historical Provider IMJony MAMMO PROCEDURES Natalya l Result * Serum Hepatitis panel (02/17/2013 3:00 PM CDT) HBV surface ag Negative NEG HISTO RICAL RESULTS HCV ab Negative NEG HISTORICAL RESULTS Comment: Interpretive Data If confirmation is required, call Laboratory Customer Service to request sample to be sent to [facility] for Hepatitis C Virus (HCV) RNA Detection and Quantitation by Real-Time Reverse Mid Level Net Developer-PCR (RT-PCR). Current interpretive data was last revised [...] Recently Relevant to Health Maintenance [place] [address] [facility] [place] [id number] MEDICARE [employer] MEDICARE [employer] MEDICARE Advance Directives For more information, please contact: [phone] * Full Code (Latest Code Status on File) Date Activated Date Inactivated Comments 03/29/2024 12:45 PM 04/03/2024 3:06 PM * Full Code Date Activated Date Inactivated Comments 07/03/2018 1:01 PM 07/03/2018 5:06 PM Care Teams Model Making Supervisor Relationship Specialty Start Date End Date Neymar Garibay MD [address] [place] [address] PCP - General 01/31/20 Neymar Garibay MD [address] [place] [address] 01/31/20
--- OUTSIDE RECORDS SUMMARY | 2025-03-24 11:12 | XMS_ITS | Encounter Summary ---
Author Organization [facility] Address [address] [place] [address] Phone Care Team Providers Care Stock Turner Name Role Phone Neymar Garibay MD Primary Care Provider Neymar Garibay MD Unavailable [phone] Encounter Details Date Type Department Care Team (Late st Contact Info) Description 01/13/2023 Orders Only [facility] [address] [place] [address] Eduarda Booker, EBONY [address] [place] [address] Pain in left leg (Primary [...] on file Legal Sex Female 1:19 AM CNA Gender Identity Female 09/25/2021 5:30 AM CDT [...] Primary documented in this encounter Care Teams Stock Turner Relationship Specialty Start Date End Date Neymar Garibay MD [address] [place] [address] PCP - General 01/31/20 Neymar Garibay MD [address] [place] [address] 01/31/20 documented as of this encounter
--- OUTSIDE RECORDS SUMMARY | 2025-03-24 11:13 | XMS_ITS | Encounter Summary ---
Author Organization [facility] Address [address] [place] [address] Phone Care Team Providers Care Field Cashier Name Role Phone Neymar Garibay MD Primary Care Provider Neymar Garibay MD Primary Care Provider Neymar Garibay MD Unavailable [phone] Mamta Gandhi DPT Unavailable [phone] Encounter Details Date Type Department Care Team [...] on file Legal Sex Female 1:19 AM CISCO UNIFIED COMMUNICATIONS ENGINEER Gender Identity Female 09/25/2021 5:30 AM [...] documented as of this encounter Care Teams Field Cashier Relationship Specialty Start Date End Date Neymar Garibay MD [address] [place] [address] PCP - General 03/28/17 01/30/20 Neymar Garibay MD [address] [place] [address] PCP - General 01/31/20 Neymar Garibay MD [address] [place] [address] 01/31/20 Mamta Gandhi DPT [address] [place] [address] Physical Therapist Physical Therapy 12/23/18 12/28/19 documented as of this encounter
--- OUTSIDE RECORDS SUMMARY | 2025-03-24 11:13 | XMS_ITS | Encounter Summary ---
Author Organization [facility] Address [address] [place] [address] Phone Care Team Providers Care Precision Mechanical Instrument Maker Name Role Phone Neymar Garibay MD Primary Care Provider Neymar Garibay MD Primary Care Provider Neymar Garibay MD Unavailable [phone] Mamta Gandhi DPT Unavailable [phone] Encounter Details Date Type Department Care Team [...] on file Legal Sex Female 1:19 AM TRUST AND ESTATES ATTORNEY Gender Identity Female 09/25/2021 5:30 AM [...] documented as of this encounter Care Teams Precision Mechanical Instrument Maker Relationship Specialty Start Date End Date Neymar Garibay MD [address] [place] [address] PCP - General 03/28/17 01/30/20 Neymar Garibay MD [address] [place] [address] PCP - General 01/31/20 Neymar Garibay MD [address] [place] [address] 01/31/20 Mamta Gandhi DPT [address] [place] [address] Physical Therapist Physical Therapy 12/23/18 12/28/19 documented as of this encounter
--- OUTSIDE RECORDS SUMMARY | 2025-03-24 11:13 | XMS_ITS | Encounter Summary ---
Author Organization [facility] Address [address] [place] [address] Phone Care Team Providers Care Service Desk Specialist Name Role Phone Neymar Garibay MD Primary Care Provider Neymar Garibay MD Primary Care Provider Neymar Garibay MD Unavailable [phone] Mamta Gandhi DPT Unavailable [phone] Encounter Details Date Type Department Care Team [...] on file Legal Sex Female 1:19 AM GEARMAN Gender Identity Female 09/25/2021 5:30 AM CDT Sexual Orientation Straight 09/25/2021 5: 30 AM CDT documented as of this encounter Plan of Treatment Not on file documented as of this encounter Procedures Procedure Name Priority Date/Time Associated Diagnosis Comments VASCULAR LABORATORY REPORT 10/29/2017 8:58 PM GEARMAN documented in this encounter Results * VASCULAR LABORATORY REPORT (10/29/2017 8:58 PM GEARMAN) Anatomical Region Laterality Modality Ultrasound us Provider Scanning CV VASCULAR PROCEDURES Final R esult documented in this encounter Visit Diagnoses Not on filedocumented in this encounter Additional Health Concerns Infection Onset Date Last Indicated Resolved Time 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
--- OUTSIDE RECORDS SUMMARY | 2025-03-24 11:13 | XMS_ITS | Clinical Summary ---
Author Organization [facility] Address [address] [place] [address] Care Team Providers Care Tool Design Engineer Name Role Phone Neymar Garibay MD Primary Care Provider Source Comments [facility],non-ssm rehab Affiliates and Associated Physician Practices is amultiple site organization consisting of ambulatory clinics and hospital sitesin [place], [place], [place]. This disclosure is being madepursuant to the Care Everywhere program and may not contain all information available regarding this patient. Last updated 18.[facility] Social History Tobacco Use Types Packs/Day Years Used Date Smoking Tobacco: Never Assessed Comments Unknown Sex and Gender Information Value Date Recorded Sex Assigned at Not on file Legal Sex Female 2:24 PM MANAGER OF APPLICATIONS DEVELOPMENT Gender Identity Not on file Sexual Orientation [...] SCREENING 1950 LIPID TESTING 1950 MAMMOGRAM 1950 HEPATITIS C SCREENING 03/18/1969 DTAP/TDAP/TD VACCINES (1 - Tdap) 1970 PNEUMOCOCCAL VACCINE 50+ (1 of 1 - PCV) 2001 ZOSTER VACCINE (1 of 2) 2001 COVID-19 VACCINE (1 - 2023-2 5 season) 2024 DEPRESSION SCREENING 12/01/2024 INFLUENZA VACCINE (Season Ended) 2025 Respiratory Syncytial Virus (RSV) Vaccine Pt: or [...] to complete this topic MENINGOCOCCAL (Group B) VACC INE SHARED DECISION-MAKING Aged Out No longer eligibl e based on patient's age to complete this topic MENINGOCOCCAL GROUPS A/C/Y/W VACCINE Aged Out No longer eligible b ased on patient's age to complete this topic Insurance MEDICARE [facility] Care Teams Tool Design Engineer Relationship Specialty Start Date End Date Neymar Garibay MD [address] [facility], [address] PCP - General Internal Medicine 11/08/16
== END 2025-03-24 10:04 | disposition home or self-care (01) ==
PROVIDERS: PCP Internal Medicine; Visit Provider Nurse Practitioner Family
DX: M79.89 Other specified soft tissue disorders (principal)
CPT/HCPCS: 93970

== ENCOUNTER 2025-05-03 16:26 | Inpatient (IN) | payer MEDICARE, OTHER, SELFPAY ==
[2025-05-03] VITALS (7 sets, daily range): BP systolic 95–135; BP diastolic 49–106; PULSE 87–112; RESP 18–22; TEMP 36.7–38.4; O2SAT 94–96; BMI 38.7
--- NOTE | ~2025-05-03 | CT_ITS ---
CT abdomen pelvis wo con Ordering provider: Robyn Lundberg PA-C History: 75 years Female with . fever . Comparison: None. Technique: CT abdomen and pelvis without IV and without oral contrast. Automated exposure control and iterative reconstruction technique were employed. The dose-length product was 1539.33 mGy-cm. Findings: VISUALIZED LOWER CHEST: Dependent atelectatic changes. UPPER ABDOMINAL ORGANS: Liver: Normal. Gallbladder: Normal. Spleen: Normal. Stomach/duodenum: Normal. Pancreas: Normal. Adrenals: Normal. Kidneys: Normal. PELVIC ORGANS: The bladder is normal. BOWEL AND MESENTERY: Colon: No evidence of diverticulitis. Normal appendix. Small Bowel: Normal. No obstruction. Peritoneum/mesentery: No free air or free fluid. No mesenteric lymphadenopathy. RETROPERITONEUM: Mild atheromatous disease of the abdominal aorta. No retroperitoneal lymphadenopat hy. MUSCULOSKELETAL: Superficial soft tissues: Anterior abdominal wall hernia with small bowel content. No obstruction see n. Bilateral inguinal lymph nodes with the largest measuring 2.3 cm on the left side. right fat-conta ining inguinal hernia. Otherwise, The superficial soft tissues are normal. Bones: Age appropriate degenerative changes of the spine. Bilateral hip severe osteoarthritic changes . Bilateral sacroiliacs. Levoscoliosis. Pubic symphysitis. Atrophic psoas muscles. IMPRESSION: 1. No evidence of appendicitis, diverticulitis or intestinal obstruction. 2. Anterior abdominal wall with bowel content. No obstruction or incarceration seen. Right inguinal fat containing hernia. 3. Bilateral inguinal lymphadenopathy larger on the left side. Clinical correlation advised. Reviewed, dictated and finalized at location A. IMPRESSION: 1. No evidence of appendicitis, diverticulitis or intestinal obstruction. 2. Anterior abdominal wall with bowel content. No obstruction or incarceration seen. Right inguinal fat containing hernia. 3. Bilateral inguinal lymphadenopathy larger on the left side. Clinical correl ation advised.
--- NOTE | ~2025-05-03 | US_ITS ---
LEFT LOWER EXTREMITY VENOUS ULTRASOUND Ordering provider: Robyn Lundberg PA-C History: . swelling, redness, pain . Comparison: None. FINDINGS: --COMMON FEMORAL: Patent and free of thrombus. Normal compressibility, phasic flow and augmentation. --PROXIMAL SUPERFICIAL FEMORAL: Patent and free of thrombus. Normal compressibility, phasic flow and augmentation. --DISTAL SUPERFICIAL FEMORAL: Patent and free of thrombus. Normal compressibility, phasic flow and au gmentation. --POPLITEAL: Patent and free of thrombus. Normal compressibility, phasic flow and augmentation. --POSTERIOR TIBIAL: Patent and free of thrombus. Normal compressibility, phasic flow and augmentation . IMPRESSION: Negative left lower extremity venous US. No deep vein thrombosis. Reviewed, dictated and finalized at location A.
--- NOTE | ~2025-05-03 | XR_ITS ---
XR chest 1V portable Ordering provider: Robyn Lundberg PA-C History: 75 years Female with . fever . Comparison: January 02, 2025 FINDINGS: MEDIASTINUM: The cardiac silhouette is moderately enlarged. Congestive zhane. LUNGS: No effusions or pneumothorax. Bilateral interstitial thickening suggestive of edema versus pne umonitis. OTHER: No free air under the diaphragm. Dextroscoliosis. Degenerative spine. IMPRESSION: Cardiomegaly with cardiac decompensation and pulmonary edema. Superimposed pneumonitis cannot be excl uded. Reviewed, dictated and finalized at location A. IMPRESSION: Cardiomegaly with cardiac decompensation and pulmonary edema. Superimposed pneu monitis cannot be excluded.
--- NOTE | ~2025-05-03 | XR_ITS ---
Left foot Technique: AP, oblique, and lateral views were obtained. Clinical History: Plantar foot wound Findings: No acute fracture or dislocation is seen. There is chronic postoperative change of the firs t metatarsal. Osseous alignment is anatomic. Joint spaces are preserved without erosive or degenerati ve change. Soft tissues are unremarkable. Impression: No radiographic evidence for osteomyelitis. No radiopaque foreign body. Chronic postoperative change of the first metatarsal. Reviewed, dictated and finalized at location M. Impression: No radiographic evidence for osteomyelitis. No radiopaque foreign body. Chronic postoperative change of the first metatarsal.
[2025-05-03 16:52] LABS: Basophils Percent Auto 0.2 % (0.2-1.2); Eosinophils Percent Auto 0.2 % (0-4.4); Hematocrit 31.2 % (37.0-47.0); Hemoglobin 9.9 g/dL (12.0-15.0); Immature Granulocyte Absolute 0.07 K/mm3 (0.00-0.031); Immature Granulocyte Percent A 0.4 % (0-0.5); Lymphocytes Absolute Auto 0.42 K/mm3 (0.9-3.2); Lymphocytes Percent Auto 2.6 % (18.3-44.2); Mean Corpuscular HGB Conc 31.7 g/dl (32-36); Mean Corpuscular Hemoglobin 29.5 pg (26-34); Mean Corpuscular Volume 92.9 fl (80-100); Mean Platelet Volume 9.2 fl (7.4-10.4); Monocytes Absolute Auto 0.5 K/mm3 (0.1-0.6); Monocytes Percent Auto 2.9 % (2.6-8.5); Neutrophils Absolute Auto 15.4 K/mm3 (1.3-6.7); Neutrophils Percent Auto 93.7 % (45.5-73.1); Platelet Count Result 252 k/mm3 (150-375); Red Blood Count 3.36 M/mm3 (4.2-5.4); Red Cell Distribution Width 13.9 % (11.5-14.5); White Blood Count 16.4 K/mm3 (4.5-10.0)
--- NOTE | 2025-05-03 16:52 | ED.LOWEXIN ---
HPI - Extremity Injury (Lower) General Chief Complaint: Extremity Injury, Lower <Robyn Lundberg PA-C - Last Filed: 05/04/25 17:17> Stated Complaint: LLE pain <KEVEN Gayle Last Filed: 05/04/25 17:17> Time Seen by Provider: 05/03/25 16:37 <Robyn Lundberg PA-C - Last Filed: 05/04/25 17:17> Source: patient <KEVEN Gayle Last Filed: 05/04/25 17:17> Mode of arrival: EMS <KEVEN Gayle Last Filed: 05/04/25 17:17> Limitations: no limitations <KEVEN Gayle Last Filed: 05/04/25 17:17> History of Present Illness HPI Narrative: This is a 75 year old female that presents to the ER for generalized weakness/feeling ill. Ongoing since yesterday. Reports today she developed fevers, dysuria, confusion, flank pain, redness to the left lower extremity. Denies vomiting, diarrhea, cough, congestion. <KEVEN Gayle Last Filed: 05/04/25 17:17> Related Data Home Medications: Home Medications ?Medication ?Instructions ?Recorded ?Confirmed ?Last Taken ?Type albuterol 90 mcg/actuation aerosol 90 mcg inhalation Q4-6H PRN 01/03/25 05/04/25 Unknown History inhaler shortness of breath lisinopril 20 1 tablet PO DAILY 01/03/25 05/04/25 05/03/25 History mg-hydrochlorothiazide 25 mg tablet omeprazole 40 mg capsule,delayed 40 mg PO DAILY 01/03/25 05/04/25 05/03/25 History release pravastatin 40 mg tablet 40 mg PO DAILY 01/03/25 05/04/25 05/03/25 History sertraline 200 mg capsule 200 mg PO DAILY 01/03/25 05/04/25 05/03/25 History tramadol 100 mg tablet 100 mg PO Q6H PRN pain 01/03/25 05/04/25 05/03/25 History oxybutynin chloride 5 mg tablet 5 mg PO DAILY 05/04/25 05/04/2525 History tirzepatide (weight loss) 5 mg/0.5 5 mg subcut WEEKLY 05/04/25 05/04/25 04/26/25 History mL subcutaneous pen injector (Zepbound) <Robyn Lundberg PA-C - Last Filed: 05/04/25 17:17> Allergies/Adverse Reactions: Allergies Allergy/AdvReac Type Severity Reaction Status Date / Time clindamycin Allergy Rash Verified 05/04/25 00:18 metformin Allergy Diarrhea Verified 05/04/25 00:18 Penicillins Allergy Rash Verified 05/04/25 00:18 <Robyn Lundberg PA-C - Last Filed: 05/04/25 17:17> Review of Systems Review of Systems: All systems reviewed & are unremarkable except as noted in HPI and below <Robyn Lundberg PA-C - Last Filed: 05/04/25 17:17> FOR[facility]LY [facility] Past Medical History Medical History: Medical History (Updated 05/04/25 @ 17:14 by Robyn Lundberg PA-C) Hypertension Chronic kidney disease, stage 3 Chronic anemia Obesity (BMI 30-39.9) Obstructive sleep apnea on CPAP Peripheral neuropathy Pre-diabetes Overactive bladder GERD with esophagitis Early cataracts, bilateral Umbilical hernia Spinal stenosis, lumbar region with neurogenic claudication <Robyn Lundberg PA-C - Last Filed: 05/04/25 17:17> Surgical History Surgical History: Surgical History History of esophagogastroduodenoscopy (EGD) History of tubal ligation Status post foot joint surgery (~2014) Patient reports multiple foot surgeries including bunionectomy and excision of the base of the 2nd metatarsal, multiple neuroma resections History of laminectomy <Robyn Lunbderg PA-C - Last Filed: 05/04/25 17:17> Family History Family History: Family History Grandparent Skin cancer Grandparent Arthritis COPD (chronic obstructive pulmonary disease) Emphysema lung Father Arthritis Heart disease Hypertension Sleep apnea COPD (chronic obstructive pulmonary disease) Emphysema lung Mother Hypertension COPD (chronic obstructive pulmonary disease) Emphysema lung <Robyn Lundberg PA-C - Last Filed: 05/04/25 17:17> Social History Social History: Social History (Updated 05/04/25 @ 02:14 by Cassi Stein PA-C) Social History: Code status: Full code Surrogate decision maker: Geraldine Beltran (sister) she states that her son and daughter would not know what to do in the case of an emergency. Smoking packs per day: 0.5 Smoking cigarettes per day: 10.0 Years smoked: 35 Smoking pack-years: 17.50 Smoking status: Former smoker Tobacco type: cigarettes Second hand tobacco smoke exposure: No Smoking end date: 01/07/02 Additional smoking assessment comments: Pt reports smoking cessation aprx 50 years ago Alcohol intake: former Substance use: never Substance use type: does not use Do You Feel Safe in your Home?: Yes Lack of Transportation: No Lack of Food: Never True Current Housing: I Have Housing Concerned About Future Housing: No Difficulty Paying Gas/Electric Bills: No Difficulty Paying for Meds: No Currently Unemployed: No Education: Bachelor's Degree Difficulty w/ Childcare or Family Care: No Additional living arrangements comments: Lives in [place]. 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 Spiritual care concerns: No <Robyn Lundberg PA-C - Last Filed: 05/04/25 17:17> Exam Narrative: GENERAL: Ill-appearing, well-nourished, and in no acute distress. HEAD: Normocephalic, atraumatic. EYES: EOMI. ENT: Nares clear, no rhinorrhea or epistaxis. Mucous membranes dry. Oropharynx without tonsillar hypertrophy exudate or other lesions. NECK: Supple. No adenopathy or masses. Normal ROM CHEST: Clear to auscultation. No respiratory distress. No wheezes rales or rhonchi HEART: Regular rate and rhythm. No murmur heard. Normal peripheral pulses. ABDOMEN: Soft, nontender, nondistended, normal active bowel sounds. Large umbilical hernia EXTREMITIES: Normal range of motion. Edema with overlying erythema to the left lower leg. Normal DP pulses SKIN: Warm, dry, no rash. NEURO: No focal deficits. Alert and oriented x2. CN I-XII grossly intact PSYCH: Normal mood and affect <Robyn Lundberg PA-C - Last Filed: 05/04/25 17:17> Course Course Emergency Course: Patient updated on her workup and need for admission. Care taken over by Marivel Lino PA-C at shift change pending CT scan read <Robyn Lundberg PA-C - Last Filed: 05/04/25 17:17> ELDERLY COMPANION/PA Physician Supervision For this patient encounter, I reviewed the ELDERLY COMPANION or PA documentation, treatment plan, and medical decision making; and I had [id number] time with this patient. <Kendell Lauren MD - Last Filed: 05/04/25 11:59> Vital Signs Vital signs: Vital Signs Temperature 101.2 F H 05/03/25 16:21 Pulse Rate 109 H 05/03/25 16:21 Respiratory Rate 19 05/03/25 16:21 Blood Pressure 135/54 L 05/03/25 16:21 Pulse Oximetry 96 05/03/25 16:21 Oxygen Delivery Room Air 05/03/25 16:21 Temperature 97.3 F L 05/04/25 12:00 Pulse Rate 75 05/04/25 16:00 Respiratory Rate 18 05/04/25 12:00 Blood Pressure 116/53 L 05/04/25 12:00 Pulse Oximetry 98 05/04/25 12:00 Oxygen Delivery Room Air 05/04/25 08:00 <Robyn Lundberg PA-C - Last Filed: 05/04/25 17:17> Vital Signs Temperature 101.2 F H 05/03/25 16:21 Pulse Rate 109 H 05/03/25 16:21 Respiratory Rate 19 05/03/25 16:21 Blood Pressure 135/54 L 05/03/25 16:21 Pulse Oximetry 96 05/03/25 16:21 Oxygen Delivery Room Air 05/03/25 16:21 Temperature 97.3 F L 05/04/25 12:00 Pulse Rate 75 05/04/25 16:00 Respiratory Rate 18 05/04/25 12:00 Blood Pressure 116/53 L 05/04/25 12:00 Pulse Oximetry 98 05/04/25 12:00 Oxygen Delivery Room Air 05/04/25 08:00 <Marivel Lino PA-C - Last Filed: 05/03/25 22:22> Vital Signs Temperature 101.2 F H 06/03/25 16:21 Pulse Rate 109 H 05/03/25 16:21 Respiratory Rate 19 05/03/25 16:21 Blood Pressure 135/54 L 05/03/25 16:21 Pulse Oximetry 96 05/03/25 16:21 Oxygen Delivery Room Air 05/03/25 16:21 Temperature 97.3 F L 05/04/25 12:00 Pulse Rate 75 05/04/25 16:00 Respiratory Rate 18 05/04/25 12:00 Blood Pressure 116/53 L 05/04/25 12:00 Pulse Oximetry 98 05/04/25 12:00 Oxygen Delivery Room Air 05/04/25 08:00 <Kendell Lauren MD - Last Filed: 05/04/25 11:59> MDM - Extremity Injury (Lower) MDM Narrative Medical decision making narrative: Patient presents the emergency department for generalized weakness, fevers, confusion. Redness and swelling noted to the left lower extremity. Febrile and tachycardic upon arrival. Blood pressure is stable. Oxygen saturation is normal on room air. CBC with leukocytosis to 16.4. Hemoglobin appears stable. Metabolic panel with evidence of acute kidney injury and dehydration. Urine without evidence of infection. Left lower extremity venous Doppler without evidence of DVT. Chest x-ray shows cardiomegaly, pulmonary edema. Patient cautiously hydrated to avoid fluid overload, started on IV antibiotics for cellulitis. Care taken over by Marivel Lino at shift change pending CT scan results to rule out any intra-abdominal infection RG - Care was signed out to myself at shift change from Robyn Lundberg PA-C, pending CT scan of abdomen/pelvis and subsequent admission to hospitalist team for sepsis, LLE cellulitis, DIMITRIS. CT abdomen pelvis resulted essentially unremarkable. Does show abdominal wall hernia with bowel contents, but no evidence of incarceration or obstruction. Discussed case with Cassi PERALTA hospitalist, concerned about slightly downtrending BPs. Had been 120s-130s systolic, now more consistently in the 90s systolic. MAPSs still above 70. Recommended to give additional 500 fluid bolus, repeat BMP and lactic. Monitor blood pressure. Will call back. Pressures have normalized with additional fluids, consistently in the 110 systolic. Lactic acid within normal range at 0.8. Repeat BMP with creatinine down to 1.85. Potassium still elevated at 5.4. Re-discussed case with Cassi PERALTA hospitalist, recommended to give hyperK Tx, accepted admission to med/tele. Patient in agreement with plan and need for admission. <Robyn Lundberg PA-C - Last Filed: 05/04/25 17:17> RG - Care was signed out to myself at shift change from Robyn Lundberg PA-C, pending CT scan of abdomen/pelvis and subsequent admission to hospitalist team for sepsis, LLE cellulitis, DIMITRIS. CT abdomen pelvis resulted essentially unremarkable. Does show abdominal wall hernia with bowel contents, but no evidence of incarceration or obstruction. Discussed case with Cassi PERALTA hospitalist, concerned about slightly downtrending BPs. Had been 120s-130s systolic, now more consistently in the 90s systolic. MAPSs still above 70. Recommended to give additional 500 fluid bolus, repeat BMP and lactic. Monitor blood pressure. Will call back. Pressures have normalized with additional fluids, consistently in the 110 systolic. Lactic acid within normal range at 0.8. Repeat BMP with creatinine down to 1.85. Potassium still elevated at 5.4. Re-discussed case with Cassi PERALTA hospitalist, recommended to give hyperK Tx, accepted admission to med/tele. Patient in agreement with plan and need for admission. <Marivel Lino PA-C - Last Filed: 05/03/25 22:22> Medical Records Attestation: I reviewed the patient's medical records. <Marivel Lino PA-C - Last Filed: 05/03/25 22:22> Lab Data Attestation: I reviewed the patient's lab results. <Marivel Lino PA-C - Last Filed: 05/03/25 22:22> Result diagrams: 05/04/25 05:37 05/04/25 05:37 <Robyn Lundberg PA-C - Last Filed: 05/04/25 17:17> Labs: Lab Results 05/03/25 05/03/25 05/03/25 Range/Units 16:44 16:45 17:09 WBC 16.4 H (4.5-10.0) K/mm3 RBC 3.36 L (4.2-5.4) M/mm3 Hgb 9.9 L (12.0-15.0) g/dL Hct 31.2 L (37.0-47.0) % MCV 92.9 (80-100) fl MCH 29.5 (26-34) pg MCHC 31.7 L (32-36) g/dl RDW 13.9 (11.5-14.5) % Plt Count 252 (150-375) k/mm3 MPV 9.2 (7.4-10.4) fl Immature Gran % (Auto) 0.4 (0-0.5) % Neut % (Auto) 93.7 H (45.5-73.1) % Lymph % (Auto) 2.6 L (18.3-44.2) % [place] % (Auto) 2.9 (2.6-8.5) % Eos % (Auto) 0.2 (0-4.4) % Baso % (Auto) 0.2 (0.2-1.2) % Lymph # (Auto) 0.42 L (0.9-3.2) K/mm3 [place] # (Auto) 0.5 (0.1-0.6) K/mm3 Eos # (Auto) 0.0 (0-0.3) K/mm3 Baso # (Auto) 0.0 (0.0-0.1) K/mm3 Abs Immat Gran (auto) 0.07 H (0.00-0.031) K/mm3 Absolute Neuts (auto) 15.4 H (1.3-6.7) K/mm3 Absolute Nucleated RBC 0.000 (0.0-0.012) K/mm3 Nucleated RBC % 0.0 (0.0-0.2) % PT 14.8 H (11.1-14.7) Seconds INR 1.1 APTT 27.1 (22.3-36.8) Seconds Sodium 137 (137-145) mmol/L Potassium 5.5 H (3.4-5.0) mmol/L Chloride 107 (98-107) mmol/L Carbon Dioxide 21 L (22-30) mmol/L Anion Gap 9 (4-12) mmol/L BUN 70 H D (7-17) mg/dL Creatinine 1.94 H (0.7-1.0) mg/dL Estim Creat Clear Calc 29 ml/min Estimated GFR 25 L (59 - ) Glucose 123 H (65-110) mg/dL POC Capillary Glucose (65-105) mg/dl Lactic Acid 0.7 (0.7-2.0) mmol/L Calcium 9.6 (8.4-10.2) mg/dL Total Bilirubin 0.5 (0.2-1.3) mg/dL AST 32 (14-36) U/L ALT 28 (6-35) U/L Alkaline Phosphatase 93 (38-126) U/L C-Reactive Protein 1.1 (<1.0) mg/dL NT-Pro-B Natriuret Pep 403 H (19.9-100) pg/mL Total Protein 8.5 H (6.3-8.2) g/dL Albumin 4.7 (3.5-5.1) g/dL Lipase 213 (23-300) U/L Urine Color Yellow (Yellow) Urine Appearance Clear (Clear) Urine pH 5.5 (5.0-9.0) Ur Specific [place] 1.013 (1.001-1.035) Urine Protein Negative (Negative) mg/dL Urine Glucose (UA) Negative (Negative) mg/dL Urine Ketones Negative (Negative) mg/dL Ur Blood (Man) Negative (Negative) Urine Nitrate Negative (Negative) Urine Bilirubin Negative (Negative) Urine Urobilinogen 0.2 (<2.0) mg/dL Leukocyte Esterase Rfl Negative (Negative) SAGE/UL Influenza A (RT-PCR) (Negative) Influenza B (RT-PCR) (Negative) RSV (RT-PCR) (Negative) SARS-CoV-2 RNA (RT-PCR) (Negative) 05/03/25 05/03/25 05/03/25 Range/Units 17:43 21:11 22:27 WBC (4.5-10.0) K/mm3 RBC (4.2-5.4) M/mm3 Hgb (12.0-15.0) g/dL Hct (37.0-47.0) % MCV (80-100) fl MCH (26-34) pg MCHC (32-36) g/dl RDW (11.5-14.5) % Plt Count (150-375) k/mm3 MPV (7.4-10.4) fl Immature Gran % (Auto) (0-0.5) % Neut % (Auto) (45.5-73.1) % Lymph % (Auto) (18.3-44.2) % [place] % (Auto) (2.6-8.5) % Eos % (Auto) (0-4.4) % Baso % (Auto) (0.2-1.2) % Lymph # (Auto) (0.9-3.2) K/mm3 [place] # (Auto) (0.1-0.6) K/mm3 Eos # (Auto) (0-0.3) K/mm3 Baso # (Auto) (0.0-0.1) K/mm3 Abs Immat Gran (auto) (0.00-0.031) K/mm3 Absolute Neuts (auto) (1.3-6.7) K/mm3 Absolute Nucleated RBC (0.0-0.012) K/mm3 Nucleated RBC % (0.0-0.2) % PT (11.1-14.7) Seconds INR APTT (22.3-36.8) Seconds Sodium 139 (137-145) mmol/L Potassium 5.4 H (3.4-5.0) mmol/L Chloride 109 H (98-107) mmol/L Carbon Dioxide 20 L (22-30) mmol/L Anion Gap 10 (4-12) mmol/L BUN 66 H (7-17) mg/dL Creatinine 1.85 H (0.7-1.0) mg/dL Estim Creat Clear Calc 30 ml/min Estimated GFR 27 L (59 - ) Glucose 117 H (65-110) mg/dL POC Capillary Glucose 113 H (65-105) mg/dl Lactic Acid 0.8 (0.7-2.0) mmol/L Calcium 8.9 (8.4-10.2) mg/dL Total Bilirubin (0.2-1.3) mg/dL AST (14-36) U/L ALT (6-35) U/L Alkaline Phosphatase (38-126) U/L C-Reactive Protein (<1.0) mg/dL NT-Pro-B Natriuret Pep (19.9-100) pg/mL Total Protein (6.3-8.2) g/dL Albumin (3.5-5.1) g/dL Lipase (23-300) U/L Urine Color (Yellow) Urine Appearance (Clear) Urine pH (5.0-9.0) Ur Specific [place] (1.001-1.035) Urine Protein (Negative) mg/dL Urine Glucose (UA) (Negative) mg/dL Urine Ketones (Negative) mg/dL Ur Blood (Man) (Negative) Urine Nitrate (Negative) Urine Bilirubin (Negative) Urine Urobilinogen (<2.0) mg/dL Leukocyte Esterase Rfl (Negative) SAGE/UL Influenza A (RT-PCR) Negative (Negative) Influenza B (RT-PCR) Negative (Negative) RSV (RT-PCR) Negative (Negative) SARS-CoV-2 RNA (RT-PCR) Negative (Negative) 05/03/25 05/04/25 05/04/25 Range/Units 23:10 00:19 01:12 WBC (4.5-10.0) K/mm3 RBC (4.2-5.4) M/mm3 Hgb (12.0-15.0) g/dL Hct (37.0-47.0) % MCV (80-100) fl MCH (26-34) pg MCHC (32-36) g/dl RDW (11.5-14.5) % Plt Count (150-375) k/mm3 MPV (7.4-10.4) fl Immature Gran % (Auto) (0-0.5) % Neut % (Auto) (45.5-73.1) % Lymph % (Auto) (18.3-44.2) % [place] % (Auto) (2.6-8.5) % Eos % (Auto) (0-4.4) % Baso % (Auto) (0.2-1.2) % Lymph # (Auto) (0.9-3.2) K/mm3 [place] # (Auto) (0.1-0.6) K/mm3 Eos # (Auto) (0-0.3) K/mm3 Baso # (Auto) (0.0-0.1) K/mm3 Abs Immat Gran (auto) (0.00-0.031) K/mm3 Absolute Neuts (auto) (1.3-6.7) K/mm3 Absolute Nucleated RBC (0.0-0.012) K/mm3 Nucleated RBC % (0.0-0.2) % PT (11.1-14.7) Seconds INR APTT (22.3-36.8) Seconds Sodium 139 (137-145) mmol/L Potassium 4.6 (3.4-5.0) mmol/L Chloride 110 H (98-107) mmol/L Carbon Dioxide 18 L (22-30) mmol/L Anion Gap 11 (4-12) mmol/L BUN 62 H (7-17) mg/dL Creatinine 1.75 H (0.7-1.0) mg/dL Estim Creat Clear Calc 32 ml/min Estimated GFR 28 L (59 - ) Glucose 137 H (65-110) mg/dL POC Capillary Glucose 140 H 138 H (65-105) mg/dl Lactic Acid (0.7-2.0) mmol/L Calcium 8.7 (8.4-10.2) mg/dL Total Bilirubin (0.2-1.3) mg/dL AST (14-36) U/L ALT (6-35) U/L Alkaline Phosphatase (38-126) U/L C-Reactive Protein (<1.0) mg/dL NT-Pro-B Natriuret Pep (19.9-100) pg/mL Total Protein (6.3-8.2) g/dL Albumin (3.5-5.1) g/dL Lipase (23-300) U/L Urine Color (Yellow) Urine Appearance (Clear) Urine pH (5.0-9.0) Ur Specific [place] (1.001-1.035) Urine Protein (Negative) mg/dL Urine Glucose (UA) (Negative) mg/dL Urine Ketones (Negative) mg/dL Ur Blood (Man) (Negative) Urine Nitrate (Negative) Urine Bilirubin (Negative) Urine Urobilinogen (<2.0) mg/dL Leukocyte Esterase Rfl (Negative) SAGE/UL Influenza A (RT-PCR) (Negative) Influenza B (RT-PCR) (Negative) RSV (RT-PCR) (Negative) SARS-CoV-2 RNA (RT-PCR) (Negative) 05/04/25 05/04/25 05/04/25 Range/Units 01:27 02:21 05:37 WBC 10.3 H (4.5-10.0) K/mm3 RBC 2.87 L (4.2-5.4) M/mm3 Hgb 8.4 L (12.0-15.0) g/dL Hct 27.2 L (37.0-47.0) % MCV 94.8 (80-100) fl MCH 29.3 (26-34) pg MCHC 30.9 L (32-36) g/dl RDW 13.9 (11.5-14.5) % Plt Count 223 (150-375) k/mm3 MPV 9.4 (7.4-10.4) fl Immature Gran % (Auto) (0-0.5) % Neut % (Auto) (45.5-73.1) % Lymph % (Auto) (18.3-44.2) % [place] % (Auto) (2.6-8.5) % Eos % (Auto) (0-4.4) % Baso % (Auto) (0.2-1.2) % Lymph # (Auto) (0.9-3.2) K/mm3 [place] # (Auto) (0.1-0.6) K/mm3 Eos # (Auto) (0-0.3) K/mm3 Baso # (Auto) (0.0-0.1) K/mm3 Abs Immat Gran (auto) (0.00-0.031) K/mm3 Absolute Neuts (auto) (1.3-6.7) K/mm3 Absolute Nucleated RBC (0.0-0.012) K/mm3 Nucleated RBC % (0.0-0.2) % PT (11.1-14.7) Seconds INR APTT (22.3-36.8) Seconds Sodium 139 (137-145) mmol/L Potassium 4.6 (3.4-5.0) mmol/L Chloride 110 H (98-107) mmol/L Carbon Dioxide 19 L (22-30) mmol/L Anion Gap 10 (4-12) mmol/L BUN 62 H (7-17) mg/dL Creatinine 1.72 H (0.7-1.0) mg/dL Estim Creat Clear Calc 32 ml/min Estimated GFR 29 L (59 - ) Glucose 91 (65-110) mg/dL POC Capillary Glucose 131 H 134 H (65-105) mg/dl Lactic Acid (0.7-2.0) mmol/L Calcium 8.8 (8.4-10.2) mg/dL Total Bilirubin (0.2-1.3) mg/dL AST (14-36) U/L ALT (6-35) U/L Alkaline Phosphatase (38-126) U/L C-Reactive Protein (<1.0) mg/dL NT-Pro-B Natriuret Pep (19.9-100) pg/mL Total Protein (6.3-8.2) g/dL Albumin (3.5-5.1) g/dL Lipase (23-300) U/L Urine Color (Yellow) Urine Appearance (Clear) Urine pH (5.0-9.0) Ur Specific [place] (1.001-1.035) Urine Protein (Negative) mg/dL Urine Glucose (UA) (Negative) mg/dL Urine Ketones (Negative) mg/dL Ur Blood (Man) (Negative) Urine Nitrate (Negative) Urine Bilirubin (Negative) Urine Urobilinogen (<2.0) mg/dL Leukocyte Esterase Rfl (Negative) SAGE/UL Influenza A (RT-PCR) (Negative) Influenza B (RT-PCR) (Negative) RSV (RT-PCR) (Negative) SARS-CoV-2 RNA (RT-PCR) (Negative) <Robyn Lundberg PA-C - Last Filed: 05/04/25 17:17> Lab Results 05/03/25 05/03/25 05/03/25 Range/Units 16:44 16:45 17:09 WBC 16.4 H (4.5-10.0) K/mm3 RBC 3.36 L (4.2-5.4) M/mm3 Hgb 9.9 L (12.0-15.0) g/dL Hct 31.2 L (37.0-47.0) % MCV 92.9 (80-100) fl MCH 29.5 (26-34) pg MCHC 31.7 L (32-36) g/dl RDW 13.9 (11.5-14.5) % Plt Count 252 (150-375) k/mm3 MPV 9.2 (7.4-10.4) fl Immature Gran % (Auto) 0.4 (0-0.5) % Neut % (Auto) 93.7 H (45.5-73.1) % Lymph % (Auto) 2.6 L (18.3-44.2) % [place] % (Auto) 2.9 (2.6-8.5) % Eos % (Auto) 0.2 (0-4.4) % Baso % (Auto) 0.2 (0.2-1.2) % Lymph # (Auto) 0.42 L (0.9-3.2) K/mm3 [place] # (Auto) 0.5 (0.1-0.6) K/mm3 Eos # (Auto) 0.0 (0-0.3) K/mm3 Baso # (Auto) 0.0 (0.0-0.1) K/mm3 Abs Immat Gran (auto) 0.07 H (0.00-0.031) K/mm3 Absolute Neuts (auto) 15.4 H (1.3-6.7) K/mm3 Absolute Nucleated RBC 0.000 (0.0-0.012) K/mm3 Nucleated RBC % 0.0 (0.0-0.2) % PT 14.8 H (11.1-14.7) Seconds INR 1.1 APTT 27.1 (22.3-36.8) Seconds Sodium 137 (137-145) mmol/L Potassium 5.5 H (3.4-5.0) mmol/L Chloride 107 (98-107) mmol/L Carbon Dioxide 21 L (22-30) mmol/L Anion Gap 9 (4-12) mmol/L BUN 70 H D (7-17) mg/dL Creatinine 1.94 H (0.7-1.0) mg/dL Estim Creat Clear Calc 29 ml/min Estimated GFR 25 L (59 - ) Glucose 123 H (65-110) mg/dL POC Capillary Glucose (65-105) mg/dl Lactic Acid 0.7 (0.7-2.0) mmol/L Calcium 9.6 (8.4-10.2) mg/dL Total Bilirubin 0.5 (0.2-1.3) mg/dL AST 32 (14-36) U/L ALT 28 (6-35) U/L Alkaline Phosphatase 93 (38-126) U/L C-Reactive Protein 1.1 (<1.0) mg/dL NT-Pro-B Natriuret Pep 403 H (19.9-100) pg/mL Total Protein 8.5 H (6.3-8.2) g/dL Albumin 4.7 (3.5-5.1) g/dL Lipase 213 (23-300) U/L Urine Color Yellow (Yellow) Urine Appearance Clear (Clear) Urine pH 5.5 (5.0-9.0) Ur Specific [place] 1.013 (1.001-1.035) Urine Protein Negative (Negative) mg/dL Urine Glucose (UA) Negative (Negative) mg/dL Urine Ketones Negative (Negative) mg/dL Ur Blood (Man) Negative (Negative) Urine Nitrate Negative (Negative) Urine Bilirubin Negative (Negative) Urine Urobilinogen 0.2 (<2.0) mg/dL Leukocyte Esterase Rfl Negative (Negative) SAGE/UL Influenza A (RT-PCR) (Negative) Influenza B (RT-PCR) (Negative) RSV (RT-PCR) (Negative) SARS-CoV-2 RNA (RT-PCR) (Negative) 05/03/25 05/03/25 05/03/25 Range/Units 17:43 21:11 22:27 WBC (4.5-10.0) K/mm3 RBC (4.2-5.4) M/mm3 Hgb (12.0-15.0) g/dL Hct (37.0-47.0) % MCV (80-100) fl MCH (26-34) pg MCHC (32-36) g/dl RDW (11.5-14.5) % Plt Count (150-375) k/mm3 MPV (7.4-10.4) fl Immature Gran % (Auto) (0-0.5) % Neut % (Auto) (45.5-73.1) % Lymph % (Auto) (18.3-44.2) % [place] % (Auto) (2.6-8.5) % Eos % (Auto) (0-4.4) % Baso % (Auto) (0.2-1.2) % Lymph # (Auto) (0.9-3.2) K/mm3 [place] # (Auto) (0.1-0.6) K/mm3 Eos # (Auto) (0-0.3) K/mm3 Baso # (Auto) (0.0-0.1) K/mm3 Abs Immat Gran (auto) (0.00-0.031) K/mm3 Absolute Neuts (auto) (1.3-6.7) K/mm3 Absolute Nucleated RBC (0.0-0.012) K/mm3 Nucleated RBC % (0.0-0.2) % PT (11.1-14.7) Seconds INR APTT (22.3-36.8) Seconds Sodium 139 (137-145) mmol/L Potassium 5.4 H (3.4-5.0) mmol/L Chloride 109 H (98-107) mmol/L Carbon Dioxide 20 L (22-30) mmol/L Anion Gap 10 (4-12) mmol/L BUN 66 H (7-17) mg/dL Creatinine 1.85 H (0.7-1.0) mg/dL Estim Creat Clear Calc 30 ml/min Estimated GFR 27 L (59 - ) Glucose 117 H (65-110) mg/dL POC Capillary Glucose 113 H (65-105) mg/dl Lactic Acid 0.8 (0.7-2.0) mmol/L Calcium 8.9 (8.4-10.2) mg/dL Total Bilirubin (0.2-1.3) mg/dL AST (14-36) U/L ALT (6-35) U/L Alkaline Phosphatase (38-126) U/L C-Reactive Protein (<1.0) mg/dL NT-Pro-B Natriuret Pep (19.9-100) pg/mL Total Protein (6.3-8.2) g/dL Albumin (3.5-5.1) g/dL Lipase (23-300) U/L Urine Color (Yellow) Urine Appearance (Clear) Urine pH (5.0-9.0) Ur Specific [place] (1.001-1.035) Urine Protein (Negative) mg/dL Urine Glucose (UA) (Negative) mg/dL Urine Ketones (Negative) mg/dL Ur Blood (Man) (Negative) Urine Nitrate (Negative) Urine Bilirubin (Negative) Urine Urobilinogen (<2.0) mg/dL Leukocyte Esterase Rfl (Negative) SAGE/UL Influenza A (RT-PCR) Negative (Negative) Influenza B (RT-PCR) Negative (Negative) RSV (RT-PCR) Negative (Negative) SARS-CoV-2 RNA (RT-PCR) Negative (Negative) 05/03/25 05/04/25 05/04/25 Range/Units 23:10 00:19 01:12 WBC (4.5-10.0) K/mm3 RBC (4.2-5.4) M/mm3 Hgb (12.0-15.0) g/dL Hct (37.0-47.0) % MCV (80-100) fl MCH (26-34) pg MCHC (32-36) g/dl RDW (11.5-14.5) % Plt Count (150-375) k/mm3 MPV (7.4-10.4) fl Immature Gran % (Auto) (0-0.5) % Neut % (Auto) (45.5-73.1) % Lymph % (Auto) (18.3-44.2) % [place] % (Auto) (2.6-8.5) % Eos % (Auto) (0-4.4) % Baso % (Auto) (0.2-1.2) % Lymph # (Auto) (0.9-3.2) K/mm3 [place] # (Auto) (0.1-0.6) K/mm3 Eos # (Auto) (0-0.3) K/mm3 Baso # (Auto) (0.0-0.1) K/mm3 Abs Immat Gran (auto) (0.00-0.031) K/mm3 Absolute Neuts (auto) (1.3-6.7) K/mm3 Absolute Nucleated RBC (0.0-0.012) K/mm3 Nucleated RBC % (0.0-0.2) % PT (11.1-14.7) Seconds INR APTT (22.3-36.8) Seconds Sodium 139 (137-145) mmol/L Potassium 4.6 (3.4-5.0) mmol/L Chloride 110 H (98-107) mmol/L Carbon Dioxide 18 L (22-30) mmol/L Anion Gap 11 (4-12) mmol/L BUN 62 H (7-17) mg/dL Creatinine 1.75 H (0.7-1.0) mg/dL Estim Creat Clear Calc 32 ml/min Estimated GFR 28 L (59 - ) Glucose 137 H (65-110) mg/dL POC Capillary Glucose 140 H 138 H (65-105) mg/dl Lactic Acid (0.7-2.0) mmol/L Calcium 8.7 (8.4-10.2) mg/dL Total Bilirubin (0.2-1.3) mg/dL AST (14-36) U/L ALT (6-35) U/L Alkaline Phosphatase (38-126) U/L C-Reactive Protein (<1.0) mg/dL NT-Pro-B Natriuret Pep (19.9-100) pg/mL Total Protein (6.3-8.2) g/dL Albumin (3.5-5.1) g/dL Lipase (23-300) U/L Urine Color (Yellow) Urine Appearance (Clear) Urine pH (5.0-9.0) Ur Specific [place] (1.001-1.035) Urine Protein (Negative) mg/dL Urine Glucose (UA) (Negative) mg/dL Urine Ketones (Negative) mg/dL Ur Blood (Man) (Negative) Urine Nitrate (Negative) Urine Bilirubin (Negative) Urine Urobilinogen (<2.0) mg/dL Leukocyte Esterase Rfl (Negative) SAGE/UL Influenza A (RT-PCR) (Negative) Influenza B (RT-PCR) (Negative) RSV (RT-PCR) (Negative) SARS-CoV-2 RNA (RT-PCR) (Negative) 05/04/25 05/04/25 05/04/25 Range/Units 01:27 02:21 05:37 WBC 10.3 H (4.5-10.0) K/mm3 RBC 2.87 L (4.2-5.4) M/mm3 Hgb 8.4 L (12.0-15.0) g/dL Hct 27.2 L (37.0-47.0) % MCV 94.8 (80-100) fl MCH 29.3 (26-34) pg MCHC 30.9 L (32-36) g/dl RDW 13.9 (11.5-14.5) % Plt Count 223 (150-375) k/mm3 MPV 9.4 (7.4-10.4) fl Immature Gran % (Auto) (0-0.5) % Neut % (Auto) (45.5-73.1) % Lymph % (Auto) (18.3-44.2) % [place] % (Auto) (2.6-8.5) % Eos % (Auto) (0-4.4) % Baso % (Auto) (0.2-1.2) % Lymph # (Auto) (0.9-3.2) K/mm3 [place] # (Auto) (0.1-0.6) K/mm3 Eos # (Auto) (0-0.3) K/mm3 Baso # (Auto) (0.0-0.1) K/mm3 Abs Immat Gran (auto) (0.00-0.031) K/mm3 Absolute Neuts (auto) (1.3-6.7) K/mm3 Absolute Nucleated RBC (0.0-0.012) K/mm3 Nucleated RBC % (0.0-0.2) % PT (11.1-14.7) Seconds INR APTT (22.3-36.8) Seconds Sodium 139 (137-145) mmol/L Potassium 4.6 (3.4-5.0) mmol/L Chloride 110 H (98-107) mmol/L Carbon Dioxide 19 L (22-30) mmol/L Anion Gap 10 (4-12) mmol/L BUN 62 H (7-17) mg/dL Creatinine 1.72 H (0.7-1.0) mg/dL Estim Creat Clear Calc 32 ml/min Estimated GFR 29 L (59 - ) Glucose 91 (65-110) mg/dL POC Capillary Glucose 131 H 134 H (65-105) mg/dl Lactic Acid (0.7-2.0) mmol/L Calcium 8.8 (8.4-10.2) mg/dL Total Bilirubin (0.2-1.3) mg/dL AST (14-36) U/L ALT (6-35) U/L Alkaline Phosphatase (38-126) U/L C-Reactive Protein (<1.0) mg/dL NT-Pro-B Natriuret Pep (19.9-100) pg/mL Total Protein (6.3-8.2) g/dL Albumin (3.5-5.1) g/dL Lipase (23-300) U/L Urine Color (Yellow) Urine Appearance (Clear) Urine pH (5.0-9.0) Ur Specific [place] (1.001-1.035) Urine Protein (Negative) mg/dL Urine Glucose (UA) (Negative) mg/dL Urine Ketones (Negative) mg/dL Ur Blood (Man) (Negative) Urine Nitrate (Negative) Urine Bilirubin (Negative) Urine Urobilinogen (<2.0) mg/dL Leukocyte Esterase Rfl (Negative) SAGE/UL Influenza A (RT-PCR) (Negative) Influenza B (RT-PCR) (Negative) RSV (RT-PCR) (Negative) SARS-CoV-2 RNA (RT-PCR) (Negative) <Marivel Lino PA-C - Last Filed: 05/03/25 22:22> Lab Results 05/03/25 05/03/25 05/03/25 Range/Units 16:44 16:45 17:09 WBC 16.4 H (4.5-10.0) K/mm3 RBC 3.36 L (4.2-5.4) M/mm3 Hgb 9.9 L (12.0-15.0) g/dL Hct 31.2 L (37.0-47.0) % MCV 92.9 (80-100) fl MCH 29.5 (26-34) pg MCHC 31.7 L (32-36) g/dl RDW 13.9 (11.5-14.5) % Plt Count 252 (150-375) k/mm3 MPV 9.2 (7.4-10.4) fl Immature Gran % (Auto) 0.4 (0-0.5) % Neut % (Auto) 93.7 H (45.5-73.1) % Lymph % (Auto) 2.6 L (18.3-44.2) % [place] % (Auto) 2.9 (2.6-8.5) % Eos % (Auto) 0.2 (0-4.4) % Baso % (Auto) 0.2 (0.2-1.2) % Lymph # (Auto) 0.42 L (0.9-3.2) K/mm3 [place] # (Auto) 0.5 (0.1-0.6) K/mm3 Eos # (Auto) 0.0 (0-0.3) K/mm3 Baso # (Auto) 0.0 (0.0-0.1) K/mm3 Abs Immat Gran (auto) 0.07 H (0.00-0.031) K/mm3 Absolute Neuts (auto) 15.4 H (1.3-6.7) K/mm3 Absolute Nucleated RBC 0.000 (0.0-0.012) K/mm3 Nucleated RBC % 0.0 (0.0-0.2) % PT 14.8 H (11.1-14.7) Seconds INR 1.1 APTT 27.1 (22.3-36.8) Seconds Sodium 137 (137-145) mmol/L Potassium 5.5 H (3.4-5.0) mmol/L Chloride 107 (98-107) mmol/L Carbon Dioxide 21 L (22-30) mmol/L Anion Gap 9 (4-12) mmol/L BUN 70 H D (7-17) mg/dL Creatinine 1.94 H (0.7-1.0) mg/dL Estim Creat Clear Calc 29 ml/min Estimated GFR 25 L (59 - ) Glucose 123 H (65-110) mg/dL POC Capillary Glucose (65-105) mg/dl Lactic Acid 0.7 (0.7-2.0) mmol/L Calcium 9.6 (8.4-10.2) mg/dL Total Bilirubin 0.5 (0.2-1.3) mg/dL AST 32 (14-36) U/L ALT 28 (6-35) U/L Alkaline Phosphatase 93 (38-126) U/L C-Reactive Protein 1.1 (<1.0) mg/dL NT-Pro-B Natriuret Pep 403 H (19.9-100) pg/mL Total Protein 8.5 H (6.3-8.2) g/dL Albumin 4.7 (3.5-5.1) g/dL Lipase 213 (23-300) U/L Urine Color Yellow (Yellow) Urine Appearance Clear (Clear) Urine pH 5.5 (5.0-9.0) Ur Specific [place] 1.013 (1.001-1.035) Urine Protein Negative (Negative) mg/dL Urine Glucose (UA) Negative (Negative) mg/dL Urine Ketones Negative (Negative) mg/dL Ur Blood (Man) Negative (Negative) Urine Nitrate Negative (Negative) Urine Bilirubin Negative (Negative) Urine Urobilinogen 0.2 (<2.0) mg/dL Leukocyte Esterase Rfl Negative (Negative) SAGE/UL Influenza A (RT-PCR) (Negative) Influenza B (RT-PCR) (Negative) RSV (RT-PCR) (Negative) SARS-CoV-2 RNA (RT-PCR) (Negative) 05/03/25 05/03/25 05/03/25 Range/Units 17:43 21:11 22:27 WBC (4.5-10.0) K/mm3 RBC (4.2-5.4) M/mm3 Hgb (12.0-15.0) g/dL Hct (37.0-47.0) % MCV (80-100) fl MCH (26-34) pg MCHC (32-36) g/dl RDW (11.5-14.5) % Plt Count (150-375) k/mm3 MPV (7.4-10.4) fl Immature Gran % (Auto) (0-0.5) % Neut % (Auto) (45.5-73.1) % Lymph % (Auto) (18.3-44.2) % [place] % (Auto) (2.6-8.5) % Eos % (Auto) (0-4.4) % Baso % (Auto) (0.2-1.2) % Lymph # (Auto) (0.9-3.2) K/mm3 [place] # (Auto) (0.1-0.6) K/mm3 Eos # (Auto) (0-0.3) K/mm3 Baso # (Auto) (0.0-0.1) K/mm3 Abs Immat Gran (auto) (0.00-0.031) K/mm3 Absolute Neuts (auto) (1.3-6.7) K/mm3 Absolute Nucleated RBC (0.0-0.012) K/mm3 Nucleated RBC % (0.0-0.2) % PT (11.1-14.7) Seconds INR APTT (22.3-36.8) Seconds Sodium 139 (137-145) mmol/L Potassium 5.4 H (3.4-5.0) mmol/L Chloride 109 H (98-107) mmol/L Carbon Dioxide 20 L (22-30) mmol/L Anion Gap 10 (4-12) mmol/L BUN 66 H (7-17) mg/dL Creatinine 1.85 H (0.7-1.0) mg/dL Estim Creat Clear Calc 30 ml/min Estimated GFR 27 L (59 - ) Glucose 117 H (65-110) mg/dL POC Capillary Glucose 113 H (65-105) mg/dl Lactic Acid 0.8 (0.7-2.0) mmol/L Calcium 8.9 (8.4-10.2) mg/dL Total Bilirubin (0.2-1.3) mg/dL AST (14-36) U/L ALT (6-35) U/L Alkaline Phosphatase (38-126) U/L C-Reactive Protein (<1.0) mg/dL NT-Pro-B Natriuret Pep (19.9-100) pg/mL Total Protein (6.3-8.2) g/dL Albumin (3.5-5.1) g/dL Lipase (23-300) U/L Urine Color (Yellow) Urine Appearance (Clear) Urine pH (5.0-9.0) Ur Specific [place] (1.001-1.035) Urine Protein (Negative) mg/dL Urine Glucose (UA) (Negative) mg/dL Urine Ketones (Negative) mg/dL Ur Blood (Man) (Negative) Urine Nitrate (Negative) Urine Bilirubin (Negative) Urine Urobilinogen (<2.0) mg/dL Leukocyte Esterase Rfl (Negative) SAGE/UL Influenza A (RT-PCR) Negative (Negative) Influenza B (RT-PCR) Negative (Negative) RSV (RT-PCR) Negative (Negative) SARS-CoV-2 RNA (RT-PCR) Negative (Negative) 05/03/25 05/04/25 05/04/25 Range/Units 23:10 00:19 01:12 WBC (4.5-10.0) K/mm3 RBC (4.2-5.4) M/mm3 Hgb (12.0-15.0) g/dL Hct (37.0-47.0) % MCV (80-100) fl MCH (26-34) pg MCHC (32-36) g/dl RDW (11.5-14.5) % Plt Count (150-375) k/mm3 MPV (7.4-10.4) fl Immature Gran % (Auto) (0-0.5) % Neut % (Auto) (45.5-73.1) % Lymph % (Auto) (18.3-44.2) % [place] % (Auto) (2.6-8.5) % Eos % (Auto) (0-4.4) % Baso % (Auto) (0.2-1.2) % Lymph # (Auto) (0.9-3.2) K/mm3 [place] # (Auto) (0.1-0.6) K/mm3 Eos # (Auto) (0-0.3) K/mm3 Baso # (Auto) (0.0-0.1) K/mm3 Abs Immat Gran (auto) (0.00-0.031) K/mm3 Absolute Neuts (auto) (1.3-6.7) K/mm3 Absolute Nucleated RBC (0.0-0.012) K/mm3 Nucleated RBC % (0.0-0.2) % PT (11.1-14.7) Seconds INR APTT (22.3-36.8) Seconds Sodium 139 (137-145) mmol/L Potassium 4.6 (3.4-5.0) mmol/L Chloride 110 H (98-107) mmol/L Carbon Dioxide 18 L (22-30) mmol/L Anion Gap 11 (4-12) mmol/L BUN 62 H (7-17) mg/dL Creatinine 1.75 H (0.7-1.0) mg/dL Estim Creat Clear Calc 32 ml/min Estimated GFR 28 L (59 - ) Glucose 137 H (65-110) mg/dL POC Capillary Glucose 140 H 138 H (65-105) mg/dl Lactic Acid (0.7-2.0) mmol/L Calcium 8.7 (8.4-10.2) mg/dL Total Bilirubin (0.2-1.3) mg/dL AST (14-36) U/L ALT (6-35) U/L Alkaline Phosphatase (38-126) U/L C-Reactive Protein (<1.0) mg/dL NT-Pro-B Natriuret Pep (19.9-100) pg/mL Total Protein (6.3-8.2) g/dL Albumin (3.5-5.1) g/dL Lipase (23-300) U/L Urine Color (Yellow) Urine Appearance (Clear) Urine pH (5.0-9.0) Ur Specific [place] (1.001-1.035) Urine Protein (Negative) mg/dL Urine Glucose (UA) (Negative) mg/dL Urine Ketones (Negative) mg/dL Ur Blood (Man) (Negative) Urine Nitrate (Negative) Urine Bilirubin (Negative) Urine Urobilinogen (<2.0) mg/dL Leukocyte Esterase Rfl (Negative) SAGE/UL Influenza A (RT-PCR) (Negative) Influenza B (RT-PCR) (Negative) RSV (RT-PCR) (Negative) SARS-CoV-2 RNA (RT-PCR) (Negative) 05/04/25 05/04/25 05/04/25 Range/Units 01:27 02:21 05:37 WBC 10.3 H (4.5-10.0) K/mm3 RBC 2.87 L (4.2-5.4) M/mm3 Hgb 8.4 L (12.0-15.0) g/dL Hct 27.2 L (37.0-47.0) % MCV 94.8 (80-100) fl MCH 29.3 (26-34) pg MCHC 30.9 L (32-36) g/dl RDW 13.9 (11.5-14.5) % Plt Count 223 (150-375) k/mm3 MPV 9.4 (7.4-10.4) fl Immature Gran % (Auto) (0-0.5) % Neut % (Auto) (45.5-73.1) % Lymph % (Auto) (18.3-44.2) % [place] % (Auto) (2.6-8.5) % Eos % (Auto) (0-4.4) % Baso % (Auto) (0.2-1.2) % Lymph # (Auto) (0.9-3.2) K/mm3 [place] # (Auto) (0.1-0.6) K/mm3 Eos # (Auto) (0-0.3) K/mm3 Baso # (Auto) (0.0-0.1) K/mm3 Abs Immat Gran (auto) (0.00-0.031) K/mm3 Absolute Neuts (auto) (1.3-6.7) K/mm3 Absolute Nucleated RBC (0.0-0.012) K/mm3 Nucleated RBC % (0.0-0.2) % PT (11.1-14.7) Seconds INR APTT (22.3-36.8) Seconds Sodium 139 (137-145) mmol/L Potassium 4.6 (3.4-5.0) mmol/L Chloride 110 H (98-107) mmol/L Carbon Dioxide 19 L (22-30) mmol/L Anion Gap 10 (4-12) mmol/L BUN 62 H (7-17) mg/dL Creatinine 1.72 H (0.7-1.0) mg/dL Estim Creat Clear Calc 32 ml/min Estimated GFR 29 L (59 - ) Glucose 91 (65-110) mg/dL POC Capillary Glucose 131 H 134 H (65-105) mg/dl Lactic Acid (0.7-2.0) mmol/L Calcium 8.8 (8.4-10.2) mg/dL Total Bilirubin (0.2-1.3) mg/dL AST (14-36) U/L ALT (6-35) U/L Alkaline Phosphatase (38-126) U/L C-Reactive Protein (<1.0) mg/dL NT-Pro-B Natriuret Pep (19.9-100) pg/mL Total Protein (6.3-8.2) g/dL Albumin (3.5-5.1) g/dL Lipase (23-300) U/L Urine Color (Yellow) Urine Appearance (Clear) Urine pH (5.0-9.0) Ur Specific [place] (1.001-1.035) Urine Protein (Negative) mg/dL Urine Glucose (UA) (Negative) mg/dL Urine Ketones (Negative) mg/dL Ur Blood (Man) (Negative) Urine Nitrate (Negative) Urine Bilirubin (Negative) Urine Urobilinogen (<2.0) mg/dL Leukocyte Esterase Rfl (Negative) SAGE/UL Influenza A (RT-PCR) (Negative) Influenza B (RT-PCR) (Negative) RSV (RT-PCR) (Negative) SARS-CoV-2 RNA (RT-PCR) (Negative) <Kendell Lauren MD - Last Filed: 05/04/25 11:59> Imaging Data Attestation: I personally reviewed and interpreted this imaging study as follows: <Marivel Lino PA-C - Last Filed: 05/03/25 22:22> Radiologist's impression: ITS Impressions Chest X-Ray 05/03/25 18:39 IMPRESSION: Cardiomegaly with cardiac decompensation and pulmonary edema. Superimposed pneumonitis cannot be excluded. Venous Doppler Study 05/03/25 19:07 IMPRESSION: Negative left lower extremity venous US. No deep vein thrombosis. Abdomen/Pelvis CT 05/03/25 19:21 IMPRESSION: 1. No evidence of appendicitis, diverticulitis or intestinal obstruction. 2. Anterior abdominal wall with bowel content. No obstruction or incarceration seen. Right inguinal fat containing hernia. 3. Bilateral inguinal lymphadenopathy larger on the left side. Clinical correlation advised. <Marivel Lino PA-C - Last Filed: 05/03/25 22:22> Critical Care Time Critical Care Time Critical Care Time: No <Robyn Lundberg PA-C - Last Filed: 05/04/25 17:17> Discharge Plan Discharge Clinical Impression: Cellulitis of left lower leg, DIMITRIS (acute kidney injury), Hyperkalemia Sepsis Qualifiers: Sepsis type: sepsis due to unspecified organism Sepsis acute organ dysfunction status: with acute organ dysfunction Severe sepsis acute organ dysfunction type: acute renal failure Acute renal failure type: unspecified Severe sepsis shock status: without septic shock Qualified Code(s): A41.9 - Sepsis, unspecified organism <Robyn Lundberg PA-C - Last Filed: 05/04/25 17:17> Patient Disposition: Still a Patient <KEVEN aGyle Last Filed: 05/04/25 17:17> Condition: Stable <KEEVN Gayle Last Filed: 05/04/25 17:17>
[2025-05-03 17:02] LABS: Lactic Acid Reflex 0.7 mmol/L (0.7-2.0)
[2025-05-03 17:04] LABS: Alanine Aminotransferase 28 U/L (6-35); Albumin Level 4.7 g/dL (3.5-5.1); Alkaline Phosphatase 93 U/L (38-126); Anion Gap 9 mmol/L (4-12); Aspartate Amino Transferase 32 U/L (14-36); Bilirubin,Total 0.5 mg/dL (0.2-1.3); Blood Urea Nitrogen 70 mg/dL (7-17); CRP 1.1 mg/dL (<1.0); Calcium 9.6 mg/dL (8.4-10.2); Carbon Dioxide 21 mmol/L (22-30); Chloride 107 mmol/L (98-107); Estimated CRCL calculation 29 ml/min; Estimated Glomerular Filt Rate 25; Glucose 123 mg/dL (65-110); Lipase 213 U/L (23-300); Potassium 5.5 mmol/L (3.4-5.0); Sodium 137 mmol/L (137-145); Total Protein 8.5 g/dL (6.3-8.2)
[2025-05-03] MEDS: ACETAMINOPHEN 500 MG TABLET 1000 MG PO (17:08)
[2025-05-03] MEDS: SODIUM CHLORIDE 0.9% IV 1,000 ML 999 ML IV CONT ×2 (17:09→18:13)
[2025-05-03 17:15] LABS: INR 1.1; Partial Thromboplastin Time 27.1 Seconds (22.3-36.8); Prothrombin Time 14.8 Seconds (11.1-14.7)
[2025-05-03 17:17] LABS: Add Urine Microscopic? NO; Appearance Urine Clear (Clear); Bilirubin Urine Negative (Negative); Blood Urine Negative (Negative); Color Urine Yellow (Yellow); Glucose Urine UA Negative (Negative); Ketones Urine Negative (Negative); Leukocyte Esterase Ur Negative LEU/UL (Negative); Nitrate Urine Negative (Negative); Protein Urine Negative (Negative); Specific Grav Ur 1.013 (1.001-1.035); Urobilinogen Urine 0.2 mg/dL (<2.0); pH Urine 5.5 (5.0-9.0)
--- OUTSIDE RECORDS SUMMARY | 2025-05-03 17:17 | XMS_ITS | Encounter Summary ---
Author Organization 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
--- OUTSIDE RECORDS SUMMARY | 2025-05-03 17:17 | XMS_ITS | Encounter Summary ---
Author Organization [facility] Address [address] [place] [address] Phone Care Team Providers Care Patient Carrier Name Role Phone Neymar Garibay MD Primary Care Provider Neymar Garibay MD Primary Care Provider Neymar Garibay MD Unavailable [phone] Mamta Gandhi DPT Unavailable [phone] Encounter Details Date Type Department Care Team (Late st Contact Info) Description 12/07/2019 Orders Only [facility] [phone] Scanning, Provider Social History Tobacco Use Types Packs/Day Years Used Date Smoking Tobacco: Former Smokeless Tobacco: Never Alcohol Use Standard Drinks/Week Comments Yes 0 (1 standard drink = 0.6 oz pur e alcohol) Comments No Sex and Gender Information Value Date Recorded Sex Assigned at Not on file 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
--- OUTSIDE RECORDS SUMMARY | 2025-05-03 17:17 | XMS_ITS ---
Author Organization [facility] Address [address] [place], [place] [id number] Care Team Providers Care Heating And Ventilating Tender Name Role Phone Answer, Declined Unavailable Unavailable SIVAKUMAR MORTON Unavailable [phone] REASON FOR VISIT *Powerstep follow-up Encounters Encounter Location Date Provider Diagnosis [facility] [place] [address] [place], [place] [id number] 02/02/2024 SIVAKUMAR MORTON Plan Of Treatment No Information Progress Notes * Vale SIDDIQIDOB:1950 ( 75 yo F)Acc No.[id number]:02/02/2024 Patient: Vale TRAN Provider: Jael Morton DPM :1950 A ge:73 Y S ex:Female Date:02/02/2024 Address:[address], [facility] Subjective: * Chief Complaints: * 1 . *Powerstep follow-up. * Medical History: Objective: * Vitals: Assessment: Plan: * Treatment: * Billing Information: * Visit Code: * Procedure Codes: * Electronic signature of SIVAKUMAR MORTON DPM on 05/03/2025 at 05:17 PM CDT Sign off status: Pending * Provider: Jael Morton DPM Date: 02/02/2024 Generated for Janki whelan/Chemo/eTransmitting on: 0 05/03/2025 05:17 PM CDT
--- OUTSIDE RECORDS SUMMARY | 2025-05-03 17:17 | XMS_ITS | Patient Health Record ---
Author Organization [facility] Address [address] [place], [place] [address] Care Team Providers Care Video Arcade Manager Name Role Phone Answer, Declined Unavailable Unavailable Allergies Allergen (clinical drug ingredient) Drug/Non Drug Allergy documented on EMR Reaction Allergy Type Onset Date Status Chymotrypsin Unknown Drug Allergy Acti ve ANESTHESIA S/I-40S Unknown Drug Allergy Active metformin Metformin Unknown Drug Allergy Active Penicillin Unknown Drug Allergy Active Reason For Referral No Information Immunizations Vaccine Route Administration Date Status Comme nts Influenza, high dose seasonal Unknown 10/13/2023 Admini stered Plan Of Treatment No Information Insurance Providers Payer Name Payer Address Payer Phone Subscriber Number Group Number Insured Name Patient Relationship to Insured Coverage Start Date Coverage End Date Medicare Part B [place] [address] [place] [address] [id number] Vale Siddiqi Self - patient is the insured [facility] ATTN CLAIMS [address] [place] [address] [id number] Vale Siddiqi Self - patient is the insured Medical (General) History Medical History History ICD Code acid reflux neuropathy Pneumonia anemia Asthma/Bronchitis GERD Leg/Feet cramps Respiratory disease Arthritis Sleep apnea Diabetic Psychiatric Disorder varicose veins peripheral vascular disease high blood pressure restless leg syndrome Back Trouble
--- OUTSIDE RECORDS SUMMARY | 2025-05-03 17:18 | XMS_ITS | Encounter Summary ---
Author Organization 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
--- OUTSIDE RECORDS SUMMARY | 2025-05-03 17:18 | XMS_ITS | Encounter Summary ---
Author Organization 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 Gender Identity Female 09/25/2021 5:30 AM CDT Sexual Orientation Straight 09/25/2021 5: 30 AM CDT documented as of this encounter Plan of Treatment Not on file documented as of this encounter Procedures Procedure Name Priority Date/Time Associated Diagnosis Comments VASCULAR LABORATORY REPORT 10/29/2017 8:58 PM PRACTICE ARCHITECT documented in this encounter Results * VASCULAR LABORATORY REPORT (10/29/2017 8:58 PM PRACTICE ARCHITECT) Anatomical Region Laterality Modality Ultrasound us Provider Scanning CV VASCULAR PROCEDURES Final R esult documented in this encounter Visit Diagnoses Not on filedocumented in this encounter Additional Health Concerns Infection Onset Date Last Indicated Resolved Time 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
--- OUTSIDE RECORDS SUMMARY | 2025-05-03 17:18 | XMS_ITS | Clinical Summary ---
Author Organization [facility] Address [address] [place] [address] Care Team Providers Care Security Shift Supervisor Name Role Phone Neymar Garibay MD Primary Care Provider Neymar Garibay MD Unavailable Allergies Active Allergy Reactions Criticality Noted Date Comments Chymotrypsin Unknown 02/03/2024 Clindamycin Rash Medium 08/03/2021 Metformin Diarrhea Low 10/18/2022 Penicillins Itching,Rash,Hives Medium 01/31/2020 Reaction: Itching, Rash Medications cholecalciferol (VITAMIN D3) 2,000 unit tablet 0 0 12/04/19 16 Active calcium acetate (PHOSLO) 667 mg capsule take 2 capsule by oral route 3 times every day with meals 0 0 12/04/19 16 Active cyanocobalamin (Vitamin B-12) 100 mcg tabletIndicatio ns:Prevention of Vitamin B12 Deficiency,supp lement Take 1 tablet (100 mcg total) by [...] azelastine (ASTELIN) 137 mcg (0.1 %) nasal sprayIndication s:Non-seasonal allergic rhinitis, unspecified trigger SPRAY 1 SPRAY [...] 2024 oxyCODONE (ROXICODONE) 5 mg immediate release tabletIndicatio ns:Pain Take 1 tablet (5 mg total) by mouth every 4 (four) hours as needed for pain for up to 30 doses 30 tablet 04/02/20 24 Active acetaminophen 500 mg capsuleIndicati ons:Pain Take 2 capsules (1,000 mg total) by mouth every 8 (eight) hours 04/03/20 24 Active pravastatin (PRAVACHOL) 40 mg tablet TAKE ONE TABLET BY MOUTH EVERY DAY 90 tablet 2 05/27/20 24 Active gabapentin (NEURONTIN) 300 mg capsule TAKE ONE CAPSULE BY MOUTH THREE TIMES A DAY 270 capsule 1 05/27/20 24 Active furosemide (LASIX) 20 mg tabletIndicatio ns:Pedal edema Take 1 tablet (20 mg total) [...] by mouth one hour prior to dental appointment/shikha mancera 4 capsule 2 12/13/19 25 Active lisinopril-hydr oCHLOROthiazide (ZESTORETIC) 20-12.5 mg per tabletIndicatio ns:hypertension Take 2 tablets by mouth daily 180 tablet 1 12/24/19 25 026 Active oxyBUTYnin (DITROPAN) 5 mg tabletIndicatio ns:OAB (overactive bladder) Take 1 tablet (5 mg total) by mouth 2 (two) times a day 60 tablet 5 12/24/19 25 Active empagliflozin (JARDIANCE) 10 mg tabletIndicatio ns:Acute on chronic diastolic congestive heart failure (HCC) Take 1 tablet (10 mg total) by mouth daily 30 tablet 5 02/15/20 25 Active ARIPiprazole (ABILIFY) 5 mg tabletIndicatio ns:Major depressive disorder, recurrent episode, moderate (HCC) TAKE ONE TABLET BY MOUTH EVERY DAY AT NIGHT 90 tablet 1 03/07/20 25 Active omeprazole (PriLOSEC) 40 mg capsuleIndicati ons:Medication refill,Type 2 diabetes mellitus without complication, without long-term current use of insulin (HCC) TAKE ONE CAPSULE BY MOUTH EVERY DAY 90 capsule 1 03/07/20 25 Active sertraline (ZOLOFT) 100 mg tabletIndicatio ns:Major depressive disorder, recurrent episode, moderate (HCC) TAKE TWO TABLETS BY MOUTH EVERY DAY 90 tablet 1 03/07/20 25 Active tirzepatide, weight loss, (Zepbound) 5 mg/0.5 mL pen injectorIndicat ions:obstructiv e sleep apnea syndrome,2012 sleep study showed severe INSÉ. 10/2022 -- AHI 30.5 Inject 0.5 mL (5 mg total) under the skin every 7 days Start after taking 2.5 mg weekly for 4 weeks. 2 mL 2 03/09/20 25 Active tirzepatide, weight loss, (Zepbound) 2.5 mg/0.5 mL pen injectorIndicat ions:obstructiv e sleep apnea syndrome,2012 sleep study showed severe INÉS. 10/2022 -- AHI 30.5 Inject 0.5 mL (2.5 mg total) under the skin every 7 days 2 mL 03/09/20 25 Active topiramate (TOPAMAX) 50 mg tablet Take 2 tablets (100 mg total) by mouth 2 (two) times a day 120 tablet 04/12/20 25 Active topiramate (TOPAMAX) 50 mg tablet TAKE TWO TABLETS BY MOUTH TWICE A DAY 120 tablet 03/07/20 25 025 Discontin ued(Reord er) Active Problems Problem Noted Date Diagnosed Date [...] semaglutide. Assessment & Plan (01/06/2023 12:11 PM CUSTOMS AGENT): Labs. Reviewed most recent labs available. Continue low-carb (<150 g/day), low-glycemic diet. Plan to increase semaglutide to 1 mg weekly pending results. Assessment & Plan (12/31/2022 12:19 PM CUSTOMS AGENT): Reviewed most recent labs available. Continue low-carb [...] w/r/t gut microbiome. Referred to ADA and [employer] [facility] websites for additional information on topics [...] diet. Assessment & Plan (01/06/2023 12:09 PM CUSTOMS AGENT): Reviewed calorie restriction based on BMR as previously detailed. Reviewed recommendation/goal of >/= 150 minutes/week moderate-intensity aerobic exercise. Asked to keep detailed food diary for at least 1 week and bring to next visit and/or continue tracking on phone. Assessment & Plan (12/31/2022 12:18 PM CUSTOMS AGENT): Reviewed calorie restriction based on BMR as [...] 03/17/2018 Assessment & Plan (01/06/2023 12:11 PM CUSTOMS AGENT): Labs. Osteoarthritis of cervical spine 01/05/2018 Class [...] Other: Assessment & Plan (01/06/2023 12:11 PM CUSTOMS AGENT): Obesity is improving.. Plan: Diet interventions: as noted.., Regular aerobic exercise program discussed. and Medication as prescribed. Assessment & Plan (12/31/2022 12:19 PM CUSTOMS AGENT): Obesity is worsening.. 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 10/2022 -- AHI 30.5 Assessment & Plan (03/25/2025 12:58 AM CDT): Start Zepbound. Assessment & Plan (10/05/2022 8:11 AM CDT): [...] Team Description 03/09/2025 11:40 AM CDT Telemedicine [facility] Metabolic Weight Management [address] [place] [address] Medical Office [address] [place] [address] Sasha Hernández MD Weight loss counseling, encounter for (Primary Dx); INÉS (obstructive sleep apnea); Prediabetes; Class 3 severe obesity with serious comorbidity and body mass index (BMI) of 40.0 to 44.9 in adult, unspecified obesity type; Vitamin D deficiency 03/09/2025 Telephone [facility] Metabolic Weight Management [address] [facility] [facility] [address] [place] [address] Fior JacksonCINTIA Appointment 02/23/2025 Orders Only [facility] Metabolic Weight Management [address] [facility] [facility] [address] [place] [address] Sasha Hernández MD Restless legs syndrome (Primary Dx); INÉS (obstructive sleep apnea) 02/16/2025 Results Follow-Up [address] [address] Neymar Garibay MD Uric acid, Basic metabolic panel 02/14/2025 1:00 PM CDT Office Visit [address] [address] Neymar Garibay MD Acute on chronic diastolic congestive heart failure (HCC) (Primary Dx); Cellulitis of left lower extremity; Pulmonary hypertension, unspecified (HCC); Major depressive disorder, recurrent episode, moderate (HCC); Left foot pain from Last 3 Months Immunizations Immunization Administration [...] on file Legal Sex Female 1:19 AM CUSTOMS AGENT Gender Identity Female 09/25/2021 5:30 AM CDT [...] 1:11 PM CDT Height 167.6 cm (5' 6) 02/14/2025 1:11 PM CDT Body Mass Index [...] 01/02, 01/03/2020, Additional history exists Covid-19 Vaccine ( - 2023-2 5 season) 2024 11/09/2022, 02/08/2021 Hemoglobin A1C 09/22/2024 2024, 01/02, 10/08/2022, Additional history exists Fall Risk Assessment [...] change(04/14 11:43 AM CDT) No Robyn Michael, RN Note: Problem: Chronic Pain Goals: 1. Minimize further functional decline 2. Maximize quality of life 3. Control pain Strategies: - Activity/exercise program recommendation - Conservative stepwise pain medicine strategy with multi-disciplinary approach - Recommend healthy lifestyle strategies and compensatory methods as needed Medical Devices Implanted Type Area Whiting Can Worker Device Identifier Shelf Expiration Date Model / Serial / Lot [employer] Baseplate Tibial Knee Cemented Right Fixed Stemmed Persona Size F Tivanium [id number] - [id number] Implanted:Qty: 1 on 03/29/2024 by Don Alonzo MD at [facility] Right: Knee [employer] [id number] 07/12/2033 [id number] / / [id number] [employer] Persona Cruciate Retain Cemented Knee Right 9 Narrow Component [id number] - [id number] Implanted:Qty: 1 on 03/29/2024 by Don Alonzo MD at [facility] Right: Knee [employer] [id number] 10/07/2033 [id number] / / [id number] [employer] Simplex P Full Dose Radiopaque Preblend Cement Bone Tobramycin 6197-9-001 - [id number] Implanted:Qty: 1 on 03/29/2024 by Don Alonzo MD at [facility] Right: Knee [employer] [id number] 05/30/2025 6197-9-001 / / [id number] [employer] Simplex P Full Dose Radiopaque Preblend Cement Bone Tobramycin 6197-9-001 - [id number] Implanted:Qty: 1 on 03/29/2024 by Don Alonzo MD at [facility] Right: Knee [employer] [id number] 06/30/2025 6197-9-001 / / [id number] [employer] Persona 14mm Knee Right 8-11 E-F Insert Articular Vivacit-E [id number] - [id number] Implanted:Qty: 1 on 03/29/2024 by Don Alonzo MD at [facility] Right: Knee [employer] [id number] 04/02/2028 [id number] / / [id number] Procedures Procedure Name Priority Date/Time Associated Diagnosis Comments BASIC METABOLIC PANEL Routine 02/14/2025 1:34 PM CDT Acute on chronic diastolic congestive heart failure (HCC) URIC ACID Routine 02/14/2025 1:34 PM CDT Left foot pain EGFR Routine 04/03/2024 4:36 AM CDT HEMOGLOBIN A1C Routine 2024 4:12 PM CDT Primary osteoarthritis of right knee Type 2 diabetes mellitus without complication, unspecified whether terminal press operator insulin use (HCC) LIPID PANEL Routine 04/12/2022 3:23 PM CDT Type 2 diabetes mellitus without complication, without long-term current use of insulin (HCC) SCREENING MAMMOGRAM Routine 10/31/2015 3 :29 PM CUSTOMS AGENT SERUM HEPATITIS PANEL Routine 02/17/2013 3:00 PM CDT from Last 3 Months or Most Recently Relevant to Health Maintenance Results * (ABNORMAL) Uric acid (02/14/2025 1:34 PM CDT) Uric Acid 11.0(H) 2.4 - 5.7 mg/dL [facility] Blood 02/14/2025 1:34 PM CDT 02/14/2025 1:44 PM CDT us Neymar Garibay MD LAB BLOOD ORDERABLES F inal Result [facility] [address] [place] [address] * (ABNORMAL) Basic metabolic panel (02/14/2025 1:34 PM CDT) Glucose 108 74 - 200 mg/dL [facility] BUN 38(H) 18 - 23 mg/dL [facility] Creatinine 1.5(H) 0.7 - 1.3 mg/dL [facility] BUN/Creat Ratio 25 Ratio [facility] eGFR 34 mL/min/1.7 3m2 [facility] Calcium 8.7(L) 8.8 - 10.2 mg/dL [facility] Sodium 140 135 - 145 mEq/L [facility] Potassium 4.2 3.5 - 5.1 mEq/L [facility] Chloride 109(H) 98 - 107 mEq/L [facility] CO2 21.2(L) 22.0 - 32.0 mEq/L [facility] Anion Gap 11 3 - 12 mEq/L [facility] Blood 02/14/2025 1:34 PM CDT 02/14/2025 1:44 PM CDT us Neymar Garibay MD LAB BLOOD ORDERABLES F inal Result [address] [address] * (ABNORMAL) eGFR (04/03/2024 4:36 AM CDT) [...] NP LAB BLOOD ORDERABLES Final Re sult [facility] [place] [address] * Hemoglobin A1c (2024 4:12 PM CDT) Hgb A1C 5.4 4.0 - 5.6 % Estimated Average Glucose 108 mg/dL [facility]ER[facility] Comment: The ADA recommends reporting an estimated [...] BLOOD ORDERABLES Final Result Performing Organization Address [facility] Co de Phone Number JO[facility] [place] [address] * (ABNORMAL) Lipid panel (04/12/2022 3:23 PM CDT) Triglyceride 164(H) 0 - 150 mg/dL [facility] Cholesterol 194 0 - 200 mg/dL [facility] HDL 49 >45 mg/dL [facility] LDL-Calculated 112 mg/dL [facility] CHOL/HDL Risk Ratio 4 Ratio [facility] LDL/HDL Risk Ratio 2 Ratio [facility] Blood specimen (specimen) 04/12/2022 3:23 PM CDT 04/12/2022 3:38 PM CDT Neymar Garibay MD LAB BLOOD ORDERABLES F inal Result Performing Organization Address [facility] Co de Phone Number [facility] [address] [place] [address] * Screening Mammogram (10/31/2015 3:29 PM CUSTOMS AGENT) Anatomical Region Laterality Modality Breast N/A Mammography 10/31/2015 3:29 PM CUSTOMS AGENT Narrative 11/01/2015 2:59 PM CUSTOMS AGENT JYOTSNA EDDY M.D. FINAL REPORT ACC# Date Time Exam [id number] Oct 31, 2015 15:29:00 [facility] [id number] Screening Mamm Bilat Technologist(s): Gisela Block; ; EXAMINATION: Mammogram Technique: Bilateral Full-Field Digital Screening Mammogram was performed. Views obtained: bilateral craniocaudal and bilateral mediolateral oblique. Computer Aided Detection was performed with Mixers 1.3 version 9.3. Mammogram Findings: The present examination has been compared to prior imaging studies performed at [facility] on 03/11/2012, 03/27/2010 and 02/11/2008. There are scattered areas of fibroglandular density. There is no suspicious abnormality in either breast. IMPRESSION: Annual screening mammography is recommended. OVERALL FINAL ASSESSMENT: BI-RADS CATEGORY 1: Negative. Requested By: Dictated By: JYOTSNA EDDY M.D. on Nov 01 2015 2:59P This document has been electronically signed by: JYOTSNA EDDY M.D. on Nov 01 2015 2:59P [id number] Procedure Note Provider, MD Edgar - 03/22/2017 JYOTSNA EDDY M.D. FINAL REPORT ACC# Date Time Exam [id number] Oct 31, 2015 15:29:00 [facility] [address] Screening Mamm Bilat Technologist(s): Gisela Block; ; EXAMINATION: Mammogram Technique: Bilateral Full-Field Digital Screening Mammogram was performed. Views obtained: bilateral craniocaudal and bilateral mediolateral oblique. Computer Aided Detection was performed with Mixers 1.3 version 9.3. Mammogram Findings: The present examination has been compared to prior imaging studies performed at [facility] on 03/11/2012, 03/27/2010 and 02/11/2008. There are scattered areas of fibroglandular density. There is no suspicious abnormality in either breast. IMPRESSION: Annual screening mammography is recommended. OVERALL FINAL ASSESSMENT: BI-RADS CATEGORY 1: Negative. Requested By: Dictated By: JYOTSNA EDDY M.D. on Nov 01 2015 2:59P This document has been electronically signed by: JYOTSNA EDDY M.D. on Nov 01 2015 2:59P [id number] us Historical Provider MD XIAO MAMMO PROCEDURES Natalya l Result * Serum Hepatitis panel (02/17/2013 3:00 PM CDT) HBV surface ag Negative NEG HISTO RICAL RESULTS HCV ab Negative NEG HISTORICAL RESULTS Comment: Interpretive Data If confirmation is required, call Laboratory Customer Service to request sample to be sent to [facility] for Hepatitis C Virus (HCV) RNA Detection and Quantitation by Real-Time Reverse Handbag Designer-PCR (RT-PCR). Current interpretive data was last revised [...] Recently Relevant to Health Maintenance Insurance MEDICARE [facility] Address: [address] [address] [place] [address] [facility] [place] [address] MEDICARE [employer] MEDICARE MEDICARE [facility] Advance Directives For more information, please contact: [phone] * Full Code (Latest Code Status on File) Date Activated Date Inactivated Comments 03/29/2024 12:45 PM 04/03/2024 3:06 PM * Full Code Date Activated Date Inactivated Comments 07/03/2018 1:01 PM 07/03/2018 5:06 PM Care Teams Security Shift Supervisor Relationship Specialty Start Date End Date Neymar Garibay MD PCP - General 01/31/20 Neymar Garibay MD 01/31/20
--- OUTSIDE RECORDS SUMMARY | 2025-05-03 17:18 | XMS_ITS | Clinical Summary ---
Author Organization [facility] Address [address] [place] [address] Care Team Providers Care Information Director Name Role Phone Neymar Garibay MD Primary Care Provider Source Comments [facility],non-[facility] Affiliates and Associated Physician Practices is amultiple site organization consisting of ambulatory clinics and hospital sitesin [place] and [place]. This disclosure is being madepursuant to the Care Everywhere program and may not contain all information available regarding this patient. 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 [place], [address] PCP - General Internal Medicine 11/08/16
--- OUTSIDE RECORDS SUMMARY | 2025-05-03 17:18 | XMS_ITS | Referral Summary ---
Author Organization [facility] Address [address] [place] [address] Care Team Providers Care Uppers Edge Burnisher Name Role Phone Neymar Garibay MD Primary Care Provider Neymar Garibay MD Unavailable Encounters Date Type Department Care Team Description 03/09/2025 Telephone [facility] Metabolic Weight Management [address] [place] [address] Medical Office Building [address], [address] [place] [phone] Fior Jackson, [facility] Appointment 03/09/2025 11:40 AM CDT Telemedicine [facility] Metabolic Weight Management [address] [place] [address] Medical Office [address], [address] [place] [phone] Sasha Hernández MD Weight loss counseling, encounter for (Primary Dx); INÉS (obstructive sleep apnea); Prediabetes; Class 3 severe obesity with serious comorbidity and body mass index (BMI) of 40.0 to 44.9 in adult, unspecified obesity type; Vitamin D deficiency 02/23/2025 Orders Only [facility] Metabolic Weight Management [address] [place] [address] Medical Office [address], [address] [place] [address] Sasha Hernández MD Restless legs syndrome (Primary Dx); INÉS (obstructive sleep apnea) 02/16/2025 Results Follow-Up [address] [address] Neymar Garibay MD Uric acid, Basic metabolic panel 02/14/2025 1:00 PM CDT Office Visit [facility] [address] [place] [address] Neymar Garibay MD Acute on chronic diastolic congestive heart failure (HCC) (Primary Dx); Cellulitis of left lower extremity; Pulmonary hypertension, unspecified (HCC); Major depressive disorder, recurrent episode, moderate (HCC); Left foot pain from Last 3 Months Allergies Active Allergy [...] Allergic Rhinitis, Informant: Self, Reported on 2024 Sungxduc Inhub 250-50 mcg/dose diskus inhaler INHALE ONE [...] semaglutide. Assessment & Plan (01/06/2023 12:11 PM DEHYDROGENATION SUPERVISOR): Labs. Reviewed most recent labs available. Continue low-carb (<150 g/day), low-glycemic diet. Plan to increase semaglutide to 1 mg weekly pending results. Assessment & Plan (12/31/2022 12:19 PM DEHYDROGENATION SUPERVISOR): Reviewed most recent labs available. Continue low-carb [...] w/r/t gut microbiome. Referred to ADA and [employer] websites for additional information on topics [...] diet. Assessment & Plan (01/06/2023 12:09 PM DEHYDROGENATION SUPERVISOR): Reviewed calorie restriction based on BMR as previously detailed. Reviewed recommendation/goal of >/= 150 minutes/week moderate-intensity aerobic exercise. Asked to keep detailed food diary for at least 1 week and bring to next visit and/or continue tracking on phone. Assessment & Plan (12/31/2022 12:18 PM DEHYDROGENATION SUPERVISOR): Reviewed calorie restriction based on BMR as [...] 03/17/2018 Assessment & Plan (01/06/2023 12:11 PM DEHYDROGENATION SUPERVISOR): Labs. Osteoarthritis of cervical spine 01/05/2018 Class [...] Other: Assessment & Plan (01/06/2023 12:11 PM DEHYDROGENATION SUPERVISOR): Obesity is improving.. Plan: Diet interventions: as noted.., Regular aerobic exercise program discussed. and Medication as prescribed. Assessment & Plan (12/31/2022 12:19 PM DEHYDROGENATION SUPERVISOR): Obesity is worsening.. Plan: Diet interventions: as [...] claudication 12/17/2017 Peripheral nerve disease 08/08/2017 Other halfway (current) drug therapy 7 Asthma 12/31/2016 Osteoporosis [...] on file Legal Sex Female 1:19 AM DEHYDROGENATION SUPERVISOR Gender Identity Female 09/25/2021 5:30 AM CDT [...] as needed Medical Devices Implanted Type Area Telegraphic Service Dispatcher Device Identifier Shelf Expiration Date Model / Serial / Lot [employer] Baseplate Tibial Knee Cemented Right Fixed Stemmed Persona Size F Tivanium [id number] - [id number] Implanted:Qty: 1 on 03/29/2024 by Don Alonzo MD at [facility] Right: Knee [employer] [id number] 07/12/2033 [id number] / / [id number] [employer] Persona Cruciate Retain Cemented Knee Right 9 Narrow Component [id number] - [id number] Implanted:Qty: 1 on 03/29/2024 by Don Alonzo MD at [facility] Right: Knee [employer] [id number] 10/07/2033 [id number] / / [id number] [employer] Simplex P Full Dose Radiopaque Preblend Cement Bone Tobramycin 6197-9-001 - [id number] Implanted:Qty: 1 on 03/29/2024 by Don Alonzo MD at [facility] Right: Knee [employer] [id number] 05/30/2025 6197-9-001 / / [id number] [employer] Simplex P Full Dose Radiopaque Preblend Cement Bone Tobramycin 6197-9-001 - [id number] Implanted:Qty: 1 on 03/29/2024 by Don Alonzo MD at [facility] Right: Knee [employer] [id number] 06/30/2025 6197-9-001 / / [id number] [employer] Persona 14mm Knee Right 8-11 E-F Insert Articular Vivacit-E [id number] - [id number] Implanted:Qty: 1 on 03/29/2024 by Don Alonzo MD at [facility] Right: Knee [employer] [id number] 04/02/2028 [id number] / / [id number] Procedures Procedure Name Priority Date/Time Associated Diagnosis Comments BASIC METABOLIC PANEL Routine 02/14/2025 1:34 PM CDT Acute on chronic diastolic congestive heart failure (HCC) URIC ACID Routine 02/14/2025 1:34 PM CDT Left foot pain EGFR Routine 04/03/2024 4:36 AM CDT HEMOGLOBIN A1C Routine 2024 4:12 PM CDT Primary osteoarthritis of right knee Type 2 diabetes mellitus without complication, unspecified whether minibus driver insulin use (HCC) LIPID PANEL Routine 04/12/2022 3:23 PM CDT Type 2 diabetes mellitus without complication, without long-term current use of insulin (HCC) SCREENING MAMMOGRAM Routine 10/31/2015 3 :29 PM DEHYDROGENATION SUPERVISOR SERUM HEPATITIS PANEL Routine 02/17/2013 3:00 PM CDT from Last 3 Months or Most Recently Relevant to Health Maintenance Results * (ABNORMAL) Uric acid (02/14/2025 1:34 PM CDT) Uric Acid 11.0(H) 2.4 - 5.7 mg/dL [facility] Blood 02/14/2025 1:34 PM CDT 02/14/2025 1:44 PM CDT us Neymar Garibay MD LAB BLOOD ORDERABLES F inal Result [facility] [address] [place] [address] * (ABNORMAL) Basic metabolic panel (02/14/2025 1:34 PM CDT) Glucose 108 74 - 200 mg/dL [facility] BUN 38(H) 18 - 23 mg/dL [facility] Creatinine 1.5(H) 0.7 - 1.3 mg/dL [facility] BUN/Creat Ratio 25 Ratio [facility] eGFR 34 mL/min/1.7 3m2 [facility] Calcium 8.7(L) 8.8 - 10.2 mg/dL [facility] Sodium 140 135 - 145 mEq/L [facility] Potassium 4.2 3.5 - 5.1 mEq/L [facility] Chloride 109(H) 98 - 107 mEq/L [facility] CO2 21.2(L) 22.0 - 32.0 mEq/L [facility] Anion Gap 11 3 - 12 mEq/L [facility] Blood 02/14/2025 1:34 PM CDT 02/14/2025 1:44 PM CDT us Neymar Garibay MD LAB BLOOD ORDERABLES F inal Result [facility] [address] [place] [address] * (ABNORMAL) eGFR (04/03/2024 4:36 AM CDT) [...] CDT 04/03/2024 4:53 AM CDT us Viviana Erguiza SLOT AMBASSADOR LAB BLOOD ORDERABLES Final Re sult Performing Organization Address [facility] Co de Phone Number [facility] Department [place] [address] * Hemoglobin A1c (2024 4:12 PM CDT) Hgb A1C 5.4 4.0 - 5.6 % Estimated Average Glucose 108 mg/dL [facility] Comment: The ADA recommends reporting an [...] BLOOD ORDERABLES Final Result Performing Organization Address [facility] Co de Phone Number [facility] Department [place] [address] * (ABNORMAL) Lipid panel (04/12/2022 3:23 PM CDT) Pathologist [facility] Triglyceride 164(H) 0 - 150 mg/dL [facility] Cholesterol 194 0 - 200 mg/dL [facility] HDL 49 >45 mg/dL [facility] LDL-Calculated 112 mg/dL [facility] CHOL/HDL Risk Ratio 4 Ratio [facility] LDL/HDL Risk Ratio 2 Ratio [facility] Blood specimen (specimen) 04/12/2022 3:23 PM CDT 04/12/2022 3:38 PM CDT Neymar Garibay MD LAB BLOOD ORDERABLES F inal Result [facility] [address] [place] [address] * Screening Mammogram (10/31/2015 3:29 PM DEHYDROGENATION SUPERVISOR) Anatomical Region Laterality Modality Breast N/A Mammography 10/31/2015 3:29 PM DEHYDROGENATION SUPERVISOR Narrative 11/01/2015 2:59 PM DEHYDROGENATION SUPERVISOR JYOTSNA EDDY M.D. FINAL REPORT ACC# Date Time Exam [id number] Oct 31, 2015 15:29:00 [facility] [address] Screening Mamm Bilat Technologist(s): Gisela Block; ; EXAMINATION: Mammogram Technique: Bilateral Full-Field Digital Screening Mammogram was performed. Views obtained: bilateral craniocaudal and bilateral mediolateral oblique. Computer Aided Detection was performed with Define My Style 1.3 version 9.3. Mammogram Findings: The present examination has been compared to prior imaging studies performed at [facility] on 03/11/2012, 03/27/2010 and 02/11/2008. There are scattered areas of fibroglandular density. There is no suspicious abnormality in either breast. IMPRESSION: Annual screening mammography is recommended. OVERALL FINAL ASSESSMENT: BI-RADS CATEGORY 1: Negative. Requested By: Dictated By: JYOTSNA EDDY M.D. on Nov 01 2015 2:59P This document has been electronically signed by: JYOTSNA EDDY M.D. on Nov 01 2015 2:59P [id number] Procedure Note Provider, MD Edgar - 03/22/2017 JYOTSNA EDDY M.D. FINAL REPORT ACC# Date Time Exam [id number] Oct 31, 2015 15:29:00 [facility] [address] Screening Mamm Bilat Technologist(s): Gisela Block; ; EXAMINATION: Mammogram Technique: Bilateral Full-Field Digital Screening Mammogram was performed. Views obtained: bilateral craniocaudal and bilateral mediolateral oblique. Computer Aided Detection was performed with Define My Style 1.3 version 9.3. Mammogram Findings: The present examination has been compared to prior imaging studies performed at [facility] on 03/11/2012, 03/27/2010 and 02/11/2008. There are scattered areas of fibroglandular density. There is no suspicious abnormality in either breast. IMPRESSION: Annual screening mammography is recommended. OVERALL FINAL ASSESSMENT: BI-RADS CATEGORY 1: Negative. Requested By: Dictated By: JYOTSNA EDDY M.D. on Nov 01 2015 2:59P This document has been electronically signed by: JYOTSNA EDDY M.D. on Nov 01 2015 2:59P [id number] us Historical Provider MD XIAO MAMMO PROCEDURES Natalya l Result * Serum Hepatitis panel (02/17/2013 3:00 PM CDT) HBV surface ag Negative NEG HISTO RICAL RESULTS HCV ab Negative NEG HISTORICAL RESULTS Comment: Interpretive Data If confirmation is required, call Laboratory Customer Service to request sample to be sent to [facility] for Hepatitis C Virus (HCV) RNA Detection and Quantitation by Real-Time Reverse Autocad Technician-PCR (RT-PCR). Current interpretive data was last revised [...] Recently Relevant to Health Maintenance Insurance MEDICARE [facility] [place] [address] MEDICARE [facility] [place] [address] MEDICARE [facility] MEDICARE [facility] [place] [address] Advance Directives For more information, please contact: [phone] * Full Code (Latest Code Status on File) Date Activated Date Inactivated Comments 03/29/2024 12:45 PM 04/03/2024 3:06 PM * Full Code Date Activated Date Inactivated Comments 07/03/2018 1:01 PM 07/03/2018 5:06 PM Care Teams Uppers Edge Burnisher Relationship Specialty Start Date End Date Neymar Garibay MD PCP - General 01/31/20 Neymar Garibay MD 01/31/20
--- OUTSIDE RECORDS SUMMARY | 2025-05-03 17:18 | XMS_ITS | Encounter Summary ---
Author Organization [facility] Address [address] [place] [address] Phone Care Team Providers Care Student Records Coordinator Name Role Phone Neymar Garibay MD Primary Care Provider Neymar Garibay MD Primary Care Provider Neymar Garibay MD Unavailable [phone] Mamta Gandhi DPT Unavailable [phone] Encounter Details Date Type Department Care Team [...] on file Legal Sex Female 1:19 AM LEADITE MAN Gender Identity Female 09/25/2021 5:30 AM CDT [...] documented as of this encounter Care Teams Student Records Coordinator Relationship Specialty Start Date End Date Neymar Garibay MD PCP - General 03/28/17 01/30/20 Neymar Garibay MD PCP - General 01/31/20 Neymar Garibay MD 01/31/20 Mamta Gandhi DPT Physical Therapist Physical Therapy 12/23/18 12/28/19 documented as of this encounter
[2025-05-03] MEDS: ceFAZolin 1 GM/NS 50 ML 1 GM/50 ML BAG IVPB (18:11)
[2025-05-03 18:37] LABS: Influenza A QL RT-PCR Negative (Negative); Influenza B QL RT-PCR Negative (Negative); RSV RNA, RT-PCR Negative (Negative); SARS-CoV-2 RNA PCR Negative (Negative)
[2025-05-03 19:22] LABS: NT Pro B Type Natriuretic Pept 403 pg/mL (19.9-100)
--- NOTE | 2025-05-03 19:25 | PC.NURSE ---
Assumed care of patient after receiving bedside report from [employer]t [employer] García @ [phone]
--- NOTE | 2025-05-03 20:44 | ECG_ITS ---
Test Date: 2025-05-03 21:14:21 Measurements Intervals [place] Rate: 84 P: 34 AL: 166 QRS: -9 QRSD: 106 T: 26 QT: 342 QTc: 406 Interpretive Statements SINUS RHYTHM BASELINE ARTIFACT- I, II, III, AVR, AVL, AVF, V1, V3, V5 NORMAL ECG No previous ECG available for comparison Electronically Signed On 05-04-2025 06:29:28 CDT by Ramírez Henry D.O.
[2025-05-03] MEDS: SODIUM CHLORIDE 0.9% IV 500 ML 999 ML IV CONT (21:12)
[2025-05-03 21:32] LABS: Anion Gap 10 mmol/L (4-12); Blood Urea Nitrogen 66 mg/dL (7-17); Calcium 8.9 mg/dL (8.4-10.2); Carbon Dioxide 20 mmol/L (22-30); Chloride 109 mmol/L (98-107); Estimated CRCL calculation 30 ml/min; Estimated Glomerular Filt Rate 27; Glucose 117 mg/dL (65-110); Lactic Acid Reflex 0.8 mmol/L (0.7-2.0); Potassium 5.4 mmol/L (3.4-5.0); Sodium 139 mmol/L (137-145)
--- NOTE | 2025-05-03 21:55 | PM.IMHP ---
H&P: HPI History of Present Illness Date/Time: 05/03/25 23:45 Chief Complaint: Left leg pain. Narrative: This is a pleasant 75-year-old female with history of cellulitis, osteomyelitis of the left foot, chronic kidney disease, prediabetes, obstructive sleep apnea, chronic obstructive pulmonary disease, and peripheral neuropathy who presented to the emergency department via EMS with complaints of left leg pain. She visited her friend on Friday and spent about an hour dangling her legs into the swimming pool. The following day her left lower leg turned pink and over the last 24 hours it has become increasingly red, warm, and painful. It feels ?raw? and the pain is worse with even light touch. Overall she is just feeling poorly. She denies fever, chills, sweats, lightheadedness, cold and flu symptoms, chest pain, pleuritic pain, palpitations, shortness of breath, cough, nausea, vomiting, diarrhea, dysuria, and decrease in urine output. She has a chronic plantar left foot wound which is unchanged and she has not noticed any drainage from the wound. In the ED: Vital signs on arrival include a temperature of 101.2? F, blood pressure 135/54, pulse 109, respiratory rate 19, SpO2 96% on room air. Labs are significant for WBC count of 16.4, hemoglobin 9.9, potassium 5.5, BUN 70, creatinine 1.94, glucose 123, proBNP 403. Venous Doppler ultrasound was negative for DVT. Chest x-ray was read as having cardiomegaly with cardiac decompensation pulmonary edema. CT of the abdomen and pelvis showed no acute findings but did note bilateral inguinal lymphadenopathy, larger on the left. She was started on cefazolin for cellulitis and received a 2 L normal saline bolus and she was admitted to the floor in this setting for further treatment. Review of Systems Review of Systems: 12 systems were reviewed and are negative except for as per HPI. [facility] Past Medical History Medical History (Updated 05/04/25 @ 02:16 by Cassi Stein PA-C) Hypertension Chronic kidney disease, stage 3 Chronic anemia Obesity (BMI 30-39.9) Obstructive sleep apnea on CPAP Peripheral neuropathy Pre-diabetes Overactive bladder GERD with esophagitis Early cataracts, bilateral Umbilical hernia Spinal stenosis, lumbar region with neurogenic claudication Surgical History Surgical History History of esophagogastroduodenoscopy (EGD) History of tubal ligation Status post foot joint surgery (~2014) Patient reports multiple foot surgeries including bunionectomy and excision of the base of the 2nd metatarsal, multiple neuroma resections History of laminectomy Family History Family History Grandparent Skin cancer Grandparent Arthritis COPD (chronic obstructive pulmonary disease) Emphysema lung Father Arthritis Heart disease Hypertension Sleep apnea COPD (chronic obstructive pulmonary disease) Emphysema lung Mother Hypertension COPD (chronic obstructive pulmonary disease) Emphysema lung Social History Social History (Updated 05/04/25 @ 02:14 by Cassi Stein PA-C) Social History: Code status: Full code Surrogate decision maker: Geraldine Beltran (sister) she states that her son and daughter would not know what to do in the case of an emergency. Smoking packs per day: 0.5 Smoking cigarettes per day: 10.0 Years smoked: 35 Smoking pack-years: 17.50 Smoking status: Former smoker Tobacco type: cigarettes Second hand tobacco smoke exposure: No Smoking end date: 01/07/02 Additional smoking assessment comments: Pt reports smoking cessation aprx 50 years ago Alcohol intake: former Substance use: never Substance use type: does not use Do You Feel Safe in your Home?: Yes Lack of Transportation: No Lack of Food: Never True Current Housing: I Have Housing Concerned About Future Housing: No Difficulty Paying Gas/Electric Bills: No Difficulty Paying for Meds: No Currently Unemployed: No Education: Bachelor's Degree Difficulty w/ Childcare or Family Care: No Additional living arrangements comments: Lives in [place]. 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 Spiritual care concerns: No Meds Home Medications and Allergies Home Medications ?Medication ?Instructions ?Recorded ?Confirmed ?Type albuterol 90 mcg/actuation aerosol 90 mcg inhalation Q4-6H PRN 01/03/25 05/04/25 History inhaler shortness of breath lisinopril 20 1 tablet PO DAILY 01/03/25 05/04/25 History mg-hydrochlorothiazide 25 mg tablet omeprazole 40 mg capsule,delayed 40 mg PO DAILY 01/03/25 05/04/25 History release pravastatin 40 mg tablet 40 mg PO DAILY 01/03/25 05/04/25 History sertraline 200 mg capsule 200 mg PO DAILY 01/03/25 05/04/25 History tramadol 100 mg tablet 100 mg PO Q6H PRN pain 01/03/25 05/04/25 History furosemide 20 mg tablet 20 mg PO DAILY edema #30 tabs 01/07/25 05/04/25 Rx oxybutynin chloride 5 mg tablet 5 mg PO DAILY 05/04/25 05/04/25 History tirzepatide (weight loss) 5 mg/0.5 5 mg subcut WEEKLY 05/04/25 05/04/25 History mL subcutaneous pen injector (Zepbound) Allergies Allergy/AdvReac Type Severity Reaction Status Date / Time clindamycin Allergy Rash Verified 05/04/25 00:18 metformin Allergy Diarrhea Verified 05/04/25 00:18 Penicillins Allergy Rash Verified 05/04/25 00:18 Vital Signs Vital Signs - 24 hr 05/03/25 16:21 05/03/25 17:55 05/03/25 17:55 Temperature 101.2 F H 100.6 F H 100.6 F H Pulse Rate 109 H 112 H Respiratory Rate 19 19 Blood Pressure 135/54 L 112/54 L Pulse Oximetry 96 96 Oxygen Delivery Room Air 05/03/25 19:05 05/03/25 19:25 05/03/25 20:23 Temperature 98.1 F Pulse Rate 96 96 90 Respiratory Rate 18 19 22 H Blood Pressure 129/106 H 95/49 L 96/72 L Pulse Oximetry 94 95 96 Oxygen Delivery 05/03/25 21:20 Temperature Pulse Rate 87 Respiratory Rate Blood Pressure 110/53 L Pulse Oximetry 96 Oxygen Delivery Exam Narrative: General: Mildly ill-appearing female in the semi-Judge position in bed in no distress. Weight: 108.7 kg. BMI: 38.7. HEENT: PERRL, EOMI. Sclera anicteric. Conjunctiva mildly injected. Tacky mucous membranes. Neck: Supple. Respiratory: Lungs are clear to auscultation bilaterally. Cardiovascular: Regular rate and rhythm with S1-S2. Gastrointestinal: Abdomen is soft, nontender, and nondistended with positive bowel sounds. Skin: Warm and dry. Chronic hyperpigmentation of the lower legs. Left lower leg is erythematous, warm, and exquisitely tender to touch to just below the knee. No lymphangitic streaking. Chronic ulcerated callus on the plantar aspect of the mid metatarsal heads without evidence of infection or drainage. Extremities: No cyanosis or clubbing. Mild bilateral lower extremity edema. Neurological: Alert. Cranial nerves 2-12 are grossly intact. No gross focal deficits to casual conversation. Psychiatric: Pleasant and cooperative with normal mood and affect. Judgment and insight intact. H&P: Results Labs Labs: Short CBC 05/03/25 Range/Units 16:44 WBC 16.4 H (4.5-10.0) K/mm3 Hgb 9.9 L (12.0-15.0) g/dL Hct 31.2 L (37.0-47.0) % Plt Count 252 (150-375) k/mm3 BMP 05/03/25 05/03/25 16:44 21:11 Sodium 137 139 Potassium 5.5 H 5.4 H Chloride 107 109 H Carbon Dioxide 21 L 20 L BUN 70 H D 66 H Creatinine 1.94 H 1.85 H Glucose 123 H 117 H Calcium 9.6 8.9 Liver Function 05/03/25 Range/Units 16:44 Total Bilirubin 0.5 (0.2-1.3) mg/dL AST 32 (14-36) U/L ALT 28 (6-35) U/L Alkaline Phosphatase 93 (38-126) U/L Albumin 4.7 (3.5-5.1) g/dL Urine 05/03/25 Range/Units 17:09 Urine Color Yellow (Yellow) Urine Appearance Clear (Clear) Urine pH 5.5 (5.0-9.0) Ur Specific [place] 1.013 (1.001-1.035) Urine Protein Negative (Negative) mg/dL Urine Glucose (UA) Negative (Negative) mg/dL Imaging Chest X-Ray 05/03/25 18:39 IMPRESSION: Cardiomegaly with cardiac decompensation and pulmonary edema. Superimposed pneumonitis cannot be excluded. Venous Doppler Study 05/03/25 19:07 IMPRESSION: Negative left lower extremity venous US. No deep vein thrombosis. Abdomen/Pelvis CT 05/03/25 19:21 IMPRESSION: 1. No evidence of appendicitis, diverticulitis or intestinal obstruction. 2. Anterior abdominal wall with bowel content. No obstruction or incarceration seen. Right inguinal fat containing hernia. 3. Bilateral inguinal lymphadenopathy larger on the left side. Clinical correlation advised. Assessment and Plan Assessment and plan (1) Sepsis: Qualifiers: Sepsis type: sepsis due to unspecified organism Sepsis acute organ dysfunction status: without acute organ dysfunction Qualified Code(s): A41.9 - Sepsis, unspecified organism Code(s): A41.9 - Sepsis, unspecified organism Status: Acute (2) Cellulitis of left leg: Code(s): L03.116 - Cellulitis of left lower limb Status: Acute (3) Acute on chronic kidney failure: Code(s): N17.9 - Acute kidney failure, unspecified; N18.9 - Chronic kidney disease, unspecified Status: Acute (4) Hyperkalemia: Code(s): E87.5 - Hyperkalemia Status: Acute (5) Obstructive sleep apnea on CPAP: Code(s): G47.33 - Obstructive sleep apnea (adult) (pediatric) Status: Acute (6) Hypertension: Code(s): I10 - Essential (primary) hypertension Status: Acute Plan The patient presented to the emergency department for evaluation of leg pain, redness, and warmth over the past couple of days as detailed in HPI. Labs, imaging, EKG, and all reports were personally reviewed. She meets sepsis criteria with fever, tachycardia, tachypnea, leukocytosis, and acute on chronic kidney injury in the setting of infection. Clinically she has cellulitis and has been started on cefazolin for antibiotic stewardship recommendations. The cellulitis does not seem to be stemming from the chronic left foot wound however radiographs will be obtained. Analgesics are available as needed. She also has an acute on chronic kidney injury which is likely due to several factors including sepsis and hypoperfusion from relative hypotension in the setting of TRINO-inhibitor and thiazide diuretic use. She will be judiciously hydrated with close monitoring of volume status, renal function, and electrolytes. Avoid nephrotoxic agents and renally dose all medications. If no improvement with IV fluids alone, further workup can be pursued. Potassium should improve with IV fluids and will be monitored. Antihypertensives on hold given relative hypotension. CPAP will be provided for the patient to use while hospitalized. Her medications will be reviewed and resumed as appropriate. Findings and treatment plan were discussed with the patient. Questions were solicited and answered to satisfaction. The patient's medical management will be taken over by the hospitalist team in a.. Quality VTE Prophylaxis VTE prophylaxis: pharmacologic ordered The patient has been admitted under observation status. Hospitalist MIPS Advance Care Plan I have confirmed that the patient's Advanced Care Plan is present, code status is documented, or surrogate decision maker is listed in patient medical record.: Yes Medication Reconciliation I have utilized all available resources to obtain, update and review the patients current medications (includes all prescriptions, OTC, herbals, cannabis, and nutritional supplements).: Yes
--- NOTE | 2025-05-03 22:24 | PC.NURSE ---
Attempted to give pt insulin dose but the pyxis was empty. Pt to be taken upstairs once pharmacy sends insulin up.
--- NOTE | 2025-05-03 22:30 | PC.NURSE ---
Per ED charge, patient is to stay in ER for 30 minutes after insulin is given to check BS again. If stable, pt can then be taken to assigned room.
[2025-05-03 22:32] LABS: Glucose Point of Care 113 mg/dl (65-105)
[2025-05-03] MEDS: DEXTROSE 50% 25 GM/50 ML SYRINGE IV PUSH (22:32)
[2025-05-03] MEDS: INSULIN HUMAN REGULAR (*BKC) 100 UNITS/ML 10 UNITS IV PUSH (22:32)
[2025-05-03 23:12] LABS: Glucose Point of Care 140 mg/dl (65-105)
[2025-05-03] MEDS: CALCIUM GLUC 1,000 MG/NS 50 ML 1,000 MG/50 ML BAG 100 MG IVPB (23:32)
[2025-05-03] MEDS: SODIUM ZIRCONIUM CYCLOSILICATE 10 GM POWD.PACK PO (23:32)
[2025-05-03] MEDS: ACETAMINOPHEN 325 MG TABLET 650 MG PO (23:45)
--- NOTE | 2025-05-03 23:47 | ADMGEN ---
This patient, Vale Siddiqi, was admitted to Medical Room 347-. Patient/family oriented to hospital policies and general routines including ID bracelet, bed and alarms, visiting hours, pain management, procedures, bathroom and other care routines, personal items, smoking policy, room service/diet, and visiting hours. Information on how to activate the Rapid Response Team has been discussed. Patient/Family are encouraged to report perceived risks to care and to ask questions if they do not understand what they are told or what they should do.
[2025-05-04] VITALS (8 sets, daily range): BP systolic 92–150; BP diastolic 39–53; PULSE 66–81; RESP 18; TEMP 36.1–36.8; O2SAT 97–100
[2025-05-04 00:21] LABS: Glucose Point of Care 138 mg/dl (65-105)
[2025-05-04 01:29] LABS: Anion Gap 11 mmol/L (4-12); Blood Urea Nitrogen 62 mg/dL (7-17); Calcium 8.7 mg/dL (8.4-10.2); Carbon Dioxide 18 mmol/L (22-30); Chloride 110 mmol/L (98-107); Estimated CRCL calculation 32 ml/min; Estimated Glomerular Filt Rate 28; Glucose 137 mg/dL (65-110); Potassium 4.6 mmol/L (3.4-5.0); Sodium 139 mmol/L (137-145)
[2025-05-04 01:31] LABS: Glucose Point of Care 131 mg/dl (65-105)
[2025-05-04] MEDS: LACTATED RINGERS 1,000 ML 75 ML IV CONT ×2 (02:28→23:25)
[2025-05-04 02:30] LABS: Glucose Point of Care 134 mg/dl (65-105)
[2025-05-04] MEDS: ACETAMINOPHEN 325 MG TABLET 650 MG PO ×2 (05:42→15:31)
[2025-05-04] MEDS: ceFAZolin 1 GM/NS 50 ML 1 GM/50 ML BAG IVPB ×2 (05:43→17:40)
[2025-05-04 05:46] LABS: Hematocrit 27.2 % (37.0-47.0); Hemoglobin 8.4 g/dL (12.0-15.0); Mean Corpuscular HGB Conc 30.9 g/dl (32-36); Mean Corpuscular Hemoglobin 29.3 pg (26-34); Mean Corpuscular Volume 94.8 fl (80-100); Mean Platelet Volume 9.4 fl (7.4-10.4); Platelet Count Result 223 k/mm3 (150-375); Red Blood Count 2.87 M/mm3 (4.2-5.4); Red Cell Distribution Width 13.9 % (11.5-14.5); White Blood Count 10.3 K/mm3 (4.5-10.0)
[2025-05-04 06:06] LABS: Anion Gap 10 mmol/L (4-12); Blood Urea Nitrogen 62 mg/dL (7-17); Calcium 8.8 mg/dL (8.4-10.2); Carbon Dioxide 19 mmol/L (22-30); Chloride 110 mmol/L (98-107); Estimated CRCL calculation 32 ml/min; Estimated Glomerular Filt Rate 29; Glucose 91 mg/dL (65-110); Potassium 4.6 mmol/L (3.4-5.0); Sodium 139 mmol/L (137-145)
[2025-05-04] MEDS: PANTOPRAZOLE 40 MG TABLET PO ×2 (09:12→20:44)
[2025-05-04] MEDS: PRAVASTATIN SODIUM 20 MG TABLET 40 MG PO (09:12)
[2025-05-04] MEDS: oxyBUTYnin CHLORIDE 5 MG TABLET PO (09:12)
[2025-05-04] MEDS: ENOXAPARIN 40 MG/0.4 ML SYRINGE SUB-Q (09:13)
[2025-05-04] MEDS: SERTRALINE HCL 50 MG TABLET 200 MG PO (09:13)
--- NOTE | 2025-05-04 09:25 | P.PNIM_ITS ---
Progress Note: A&P Assessment and Plan (1) Sepsis: Qualifiers: Sepsis acute organ dysfunction status: without acute organ dysfunction Sepsis type: sepsis due to unspecified organism Qualified Code(s): A41.9 - S epsis, unspecified organism Code(s): A41.9 - Sepsis, unspecified organism Status: Acute Assessment and Plan: Patient with fever, tachypnea, leukocytosis with left floor and infection * IV fluids * Cefazolin IV (2) Cellulitis of left leg: Code(s): L03.116 - Cellulitis of left lower limb Status: Acute Assessment and Plan: Cellulitis lower extremity venous Dopplers negative * Blood cultures NGTD * Imaging: * Cefazolin IV * Monitor IV hydration. * Pain management tramadol * Recommended duration of antibiotic therapy for 7-10 days. * Falls outpatient at the clinic for callus wound LT ball (3) Acute on chronic kidney failure: Code(s): N17.9 - Acute kidney failure, unspecified; N18.9 - Chronic kidney disease, unspecified Status: Acute Assessment and Plan: Stage 3 CKD baseline 1.3-1.4 1.94 POA * Gentle IV hydration. * Avoid nephrotoxic drugs. * Monitor antihypertensive drug therapy. * Avoid NSAIDs. * Routine CMP monitoring GFR. * Monitor electrolytes especially potassium. * Antibiotic doses depending on creatinine clearance. (4) Hypertension: Code(s): I10 - Essential (primary) hypertension Status: Acute Assessment and Plan: Patient was hypotensive on admission patient's Lasix lisinopril hydrochlorothiazide recommend discontinuation hydrochlorothiazide at discharge * Will initiate low-dose amlodipine in BP tolerates (5) Hyperkalemia: Code(s): E87.5 - Hyperkalemia Status: Resolved Assessment and Plan: Resolved with Lokelma and fluids (6) Obstructive sleep apnea on CPAP: Code(s): G47.33 - Obstructive sleep apnea (adult) (pediatric) Status: Acute Plan Code status: Full code per patient DVT prophylaxis: Lovenox Stress ulcer prophylaxis: Protonix 40 daily PT/OT notes: Ambulatory Disposition: Patient continues admission lower extremity cellulitis with sepsis blood cultures no growth today times 24 hours, and immune monitor cultures cellulitis improved plan for discharging oral tomorrow follow-up [facility] outpatient schedule. Patient plans to return home at discharge. Time Spent With Patient Time with patient: 25 - 35 minutes Subjective Date/time seen: 05/04/25 09:25 Interval history: Patient is a 75-year-old female admitted for further evaluation and treatment of left lower leg cellulitis 05/04/2025: Patient overall states she feels ill today no fevers did chills overnight denies any chest pain, shortness a breath, nausea vomiting minimal to moderate pain to left lower extremity. Review of Systems Review of Systems: 12 systems were reviewed and are negativ e except for as per HPI. All systems reviewed & are unremarkable except as noted in HPI and below Exam Narrative: General: Mildly ill-appearing female in no acute distress HEENT: PERRL, Tacky mucous membranes. Neck: Supple. Respiratory: Lungs are clear to auscultation bilaterally. Cardiovascular: RRR Gastrointestinal: Abdomen is soft, nontender Skin: Warm and dry. Chronic hyperpigmentation of the lower legs. Left lower leg is erythematous, warm, and exquisitely tender to touch to just below the knee. No lymphangitic streaking. Chronic ulcerated callus on the plantar aspect of the mid metatarsal heads without evidence of infection or drainage. Extremities: Mild bilateral lower extremity edema L>R Neurological: Alert. Objective Data Vital Signs Vital Signs: Vital Signs - 24 hr 05/03/25 16:21 05/03/25 17:55 05/03/25 17:55 Temperature 101.2 F H 100.6 F H 100.6 F H Pulse Rate 109 H 112 H Respiratory Rate 19 19 Blood Pressure 135/54 L 112/54 L Pulse Oximetry 96 96 Oxygen Delivery Room Air 05/03/25 19:05 05/03/25 19:25 05/03/25 20:23 Temperature 98.1 F Pulse Rate 96 96 90 Respiratory Rate 18 19 22 H Blood Pressure 129/106 H 95/49 L 96/72 L Pulse Oximetry 94 95 96 Oxygen Delivery 05/03/25 21:20 05/03/25 22:19 05/04/25 00:00 Temperature Pulse Rate 87 Respiratory Rate Blood Pressure 110/53 L 113/49 L 92/40 L Pulse Oximetry 96 Oxygen Delivery 05/04/25 00:00 05/04/25 00:21 05/04/25 04:00 Temperature Pulse Rate 81 71 Respiratory Rate Blood Pressure Pulse Oximetry Oxygen Delivery Room Air 05/04/25 04:00 05/04/25 08:00 05/04/25 08:00 Temperature 98.1 F 97.0 F L Pulse Rate 70 66 Respiratory Rate 18 18 Blood Pressure 118/39 L 107/39 L Pulse Oximetry 98 99 Oxygen Delivery Room Air Intake/Output Intake/Output: Intake & Output 05/01/25 05/02/25 05/03/25 05/04/25 23:59 23:59 23:59 23:59 Intake Total 2550 100 Output Total 75 Balance 2475 100 Meds/Results Medications: Active Medications Generic Name Dose Route Start Last Admin Trade Name Freq PRN Reason Stop Dose Admin Acetaminophen 650 mg 05/03/25 21:48 05/04/25 05:42 Acetaminophen 325 Mg Tablet PO 650 mg Q4H PRN Administration Mild Pain (1-3) or Fever Albuterol 1 puff 05/04/25 00:59 Albuterol Sulfate (*Sp) Aerosol 1 Puff INHALATION Q4HRT PRN shortness of breath Dextrose 12.5 gm 05/03/25 21:48 Dextrose 50% 25 Gm/50 Ml Syringe IV PUSH PRN PRN Hypoglycemia Protocol Enoxaparin Sodium 40 mg 05/04/25 09:00 05/04/25 09:13 Enoxaparin 40 Mg/0.4 Ml Syringe SUB-Q 40 mg DAILY JEB Administration Glucagon 1 mg 05/03/25 21:48 Glucagon For Inj 1 Mg Vial IM PRN PRN Hypoglycemia Protocol Glucose 15 gm 05/03/25 21:48 Glucose Oral Gel 15 Gm Of Glucse In 37.5 Gm Tube PO PRN PRN Hypoglycemia Protocol Dextrose 1,000 mls @ 100 mls/hr 05/03/25 21:48 Dextrose 5% 1,000 Ml IVPB PRN PRN Hypoglycemia Protocol Lactated Ringer's 1,000 mls @ 75 mls/hr 05/04/25 02:20 05/04/25 02:28 Lr - Lactated Ringers Iv IV CONT 75 mls/hr .[id number] JEB Administration Cefazolin Sodium 1 gm in 50 mls @ 100 mls/hr 05/04/25 06:00 05/04/25 06:13 Ancef 1 Gm/Ns 50 Ml IVPB Infused Q12H JEB Infusion Morphine Sulfate 2 mg 05/03/25 21:48 Morphine Sulfate (*Crx) 2 Mg/Ml Inj IV PUSH Q2H PRN Pain Rated 7-10 Ondansetron HCl 4 mg 05/03/25 21:48 Ondansetron Inj 4 Mg/2 Ml Vial IV PUSH Q4H PRN Nausea Oxybutynin Chloride 5 mg 05/04/25 09:00 05/04/25 09:12 Oxybutynin Chloride 5 Mg Tablet PO 5 mg DAILY JEB Administration Pantoprazole Sodium 40 mg 05/04/25 09:00 05/04/25 09:12 Pantoprazole 40 Mg Tablet PO 40 mg Q12HR JEB Administration Pravastatin Sodium 40 mg 05/04/25 09:00 05/04/25 09:12 Pravastatin Sodium 20 Mg Tablet PO 40 mg DAILY JEB Administration Sertraline HCl 200 mg 05/04/25 09:00 05/04/25 09:13 Sertraline Hcl 50 Mg Tablet PO 200 mg QAM JEB Administration Tramadol HCl 100 mg 05/04/25 01:02 Tramadol Hcl (*Crx) 50 Mg Tablet PO Q6H PRN pain 7-10 Radiology Results: ITS Impressions Chest X-Ray 05/03/25 18:39 IMPRESSION: Cardiomegaly with cardiac decompensation and pulmonary edema. Superimposed pneumonitis cannot be excluded. Venous Doppler Study 05/03/25 19:07 IMPRESSION: Negative left lower extremity venous US. No deep vein thrombosis. Abdomen/Pelvis CT 05/03/25 19:21 IMPRESSION: 1. No evidence of appendicitis, diverticulitis or intestinal obstruction. 2. Anterior abdominal wall with bowel content. No obstruction or incarceration seen. Right inguinal fat containing hernia. 3. Bilateral inguinal lymphadenopathy larger on the left side. Clinical correlation advised. Foot X-Ray 05/04/25 06:49 Impression: No radiographic evidence for osteomyelitis. No radiopaque foreign body. Chronic postoperative change of the first metatarsal. Labs Labs: Laboratory Results - last 24 hr 05/03/25 05/03/25 05/03/25 16:44 16:45 17:09 WBC 16.4 H RBC 3.36 L Hgb 9.9 L Hct 31.2 L MCV 92.9 MCH 29.5 MCHC 31.7 L RDW 13.9 Plt Count 252 MPV 9.2 Immature Gran % (Auto) 0.4 Neut % (Auto) 93.7 H Lymph % (Auto) 2.6 L [place] % (Auto) 2.9 Eos % (Auto) 0.2 Baso % (Auto) 0.2 Lymph # (Auto) 0.42 L [place] # (Auto) 0.5 Eos # (Auto) 0.0 Baso # (Auto) 0.0 Abs Immat Gran (auto) 0.07 H Absolute Neuts (auto) 15.4 H Absolute Nucleated RBC 0.000 Nucleated RBC % 0.0 PT 14.8 H INR 1.1 APTT 27.1 Sodium 137 Potassium 5.5 H Chloride 107 Carbon Dioxide 21 L Anion Gap 9 BUN 70 H D Creatinine 1.94 H Estim Creat Clear Calc 29 Estimated GFR 25 L Glucose 123 H POC Capillary Glucose Lactic Acid 0.7 Calcium 9.6 Total Bilirubin 0.5 AST 32 ALT 28 Alkaline Phosphatase 93 C-Reactive Protein 1.1 NT-Pro-B Natriuret Pep 403 H Total Protein 8.5 H Albumin 4.7 Lipase 213 Urine Color Yellow Urine Appearance Clear Urine pH 5.5 Ur Specific [place] 1.013 Urine Protein Negative Urine Glucose (UA) Negative Urine Ketones Negative Ur Blood (Man) Negative Urine Nitrate Negative Urine Bilirubin Negative Urine Urobilinogen 0.2 Leukocyte Esterase Rfl Negative Influenza A (RT-PCR) Influenza B (RT-PCR) RSV (RT-PCR) SARS-CoV-2 RNA (RT-PCR) 05/03/25 05/03/25 05/03/25 17:43 21:11 22:27 WBC RBC Hgb Hct MCV MCH MCHC RDW Plt Count MPV Immature Gran % (Auto) Neut % (Auto) Lymph % (Auto) [place] % (Auto) Eos % (Auto) Baso % (Auto) Lymph # (Auto) [place] # (Auto) Eos # (Auto) Baso # (Auto) Abs Immat Gran (auto) Absolute Neuts (auto) Absolute Nucleated RBC Nucleated RBC % PT INR APTT Sodium 139 Potassium 5.4 H Chloride 109 H Carbon Dioxide 20 L Anion Gap 10 BUN 66 H Creatinine 1.85 H Estim Creat Clear Calc 30 Estimated GFR 27 L Glucose 117 H POC Capillary Glucose 113 H Lactic Acid 0.8 Calcium 8.9 Total Bilirubin AST ALT Alkaline Phosphatase C-Reactive Protein NT-Pro-B Natriuret Pep Total Protein Albumin Lipase Urine Color Urine Appearance Urine pH Ur Specific [place] Urine Protein Urine Glucose (UA) Urine Ketones Ur Blood (Man) Urine Nitrate Urine Bilirubin Urine Urobilinogen Leukocyte Esterase Rfl Influenza A (RT-PCR) Negative Influenza B (RT-PCR) Negative RSV (RT-PCR) Negative SARS-CoV-2 RNA (RT-PCR) Negative 05/03/25 05/04/25 05/04/25 23:10 00:19 01:12 WBC RBC Hgb Hct MCV MCH MCHC RDW Plt Count MPV Immature Gran % (Auto) Neut % (Auto) Lymph % (Auto) [place] % (Auto) Eos % (Auto) Baso % (Auto) Lymph # (Auto) [place] # (Auto) Eos # (Auto) Baso # (Auto) Abs Immat Gran (auto) Absolute Neuts (auto) Absolute Nucleated RBC Nucleated RBC % PT INR APTT Sodium 139 Potassium 4.6 Chloride 110 H Carbon Dioxide 18 L Anion Gap 11 BUN 62 H Creatinine 1.75 H Estim Creat Clear Calc 32 Estimated GFR 28 L Glucose 137 H POC Capillary Glucose 140 H 138 H Lactic Acid Calcium 8.7 Total Bilirubin AST ALT Alkaline Phosphatase C-Reactive Protein NT-Pro-B Natriuret Pep Total Protein Albumin Lipase Urine Color Urine Appearance Urine pH Ur Specific [place] Urine Protein Urine Glucose (UA) Urine Ketones Ur Blood (Man) Urine Nitrate Urine Bilirubin Urine Urobilinogen Leukocyte Esterase Rfl Influenza A (RT-PCR) Influenza B (RT-PCR) RSV (RT-PCR) SARS-CoV-2 RNA (RT-PCR) 05/04/25 05/04/25 05/04/25 01:27 02:21 05:37 WBC 10.3 H RBC 2.87 L Hgb 8.4 L Hct 27.2 L MCV 94.8 MCH 29.3 MCHC 30.9 L RDW 13.9 Plt Count 223 MPV 9.4 Immature Gran % (Auto) Neut % (Auto) Lymph % (Auto) [place] % (Auto) Eos % (Auto) Baso % (Auto) Lymph # (Auto) [place] # (Auto) Eos # (Auto) Baso # (Auto) Abs Immat Gran (auto) Absolute Neuts (auto) Absolute Nucleated RBC Nucleated RBC % PT INR APTT Sodium 139 Potassium 4.6 Chloride 110 H Carbon Dioxide 19 L Anion Gap 10 BUN 62 H Creatinine 1.72 H Estim Creat Clear Calc 32 Estimated GFR 29 L Glucose 91 POC Capillary Glucose 131 H 134 H Lactic Acid Calcium 8.8 Total Bilirubin AST ALT Alkaline Phosphatase C-Reactive Protein NT-Pro-B Natriuret Pep Total Protein Albumin Lipase Urine Color Urine Appearance Urine pH Ur Specific [place] Urine Protein Urine Glucose (UA) Urine Ketones Ur Blood (Man) Urine Nitrate Urine Bilirubin Urine Urobilinogen Leukocyte Esterase Rfl Influenza A (RT-PCR) Influenza B (RT-PCR) RSV (RT-PCR) SARS-CoV-2 RNA (RT-PCR) Quality VTE Prophylaxis VTE prophylaxis: pharmacologic ordered -Patient's previous records reviewed on admission -ER notes reviewed in detail on admission -discussed all findings and current treatment plan with patient/Family/POA -Consultations reviewed for recommendations -Patient's disposition for safe discharge discussed with case specialist Dictation performed by [employer] direct speech recognition software, therefore electrical/instrument technician variants and typographical errors may occur. Hospitalist MIPS Advance Care Plan I have confirmed that the patient's Advanced Care Plan is present, code status is documented, or surrogate decision maker is listed in patient medical record.: Yes Medication Reconciliation I have utilized all available resources to obtain, update and review the patients current medications (includes all prescriptions, OTC, herbals, cannabis, and nutritional supplements).: Yes The patient is not eligible for med reconciliation; the patient is in a emergent medical situation where delaying treatment would jeopardize the patients health.: No
[2025-05-04] MEDS: traMADol HCL (*CRX) 50 MG TABLET 100 MG PO (20:47)
[2025-05-05] VITALS: PULSE 74
[2025-05-05 01:20] VITALS: RESP 20; O2SAT 97
[2025-05-05] MEDS: ONDANSETRON INJ 4 MG/2 ML VIAL IV PUSH (03:23)
[2025-05-05 04:00] VITALS: BP 146/67; PULSE 72; PULSE 79; RESP 18; TEMP 36.9; O2SAT 97
[2025-05-05] MEDS: ceFAZolin 1 GM/NS 50 ML 1 GM/50 ML BAG IVPB (05:26)
[2025-05-05 05:46] LABS: Hematocrit 25.7 % (37.0-47.0); Hemoglobin 7.8 g/dL (12.0-15.0); Mean Corpuscular HGB Conc 30.4 g/dl (32-36); Mean Corpuscular Hemoglobin 28.7 pg (26-34); Mean Corpuscular Volume 94.5 fl (80-100); Mean Platelet Volume 9.4 fl (7.4-10.4); Platelet Count Result 210 k/mm3 (150-375); Red Blood Count 2.72 M/mm3 (4.2-5.4); Red Cell Distribution Width 13.7 % (11.5-14.5); White Blood Count 8.3 K/mm3 (4.5-10.0)
[2025-05-05] MEDS: traMADol HCL (*CRX) 50 MG TABLET 100 MG PO (06:11)
[2025-05-05 06:15] LABS: Anion Gap 6 mmol/L (4-12); Blood Urea Nitrogen 42 mg/dL (7-17); Calcium 8.9 mg/dL (8.4-10.2); Carbon Dioxide 23 mmol/L (22-30); Chloride 111 mmol/L (98-107); Estimated CRCL calculation 35 ml/min; Estimated Glomerular Filt Rate 32; Glucose 104 mg/dL (65-110); Magnesium 1.9 mg/dL (1.6-2.3); Potassium 4.3 mmol/L (3.4-5.0); Sodium 140 mmol/L (137-145)
[2025-05-05 07:51] VITALS: BP 102/65; PULSE 72; RESP 18; TEMP 36.1; O2SAT 93
[2025-05-05 08:00] VITALS: PULSE 70
[2025-05-05] MEDS: PRAVASTATIN SODIUM 20 MG TABLET 40 MG PO (09:32)
[2025-05-05] MEDS: ENOXAPARIN 40 MG/0.4 ML SYRINGE SUB-Q (09:32)
[2025-05-05] MEDS: oxyBUTYnin CHLORIDE 5 MG TABLET PO (09:32)
[2025-05-05] MEDS: SERTRALINE HCL 50 MG TABLET 200 MG PO (09:32)
[2025-05-05] MEDS: PANTOPRAZOLE 40 MG TABLET PO (09:32)
[2025-05-05 12:23] VITALS: PULSE 63
--- NOTE | 2025-05-05 14:26 | P.DS_ITS ---
DS: Admitting Diagnosis Discharge Date 05/05/2025 Admitting Diagnosis Sepsis/Cellulitis of LLE DS: Discharge Diagnosis Discharge Diagnosis (1) Sepsis: Qualifiers: Sepsis acute organ dysfunction status: without acute organ dysfunction Sepsis type: sepsis due to unspecified organism Qualified Code(s): A41.9 - Sepsis, unspecified organism Code(s): A41.9 - Sepsis, unspecified organism Status: Acute (2) Cellulitis of left leg: Code(s): L03.116 - Cellulitis of left lower limb Status: Acute (3) Acute on chronic kidney failure: Code(s): N17.9 - Acute kidney failure, unspecified; N18.9 - Chronic kidney disease, unspecified Status: Acute (4) Hypertension: Code(s): I10 - Essential (primary) hypertension Status: Acute (5) Hyperkalemia: Code(s): E87.5 - Hyperkalemia Status: Resolved (6) Obstructive sleep apnea on CPAP: Code(s): G47.33 - Obstructive sleep apnea (adult) (pediatric) Status: Acute Plan Disposition: Discharged to home DS: Summary Hospital Course Reason for hospitalization: Sepsis/Cellulitis of LLE Hospital Course: Admission: This is a pleasant 75-year-old female with history of cellulitis, osteomyelitis of the left foot, chronic kidney disease, prediabetes, obstructive sleep apnea, chronic obstructive pulmonary disease, and peripheral neuropathy who presented to the emergency department via EMS with complaints of left leg pain. She visited her friend on Friday and spent about an hour dangling her legs into the swimming pool. The following day her left lower leg turned pink and over the last 24 hours it has become increasingly red, warm, and painful. It feels ?raw? and the pain is worse with even light touch. Overall she is just feeling poorly. She denies fever, chills, sweats, lightheadedness, cold and flu symptoms, chest pain, pleuritic pain, palpitations, shortness of breath, cough, nausea, vomiting, diarrhea, dysuria, and decrease in urine output. She has a chronic plantar left foot wound which is unchanged and she has not noticed any drainage from the wound. In the ED: Vital signs on arrival include a temperature of 101.2? F, blood pressure 135/54, pulse 109, respiratory rate 19, SpO2 96% on room air. Labs are significant for WBC count of 16.4, hemoglobin 9.9, potassium 5.5, BUN 70, creatinine 1.94, glucose 123, proBNP 403. Venous Doppler ultrasound was negative for DVT. Chest x-ray was read as having cardiomegaly with cardiac decompensation pulmonary edema. CT of the abdomen and pelvis showed no acute findings but did note bilateral inguinal lymphadenopathy, larger on the left. She was started on cefazolin for cellulitis and received a 2 L normal saline bolus and she was admitted to the floor in this setting for further treatment. Hospital Course: Patient was admitted to the medical unit for further treatment sepsis without septic shock secondary to left lower extremity cellulitis she was initiated on IV cefazolin with overall improvement to her lower extremity cellulitis trended labs which were unremarkable at time of discharge no further leukocytosis and renal function back to her baseline she does have a history of CKD 3. patient did soft BP on admission which improved with IV fluids at which time I also discontinued her hydrochlorothiazide recommended at discharge to discontinue diuretic and to monitor BP at home she currently reports she takes amlodipine and Lasix which time I recommended to continue to hold during this infectious process until BP tolerates. patient reports she has a sole line server of her at home and felt back to her baseline left lower extremity cellulitis improved in no advancement of erythema or worsening of swelling. Patient with small wound to pad left foot at which she follows with [facility] for recommended keeping that area dry and clean and to continue with wound care treatment. patient's blood cultures had no growth q.48h patient was discharged home on oral antibiotic therapy. Status at Discharge Functional status at discharge: independent ambulation Overall status at discharge: patient is progressing back to baseline Time Spent with Patient Time attestation: Total time spent providing and/or coordinating discharge services: Time spent: Greater than 30 minutes Exam Narrative: General: Mildly ill-appearing female in no acute distress HEENT: PERRL, Tacky mucous membranes. Neck: Supple. Respiratory: Lungs are clear to auscultation bilaterally. Cardiovascular: RRR Gastrointestinal: Abdomen is soft, nontender Skin: Warm and dry. Chronic hyperpigmentation of the lower legs. Left lower leg is erythematous, warm, and exquisitely tender to touch to just below the knee. No lymphangitic streaking. Chronic ulcerated callus on the plantar aspect of the mid metatarsal heads without evidence of infection or drainage. Extremities: Mild bilateral lower extremity edema L>R Neurological: Alert. DS: Data Data Completed and Pending Labs on day of discharge: Labs from last 24 hours 05/05/25 05:32 WBC 8.3 RBC 2.72 L Hgb 7.8 L Hct 25.7 L MCV 94.5 MCH 28.7 MCHC 30.4 L RDW 13.7 Plt Count 210 MPV 9.4 Sodium 140 Potassium 4.3 Chloride 111 H Carbon Dioxide 23 Anion Gap 6 BUN 42 H D Creatinine 1.57 H Estim Creat Clear Calc 35 Estimated GFR 32 L Glucose 104 Calcium 8.9 Magnesium 1.9 Preliminary micro results at discharge 05/03/25 18:09 Blood Culture - Preliminary Blood 05/03/25 16:44 Blood Culture - Preliminary Blood Imaging Radiologist's impression: Radiology Results: ITS Impressions Chest X-Ray 05/03/25 18:39 IMPRESSION: Cardiomegaly with cardiac decompensation and pulmonary edema. Superimposed pneumonitis cannot be excluded. Venous Doppler Study 05/03/25 19:07 IMPRESSION: Negative left lower extremity venous US. No deep vein thrombosis. Abdomen/Pelvis CT 05/03/25 19:21 IMPRESSION: 1. No evidence of appendicitis, diverticulitis or intestinal obstruction. 2. Anterior abdominal wall with bowel content. No obstruction or incarceration seen. Right inguinal fat containing hernia. 3. Bilateral inguinal lymphadenopathy larger on the left side. Clinical correlation advised. Foot X-Ray 05/04/25 06:49 Impression: No radiographic evidence for osteomyelitis. No radiopaque foreign body. Chronic postoperative change of the first metatarsal. Discharge Plan Discharge Attending physician on discharge: Mata Sen Consulting providers: Marivel Lino; Kendell Lauren; Ramírez Henry; Cassi Stein Zuhair M.; César Mills Discharging Clinician: Nichelle Sim Anticipated Discharge Date/Time: 05/05/25 14:14 Patient Disposition: Home Activity: may shower and as tolerated Diet: heart healthy Wound Care Instructions: follow printed instructions, keep dressing dry and change dressing daily Discharge Instructions: Cellulitis/foot wound: * I have prescribed oral antibiotic please take as prescribed even if feeling better * Follow-up with wound clinic as scheduled * keep wound clean and dry I have discontinued your Hydrochlorothiazide and lisinopril due to acute on chronic renal failure How can you care for yourself at home? ? Keep track of any new symptoms or changes in your symptoms. ? Rest until you feel better. ? Be safe with medicines. Take your medicines exactly as prescribed. Call your doctor if you think you are having a problem with your medicine. ? Do not drive after taking a prescription pain medicine. ? Ensure to follow-up with primary care physician as indicated and provide updated medication list provided to you at discharge. When should you call for help? Call 911 anytime you think you may need emergency care. For example, call if: ? You passed out (lost consciousness). Call your doctor now or seek immediate medical care if: ? You have new symptoms like fever, difficulty breathing, Chest pain, vomiting, or rash. ? You have new or different pain. ? You are confused and are having trouble thinking clearly. ? Your symptoms are getting worse. Watch closely for changes in your health, and be sure to contact your doctor if: ? You do not get better as expected. Patient Instructions: Antibiotic Form, Cellulitis (GEN), Sepsis (DC) Patient Language: Syriac Stand Alone Forms: General Discharge Information Follow-up/Referrals: Lani,Neymar Gimenez MD [Primary Care Provider] - 2 Weeks Discharge Medications: New cephalexin 500 mg tablet 500 mg PO Q6H Qty: 28 0RF Continued tramadol 100 mg tablet 100 mg PO Q6H PRN (Reason: pain) pravastatin 40 mg tablet 40 mg PO DAILY omeprazole 40 mg capsule,delayed release(DR/EC) 40 mg PO DAILY sertraline 200 mg capsule 200 mg PO DAILY albuterol 90 mcg/actuation aerosol 90 mcg inhalation Q4-6H PRN (Reason: shortness of breath) furosemide 20 mg tablet 20 mg PO DAILY Qty: 30 0RF oxybutynin chloride 5 mg tablet 5 mg PO DAILY Zepbound 5 mg/0.5 mL pen injector 5 mg subcut WEEKLY Rx Instructions: On tuesdays Discontinued lisinopril-hydrochlorothiazide 20-25 mg tablet 1 tablet PO DAILY Date of admission: 05/04/25 15:56 Primary Care Provider: Lani,Neymar Gimenez Admitting Provider: Isidro Rendon Attending physician on admission: Nichelle Sim Condition: Stable Quality VTE Prophylaxis VTE prophylaxis: pharmacologic ordered -Patient's previous records reviewed on admission -ER notes reviewed in detail on admission -discussed all findings and current treatment plan with patient/Family/POA -Consultations reviewed for recommendations -Patient's disposition for safe discharge discussed with keycase assembler Dictation performed by [employer] direct speech recognition software, therefore windows mobile developer variants and typographical errors may occur. Hospitalist MIPS Heart Failure (Exclusion) Patient has history of Heart Transplant or Left Ventricular Assistive Device?: No IF YES, STOP HERE Heart Failure (Qualifier) Patient has current or prior documentation of LVEF less than or equal to 40%, or mod/servere depressed LVSF?: No IF NO, STOP HERE
== END 2025-05-05 17:17 | disposition home or self-care (01) | DRG 872 ==
LOC: ANHED 17:16 → ANH3MED 22:17
PROVIDERS: Emergency Medicine; Physician Assistant; Admitting Provider Internal Medicine; Emergency Provider Physician Assistant; PCP Internal Medicine; Visit Provider Nurse Practitioner Family
DX: A41.9 Sepsis, unspecified organism (principal); L03.116 Cellulitis of left lower limb; N17.9 Acute kidney failure, unspecified; E87.5 Hyperkalemia; K21.9 Gastro-esophageal reflux disease without esophagitis; I12.9 Hypertensive chronic kidney disease with stage 1 through stage 4 chronic kidney disease, or unspecified chronic kidney disease; N18.30 Chronic kidney disease, stage 3 unspecified; G47.33 Obstructive sleep apnea (adult) (pediatric); J44.9 Chronic obstructive pulmonary disease, unspecified; R73.03 Prediabetes; G62.9 Polyneuropathy, unspecified; L84 Corns and callosities; L97.529 Non-pressure chronic ulcer of other part of left foot with unspecified severity; Z20.822 Contact with and (suspected) exposure to COVID-19; E66.9 Obesity, unspecified; Z68.38 Body mass index [BMI] 38.0-38.9, adult; Z87.891 Personal history of nicotine dependence; Z99.89 Dependence on other enabling machines and devices
CPT/HCPCS: 36415; 71045; 73630; 74176; 80048; 80053; 81003; 82948; 83605; 83690; 83735; 83880; 85025; 85027; 85610; 85730; 86140; 87040; 87637; 93005; 93971; 96361; 96365; 96366; 96368; 96372; 96375; 99285; A9270; G0378; J0612; J0690; J1650; J1815; J2270; J2405; J7030; J7040; J7120